=== PATIENT | female | born 1940 | race Caucasian/White ===

== ENCOUNTER 2017-02-21 14:39 | Inpatient (IN) | payer MEDICARE, OTHER ==
[2017-02-21] MEDS ORDERED: Pantoprazole 40 MG Vial IVPUSH ONE (16:58)
[2017-02-21] MEDS ORDERED: Albuterol 8 GM Inhaler INH PRN (18:28)
[2017-02-21] MEDS ORDERED: Pantoprazole 40 MG Vial IV SCH (20:00)
[2017-02-21] MEDS: LORazepam 2 MG/ML MDV IVPUSH PRN (20:03)
[2017-02-21] MEDS: Acetaminophen/HYDROcodone 325-5 MG Tab PO PRN (20:08)
--- NOTE | 2017-02-21 20:43 | PCM.HP ---
H&P History of Present Illness - General Date of Service: 02/21/17 Admit Problem/Dx: Admission Diagnosis/Problem Admission Diagnosis/Problem Hematochezia Source of Information: Patient, Other (Clinic records) History Limitations: Reports: No Limitations - History of Present Illness Initial Comments - Free Text/Narative: Patient was evaluated at [facility] for hematochezia today and was found to have heme+ stools upon rectal exam as well as drop in HGB to 9.8. Patient had been over 11 when checked within the last month. Patient says she has long history of intermittent GI bleeds and has been scoped multiple times. However she says that no focal source of blood loss has ever been identified. Usually the bleeds present as blackish in color. Today's episode was more reddish in nature. She denies any changes in medications. No other complaints except for feeling more fatigued. She was referred for inpatient care from [facility] with plan of placing her NPO and on Protonix/IV fluids. Arrangements made for her to have EGD/colonoscopy performed on . Vital signs stable. Chemistry showed Cr of 1.27 Amylase and Lipase normal. Patient has undergone more recent evaluation for what she describes as a "stitch "-like pain in her right side. It starts in the right CVA area and wraps around towards the mid right abdomen. It is triggered by activity such as washing floors. Improved by rest. No changes with eating/drinkin. Recent CT of abdomen an pelvis performed that was overall unremarkable. No recurrence of cancer noted. Patient did have diverticulosis. She says that her specialists think that it may be related to her arthritis. She also notes having a stroke approximately June of last year. She has recovered well from that except for issues with her right foot when she tries to walk. Generalized Pain Score (Numeric/FACES): 7 - Related Data Allergies/Adverse Reactions: Allergies Allergy/AdvReac Type Severity Reaction Status Date / Time atorvastatin [From Lipitor] Allergy Cannot Verified 02/21/17 16:06 Remember hydrochlorothiazide Allergy Hives Verified 10/07/16 13:27 hydromorphone Allergy Other Verified 10/07/16 13:27 meloxicam Allergy Other Verified 10/07/16 13:27 Penicillins Allergy Hives Verified 10/07/16 13:27 Sulfa (Sulfonamide Allergy Hives Verified 10/07/16 13:27 Antibiotics) trazodone Allergy Itching Verified 10/07/16 13:27 Home Medications: Home Meds Albuterol [Proventil HFA] 1 inh INH Q4HR PRN 04/18/14 [History] cycloSPORINE [Restasis] 1 drop EYEBOTH DAILY@1100,2100 04/18/14 [History] Latanoprost [Xalatan 0.005% Ophth Soln] 1 drop EYEBOTH DAILY@209907/01/14 [ History] Brinzolamide [Azopt] 1 drop EYEBOTH DAILY@1100,209904/17/15 [History] Cetirizine HCl [Zyrtec] 10 mg PO DAILY 04/17/15 [History] Cyanocobalamin (Vitamin B-12) [Vitamin B-12] 1,000 mcg SUBCUT Q30D 04/17/15 [ History] Non-Formulary Medication [NF Drug] 1 drop EYEBOTH BID@1100,209904/17/15 [ History] Pantoprazole Sodium [Protonix] 40 mg PO BID 09/23/15 [History] Calcitriol [Rocaltrol] 0.25 mcg PO DAILY 12/08/15 [History] Mirtazapine [Remeron] 15 mg PO BEDTIME 12/08/15 [History] Triamcinolone Acetonide [Nasacort] 2 sprays NASBOTH DAILY 12/08/15 [History] predniSONE [Prednisone] 2.5 mg PO DAILY 12/08/15 [History] Escitalopram [Lexapro] 10 mg PO DAILY 10/07/16 [History] Potassium Chloride [Klor-Con M20] 20 meq PO DAILY 10/07/16 [History] Rivaroxaban [Xarelto] 10 mg PO DAILY 10/07/16 [History] LORazepam [Ativan] 0.5 mg PO Q8H PRN 02/21/17 [History] Levothyroxine [Synthroid] 50 mcg PO DAILY 02/21/17 [History] Rosuvastatin [Crestor] 10 mg PO BEDTIME 02/21/17 [History] amLODIPine Besylate [Amlodipine Besylate] 10 mg PO DAILY 02/21/17 [History] Past Medical History HEENT History: Reports: Glaucoma, Hard of Hearing Other HEENT History: hyperparathyroidism Cardiovascular History: Reports: High Cholesterol, Hypertension Gastrointestinal History: Reports: GERD, GI Bleed Genitourinary History: Reports: Chronic Renal Insuffiency, UTI, Recurrent, Other (See Below) (Interstitial cystitis) Musculoskeletal History: Reports: Arthritis, Fibromyalgia, Osteoarthritis, Osteoporosis, RA Neurological History: Reports: CVA Other Neuro History: ADD and narcolepsy Psychiatric History: Reports: Anxiety, Depression Endocrine/Metabolic History: Reports: Hyperparathyroidism, Vitamin D Deficiency , Other (See Below) (Graves Disease. Tx with radioactive iodine. History of parathyroidectomy.) Hematologic History: Reports: Anemia, B12 Deficiency, Idiopathic Thrombocytopenia, Iron Deficiency Oncologic (Cancer) History: Reports: Other (See Below) (endometrial cancer) - Infectious Disease History Infectious Disease History: Reports: Chicken Pox, Measles, Mumps - Past Surgical History HEENT Surgical History: Reports: Eye Surgery Other HEENT Surgeries/Procedures: Parathyroid surgery x 2. GI Surgical History: Reports: Appendectomy, Cholecystectomy, Colonoscopy, EGD, Victor Manuel Fundoplication Female Surgical History: Reports: Hysterectomy, Salpingo-Oophorectomy Endocrine Surgical History: Reports: Parathyroidectomy - History Comment History Comment: Narcolepsy, ventral hernia Social & Family History - Tobacco Use Smoking Status *Q: Former Smoker Years of Tobacco use: 30 Used Tobacco, but Quit: Yes Month Tobacco Last Used: 0 Second Hand Smoke Exposure: No - Alcohol Use Days Per Week of Alcohol Use: 0 Number of Drinks Per Day: 0 Total Drinks Per Week: 0 - Recreational Drug Use Recreational Drug Use: No Drug Use in Last 12 Months: No - Living Situation & Occupation Living situation: Reports: , with Family Occupation: Retired H&P Review of Systems - Review of Systems: Review Of Systems: See Below (Patient has multiple chronic medical problems. Only acute change reported is with the bloody stools.) General: Reports: Fatigue (long standing). Denies: Fever, Chills, Night Sweats , Diaphoresis HEENT: Reports: No Symptoms Pulmonary: Reports: No Symptoms Cardiovascular: Reports: No Symptoms Gastrointestinal: Reports: Abdominal Pain (See HPI, has had months of intermittent right sided pain that has been activity related in severity), Hematochezia. Denies: Constipation, Diarrhea, Nausea, Vomiting Genitourinary: Reports: No Symptoms Musculoskeletal: Reports: No Symptoms (No acute changes from baseline) Skin: Reports: No Symptoms Psychiatric: Reports: No Symptoms Neurological: Reports: No Symptoms Exam - Exam Exam: See Below - Vital Signs Vital Signs: Last Vital Signs Temp 36.6 C 02/21/17 15:57 Pulse 75 02/21/17 15:57 Resp BP 129/55 L 02/21/17 15:57 Pulse Ox 100 02/21/17 17:00 Weight: 82.1 kg - Exam General: Alert, Oriented, Cooperative HEENT: Conjunctiva Clear, EACs Clear, EOMI, Hearing Intact (uses hearing aids), Mucosa Moist & [place], Nares Patent, Posterior Pharynx Clear, Pupils Equal, Pupils Reactive Neck: Supple, Trachea Midline Lungs: Clear to Auscultation, Normal Respiratory Effort Cardiovascular: Regular Rate, Regular Rhythm GI/Abdominal Exam: Normal Bowel Sounds, Soft, Non-Tender, No Distention, No Abnormal Bruit (Female) Exam: Deferred Rectal (Female) Exam: Deferred (previously examined/heme tested this afternoon at clinic) Back Exam: No: Paraspinal Tenderness, Vertebral Tenderness Extremities: Non-Tender, Normal Capillary Refill, Pedal Edema (mild edema bilaterally) Peripheral Pulses: 2+: Radial (L), Radial (R) Skin: Warm, Dry Neurological: Cranial Nerves Intact, Reflexes Equal Bilateral, Strength Equal Bilateral Neuro Extensive - Mental Status: Alert, Oriented x3, Normal Mood/Affect, Normal Cognition, Memory Intact Psychiatric: Alert, Normal Affect, Normal Mood *Q Meaningful Use (ADM) - VTE *Q VTE Criteria *Q: VTE Pharmacological Contraindications *Q: Risk of Bleeding - Stroke *Q Stroke Criteria *Q: - AMI *Q AMI Criteria *Q: - Problem List (1) Gastrointestinal bleeding SNOMED Code(s): 99675287 ICD Code: K92.2 - GASTROINTESTINAL HEMORRHAGE, UNSPECIFIED Status: Acute Priority: High Current Visit: Yes Qualifiers: GI bleed type/associated pathology: unspecified gastrointestinal hemorrhage type Qualified Code(s): K92.2 - Gastrointestinal hemorrhage, unspecified (2) GERD (gastroesophageal reflux disease) SNOMED Code(s): 181791411 ICD Code: K21.9 - GASTRO-ESOPHAGEAL REFLUX DISEASE WITHOUT ESOPHAGITIS Status: Chronic Priority: Medium Current Visit: Yes Qualifiers: Esophagitis presence: esophagitis presence not specified Qualified Code(s) : K21.9 - Gastro-esophageal reflux disease without esophagitis (3) B12 deficiency SNOMED Code(s): 420515609 ICD Code: E53.8 - DEFICIENCY OF OTHER SPECIFIED B GROUP VITAMINS Status: Chronic Priority: Low Current Visit: No (4) Rheumatoid arthritis SNOMED Code(s): 61676973 ICD Code: M06.9 - RHEUMATOID ARTHRITIS, UNSPECIFIED Status: Chronic Priority: Low Current Visit: No Qualifiers: Rheumatoid factor presence: without rheumatoid factor Laterality: unspecified laterality (5) CKD (chronic kidney disease) SNOMED Code(s): 810963970 ICD Code: N18.9 - CHRONIC KIDNEY DISEASE, UNSPECIFIED Status: Chronic Priority: Low Current Visit: No Qualifiers: Chronic kidney disease stage: unspecified stage Qualified Code(s): N18.9 - Chronic kidney disease, unspecified (6) Osteoporosis SNOMED Code(s): 91248717 ICD Code: M81.0 - AGE-RELATED OSTEOPOROSIS W/O CURRENT PATHOLOGICAL FRACTURE Status: Chronic Priority: Low Current Visit: No Qualifiers: Osteoporosis type: unspecified (7) Thrombocytopenia SNOMED Code(s): 012571208 ICD Code: D69.6 - THROMBOCYTOPENIA, UNSPECIFIED Status: Chronic Priority : Low Current Visit: No (8) Graves disease SNOMED Code(s): 499310006 ICD Code: E05.00 - THYROTOXICOSIS W DIFFUSE GOITER W/O THYROTOXIC CRISIS Status: Inactive Priority: Low Current Visit: No Problem Details: Hx Graves. Radioactive Iodine treatment. (9) Fibromyalgia SNOMED Code(s): 952769982 ICD Code: M79.7 - FIBROMYALGIA Status: Chronic Priority: Low Current Visit: No (10) Glaucoma SNOMED Code(s): 50372369 ICD Code: H40.9 - UNSPECIFIED GLAUCOMA Status: Chronic Priority: Low Current Visit: No Qualifiers: Glaucoma type: unspecified (11) Endometrial cancer SNOMED Code(s): 921521636 ICD Code: C54.1 - MALIGNANT NEOPLASM OF ENDOMETRIUM Status: Inactive Priority: Low Current Visit: No (12) CVA (cerebral vascular accident) SNOMED Code(s): 187460694 ICD Code: I63.9 - CEREBRAL INFARCTION, UNSPECIFIED Status: Chronic Priority: Low Current Visit: No Qualifiers: Laterality of affected vessel: unspecified (13) HTN, Benign hypertension SNOMED Code(s): 32481641 ICD Code: I10 - ESSENTIAL (PRIMARY) HYPERTENSION Status: Chronic Priority : Low Current Visit: No Problem List Initiated/Reviewed/Updated: Yes Orders Last 24hrs: Active Orders 24 hr Category Date Time Status Patient Status [ADT] Routine ADT 02/21/17 18:21 Active Antiembolic Devices [RC] 08,20 Care 02/21/17 18:26 Active Communication Order [RC] ROUTINE Care 02/21/17 20:23 Ordered Height and Weight [RC] UPON Care 02/21/17 18:21 Active Intake and Output [RC] QSHIFT Care 02/21/17 18:23 Active Oxygen Therapy [RC] PRN Care 02/21/17 18:21 Active Pulse Oximetry [RC] PRN Care 02/21/17 18:23 Active Up With Assistance [RC] ASDIRECTED Care 02/21/17 18:21 Active VTE/DVT Education [RC] PER UNIT ROUTINE Care 02/21/17 18:21 Active Vital Signs [RC] Q6HR Care 02/21/17 18:21 Active OT Evaluation and Treatment [CONS] Routine Cons 02/21/17 18:21 Active PT Evaluation and Treatment [CONS] Routine Cons 02/21/17 18:21 Active Nothing per Oral Now Diet [DIET] Diet 02/21/17 Dinner Active Abdomen 2V AP Flat Upright [CR] Routine Exams 02/21/17 14:35 Taken BASIC METABOLIC PANEL,BMP [CHEM] AM Lab 02/22/17 05:11 Ordered BASIC METABOLIC PANEL,BMP [CHEM] AM Lab 02/23/17 05:11 Ordered BASIC METABOLIC PANEL,BMP [CHEM] AM Lab 02/24/17 05:11 Ordered CBC WITH AUTO DIFF [HEME] AM Lab 02/22/17 05:11 Ordered CBC WITH AUTO DIFF [HEME] AM Lab 02/23/17 05:11 Ordered CBC WITH AUTO DIFF [HEME] AM Lab 02/24/17 05:11 Ordered Acetaminophen/HYDROcodone [[place] 325-5 MG] Med 02/21/17 19:50 Active 1 tab PO Q4H PRN Albuterol [Ventolin HFA] Med 02/21/17 18:28 Active 0 gm INH Q4HR PRN Bisacodyl [Dulcolax] Med 02/22/17 18:00 Once 10 mg PO ONETIME ONE Brinzolamide [Azopt] Med 02/21/17 21:00 Pending 1 drop EYEBOTH DAILY@1100,2100 Cyclosporine [Restasis] Med 02/21/17 21:00 Hold 1 drop EYEBOTH DAILY@1100,2100 Dextrose 5%-0.45% NaCl [Dextrose 5%-1/2 NS] 1,000 ml Med 02/21/17 18:30 Active IV ASDIRECTED LORazepam [Ativan] Med 02/21/17 18:30 Active 0.5 mg IVPUSH Q6H PRN Latanoprost [Xalatan 0.005% Ophth Soln] Med 02/21/17 21:00 Active 0 ml EYEBOTH DAILY@2100 Non-Formulary Medication [NF Drug] Med 02/21/17 21:00 Pending 1 drop EYEBOTH BID@1100,2100 Ondansetron [Zofran] Med 02/21/17 18:21 Active 4 mg IVPUSH Q6H PRN Pantoprazole [ProTONIX IV] Med 02/22/17 08:00 Ordered 40 mg IV Q12HR Polyethylene Glycol 3350 [MiraLAX] Med 02/23/17 12:00 Once 238 gm PO ONETIME ONE Triamcinolone Acetonide [Nasacort] Med 02/22/17 08:00 Pending 2 sprays NASBOTH DAILY Antiembolic Hose [OM.PC] Per Unit Routine Oth 02/21/17 18:24 Ordered Sequential Compression Device [OM.PC] Per Unit Routine Oth 02/21/17 18:24 Ordered VTE Pharmacological Contraindications [AST] Per Unit Oth 02/21/17 18:21 Ordered Routine Resuscitation Status Routine Resus Stat 02/21/17 18:21 Ordered Medication Orders Hydrocodone Bitart/Acetaminophen ([place] 325-5 Mg) 1 tab PO Q4H PRN PRN Reason: Pain Last Admin: 02/21/17 20:08 Dose: 1 tab Albuterol (Ventolin Hfa) 0 gm INH Q4HR PRN PRN Reason: Shortness of Breath Bisacodyl (Dulcolax) 10 mg PO ONETIME ONE Stop: 02/22/17 18:01 Dextrose/Sodium Chloride (Dextrose 5%-1/2 Ns) 1,000 mls @ 125 mls/hr IV ASDIRECTED KATLIN Latanoprost (Xalatan 0.005% Ophth Soln) 0 ml EYEBOTH DAILY@2100 KATLIN Lorazepam (Ativan) 0.5 mg IVPUSH Q6H PRN PRN Reason: Anxiety Last Admin: 02/21/17 20:03 Dose: 0.5 mg Non-FormAzopt] 1 (Drop)) 1 drop EYEBOTH DAILY@1100,2100 KATLIN Non-FormNon- Formulary Medication [Nf Drug] 1 Drop) 1 drop EYEBOTH BID@1100 ,2100 KATLIN Non-FormNasacort 2 sprays NASBOTH DAILY [facility] Non-FormRestasis (Opth Drops) 1 drop EYEBOTH DAILY@1100,2100 KATLIN Ondansetron HCl (Zofran) 4 mg IVPUSH Q6H PRN PRN Reason: Nausea/Vomiting Pantoprazole Sodium (Protonix Iv) 40 mg IV Q12HR KATLIN Polyethylene Glycol (Miralax) 238 gm PO ONETIME ONE Stop: 02/23/17 12:01 Assessment/Plan Comment:: GI bleed in patient with history of multiple prior GI bleeds. Plan at this time is to keep patient NPO. IV fluids ordered. Protonix given. Will continue to monitor Hgb/Hct. Current plan if for patient to undergo EGD and colonoscopy on .
[2017-02-21] MEDS ORDERED: AZOPT 1% EYEBOTH SCH (21:00)
[2017-02-21] MEDS ORDERED: [UNRECOGNIZED DRUG - REMARK] EYEBOTH SCH ×2 (21:00)
[2017-02-21] MEDS ORDERED: OPTH EYEBOTH SCH (21:00)
[2017-02-21] MEDS: Dextrose 5%-0.45% NaCl 1,000 ML IV SCH (22:00)
[2017-02-21] MEDS: Latanoprost 0.005% Ophth Soln 2.5 ML Bottle EYEBOTH SCH (22:03)
[2017-02-21] MEDS: AZOPT 1% EYEBOTH SCH (22:05)
[2017-02-22] MEDS: Acetaminophen/HYDROcodone 325-5 MG Tab PO PRN ×3 (03:15→19:34)
[2017-02-22] MEDS: Dextrose 5%-0.45% NaCl 1,000 ML IV SCH ×2 (03:48→12:08)
[2017-02-22] MEDS: Ondansetron 4 MG/2 ML SDV IVPUSH PRN (05:57)
[2017-02-22] MEDS: Pantoprazole 40 MG Vial IV SCH ×2 (07:30→19:35)
[2017-02-22] MEDS: AZOPT 1% EYEBOTH SCH ×4 (11:41→20:32)
[2017-02-22] MEDS: LORazepam 2 MG/ML MDV IVPUSH PRN (14:13)
--- NOTE | 2017-02-22 15:48 | PCM.PN ---
- General Info Date of Service: 02/22/17 Admission Dx/Problem (Free Text): GI bleed upper GI Functional Status: Reports: Pain Controlled - Review of Systems General: Reports: Weakness HEENT: Reports: No Symptoms Pulmonary: Reports: No Symptoms Cardiovascular: Reports: No Symptoms Gastrointestinal: Reports: No Symptoms Musculoskeletal: Reports: Other (Rise aches) Skin: Reports: No Symptoms Neurological: Reports: No Symptoms Psychiatric: Reports: No Symptoms - Patient Data Vitals - Most Recent: Last Vital Signs Temp 98.3 F 02/22/17 11:24 Pulse 86 02/22/17 11:24 Resp 15 02/22/17 11:24 BP 145/58 H 02/22/17 11:24 Pulse Ox 100 02/22/17 11:24 Weight - Most Recent: 180 lb 15.992 oz I&O - Last 24 Hours: Intake & Output 02/22/17 02/22/17 02/22/17 06:59 14:59 22:59 Intake Total 2382 720 Output Total 200 250 Balance 2182 470 Lab Results Last 24 Hours: Laboratory Results - last 24 hr 02/22/17 02/22/17 Range/Units 06:55 06:55 WBC 4.0 (4.0-10.2) K/uL RBC 3.52 L (3.77-5.09) M/uL Hgb 8.5 L D (11.7-15.5) g/dL Hct 28.2 L (34.0-46.0) % MCV 80.1 L (84.0-98.0) fL MCH 24.1 L (28.2-33.3) pg MCHC 30.1 L (31.7-36.0) g/dL RDW 18.7 H (11.2-14.1) % Plt Count 139 L (150-350) K/uL Neut % (Auto) 35.7 L (45.0-80.0) % Lymph % (Auto) 49.9 (10.0-50.0) % [place] % (Auto) 11.3 (2.0-14.0) % Eos % (Auto) 2.8 (0.0-5.0) % Baso % (Auto) 0.3 (0.0-2.0) % Neut # (Auto) 1.42 (1.40-7.00) K/uL Lymph # (Auto) 1.98 (0.50-3.50) K/uL [place] # (Auto) 0.45 (0.00-1.00) K/uL Eos # (Auto) 0.11 (0.00-0.50) K/uL Baso # (Auto) 0.01 (0.00-0.20) K/uL Sodium 143 (136-145) mmol/L Potassium 3.5 (3.5-5.1) mmol/L Chloride 107 (98-107) mmol/L Carbon Dioxide 24.8 (21.0-32.0) mmol/L BUN 14 (7-18) mg/dL Creatinine 1.18 H (0.51-1.17) mg/dL Est Cr Clr Drug Dosing 40.06 mL/min Estimated GFR (MDRD) 45 mL/min Glucose 111 H (74-106) mg/dL Calcium 8.3 L (8.5-10.1) mg/dL Med Orders - Current: Current Medications Hydrocodone Bitart/Acetaminophen ([place] 325-5 Mg) 1 tab PO Q4H PRN PRN Reason: Pain Last Admin: 02/22/17 14:11 Dose: 1 tab Albuterol (Ventolin Hfa) 0 gm INH Q4HR PRN PRN Reason: Shortness of Breath Bisacodyl (Dulcolax) 10 mg PO ONETIME ONE Stop: 02/22/17 18:01 Latanoprost (Xalatan 0.005% Ophth Soln) 0 ml EYEBOTH DAILY@2099 [facility] Last Admin: 02/21/17 22:03 Dose: 1 drop Lorazepam (Ativan) 0.5 mg IVPUSH Q6H PRN PRN Reason: Anxiety Last Admin: 02/22/17 14:13 Dose: 0.5 mg Azopt (Brinzolamide) (1% Ophth Susp) 1 drop EYEBOTH BID@1099,2099 [facility] Last Admin: 02/22/17 11:42 Dose: 1 drop Nasacort ( Triamcinolone) Nasal [place] 2 sprays NASBOTH DAILY [facility] Last Admin: 02/22/17 11:42 Dose: 2 sprays Non-FormRestasis (Opth Drops) 1 drop EYEBOTH DAILY@1100,2100 [facility] Ocupress (Carteolol) (1% Ophth Susp) 1 each EYEBOTH BID [facility] Ondansetron HCl (Zofran) 4 mg IVPUSH Q6H PRN PRN Reason: Nausea/Vomiting Last Admin: 02/22/17 05:57 Dose: 4 mg Pantoprazole Sodium (Protonix Iv) 40 mg IV Q12HR [facility] Last Admin: 02/22/17 07:30 Dose: 40 mg Polyethylene Glycol (Miralax) 238 gm PO ONETIME ONE Stop: 02/23/17 12:01 Discontinued Medications Dextrose/Sodium Chloride (Dextrose 5%-1/2 Ns) 1,000 mls @ 125 mls/hr IV ASDIRECTED [facility] Last Admin: 02/22/17 12:08 Dose: 125 mls/hr PtomAzopt 1% (Opth Drops) 0 drop EYEBOTH DAILY@1100,2100 [facility] Non-FormRestasis (Opth Drops) 1 drop EYEBOTH DAILY@1100,2100 [facility] Pantoprazole Sodium (Protonix Iv) 80 mg IVPUSH ONETIME ONE Stop: 02/21/17 16:59 Last Admin: 02/21/17 18:25 Dose: 80 mg Pantoprazole Sodium (Protonix Iv) 40 mg IV Q12HR [facility] Last Admin: 02/21/17 21:27 Dose: Not Given Patient's Own (Medication Azopt 1%) 0 each EYEBOTH DAILY@1100,2100 [facility] Last Admin: 02/21/17 22:05 Dose: 1 each - Exam General: Alert, Oriented HEENT: Pupils Equal, Pupils Reactive, EOMI, Mucous Membr. Moist/[place] Neck: Supple Lungs: Clear to Auscultation, Normal Respiratory Effort Cardiovascular: Regular Rate, Regular Rhythm GI/Abdominal Exam: Soft, No Distention, No Mass, Tender, Abnormal Bowel Sounds Back Exam: Normal Inspection, Full Range of Motion Extremities: Normal Inspection - Problem List & Annotations (1) Gastrointestinal bleeding SNOMED Code(s): 18155452 Code(s): K92.2 - GASTROINTESTINAL HEMORRHAGE, UNSPECIFIED Status: Acute Priority: High Current Visit: Yes Qualifiers: GI bleed type/associated pathology: unspecified gastrointestinal hemorrhage type Qualified Code(s): K92.2 - Gastrointestinal hemorrhage, unspecified - Problem List Review Problem List Initiated/Reviewed/Updated: Yes - My Orders Last 24 Hours: My Active Orders 02/22/17 15:36 CBC WITH AUTO DIFF [HEME] Stat 02/22/17 Dinner Clear Liquid Diet [DIET] - Plan Plan:: GI bleed in patient with history of multiple prior GI bleeds. Plan at this time is to keep patient NPO. IV fluids ordered. Protonix given. Will continue to monitor Hgb/Hct. Current plan if for patient to undergo EGD and colonoscopy on . At this time we will repeat her hemoglobin now and in the morning see if stable or if we'll need to transfuse patient appears stable at this time we'll start PT for strengthening and ambulation also will start clear liquid diet.
[2017-02-22] MEDS ORDERED: Bisacodyl 5 MG Tab PO ONE (18:00)
[2017-02-22] MEDS ORDERED: CARTEOLOL 1% EYEBOTH SCH (18:00)
[2017-02-22] MEDS: Latanoprost 0.005% Ophth Soln 2.5 ML Bottle EYEBOTH SCH (20:32)
[2017-02-23] MEDS: Pantoprazole 40 MG Vial IV SCH ×2 (07:20→20:06)
[2017-02-23] MEDS: LORazepam 2 MG/ML MDV IVPUSH PRN ×2 (08:52→22:25)
[2017-02-23] MEDS: Acetaminophen/HYDROcodone 325-5 MG Tab PO PRN ×4 (10:39→18:30)
[2017-02-23] MEDS ORDERED: Polyethylene Glycol 3350 Powder 238 GM Bot PO ONE (12:00)
[2017-02-23] MEDS: Ondansetron 4 MG/2 ML SDV IVPUSH PRN ×2 (12:34→18:30)
[2017-02-23] MEDS: AZOPT 1% EYEBOTH SCH ×2 (12:44→20:06)
[2017-02-23] MEDS ORDERED: Sodium Chloride 0.9% 1,000 ML IV ONE (15:30)
--- NOTE | 2017-02-23 15:36 | PCM.PN ---
- General Info Date of Service: 02/23/17 Admission Dx/Problem (Free Text): GI bleed upper GI Functional Status: Reports: Pain Controlled, Tolerating Diet, Ambulating, Urinating - Review of Systems General: Reports: No Symptoms HEENT: Reports: No Symptoms Pulmonary: Reports: No Symptoms Cardiovascular: Reports: No Symptoms Gastrointestinal: Reports: No Symptoms Genitourinary: Reports: Other (Patient described sensation of having "bladder spasms" last night that reminded her of UTIs in past. Gone this morning. ). Denies: Frequency, Burning, Urgency Musculoskeletal: Reports: No Symptoms Skin: Reports: No Symptoms Neurological: Reports: No Symptoms Psychiatric: Reports: No Symptoms - Patient Data Vitals - Most Recent: Last Vital Signs Temp 36.6 C 02/23/17 12:00 Pulse 84 02/23/17 12:00 Resp 17 02/23/17 12:00 BP 123/53 L 02/23/17 12:00 Pulse Ox 90 L 02/23/17 12:00 Weight - Most Recent: 82.1 kg I&O - Last 24 Hours: Intake & Output 02/23/17 02/23/17 02/23/17 06:59 14:59 22:59 Intake Total 250 720 Balance 250 720 Lab Results Last 24 Hours: Laboratory Results - last 24 hr 02/22/17 02/23/17 02/23/17 Range/Units 16:25 06:55 06:55 WBC 4.2 6.1 (4.0-10.2) K/uL RBC 3.72 L 3.72 L (3.77-5.09) M/uL Hgb 8.9 L 9.0 L (11.7-15.5) g/dL Hct 30.0 L 30.2 L (34.0-46.0) % MCV 80.6 L 81.2 L (84.0-98.0) fL MCH 23.9 L 24.2 L (28.2-33.3) pg MCHC 29.7 L 29.8 L (31.7-36.0) g/dL RDW 18.6 H 19.0 H (11.2-14.1) % Plt Count 154 140 L (150-350) K/uL Neut % (Auto) 45.4 58.1 (45.0-80.0) % Lymph % (Auto) 41.5 33.0 (10.0-50.0) % [place] % (Auto) 10.3 6.7 (2.0-14.0) % Eos % (Auto) 2.6 2.0 (0.0-5.0) % Baso % (Auto) 0.2 0.2 (0.0-2.0) % Neut # (Auto) 1.89 3.54 (1.40-7.00) K/uL Lymph # (Auto) 1.73 2.01 (0.50-3.50) K/uL [place] # (Auto) 0.43 0.41 (0.00-1.00) K/uL Eos # (Auto) 0.11 0.12 (0.00-0.50) K/uL Baso # (Auto) 0.01 0.01 (0.00-0.20) K/uL Sodium 140 (136-145) mmol/L Potassium 3.5 (3.5-5.1) mmol/L Chloride 106 (98-107) mmol/L Carbon Dioxide 24.2 (21.0-32.0) mmol/L BUN 11 (7-18) mg/dL Creatinine 1.31 H (0.51-1.17) mg/dL Est Cr Clr Drug Dosing 35.99 mL/min Estimated GFR (MDRD) 40 mL/min Glucose 95 (74-106) mg/dL Calcium 7.9 L (8.5-10.1) mg/dL Med Orders - Current: Current Medications Hydrocodone Bitart/Acetaminophen ([place] 325-5 Mg) 1 tab PO Q4H PRN PRN Reason: Pain Last Admin: 02/23/17 14:41 Dose: 1 tab Albuterol (Ventolin Hfa) 0 gm INH Q4HR PRN PRN Reason: Shortness of Breath Lactated Ringer's (Ringers, Lactated) 1,000 mls @ 125 mls/hr IV ASDIRECTED [facility] Sodium Chloride (Normal Saline) 1,000 mls @ 75 mls/hr IV ONETIME ONE Stop: 02/24/17 04:49 Latanoprost (Xalatan 0.005% Ophth Soln) 0 ml EYEBOTH DAILY@2100 [facility] Last Admin: 02/22/17 20:32 Dose: 1 drop Lorazepam (Ativan) 0.5 mg IVPUSH Q6H PRN PRN Reason: Anxiety Last Admin: 02/23/17 08:52 Dose: 0.5 mg Azopt (Brinzolamide) (1% Ophth Susp) 1 drop EYEBOTH BID@1100,2100 [facility] Last Admin: 02/23/17 12:44 Dose: 1 drop Nasacort ( Triamcinolone) Nasal [place] 2 sprays NASBOTH DAILY [facility] Last Admin: 02/23/17 07:20 Dose: 2 sprays Non-FormRestasis (Opth Drops) 1 drop EYEBOTH DAILY@1100,2100 [facility] Ocupress (Carteolol) (1% Ophth Susp) 1 each EYEBOTH BID [facility] Ondansetron HCl (Zofran) 4 mg IVPUSH Q6H PRN PRN Reason: Nausea/Vomiting Last Admin: 02/23/17 12:34 Dose: 4 mg Pantoprazole Sodium (Protonix Iv) 40 mg IV Q12HR [facility] Last Admin: 02/23/17 07:20 Dose: 40 mg Sodium Chloride (Saline Flush) 10 ml FLUSH ASDIRECTED PRN PRN Reason: Keep Vein Open Sodium Chloride (Saline Flush) 10 ml FLUSH BID@0800,1999 [facility] Discontinued Medications Bisacodyl (Dulcolax) 10 mg PO ONETIME ONE Stop: 02/22/17 18:01 Last Admin: 02/22/17 17:40 Dose: 10 mg Dextrose/Sodium Chloride (Dextrose 5%-1/2 Ns) 1,000 mls @ 125 mls/hr IV ASDIRECTED [facility] Last Admin: 02/22/17 12:08 Dose: 125 mls/hr PtomAzopt 1% (Opth Drops) 0 drop EYEBOTH DAILY@1100,2100 [facility] Non-FormRestasis (Opth Drops) 1 drop EYEBOTH DAILY@1100,2100 [facility] Pantoprazole Sodium (Protonix Iv) 80 mg IVPUSH ONETIME ONE Stop: 02/21/17 16:59 Last Admin: 02/21/17 18:25 Dose: 80 mg Pantoprazole Sodium (Protonix Iv) 40 mg IV Q12HR [facility] Last Admin: 02/21/17 21:27 Dose: Not Given Patient's Own (Medication Azopt 1%) 0 each EYEBOTH DAILY@1100,2100 [facility] Last Admin: 02/22/17 17:55 Dose: Not Given Polyethylene Glycol (Miralax) 238 gm PO ONETIME ONE Stop: 02/23/17 12:01 Last Admin: 02/23/17 12:43 Dose: 238 gm - Exam General: Alert, Oriented, Cooperative, No Acute Distress HEENT: Pupils Equal, Pupils Reactive, EOMI, Mucous Membr. Moist/[place] Neck: Supple Lungs: Clear to Auscultation, Normal Respiratory Effort Cardiovascular: Regular Rate, Regular Rhythm. No: No Murmurs GI/Abdominal Exam: Normal Bowel Sounds, Soft, Non-Tender, No Distention (Female) Exam: Deferred Back Exam: No: CVA Tenderness (L), CVA Tenderness (R), Muscle Spasm, Paraspinal Tenderness Extremities: Non-Tender, Normal Capillary Refill Peripheral Pulses: 2+: Radial (L), Radial (R) Skin: Warm, Dry Neurological: No New Focal Deficit Psy/Mental Status: Alert, Normal Affect, Normal Mood - Problem List & Annotations (1) Gastrointestinal bleeding SNOMED Code(s): 34115481 Code(s): K92.2 - GASTROINTESTINAL HEMORRHAGE, UNSPECIFIED Status: Acute Priority: High Current Visit: Yes Qualifiers: GI bleed type/associated pathology: unspecified gastrointestinal hemorrhage type Qualified Code(s): K92.2 - Gastrointestinal hemorrhage, unspecified Annotation/Comment:: Stabilized. Hemoglobin at 9 today. (2) GERD (gastroesophageal reflux disease) SNOMED Code(s): 711547603 Code(s): K21.9 - GASTRO-ESOPHAGEAL REFLUX DISEASE WITHOUT ESOPHAGITIS Status: Chronic Priority: Medium Current Visit: Yes Qualifiers: Esophagitis presence: esophagitis presence not specified Qualified Code(s) : K21.9 - Gastro-esophageal reflux disease without esophagitis Annotation/Comment:: stable (3) B12 deficiency SNOMED Code(s): 827186439 Code(s): E53.8 - DEFICIENCY OF OTHER SPECIFIED B GROUP VITAMINS Status: Chronic Priority: Low Current Visit: No (4) Rheumatoid arthritis SNOMED Code(s): 10482698 Code(s): M06.9 - RHEUMATOID ARTHRITIS, UNSPECIFIED Status: Chronic Priority: Low Current Visit: No Qualifiers: Rheumatoid factor presence: without rheumatoid factor Laterality: unspecified laterality Annotation/Comment:: stable (5) CKD (chronic kidney disease) SNOMED Code(s): 886633120 Code(s): N18.9 - CHRONIC KIDNEY DISEASE, UNSPECIFIED Status: Chronic Priority: Low Current Visit: No Qualifiers: Chronic kidney disease stage: unspecified stage Qualified Code(s): N18.9 - Chronic kidney disease, unspecified Annotation/Comment:: stable (6) Osteoporosis SNOMED Code(s): 84060412 Code(s): M81.0 - AGE-RELATED OSTEOPOROSIS W/O CURRENT PATHOLOGICAL FRACTURE Status: Chronic Priority: Low Current Visit: No Qualifiers: Osteoporosis type: unspecified Annotation/Comment:: stable (7) Thrombocytopenia SNOMED Code(s): 383154882 Code(s): D69.6 - THROMBOCYTOPENIA, UNSPECIFIED Status: Chronic Priority: Low Current Visit: No (8) Fibromyalgia SNOMED Code(s): 478875701 Code(s): M79.7 - FIBROMYALGIA Status: Chronic Priority: Low Current Visit: No Annotation/Comment:: stable (9) Glaucoma SNOMED Code(s): 77072979 Code(s): H40.9 - UNSPECIFIED GLAUCOMA Status: Chronic Priority: Low Current Visit: No Qualifiers: Glaucoma type: unspecified (10) CVA (cerebral vascular accident) SNOMED Code(s): 200192790 Code(s): I63.9 - CEREBRAL INFARCTION, UNSPECIFIED Status: Chronic Priority: Low Current Visit: No Qualifiers: Laterality of affected vessel: unspecified (11) HTN, Benign hypertension SNOMED Code(s): 71360190 Code(s): I10 - ESSENTIAL (PRIMARY) HYPERTENSION Status: Chronic Priority : Low Current Visit: No Annotation/Comment:: stable (12) Anemia SNOMED Code(s): 627760977 Code(s): D64.9 - ANEMIA, UNSPECIFIED Status: Acute Priority: Medium Current Visit: Yes Qualifiers: Anemia type: other cause Annotation/Comment:: Hemoglobin improved to 9 today. - Problem List Review Problem List Initiated/Reviewed/Updated: Yes - My Orders Last 24 Hours: My Active Orders 02/22/17 18:00 Non-Formulary Medication [NF Drug] 1 each EYEBOTH BID 02/23/17 12:34 Sodium Chloride 0.9% [Saline Flush] 10 ml FLUSH ASDIRECTED PRN 02/23/17 15:17 OCCULT BLOOD DIAGNOSTIC [OP] Routine 02/23/17 15:19 UA W/MICROSCOPIC [URIN] Routine 02/23/17 15:30 Sodium Chloride 0.9% [Normal Saline] 1,000 ml IV ONETIME 02/23/17 20:00 Sodium Chloride 0.9% [Saline Flush] 10 ml FLUSH BID@0800,2000 02/24/17 00:01 Verify Patient Consent Obtain [RC] ASDIRECTED 02/24/17 05:11 BASIC METABOLIC PANEL,BMP [CHEM] AM CBC WITH AUTO DIFF [HEME] AM 02/24/17 09:00 Lactated Ringers [Ringers, Lactated] 1,000 ml IV ASDIRECTED 02/24/17 Breakfast NPO After Midnight [Nothing per Oral After Midnight Diet] [DIET] - Assessment Assessment:: GI bleed. Patient has not noticed any blood in most recent stools. Hemoglobin stable at 9. Overall patient feels a bit improved compared to time of admission. - Plan Plan:: As above. Patient to undergo EGD and colonoscopy tomorrow. UA requested. Repeat CBC/BMP in morning. Screen for occult blood in stool.
[2017-02-23] MEDS: Latanoprost 0.005% Ophth Soln 2.5 ML Bottle EYEBOTH SCH (20:06)
[2017-02-23] MEDS: Sodium Chloride 0.9% 10 ML Syringe FLUSH SCH (20:06)
[2017-02-23] MEDS: Sodium Chloride 0.9% 10 ML Syringe FLUSH PRN (22:27)
[2017-02-24] MEDS: Pantoprazole 40 MG Vial IV SCH ×2 (08:44→19:52)
[2017-02-24] MEDS: Sodium Chloride 0.9% 10 ML Syringe FLUSH SCH ×2 (08:45→19:52)
[2017-02-24] MEDS ORDERED: Propofol 200 MG/20 ML SDV ONE ×3 (09:00→10:47)
[2017-02-24] MEDS ORDERED: Lactated Ringers 1,000 ML IV SCH (09:00)
[2017-02-24] MEDS: Sodium Chloride 0.9% 10 ML Syringe FLUSH PRN ×3 (09:15→19:54)
--- NOTE | 2017-02-24 09:46 | PCM.HPR ---
H & P Addendum review - H & P Addendum Review Date of Original H & P: 02/21/17 Date Reviewed: 02/24/17 Time Reviewed: 09:46 Patient was Examined: No Changes
--- NOTE | 2017-02-24 10:41 | PCM.OPNOTE ---
- General Post-Op/Procedure Note Date of Surgery/Procedure: 02/24/17 Operative Procedure(s): EGD and Colonoscopy Findings: Normal EGD Sig tics Pre Op Diagnosis: GI Bleed Post-Op Diagnosis: Same Anesthesia Technique: MAC Primary Surgeon: Martin Mcmahon EBL in mLs: 0 Complications: None Condition: Good Free Text/Narrative:: Intake & Output 02/23/17 02/24/17 02/24/17 22:59 06:59 14:59 Intake Total 137 1000 Output Total 250 Balance 137 1000 -250
[2017-02-24] MEDS: Acetaminophen/HYDROcodone 325-5 MG Tab PO PRN (12:02)
[2017-02-24] MEDS: AZOPT 1% EYEBOTH SCH ×2 (12:04→21:06)
[2017-02-24] MEDS ORDERED: Iopamidol 612 MG/ML 100 ML Bottle IVPUSH ONE (12:31)
--- NOTE | 2017-02-24 13:58 | OR ---
Date of Procedure: 02/24/2017 PREOPERATIVE DIAGNOSIS: Gastrointestinal bleed. POSTOPERATIVE DIAGNOSES: 1. Normal EGD. 2. Sigmoid diverticulosis. PROCEDURES: 1. EGD. 2. Colonoscopy to the ascending colon. ANESTHESIA: IV sedation. PROCEDURE IN DETAIL: Patient was brought to the procedure room, where she was placed on her left side and the oral bite block placed. The upper endoscope was advanced into the esophagus under direct vision without difficulty. Vocal cords were viewed and were normal. Scope was advanced to the 3rd portion of the duodenum. Duodenum and pylorus were normal. Antrum and body of the stomach were normal. Retroflexion reveals a normal-appearing fundus. Air was removed from the stomach and the scope withdrawn through the remaining esophagus which appears normal. The patient tolerated this portion of the procedure well. Next, colonoscopy was performed after digital rectal exam was done, which was normal. Colonoscope was inserted and advanced to the level of the ascending colon with significant difficulty getting through a tortuous colon. With pressure on the abdomen and changing to the supine position, I was able to get to what I believe was the ascending colon. Light transilluminating along the right side and I feel I possibly saw the ileocecal valve, but was unable to get into the cecum. Up to that point, prep was only fair with some thick stool remaining, but there was no sign of any blood. Upon withdrawing the scope, all segments of the colon appeared normal other than being very tortuous and the sigmoid colon had multiple diverticula present. Rectum was normal and retroflexion was normal. Air was removed and the scope withdrawn. Patient tolerated the procedure well and returned to her room in stable condition. No source of bleeding was identified. I would recommend she consider doing a CT scan of the abdomen and pelvis to evaluate the cecum and small bowel. EFRAÍN LEMONS MD /[id number]
[2017-02-24] MEDS: Sodium Chloride 0.9% 1,000 ML IV SCH (15:30)
[2017-02-24] MEDS: Potassium Chloride 20 MEQ Tab.ER PO SCH (16:25)
[2017-02-24] MEDS: Escitalopram 20 MG Tab PO SCH (16:26)
[2017-02-24] MEDS: predniSONE 5 MG Tab PO SCH (16:28)
[2017-02-24] MEDS: Levothyroxine 50 MCG Tab PO SCH (16:29)
--- NOTE | 2017-02-24 17:42 | PCM.PN ---
- General Info Date of Service: 02/24/17 Admission Dx/Problem (Free Text): GI bleed upper GI Functional Status: Reports: Pain Controlled, Tolerating Diet - Review of Systems General: Reports: No Symptoms HEENT: Reports: No Symptoms Pulmonary: Reports: No Symptoms Cardiovascular: Reports: No Symptoms Gastrointestinal: Reports: No Symptoms Genitourinary: Reports: No Symptoms Musculoskeletal: Reports: No Symptoms Skin: Reports: No Symptoms Neurological: Reports: No Symptoms Psychiatric: Reports: No Symptoms - Patient Data Vitals - Most Recent: Last Vital Signs Temp 96.1 F 02/24/17 12:00 Pulse 94 02/24/17 12:00 Resp 16 02/24/17 12:00 BP 169/51 H 02/24/17 12:00 Pulse Ox 94 L 02/24/17 12:00 Weight - Most Recent: 180 lb 15.992 oz I&O - Last 24 Hours: Intake & Output 02/24/17 02/24/17 02/24/17 06:59 14:59 22:59 Intake Total 1000 500 Output Total 810 Balance 1000 -310 Lab Results Last 24 Hours: Laboratory Results - last 24 hr 02/23/17 02/24/17 02/24/17 Range/Units 21:20 07:00 07:00 WBC 3.8 L (4.0-10.2) K/uL RBC 3.47 L (3.77-5.09) M/uL Hgb 8.5 L (11.7-15.5) g/dL Hct 28.2 L (34.0-46.0) % MCV 81.3 L (84.0-98.0) fL MCH 24.5 L (28.2-33.3) pg MCHC 30.1 L (31.7-36.0) g/dL RDW 18.7 H (11.2-14.1) % Plt Count 133 L (150-350) K/uL Neut % (Auto) 41.1 L (45.0-80.0) % Lymph % (Auto) 45.4 (10.0-50.0) % [place] % (Auto) 9.8 (2.0-14.0) % Eos % (Auto) 3.4 (0.0-5.0) % Baso % (Auto) 0.3 (0.0-2.0) % Neut # (Auto) 1.55 (1.40-7.00) K/uL Lymph # (Auto) 1.71 (0.50-3.50) K/uL [place] # (Auto) 0.37 (0.00-1.00) K/uL Eos # (Auto) 0.13 (0.00-0.50) K/uL Baso # (Auto) 0.01 (0.00-0.20) K/uL Sodium 142 (136-145) mmol/L Potassium 3.5 (3.5-5.1) mmol/L Chloride 108 H (98-107) mmol/L Carbon Dioxide 23.2 (21.0-32.0) mmol/L BUN 8 (7-18) mg/dL Creatinine 1.21 H (0.51-1.17) mg/dL Est Cr Clr Drug Dosing 38.96 mL/min Estimated GFR (MDRD) 43 mL/min Glucose 93 (74-106) mg/dL Calcium 7.6 L (8.5-10.1) mg/dL Specimen Type Urinblad Urine Color Yellow Urine Appearance Clear Urine pH 5.5 (5.0-9.0) Ur Specific [place] <= 1.005 (1.005-1.030) Urine Protein Negative (NEGATIVE) mg/dL Urine Glucose (UA) Negative (NEGATIVE) mg/dL Urine Ketones Negative (NEGATIVE) mg/dL Urine Occult Blood Negative (NEGATIVE) Urine Nitrite Negative (NEGATIVE) Urine Bilirubin Negative (NEGATIVE) Urine Urobilinogen 0.2 (0.2-1.0) E.U./dL Ur Leukocyte Esterase Negative (NEGATIVE) Urine RBC Not seen /HPF Urine WBC 5-10 H /HPF Ur Epithelial Cells Rare /LPF Urine Bacteria Few (NONE TO FEW) /HPF Urine Yeast Rare H (NEGATIVE) /HPF [place] Results Last 24 Hours: Microbiology 02/23/17 19:00 Stool Occult Blood ([place]) - Final Stool / Feces NEGATIVE OCCULT BLOOD Med Orders - Current: Current Medications Hydrocodone Bitart/Acetaminophen ([place] 325-5 Mg) 1 tab PO Q4H PRN PRN Reason: Pain Last Admin: 02/24/17 12:02 Dose: 1 tab Albuterol (Ventolin Hfa) 0 gm INH Q4HR PRN PRN Reason: Shortness of Breath Escitalopram Oxalate (Lexapro) 10 mg PO DAILY [facility] Last Admin: 02/24/17 16:26 Dose: 10 mg Lactated Ringer's (Ringers, Lactated) 1,000 mls @ 125 mls/hr IV ASDIRECTED [facility] Last Admin: 02/24/17 08:45 Dose: 125 mls/hr Sodium Chloride (Normal Saline) 1,000 mls @ 125 mls/hr IV ASDIRECTED [facility] Last Admin: 02/24/17 15:30 Dose: 125 mls/hr Latanoprost (Xalatan 0.005% Ophth Soln) 0 ml EYEBOTH DAILY@2100 [facility] Last Admin: 02/23/17 20:06 Dose: 1 drop Levothyroxine Sodium (Synthroid) 50 mcg PO DAILY [facility] Last Admin: 02/24/17 16:29 Dose: 50 mcg Lorazepam (Ativan) 0.5 mg IVPUSH Q6H PRN PRN Reason: Anxiety Last Admin: 02/23/17 22:25 Dose: 0.5 mg Mirtazapine (Remeron) 15 mg PO BEDTIME [facility] Azopt (Brinzolamide) (1% Ophth Susp) 1 drop EYEBOTH BID@1100,2100 [facility] Last Admin: 02/24/17 12:04 Dose: 1 drop Nasacort ( Triamcinolone) Nasal [place] 2 sprays NASBOTH DAILY [facility] Last Admin: 02/24/17 08:44 Dose: 2 sprays Non-FormRestasis (Opth Drops) 1 drop EYEBOTH DAILY@1100,2100 [facility] Ocupress (Carteolol) (1% Ophth Susp) 1 each EYEBOTH BID [facility] Ondansetron HCl (Zofran) 4 mg IVPUSH Q6H PRN PRN Reason: Nausea/Vomiting Last Admin: 02/23/17 18:30 Dose: 4 mg Pantoprazole Sodium (Protonix Iv) 40 mg IV Q12HR [facility] Last Admin: 02/24/17 08:44 Dose: 40 mg Potassium Chloride (Klor-Con M20) 20 meq PO DAILY [facility] Last Admin: 02/24/17 16:25 Dose: 20 meq Prednisone (Prednisone) 2.5 mg PO DAILY [facility] Last Admin: 02/24/17 16:28 Dose: 2.5 mg Sodium Chloride (Saline Flush) 10 ml FLUSH ASDIRECTED PRN PRN Reason: Keep Vein Open Last Admin: 02/24/17 09:15 Dose: 10 ml Sodium Chloride (Saline Flush) 10 ml FLUSH BID@0800,1999 [facility] Last Admin: 02/24/17 08:45 Dose: 10 ml Discontinued Medications Bisacodyl (Dulcolax) 10 mg PO ONETIME ONE Stop: 02/22/17 18:01 Last Admin: 02/22/17 17:40 Dose: 10 mg Dextrose/Sodium Chloride (Dextrose 5%-1/2 Ns) 1,000 mls @ 125 mls/hr IV ASDIRECTED [facility] Last Admin: 02/22/17 12:08 Dose: 125 mls/hr Sodium Chloride (Normal Saline) 1,000 mls @ 75 mls/hr IV ONETIME ONE Stop: 02/24/17 04:49 Last Admin: 02/23/17 16:05 Dose: 75 mls/hr Iopamidol (Isovue-300 (61%)) 100 ml IVPUSH ONETIME ONE Stop: 02/24/17 12:32 Last Admin: 02/24/17 14:03 Dose: 100 ml PtomAzopt 1% (Opth Drops) 0 drop EYEBOTH DAILY@1100,2100 [facility] Non-FormRestasis (Opth Drops) 1 drop EYEBOTH DAILY@1100,2100 [facility] Pantoprazole Sodium (Protonix Iv) 80 mg IVPUSH ONETIME ONE Stop: 02/21/17 16:59 Last Admin: 02/21/17 18:25 Dose: 80 mg Pantoprazole Sodium (Protonix Iv) 40 mg IV Q12HR [facility] Last Admin: 02/21/17 21:27 Dose: Not Given Patient's Own (Medication Azopt 1%) 0 each EYEBOTH DAILY@1100,2100 [facility] Last Admin: 02/22/17 17:55 Dose: Not Given Polyethylene Glycol (Miralax) 238 gm PO ONETIME ONE Stop: 02/23/17 12:01 Last Admin: 02/23/17 12:43 Dose: 238 gm Propofol (Diprivan 20 Ml) Confirm Administered Dose 400 mg .ROUTE .STK-MED ONE Stop: 02/24/17 09:44 Propofol (Diprivan 20 Ml) Confirm Administered Dose 200 mg .ROUTE .STK-MED ONE Stop: 02/24/17 10:48 - Exam General: Alert, Oriented HEENT: Pupils Equal, Pupils Reactive, EOMI, Mucous Membr. Moist/[place] Neck: Supple Lungs: Clear to Auscultation, Normal Respiratory Effort Cardiovascular: Regular Rate, Regular Rhythm GI/Abdominal Exam: Normal Bowel Sounds, Soft, Non-Tender, No Organomegaly, No Distention, No Abnormal Bruit, No Mass, Pelvis Stable Back Exam: Normal Inspection, Full Range of Motion Extremities: Normal Inspection, Normal Range of Motion, Non-Tender, No Pedal Edema, Normal Capillary Refill Skin: Warm, Dry, Intact Neurological: No New Focal Deficit Psy/Mental Status: Alert, Normal Affect, Normal Mood - Problem List & Annotations (1) Gastrointestinal bleeding SNOMED Code(s): 34713799 Code(s): K92.2 - GASTROINTESTINAL HEMORRHAGE, UNSPECIFIED Status: Acute Priority: High Current Visit: Yes Qualifiers: GI bleed type/associated pathology: unspecified gastrointestinal hemorrhage type Qualified Code(s): K92.2 - Gastrointestinal hemorrhage, unspecified Annotation/Comment:: Stabilized. Hemoglobin at 9 today. - Problem List Review Problem List Initiated/Reviewed/Updated: Yes - My Orders Last 24 Hours: My Active Orders 02/24/17 15:15 Sodium Chloride 0.9% [Normal Saline] 1,000 ml IV ASDIRECTED 02/24/17 16:15 Escitalopram [Lexapro] 10 mg PO DAILY Levothyroxine [Synthroid] 50 mcg PO DAILY Potassium Chloride [Klor-Con M20] 20 meq PO DAILY predniSONE 2.5 mg PO DAILY 02/24/17 20:00 Mirtazapine [Remeron] 15 mg PO BEDTIME 02/24/17 Dinner Soft Diet [DIET] - Assessment Assessment:: GI bleed. Patient has not noticed any blood in most recent stools. Hemoglobin stable at 9. Overall patient feels a bit improved compared to time of admission. - Plan Plan:: As above. Patient to undergo EGD and colonoscopy today. . Upper GI revealed no acute cause of bleeding lower GI revealed diverticulosis with no active bleeding plan is to discharge her home tomorrow
[2017-02-24] MEDS: Ondansetron 4 MG/2 ML SDV IVPUSH PRN (19:52)
[2017-02-24] MEDS: LORazepam 2 MG/ML MDV IVPUSH PRN (19:55)
[2017-02-24] MEDS ORDERED: Mirtazapine 15 MG Tab PO SCH (20:00)
[2017-02-24] MEDS: Latanoprost 0.005% Ophth Soln 2.5 ML Bottle EYEBOTH SCH (21:06)
[2017-02-25] MEDS: Acetaminophen/HYDROcodone 325-5 MG Tab PO PRN (01:17)
[2017-02-25] MEDS: Sodium Chloride 0.9% 1,000 ML IV SCH (01:17)
[2017-02-25] MEDS: Escitalopram 20 MG Tab PO SCH (07:29)
[2017-02-25] MEDS: Potassium Chloride 20 MEQ Tab.ER PO SCH (07:29)
[2017-02-25] MEDS: predniSONE 5 MG Tab PO SCH (07:30)
[2017-02-25] MEDS: Pantoprazole 40 MG Vial IV SCH (07:30)
[2017-02-25] MEDS: Levothyroxine 50 MCG Tab PO SCH (07:30)
[2017-02-25] MEDS: Sodium Chloride 0.9% 10 ML Syringe FLUSH SCH (07:31)
--- NOTE | 2017-02-25 08:57 | PCM.DCSUM1 ---
Discharge Summary - Hospital Course Free Text/Narrative:: Patient is a 76-year-old who was admitted with GI bleed her hemoglobin has dropped and patient was transfused she had been stable since transfusion and underwent colonoscopy and gastroscopy yesterday patient was doing fairly well all her medications were restarted and today she is ready for discharge hgb 8.3 - Discharge Data Discharge Date: 02/25/17 Discharge Disposition: Home, Self-Care 01 Condition: Good - Discharge Diagnosis/Problem(s) (1) Gastrointestinal bleeding SNOMED Code(s): 66128325 ICD Code: K92.2 - GASTROINTESTINAL HEMORRHAGE, UNSPECIFIED Status: Acute Priority: High Current Visit: Yes Problem Details: Stabilized. Hemoglobin at 9 today. Qualifiers: GI bleed type/associated pathology: unspecified gastrointestinal hemorrhage type Qualified Code(s): K92.2 - Gastrointestinal hemorrhage, unspecified - Patient Summary/Data Operative Procedure(s) Performed: EGD and Colonoscopy Consults: Consultations 02/21/17 18:21 OT Evaluation and Treatment [CONS] Routine PT Evaluation and Treatment [CONS] Routine - Patient Instructions Diet: Usual Diet as Tolerated Activity: As Tolerated Showering/Bathing: May Shower Notify Provider of: Fever, Increased Pain, Nausea and/or Vomiting - Discharge Plan Prescriptions/Med Rec: Famotidine [Pepcid] 40 mg PO DAILY #30 tablet Multivitamin W/Iron, Minerals [Complete Senior] 1 each PO DAILY #30 tablet Home Medications: Home Meds Albuterol [Proventil HFA] 1 inh INH Q4HR PRN 04/18/14 [History] cycloSPORINE [Restasis] 1 drop EYEBOTH DAILY@1099,209904/18/14 [History] Latanoprost [Xalatan 0.005% Ophth Soln] 1 drop EYEBOTH DAILY@209907/01/14 [ History] Brinzolamide [Azopt] 1 drop EYEBOTH DAILY@1100,209904/17/15 [History] Cetirizine HCl [Zyrtec] 10 mg PO DAILY 04/17/15 [History] Cyanocobalamin (Vitamin B-12) [Vitamin B-12] 1,000 mcg SUBCUT Q30D 04/17/15 [ History] Non-Formulary Medication [NF Drug] 1 drop EYEBOTH BID@1099,209904/17/15 [ History] Pantoprazole Sodium [Protonix] 40 mg PO BID 09/23/15 [History] Calcitriol [Rocaltrol] 0.25 mcg PO DAILY 12/08/15 [History] Mirtazapine [Remeron] 15 mg PO BEDTIME 12/08/15 [History] Triamcinolone Acetonide [Nasacort] 2 sprays NASBOTH DAILY 12/08/15 [History] predniSONE [Prednisone] 2.5 mg PO DAILY 12/08/15 [History] Escitalopram [Lexapro] 10 mg PO DAILY 10/07/16 [History] Potassium Chloride [Klor-Con M20] 20 meq PO DAILY 10/07/16 [History] Rivaroxaban [Xarelto] 10 mg PO DAILY 10/07/16 [History] LORazepam [Ativan] 0.5 mg PO Q8H PRN 02/21/17 [History] Levothyroxine [Synthroid] 50 mcg PO DAILY 02/21/17 [History] Rosuvastatin [Crestor] 10 mg PO BEDTIME 02/21/17 [History] amLODIPine Besylate [Amlodipine Besylate] 10 mg PO DAILY 02/21/17 [History] Famotidine [Pepcid] 40 mg PO DAILY #30 tablet 02/25/17 [Rx] Multivitamin W/Iron, Minerals [Complete Senior] 1 each PO DAILY #30 tablet 02/25 [Rx] Referrals: Eugenia Perez, [employer] [Primary Care Provider] - (Follow up in 1 week with PCP. HGB recommended at that time. ) - Discharge Summary/Plan Comment DC Time >30 min.: No - Patient Data Vitals - Most Recent: Last Vital Signs Temp 97.4 F 02/24/17 20:15 Pulse 90 02/24/17 20:15 Resp 20 02/24/17 20:15 BP 138/88 02/24/17 20:15 Pulse Ox 93 L 02/24/17 20:15 Weight - Most Recent: 180 lb 15.992 oz I&O - Last 24 hours: Intake & Output 02/24/17 02/25/17 02/25/17 22:59 06:59 14:59 Intake Total 240 Balance 240 Lab Results - Last 24 hrs: Laboratory Results - last 24 hr 02/25/17 Range/Units 06:55 WBC 4.4 (4.0-10.2) K/uL RBC 3.48 L (3.77-5.09) M/uL Hgb 8.3 L (11.7-15.5) g/dL Hct 28.3 L (34.0-46.0) % MCV 81.3 L (84.0-98.0) fL MCH 23.9 L (28.2-33.3) pg MCHC 29.3 L (31.7-36.0) g/dL RDW 18.5 H (11.2-14.1) % Plt Count 134 L (150-350) K/uL Neut % (Auto) 50.5 (45.0-80.0) % Lymph % (Auto) 38.7 (10.0-50.0) % [place] % (Auto) 8.8 (2.0-14.0) % Eos % (Auto) 1.8 (0.0-5.0) % Baso % (Auto) 0.2 (0.0-2.0) % Neut # (Auto) 2.23 (1.40-7.00) K/uL Lymph # (Auto) 1.71 (0.50-3.50) K/uL [place] # (Auto) 0.39 (0.00-1.00) K/uL Eos # (Auto) 0.08 (0.00-0.50) K/uL Baso # (Auto) 0.01 (0.00-0.20) K/uL [place] Results - Last 24 hrs: Microbiology 02/23/17 19:00 Stool Occult Blood ([place]) - Final Stool / Feces NEGATIVE OCCULT BLOOD Med Orders - Current: Current Medications Hydrocodone Bitart/Acetaminophen ([place] 325-5 Mg) 1 tab PO Q4H PRN PRN Reason: Pain Last Admin: 02/25/17 01:17 Dose: 1 tab Albuterol (Ventolin Hfa) 0 gm INH Q4HR PRN PRN Reason: Shortness of Breath Escitalopram Oxalate (Lexapro) 10 mg PO DAILY [facility] Last Admin: 02/25/17 07:29 Dose: 10 mg Lactated Ringer's (Ringers, Lactated) 1,000 mls @ 125 mls/hr IV ASDIRECTED [facility]ATLIN Last Admin: 02/24/17 08:45 Dose: 125 mls/hr Sodium Chloride (Normal Saline) 1,000 mls @ 125 mls/hr IV ASDIRECTED [facility] Last Admin: 02/25/17 01:17 Dose: 125 mls/hr Latanoprost (Xalatan 0.005% Ophth Soln) 0 ml EYEBOTH DAILY@2100 [facility] Last Admin: 02/24/17 21:06 Dose: 1 drop Levothyroxine Sodium (Synthroid) 50 mcg PO DAILY [facility] Last Admin: 02/25/17 07:30 Dose: 50 mcg Lorazepam (Ativan) 0.5 mg IVPUSH Q6H PRN PRN Reason: Anxiety Last Admin: 02/24/17 19:55 Dose: 0.5 mg Mirtazapine (Remeron) 15 mg PO BEDTIME [facility] Last Admin: 02/24/17 19:52 Dose: 15 mg Azopt (Brinzolamide) (1% Ophth Susp) 1 drop EYEBOTH BID@1100,2100 [facility] Last Admin: 02/24/17 21:06 Dose: 1 drop Nasacort ( Triamcinolone) Nasal [place] 2 sprays NASBOTH DAILY [facility] Last Admin: 02/25/17 07:31 Dose: 2 sprays Non-FormRestasis (Opth Drops) 1 drop EYEBOTH DAILY@1100,2100 [facility] Ocupress (Carteolol) (1% Ophth Susp) 1 each EYEBOTH BID [facility] Ondansetron HCl (Zofran) 4 mg IVPUSH Q6H PRN PRN Reason: Nausea/Vomiting Last Admin: 02/24/17 19:52 Dose: 4 mg Pantoprazole Sodium (Protonix Iv) 40 mg IV Q12HR [facility] Last Admin: 02/25/17 07:30 Dose: 40 mg Potassium Chloride (Klor-Con M20) 20 meq PO DAILY [facility] Last Admin: 02/25/17 07:29 Dose: 20 meq Prednisone (Prednisone) 2.5 mg PO DAILY [facility] Last Admin: 02/25/17 07:30 Dose: 2.5 mg Sodium Chloride (Saline Flush) 10 ml FLUSH ASDIRECTED PRN PRN Reason: Keep Vein Open Last Admin: 02/24/17 19:54 Dose: 10 ml Sodium Chloride (Saline Flush) 10 ml FLUSH BID@0800,2000 [facility] Last Admin: 02/25/17 07:31 Dose: 10 ml Discontinued Medications Bisacodyl (Dulcolax) 10 mg PO ONETIME ONE Stop: 02/22/17 18:01 Last Admin: 02/22/17 17:40 Dose: 10 mg Dextrose/Sodium Chloride (Dextrose 5%-1/2 Ns) 1,000 mls @ 125 mls/hr IV ASDIRECTED [facility] Last Admin: 02/22/17 12:08 Dose: 125 mls/hr Sodium Chloride (Normal Saline) 1,000 mls @ 75 mls/hr IV ONETIME ONE Stop: 02/24/17 04:49 Last Admin: 02/23/17 16:05 Dose: 75 mls/hr Iopamidol (Isovue-300 (61%)) 100 ml IVPUSH ONETIME ONE Stop: 02/24/17 12:32 Last Admin: 02/24/17 14:03 Dose: 100 ml PtomAzopt 1% (Opth Drops) 0 drop EYEBOTH DAILY@1100,2100 [facility] Non-FormRestasis (Opth Drops) 1 drop EYEBOTH DAILY@1100,2100 [facility] Pantoprazole Sodium (Protonix Iv) 80 mg IVPUSH ONETIME ONE Stop: 02/21/17 16:59 Last Admin: 02/21/17 18:25 Dose: 80 mg Pantoprazole Sodium (Protonix Iv) 40 mg IV Q12HR [facility] Last Admin: 02/21/17 21:27 Dose: Not Given Patient's Own (Medication Azopt 1%) 0 each EYEBOTH DAILY@1100,2100 [facility] Last Admin: 02/22/17 17:55 Dose: Not Given Polyethylene Glycol (Miralax) 238 gm PO ONETIME ONE Stop: 02/23/17 12:01 Last Admin: 02/23/17 12:43 Dose: 238 gm Propofol (Diprivan 20 Ml) Confirm Administered Dose 400 mg .ROUTE .STK-MED ONE Stop: 02/24/17 09:44 Last Admin: 02/24/17 19:53 Dose: Not Given Propofol (Diprivan 20 Ml) Confirm Administered Dose 200 mg .ROUTE .STK-MED ONE Stop: 02/24/17 10:48 Last Admin: 08/10/17 19:54 Dose: Not Given *Q Meaningful Use (DIS) - VTE *Q VTE Criteria *Q: VTE Pharmacological Contraindications *Q: Risk of Bleeding - Stroke *Q Stroke Criteria *Q: - AMI *Q AMI Criteria *Q:
[2017-02-25 09:24] VITALS: BP 137/48
== END 2017-02-25 10:00 | disposition home or self-care (01) | DRG 379 ==
LOC: LL.DI 14:39 → UNDOADMIN 15:30 → LL.MS 15:30 → UNDODISIN 02-25 10:00
PROVIDERS: ADMIT Nurse Practitioner Family; ATTEND Surgery
PROC: 0DJD8ZZ Inspection of Lower Intestinal Tract, Via Natural or Artificial Opening Endoscopic (ICD-10-PCS; principal; 2017-02-24)
PROC: 0DJ08ZZ Inspection of Upper Intestinal Tract, Via Natural or Artificial Opening Endoscopic (ICD-10-PCS; 2017-02-24)
DX: K92.1 Melena (principal); K92.2 Gastrointestinal hemorrhage, unspecified; D64.9 Anemia, unspecified; K57.30 Diverticulosis of large intestine without perforation or abscess without bleeding; K21.9 Gastro-esophageal reflux disease without esophagitis; E53.8 Deficiency of other specified B group vitamins; E55.9 Vitamin D deficiency, unspecified; M06.9 Rheumatoid arthritis, unspecified; I12.9 Hypertensive chronic kidney disease with stage 1 through stage 4 chronic kidney disease, or unspecified chronic kidney disease; N18.9 Chronic kidney disease, unspecified; Z87.891 Personal history of nicotine dependence; M81.0 Age-related osteoporosis without current pathological fracture; I10 Essential (primary) hypertension; D69.6 Thrombocytopenia, unspecified; M79.7 Fibromyalgia; Z86.73 Personal history of transient ischemic attack (TIA), and cerebral infarction without residual deficits; Z88.0 Allergy status to penicillin; Z88.2 Allergy status to sulfonamides; Z88.6 Allergy status to analgesic agent; Z88.8 Allergy status to other drugs, medicaments and biological substances; Z79.01 Long term (current) use of anticoagulants; Z79.899 Other long term (current) drug therapy; H40.9 Unspecified glaucoma; E78.00 Pure hypercholesterolemia, unspecified; F32.9 Major depressive disorder, single episode, unspecified; F41.9 Anxiety disorder, unspecified; E05.00 Thyrotoxicosis with diffuse goiter without thyrotoxic crisis or storm
CPT/HCPCS: 00740; 36415; 74020; 74177; 80048; 81001; 82272; 85025; 97110-GP; 97116-GP; 97140-GP; 97161-GP; A9270-GY; C9113; J2060; J2405; J2704; J7030; J7042; J7050; J7120; Q9967

== ENCOUNTER 2017-03-24 10:37 | Emergency (ER) | payer MEDICARE, OTHER ==
[2017-03-24] MEDS ORDERED: Ondansetron 4 MG/2 ML SDV IVPUSH ONE (10:40)
[2017-03-24] MEDS ORDERED: Lactated Ringers 1,000 ML IV ONE (10:40)
[2017-03-24] MEDS ORDERED: Pantoprazole 40 MG Vial IVPUSH ONE (10:40)
[2017-03-24] MEDS ORDERED: Sodium Chloride 0.9% 10 ML Syringe FLUSH PRN ×2 (10:40→10:45)
[2017-03-24] MEDS ORDERED: Famotidine 20 MG/2 ML SDV IVPUSH ONE (10:40)
--- NOTE | 2017-03-24 10:40 | EDM.PDOC ---
ED HPI GENERAL MEDICAL PROBLEM - General Chief Complaint: Gastrointestinal Problem Stated Complaint: rectal bleeding Time Seen by Provider: 03/24/17 10:37 Source of Information: Reports: Patient, Family (), Old Records ([facility] chart/EMR) History Limitations: Reports: No Limitations - History of Present Illness INITIAL COMMENTS - FREE TEXT/NARRATIVE: The patient was brought to the emergency room via private automobile by her for evaluation of probable acute GI bleed with moderate to large gross hematuria without melena with symptoms starting after she had a bowel movement at 07:30 a.m. She did have another episode of mild to moderate hematochezia about one hour thereafter. No recent history of abdominal pain, heartburn, diarrhea, melena, or any food intolerance, including fatty foods, etc., although she does have some mild nausea at this time. The patient denies any chest pain/pressure, heart flutter, dizziness, orthostasis, orthopnea, diaphoresis, paresthesias, or any other anginal-type symptoms, although her overall activity level and exercise tolerance has been extremely low over the last several months. The patient also denies any recent fever, cough, wheezing, dyspnea, etc... She is currently on Xarelto secondary to recent on 08/15/16, however note history of recurrent upper GI bleeds in the past as below. She is also on chronic prednisone use secondary to her rheumatoid arthritis with no recent NSAID use. The patient denies any pain or other discomfort, although she has been extremely weak since this morning. Onset: Today, Sudden Onset Date: 03/24/17 Duration: Intermittent Location: Reports: Other (No pain) Quality: Reports: Same as Previous Episode Improves with: Reports: None Worsens with: Reports: None Context: Reports: Other (As above) Associated Symptoms: Reports: Nausea/Vomiting (No emesis), Shortness of Breath ( Decreased exercise tolerance), Weakness (As above). Denies: Confusion, Chest Pain, Cough, Diaphoresis, Fever/Chills, Headaches, Loss of Appetite, Malaise, Seizure, Syncope Treatments PEARLER: Reports: Other (see below) (She did take her medications this morning) - Related Data Allergies Allergy/AdvReac Type Severity Reaction Status Date / Time atorvastatin [From Lipitor] Allergy Cannot Verified 03/24/17 11:34 Remember hydrochlorothiazide Allergy Hives Verified 03/24/17 11:34 hydromorphone Allergy Other Verified 03/24/17 11:34 meloxicam Allergy Other Verified 03/24/17 11:34 Penicillins Allergy Hives Verified 03/24/17 11:34 Sulfa (Sulfonamide Allergy Hives Verified 03/24/17 11:34 Antibiotics) tetanus and diphtheria Allergy Other Verified 03/24/17 11:34 toxoids trazodone Allergy Itching Verified 03/24/17 11:34 Home Meds: Home Meds Albuterol [Proventil HFA] 1 inh INH Q4HR PRN 04/18/14 [History] cycloSPORINE [Restasis] 1 drop EYEBOTH DAILY@1100,209904/18/14 [History] Latanoprost [Xalatan 0.005% Ophth Soln] 1 drop EYEBOTH DAILY@209907/01/14 [ History] Brinzolamide [Azopt] 1 drop EYEBOTH DAILY@1100,209904/17/15 [History] Cetirizine HCl [Zyrtec] 10 mg PO DAILY 04/17/15 [History] Cyanocobalamin (Vitamin B-12) [Vitamin B-12] 1,000 mcg SUBCUT Q30D 04/17/15 [ History] Non-Formulary Medication [NF Drug] 1 drop EYEBOTH BID@1100,209904/17/15 [ History] Pantoprazole Sodium [Protonix] 40 mg PO BID 09/23/15 [History] Calcitriol [Rocaltrol] 0.25 mcg PO DAILY 12/08/15 [History] Mirtazapine [Remeron] 15 mg PO BEDTIME 12/08/15 [History] Triamcinolone Acetonide [Nasacort] 2 sprays NASBOTH DAILY 12/08/15 [History] predniSONE [Prednisone] 2.5 mg PO DAILY 12/08/15 [History] Escitalopram [Lexapro] 10 mg PO DAILY 10/07/16 [History] Potassium Chloride [Klor-Con M20] 20 meq PO DAILY 10/07/16 [History] Rivaroxaban [Xarelto] 10 mg PO DAILY 10/07/16 [History] LORazepam [Ativan] 0.5 mg PO Q8H PRN 02/21/17 [History] Levothyroxine [Synthroid] 50 mcg PO DAILY 02/21/17 [History] Rosuvastatin [Crestor] 10 mg PO BEDTIME 02/21/17 [History] amLODIPine Besylate [Amlodipine Besylate] 10 mg PO DAILY 02/21/17 [History] Nitrofurantoin Monohyd/M-Cryst [Macrobid 100 mg Capsule] 100 mg PO BID 03/24/17 [History] Past Medical History HEENT History: Reports: Allergic Rhinitis, Cataract, Glaucoma, Hard of Hearing, Impaired Vision, Other (See Below). Denies: Macular Degeneration, Retinal Detachment Other HEENT History: Severe bilateral presbycusis with suboptimal hearing aid therapy, the patient wears glasses Cardiovascular History: Reports: Arrhythmia, Blood Clots/VTE/DVT, High Cholesterol, Hypertension, PVD, SOB on Exertion, Other (See Below). Denies: Afib, Aneurysm, CAD, Heart Failure, Heart Murmur, [place], Pacemaker, Syncope Other Cardiovascular History: PVCs, right leg DVT with secondary TIA in July 2016 as below, significant peripheral vascular disease by CT scan of the abdomen and pelvis on 02/24/17 as below including moderate bilateral renal artery stenosis, common femoral stenosis and SMA stenosis Respiratory History: Reports: Bronchitis, Recurrent, COPD, Intubation, Previous , Pneumonia, Recurrent. Denies: Intubation, Difficult, Pneumothorax, Sleep Apnea Gastrointestinal History: Reports: Cholelithiasis, Chronic Constipation, Colon Polyp, Diverticulosis, Gastritis, GERD, GI Bleed, Helicobacter Pylori, Hiatal Hernia, Pancreatitis, PUD, Other (See Below). Denies: Celiac Disease, Chronic Diarrhea, Fecal Incontinence, Inflammatory Bowel Disease, Irritable Bowel Syndrome Other Gastrointestinal History: History of duodenal ulcer and upper GI bleed on 03/31/14, tubular adenoma on 03/31/14, moderate sigmoid diverticulosis by CT scan with possibility of lower GI bleeds with long history of recurrent GI bleeds with both positive and negative workups as below, previously treated H. pylori infection with subsequent negative biopsies for H. pylori at time of follow-up EGD, cholelithiasis with secondary pancreatitis, duodenal diverticulum, gastric polyp, fatty liver by CT scan, esophageal stenosis by last EGD on 02/24/17 with previous Victor Manuel fundoplication, tubular adenoma of the ascending excised via colonoscopy on 03/31/14 Genitourinary History: Reports: Chronic Renal Insuffiency, Urinary Incontinence , UTI, Recurrent. Denies: Acute Renal Failure, Dialysis, Renal Calculus, STD DEDENTER History: Reports: : 4 Para: 4 (Full term without complications during pregnancies or deliveries) LMP (Approximate): Menopausal (Surgical) Musculoskeletal History: Reports: Arthritis, Back Pain, Chronic, Fibromyalgia, Neck Pain, Chronic, Osteoarthritis, Osteoporosis, RA, SLE, Other (See Below). Denies: Amputation, Fracture, Gout Other Musculoskeletal History: Right-sided Almaguer's cyst, scoliosis Neurological History: Reports: TIA, Other (See Below). Denies: Cerebral Aneurysms, Concussion, CVA, Headaches, Chronic, Head Trauma, Migraines, MS, Parkinson's, Seizure Other Neuro History: Narcolepsy, TIA on 08/15/16 Psychiatric History: Reports: ADD, Addiction, Anxiety, Depression, Other (See Below). Denies: Abuse, Victim of, Psych Hospitalization(s), PTSD, Suicide Attempt, Suicidal Ideation Other Psychiatric History: Chronic narcotic use secondary to rheumatoid arthritis Endocrine/Metabolic History: Reports: Hyperparathyroidism, Hyperthyroidism, Hypothyroidism, Osteoporosis, Vitamin D Deficiency, Other (See Below). Denies: Diabetes, Type I, Diabetes, Type II, IDDM Other Endocrine/Metabolic History: Hyperthyroidism/? Graves' disease with standard post-excision and radioactive iodide therapy with subsequent secondary hypothyroidism, status post excision of parathyroid gland as below Hematologic History: Reports: Anemia, B12 Deficiency, Blood Transfusion(s), Iron Deficiency, Other (See Below) Other Hematologic History: Multiple GI bleeds as above with secondary anemia, and iron deficiency with multiple blood transfusions in the past, thrombocytopenia Immunologic History: Reports: Immunosuppression, SLE, Other (See Below). Denies : AIDS, HIV Other Immunologic History: Chronic steroid use Oncologic (Cancer) History: Reports: Uterine. Denies: Basal Cell Carcinoma, Hodgkin's Lymphoma, Malignant Melanoma, Metastatic, Non-Hodgkin's Lymphoma, Ovarian, Squamous Cell Carcinoma Dermatologic History: Reports: None. Denies: Eczema, Psoriasis - Infectious Disease History Infectious Disease History: Reports: Chicken Pox, Helicobacter Pylori ( Previously treated as above), Measles, Mumps. Denies: C-Difficile, Meningitis, Mononucleosis, MRSA, Pertussis (Whooping Cough), Rheumatic Fever, Rubella, Scarlet Fever, Shingles, VRE - Past Surgical History Head Surgeries/Procedures: Reports: None HEENT Surgical History: Reports: Cataract Surgery, Eye Surgery, Laser Surgery, Oral Surgery, Other (See Below). Denies: Detached Retina, Naso-Sinus Surgery Other HEENT Surgeries/Procedures: Right upper lid blepharoplasty, bilateral laser treatments for her glaucoma, bilateral cataract surgery Cardiovascular Surgical History: Reports: None. Denies: Pacer, Varicose, Vascular Surgery Respiratory Surgical History: Reports: None. Denies: Lung Biopsies, Thoracentesis GI Surgical History: Reports: Appendectomy, Cholecystectomy, Colonoscopy, EGD, Hernia, Abdominal, Victor Manuel Fundoplication, Polypectomy, Other (See Below). Denies: Hernia, Inguinal, Hernia Repair/Other Other GI Surgeries/Procedures: Incomplete colonoscopy in 2003 with subsequent multiple colonoscopies including 03/31/14 with last colonoscopy on 02/24/17, last EGD on 01/11/16 did show some esophageal stenosis, gastric polyp, and a duodenal diverticulum with previous EGDs on 07/04/14, 03/21/2014 and 01/04/13, ventral abdominal hernia repair on the laparoscopic cholecystectomy, omentectomy secondary to uterine cancer as above Female Surgical History: Reports: Breast Biopsy, Cystoscopy, Hysterectomy, Salpingo-Oophorectomy, Tubal Ligation. Denies: Section, D&C Other Female Surgeries/Procedures: bilateral tubal ligation in the 1970s, complete hysterectomy and bilateral salpingo-oophorectomy secondary to uterine cancer with additional chemotherapy in 2001, cystoscopy on 02/24/09 Endocrine Surgical History: Reports: None, Parathyroidectomy, Thyroidectomy, Other (See Below). Denies: Thyroid Biopsy Other Endocrine Surgeries/Procedures: Partial Parathyroidectomy 2 with last surgery on 04/17/13 and only one gland remaining, thyroidectomy with subsequent radioactive iodide therapy Neurological Surgical History: Denies: C-Spine, Discectomy, Laminectomy, Lumbar Spine, Spinal Fusion, Vertebroplasty Musculoskeletal Surgical History: Reports: None. Denies: Arthroscopic Procedure , Carpal Tunnel, Ganglion Cyst, Joint Replacement, ORIF, Shoulder Surgery Oncologic Surgical History: Reports: Other (See Below). Denies: Biopsy of Breast Other Oncologic Surgeries/Procedures: SWIM COACH surgery secondary to uterine cancer as above Dermatological Surgical History: Reports: None - Past Imaging History Past Imaging History: Reports: Bone Scan (Whole body bone scan on 09/25/10), Carotid US (01/06/11), CAT Scan (CT of the head in July [address] [place] of the abdomen and pelvis with contrast on 02/24/17 with multiple findings as above. Previous similar evaluations on 12/08/15, 09/26/15 and 08/04/12; ), DEXA Scan (Last DEXA scan on 03/05/11), Mammogram (Last on 03/25/15), MRA (As below), MRI (MRI of the head in [place] in July 2016 with TIA diagnosed at that time, previous MRI/MRA of the brain on 01/06/11), Stress Testing ( Cardiolite stress test on 01/05/08 with ejection fraction of 68%), Venous Doppler (Venous Doppler studies of the lower extremities in July 2016 with positive DVT of the right leg with previous negative bilateral lower extremity venous Doppler studies on 09/25/10) - History Comment History Comment: Narcolepsy, ventral hernia Social & Family History - Family History Cardiac: Reports: CAD, Heart Failure, Other (See Below) Other Cardiac Family History: Mother and brother with history of coronary artery disease and CHF, brother and mother with hypertension, brother with hyperlipidemia : Reports: Renal Disease/Insufficiency, Other (See Below) Other Family History: Brother with renal insufficiency Endocrine/Metabolic: Reports: Hypothyroidism, Other (See Below) Other Endocrine/Metabolic Family History: Mother with hypothyroidism Oncologic: Reports: Breast, Metastatic, Other (See Below) Other Oncologic Family History: Paternal grandmother with metastatic breast disease to her liver - Tobacco Use Smoking Status *Q: Former Smoker Tobacco Use Within Last Twelve Months: No Years of Tobacco use: 48 Packs/Tins Daily: 0.5 (Stop smoking in 2005) Used Tobacco, but Quit: Yes Smoking Cessation Information Provided To Patient: No Second Hand Smoke Exposure: No Second Hand Smoke Education Provided: No - Caffeine Use Caffeine Use: Reports: Coffee - Alcohol Use Alcohol Use History: Yes Days Per Week of Alcohol Use: 1 (No previous DWIs, problems with alcohol abuse, etc.) Number of Drinks Per Day: 1 (Usually wine) Total Drinks Per Week: 1 Alcohol Use in Last Twelve Months: Yes Alcohol Use Frequency: Socially - Recreational Drug Use Recreational Drug Use: No Drug Use in Last 12 Months: No - Living Situation & Occupation Living situation: Reports: (1959), with Family () 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 ED EXAM, GI/ABD - Physical Exam Exam: See Below Exam Limited By: No Limitations General Appearance: Alert, WD/WN, No Apparent Distress, Anxious (Mild) Eyes: Bilateral: Normal Appearance (No nystagmus), EOMI (PERRLA) Ears: Normal External Exam, Normal Canal, Hearing Loss (Severe persistent bilateral presbycusis despite bilateral hearing a therapy) Nose: Normal Inspection, Normal Mucosa, No Blood Throat/Mouth: Normal Inspection, Normal Lips, Normal Gums, Normal Oropharynx, Normal Voice, No Airway Compromise. No: Normal Teeth (Complete dentures uppers and lowers), Dysphagia, Perioral Cyanosis Head: Atraumatic, Normocephalic. No: Facial Swelling, Facial Tenderness, Sinus Tenderness Neck: Supple, Non-Tender, Full Range of Motion, Carotid Bruit (Mild bilateral carotid bruits). No: Limited Range of Motion, Lymphadenopathy (L), Lymphadenopathy (R), Thyromegaly Respiratory/Chest: No Respiratory Distress, Lungs Clear, Normal Breath Sounds, No Accessory Muscle Use, Chest Non-Tender. No: Pleural Rub, Retractions Cardiovascular: Normal Peripheral Pulses, Regular Rate, Rhythm, No Edema, No Gallop, No JVD, No Murmur, No Rub. No: Gallop/S3, Gallop/S4, Friction Rub GI/Abdominal Exam: Normal Bowel Sounds, Soft, Non-Tender, No Organomegaly, No Distention, No Abnormal Bruit, No Mass, Pelvis Stable, Other (Obese, multiple abdominal incisions secondary to previous surgeries as above) (Female) Exam: Deferred Rectal (Female) Exam: Normal Rectal Tone, Bloody Stool, Heme + Stool, Hemorrhoids (Grade 4 internal/external hemorrhoids). No: Black Stool, Fecal Impaction, Mass, Rectal Fissure, Tenderness (No Stu space tenderness) Back Exam: Normal Inspection, Full Range of Motion, Other (Mild scoliosis). No : CVA Tenderness (L), CVA Tenderness (R), Muscle Spasm Extremities: Normal Inspection, Normal Range of Motion, Non-Tender, No Pedal Edema, Normal Capillary Refill. No: Pedal Edema, Maren's Sign Neurological: Alert, Oriented, CN II-XII Intact, Normal Cognition, Normal Gait, Normal Reflexes (Negative Babinski's), No Motor/Sensory Deficits Skin Exam: Warm, Dry, Intact, No Rash, Pallor (Mild). No: Diaphoretic, Ecchymosis, Petechiae, Wound/Incision Lymphatic: No Adenopathy Course - Vital Signs Last Recorded V/S: Last Vital Signs Temp 36.7 C 03/24/17 10:37 Pulse 77 03/24/17 14:21 Resp 13 03/24/17 14:21 BP 148/119 H 03/24/17 14:21 Pulse Ox 98 03/24/17 14:21 Vital Signs - 24 hr 03/24/17 03/24/17 03/24/17 10:37 10:50 11:15 Temperature [ 36.7 C Temporal] Pulse, 88 74 73 Peripheral [ Pulse Oximetry] Respiratory 16 14 12 Rate Blood Pressure 155/75 H 127/73 [Left Upper Arm ] O2 Sat by Pulse 99 97 95 Oximetry O2 Sat by Pulse Oximetry [ Nasal Cannula] 03/24/17 03/24/17 03/24/17 11:46 12:06 12:34 Temperature [ Temporal] Pulse, 78 75 80 Peripheral [ Pulse Oximetry] Respiratory 13 12 13 Rate Blood Pressure 127/68 132/47 L 143/55 H [Left Upper Arm ] O2 Sat by Pulse 95 95 92 L Oximetry O2 Sat by Pulse Oximetry [ Nasal Cannula] 03/24/17 03/24/17 03/24/17 12:42 12:49 13:05 Temperature [ Temporal] Pulse, 79 83 Peripheral [ Pulse Oximetry] Respiratory 11 L 13 Rate Blood Pressure 134/59 L 146/59 H [Left Upper Arm ] O2 Sat by Pulse 99 98 Oximetry O2 Sat by Pulse 98 Oximetry [ Nasal Cannula] 03/24/17 03/24/17 03/24/17 13:20 13:35 13:45 Temperature [ Temporal] Pulse, 79 81 74 Peripheral [ Pulse Oximetry] Respiratory 11 L 13 15 Rate Blood Pressure 137/55 L 147/68 H 169/74 H [Left Upper Arm ] O2 Sat by Pulse 98 99 99 Oximetry O2 Sat by Pulse Oximetry [ Nasal Cannula] 03/24/17 14:21 Temperature [ Temporal] Pulse, 77 Peripheral [ Pulse Oximetry] Respiratory 13 Rate Blood Pressure 137/87 [Left Upper Arm ] O2 Sat by Pulse 98 Oximetry O2 Sat by Pulse Oximetry [ Nasal Cannula] - Orders/Labs/Meds Orders: Active Orders 24 hr Category Date Time Status Cardiac Monitoring [RC] . DIRECTED Care 03/24/17 10:47 Active Oxygen Therapy, ED [RC] CONTINUOUS Care 03/24/17 12:42 Active Peripheral IV Care [RC] . DIRECTED Care 03/24/17 10:40 Active Peripheral IV Care [RC] . DIRECTED Care 03/24/17 10:45 Active Nothing Per Oral Diet [DIET] Diet 03/24/17 Breakfast Active Abdomen Series w Chest 1V [CR] Stat Exams 03/24/17 10:40 Taken H PYLORI STOOL ANTIGEN [MREF] Urgent Lab 03/24/17 10:40 Uncollected Lactated Ringers [Ringers, Lactated] 1,000 ml Med 03/24/17 13:00 Active IV ASDIRECTED Sodium Chloride 0.9% [Saline Flush] Med 03/24/17 10:40 Active 10 ml FLUSH ASDIRECTED PRN Sodium Chloride 0.9% [Saline Flush] Med 03/24/17 10:45 Active 10 ml FLUSH ASDIRECTED PRN cefTRIAXone [Rocephin] 1 gm Med 03/24/17 10:45 Active Sodium Chloride 0.9% [Normal Saline] 100 ml IV Q12H metroNIDAZOLE/Normal Saline [Flagyl 500 MG in NS 100 ML Med 03/24/17 10:45 Active ] 500 mg Premix Bag 1 bag IV Q8H Obtain Past Medical Record [OM.PC] Urgent Oth 03/24/17 10:40 Active Peripheral IV Insertion Adult [OM.PC] Stat Oth 03/24/17 10:40 Ordered Peripheral IV Insertion Adult [OM.PC] Stat Oth 03/24/17 10:45 Ordered Resuscitation Status Stat Resus Stat 03/24/17 10:40 Ordered Medication Orders Ceftriaxone Sodium 1 gm/ (Sodium Chloride) 100 mls @ 200 mls/hr IV Q12H [facility] Last Admin: 03/24/17 11:06 Dose: 200 mls/hr Metronidazole 500 mg/ Premix 100 mls @ 100 mls/hr IV Q8H KATLIN Last Admin: 03/24/17 11:54 Dose: 100 mls/hr Lactated Ringer's (Ringers, Lactated) 1,000 mls @ 75 mls/hr IV ASDIRECTED KATLIN Last Admin: 03/24/17 12:59 Dose: 75 mls/hr Sodium Chloride (Saline Flush) 10 ml FLUSH ASDIRECTED PRN PRN Reason: Keep Vein Open Sodium Chloride (Saline Flush) 10 ml FLUSH ASDIRECTED PRN PRN Reason: Keep Vein Open Labs: Laboratory Tests 03/24/17 03/24/17 03/24/17 Range/Units 10:50 10:50 10:50 WBC 6.9 (4.0-10.2) K/uL RBC 3.89 (3.77-5.09) M/uL Hgb 9.4 L (11.7-15.5) g/dL Hct 31.0 L (34.0-46.0) % MCV 79.7 L (84.0-98.0) fL MCH 24.2 L (28.2-33.3) pg MCHC 30.3 L (31.7-36.0) g/dL RDW 18.3 H (11.2-14.1) % Plt Count 157 (150-350) K/uL Neut % (Auto) 61.4 (45.0-80.0) % Lymph % (Auto) 27.8 (10.0-50.0) % [place]oshone % (Auto) 8.2 (2.0-14.0) % Eos % (Auto) 2.3 (0.0-5.0) % Baso % (Auto) 0.3 (0.0-2.0) % Neut # (Auto) 4.24 (1.40-7.00) K/uL Lymph # (Auto) 1.92 (0.50-3.50) K/uL [place]oshone # (Auto) 0.57 (0.00-1.00) K/uL Eos # (Auto) 0.16 (0.00-0.50) K/uL Baso # (Auto) 0.02 (0.00-0.20) K/uL PT 13.1 H (9.8-11.7) SEC INR 1.2 APTT 32.1 H (23.5-30.0) SEC Sodium (136-145) mmol/L Potassium (3.5-5.1) mmol/L Chloride (98-107) mmol/L Carbon Dioxide (21.0-32.0) mmol/L BUN (7-18) mg/dL Creatinine (0.51-1.17) mg/dL Est Cr Clr Drug Dosing Estimated GFR (MDRD) mL/min Glucose (74-106) mg/dL Lactic Acid (0.4-2.0) mmol/L Uric Acid (2.6-7.2) mg/dL Calcium (8.5-10.1) mg/dL Magnesium (1.8-2.4) mg/dL Total Bilirubin (0.2-1.0) mg/dL AST (15-37) U/L ALT (12-78) U/L Alkaline Phosphatase (46-116) IU/L Total Protein (6.4-8.2) g/dL Albumin (3.4-5.0) g/dL Amylase 83 (25-115) U/L Lipase (73-393) U/L 03/24/17 03/24/17 Range/Units 10:50 10:50 WBC (4.0-10.2) K/uL RBC (3.77-5.09) M/uL Hgb (11.7-15.5) g/dL Hct (34.0-46.0) % MCV (84.0-98.0) fL MCH (28.2-33.3) pg MCHC (31.7-36.0) g/dL RDW (11.2-14.1) % Plt Count (150-350) K/uL Neut % (Auto) (45.0-80.0) % Lymph % (Auto) (10.0-50.0) % [place]oshone % (Auto) (2.0-14.0) % Eos % (Auto) (0.0-5.0) % Baso % (Auto) (0.0-2.0) % Neut # (Auto) (1.40-7.00) K/uL Lymph # (Auto) (0.50-3.50) K/uL [place]oshone # (Auto) (0.00-1.00) K/uL Eos # (Auto) (0.00-0.50) K/uL Baso # (Auto) (0.00-0.20) K/uL PT (9.8-11.7) SEC INR APTT (23.5-30.0) SEC Sodium 138 (136-145) mmol/L Potassium 4.3 (3.5-5.1) mmol/L Chloride 104 (98-107) mmol/L Carbon Dioxide 25.0 (21.0-32.0) mmol/L BUN 19 H (7-18) mg/dL Creatinine 1.22 H (0.51-1.17) mg/dL Est Cr Clr Drug Dosing TNP Estimated GFR (MDRD) 43 mL/min Glucose 115 H (74-106) mg/dL Lactic Acid 1.5 (0.4-2.0) mmol/L Uric Acid 7.0 (2.6-7.2) mg/dL Calcium 8.8 (8.5-10.1) mg/dL Magnesium 1.7 L (1.8-2.4) mg/dL Total Bilirubin 0.4 (0.2-1.0) mg/dL AST 27 (15-37) U/L ALT 30 (12-78) U/L Alkaline Phosphatase 48 (46-116) IU/L Total Protein 7.1 (6.4-8.2) g/dL Albumin 4.0 (3.4-5.0) g/dL Amylase (25-115) U/L Lipase 222 (73-393) U/L Microbiology 03/24/17 11:50 Stool Occult Blood ([place]) - Final Stool / Feces Hemoccullt was positive with gross hematochezia Meds: Medications Generic Name Dose Route Start Last Admin Trade Name Stewart PRN Reason Stop Dose Admin Ceftriaxone Sodium 1 gm/ 100 mls @ 200 mls/hr 03/24/17 10:45 03/24/17 11:06 Sodium Chloride IV 200 mls/hr Q12H KATLIN Administration Metronidazole 500 mg/ Premix 100 mls @ 100 mls/hr 03/24/17 10:45 03/24/17 11: 54 IV 100 mls/hr Q8H KATLIN Administration Lactated Ringer's 1,000 mls @ 75 mls/hr 03/24/17 13:00 03/24/17 12:59 Ringers, Lactated IV 75 mls/hr ASDIRECTED KATLIN Administration Sodium Chloride 10 ml 03/24/17 10:40 Saline Flush FLUSH ASDIRECTED PRN Keep Vein Open Sodium Chloride 10 ml 03/24/17 10:45 Saline Flush FLUSH ASDIRECTED PRN Keep Vein Open Discontinued Medications Generic Name Dose Route Start Last Admin Trade Name Stewart PRN Reason Stop Dose Admin Famotidine 40 mg 03/24/17 10:40 03/24/17 10:57 Pepcid IVPUSH 03/24/17 10:41 40 mg ONETIME ONE Administration Lactated Ringer's 1,000 mls @ 999 mls/hr 03/24/17 10:40 03/24/17 12:10 Ringers, Lactated IV 03/24/17 11:40 Not Given .BOLUS ONE Ondansetron HCl 4 mg 03/24/17 10:40 03/24/17 10:57 Zofran IVPUSH 03/24/17 10:41 4 mg ONETIME ONE Administration Pantoprazole Sodium 40 mg 03/24/17 10:40 03/24/17 10:57 Protonix Iv IVPUSH 03/24/17 10:41 40 mg ONETIME ONE Administration - Radiology Interpretation Free Text/Narrative:: laboratory monitor shows normal sinus rhythm in the 70s 80s with no ectopy or arrhythmia Acute abdominal x-rays shows evidence of moderately elevated right hemidiaphragm with moderate diffuse COPD changes and mild to moderate aortic valve calcification, however no significant cardiomegaly, CHF, pulmonary infiltrates, pneumothorax, free air, fluid levels, ileus, obstruction, etc. Note multiple surgical clips in abdominal region secondary to multiple surgeries as above Departure - Departure Time of Disposition: 14:30 Disposition: DC/Tfer to Acute Hospital 02 Condition: Fair Clinical Impression: Hematochezia, Mixed anxiety depressive disorder, Renal insufficiency, Peptic reflux disease, Thrombocytopenia, TIA due to embolism COPD (chronic obstructive pulmonary disease) Qualifiers: COPD type: emphysema Emphysema type: panlobular Qualified Code(s): J43.1 - Panlobular emphysema Anemia Qualifiers: Anemia type: iron deficiency Iron deficiency anemia type: chronic blood loss Qualified Code(s): D50.0 - Iron deficiency anemia secondary to blood loss ( chronic) Fatigue Qualifiers: Fatigue type: chronic, unspecified Qualified Code(s): R53.82 - Chronic fatigue , unspecified Rheumatoid arthritis Qualifiers: Rheumatoid factor presence: without rheumatoid factor Laterality: unspecified laterality - Discharge Information Referrals: Eugenia Perez NP [Primary Care Provider] - Forms: ED Department Discharge, Interfacility Transfer EMTALA - Problem List & Annotations (1) Hematochezia SNOMED Code(s): 649590297 Code(s): K92.1 - MELENA Status: Acute Priority: High Current Visit: Yes Onset Date: 03/24/17 Annotation/Comment:: History of recurrent both upper and lower GI bleeds as above with last GI bleed on 02/21/17 in this facility with no blood transfusion required at that time. Last known hemoglobin of 10.7 on 03/09/17 through [facility] regular provider. She has had extensive GI workup as below, however no evaluation for possible AVM per our records with consideration of RBC scan. High-dose IV Pepcid and IV Protonix given in the emergency room as GI prophylaxis. Based on clinical history significant probable lower GI bleed since this morning with no melena present. CBC versus hemoglobin should likely be repeated in about 3 hours with consideration of blood transfusion, fresh frozen plasma, etc. depending on her clinical course. Initial telephone consultation with [facility] per the patient's request with no beds available in their facility. Subsequent telephone consultation at 11:55 a.m. and on hold until 12:[address] Ragland, hospitalist at [facility] in [place], who does accept the patient for further treatment, evaluation, and probable GI/surgical consultation. No further treatment recommendations given. 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 Note IV Rocephin and IV Flagyl were given in the emergency room prior to transfer with initiation of IV fluids prior to transfer. In addition some delay in final transfer to [place] secondary to bed availability without sequellae. (2) Fatigue SNOMED Code(s): 20351040 Code(s): R53.83 - OTHER FATIGUE Status: Chronic Priority: High Current Visit: Yes Annotation/Comment:: She has had significant decreased exercise tolerance during the last few months with no recent cardiac workup with negative distant Cardiolite stress test as above. Recent chest pain or anginal type symptoms. Note family history of heart disease as above. Patient does not wish to have any aggressive measures, including intubation, cardioversion, etc. , however she and her do agree to hospital transfer and further workup Qualifiers: Fatigue type: chronic, unspecified Qualified Code(s): R53.82 - Chronic fatigue, unspecified (3) Renal insufficiency SNOMED Code(s): 651116300 Code(s): N28.9 - DISORDER OF KIDNEY AND URETER, UNSPECIFIED Status: Chronic Priority: Medium Current Visit: Yes Annotation/Comment:: Stable mild renal insufficiency (4) Hypomagnesemia SNOMED Code(s): 914258322 Code(s): E83.42 - HYPOMAGNESEMIA Status: Chronic Priority: Medium Current Visit: Yes Annotation/Comment:: Observe for now. Consider magnesium oxide supplementation (5) COPD (chronic obstructive pulmonary disease) SNOMED Code(s): 72097352 Code(s): J44.9 - CHRONIC OBSTRUCTIVE PULMONARY DISEASE, UNSPECIFIED Status : Chronic Priority: Medium Current Visit: Yes Annotation/Comment:: No recent fever or bronchitic type symptoms. Consider PFTs depending on her clinical course and plans for surgery, etc. Qualifiers: COPD type: emphysema Emphysema type: panlobular Qualified Code(s): J43.1 - Panlobular emphysema (6) Mixed anxiety depressive disorder SNOMED Code(s): 443595075 Code(s): F41.8 - OTHER SPECIFIED ANXIETY DISORDERS Status: Chronic Priority: Medium Current Visit: Yes Annotation/Comment:: Stable by history although some mild anxiety today secondary to her current symptoms. Note chronic oxycodone therapy (7) HTN, Benign hypertension SNOMED Code(s): 71788731 Code(s): I10 - ESSENTIAL (PRIMARY) HYPERTENSION Status: Chronic Priority : Medium Current Visit: Yes Annotation/Comment:: Under good control in the emergency room despite evidence of probable lower GI bleed. Complete IV antibiotics as above with possibility of additional IV fluids in route, if hypotension occurs (8) Rheumatoid arthritis SNOMED Code(s): 52249295 Code(s): M06.9 - RHEUMATOID ARTHRITIS, UNSPECIFIED Status: Chronic Priority: Medium Current Visit: Yes Annotation/Comment:: Stable by history with chronic but his own and oxycodone therapy Qualifiers: Rheumatoid factor presence: without rheumatoid factor Laterality: unspecified laterality (9) Thrombocytopenia SNOMED Code(s): 129727488 Code(s): D69.6 - THROMBOCYTOPENIA, UNSPECIFIED Status: Chronic Priority: Medium Current Visit: Yes Annotation/Comment:: Previous history of mild thrombocytopenia however not today (10) Anemia SNOMED Code(s): 389282773 Code(s): D64.9 - ANEMIA, UNSPECIFIED Status: Chronic Priority: High Current Visit: Yes Annotation/Comment:: History of iron deficiency in vitamin B-12 deficiency and recurrent GI bleeds as above. Closely observe by accepting providers as above Qualifiers: Anemia type: iron deficiency Iron deficiency anemia type: chronic blood loss Qualified Code(s): D50.0 - Iron deficiency anemia secondary to blood loss (chronic) (11) TIA due to embolism SNOMED Code(s): 962245796 Code(s): G45.9 - TRANSIENT CEREBRAL ISCHEMIC ATTACK, UNSPECIFIED; I74.9 - EMBOLISM AND THROMBOSIS OF UNSPECIFIED ARTERY Status: Acute Current Visit: Yes Onset Date: 08/15/16 Annotation/Comment:: TIA secondary to DVT of the right leg with no current change in neurological status or persistent neurological deficits. Note current Xarelto therapy, which may need to be reconsidered secondary to patient's history of recurrent GI bleeds (12) Peptic reflux disease SNOMED Code(s): 49158525 Code(s): K21.9 - GASTRO-ESOPHAGEAL REFLUX DISEASE WITHOUT ESOPHAGITIS Status: Chronic Priority: High Current Visit: Yes Annotation/Comment:: IV Pepcid and IV Protonix given in the ER as above. No direct evidence of acute upper GI bleed with previous history of duodenal ulcer, etc. as above - Problem List Review Problem List Initiated/Reviewed/Updated: Yes - My Orders Last 24 Hours: My Active Orders 03/24/17 10:40 Peripheral IV Care [RC] . DIRECTED Abdomen Series w Chest 1V [CR] Stat H PYLORI STOOL ANTIGEN [MREF] Urgent Sodium Chloride 0.9% [Saline Flush] 10 ml FLUSH ASDIRECTED PRN Obtain Past Medical Record [OM.PC] Urgent Peripheral IV Insertion Adult [OM.PC] Stat Resuscitation Status Stat 03/24/17 10:45 Peripheral IV Care [RC] . DIRECTED Sodium Chloride 0.9% [Saline Flush] 10 ml FLUSH ASDIRECTED PRN cefTRIAXone [Rocephin] 1 gm Sodium Chloride 0.9% [Normal Saline] 100 ml IV Q12H metroNIDAZOLE/Normal Saline [Flagyl 500 MG in NS 100 ML] 500 mg Premix Bag 1 bag IV Q8H Peripheral IV Insertion Adult [OM.PC] Stat 03/24/17 10:47 Cardiac Monitoring [RC] . DIRECTED 03/24/17 12:42 Oxygen Therapy, ED [RC] CONTINUOUS 03/24/17 13:00 Lactated Ringers [Ringers, Lactated] 1,000 ml IV ASDIRECTED 03/24/17 Breakfast Nothing Per Oral Diet [DIET] - Assessment/Plan Last 24 Hours: My Active Orders 03/24/17 10:40 Peripheral IV Care [RC] . DIRECTED Abdomen Series w Chest 1V [CR] Stat H PYLORI STOOL ANTIGEN [MREF] Urgent Sodium Chloride 0.9% [Saline Flush] 10 ml FLUSH ASDIRECTED PRN Obtain Past Medical Record [OM.PC] Urgent Peripheral IV Insertion Adult [OM.PC] Stat Resuscitation Status Stat 03/24/17 10:45 Peripheral IV Care [RC] . DIRECTED Sodium Chloride 0.9% [Saline Flush] 10 ml FLUSH ASDIRECTED PRN cefTRIAXone [Rocephin] 1 gm Sodium Chloride 0.9% [Normal Saline] 100 ml IV Q12H metroNIDAZOLE/Normal Saline [Flagyl 500 MG in NS 100 ML] 500 mg Premix Bag 1 bag IV Q8H Peripheral IV Insertion Adult [OM.PC] Stat 03/24/17 10:47 Cardiac Monitoring [RC] . DIRECTED 03/24/17 12:42 Oxygen Therapy, ED [RC] CONTINUOUS 03/24/17 13:00 Lactated Ringers [Ringers, Lactated] 1,000 ml IV ASDIRECTED 03/24/17 Breakfast Nothing Per Oral Diet [DIET] Assessment:: As above Plan: As above. Extensive precautions were given to the patient and her , who are in agreement with the treatment plan. Ambulance transfer with crusher plant operator accompaniment
[2017-03-24] MEDS ORDERED: metroNIDAZOLE/Normal Saline 500 MG in Premix Bag 1 BAG IV SCH (10:45)
[2017-03-24] MEDS ORDERED: cefTRIAXone 1 GM in Sodium Chloride 0.9% 100 ML IV SCH (10:45)
[2017-03-24 11:13] LABS: CHLORIDE,CL 104 mmol/L (98-107); SODIUM,NA 138 mmol/L (136-145)
[2017-03-24] MEDS ORDERED: Lactated Ringers 1,000 ML IV SCH (13:00)
[2017-03-24 14:50] VITALS: BP 137/87
== END 2017-03-24 14:30 ==
LOC: LL.ED 10:37
DX: K92.1 Melena (principal); F41.8 Other specified anxiety disorders; N28.9 Disorder of kidney and ureter, unspecified; K21.9 Gastro-esophageal reflux disease without esophagitis; D69.6 Thrombocytopenia, unspecified; J43.1 Panlobular emphysema; D50.0 Iron deficiency anemia secondary to blood loss (chronic); R53.82 Chronic fatigue, unspecified; M06.9 Rheumatoid arthritis, unspecified; E78.00 Pure hypercholesterolemia, unspecified; I10 Essential (primary) hypertension; I73.9 Peripheral vascular disease, unspecified; M81.0 Age-related osteoporosis without current pathological fracture; E89.0 Postprocedural hypothyroidism; Z87.01 Personal history of pneumonia (recurrent); Z87.891 Personal history of nicotine dependence; Z86.73 Personal history of transient ischemic attack (TIA), and cerebral infarction without residual deficits; Z86.718 Personal history of other venous thrombosis and embolism; Z98.49 Cataract extraction status, unspecified eye; Z90.49 Acquired absence of other specified parts of digestive tract; Z90.710 Acquired absence of both cervix and uterus; Z90.721 Acquired absence of ovaries, unilateral; Z98.51 Tubal ligation status; Z98.890 Other specified postprocedural states; Z85.42 Personal history of malignant neoplasm of other parts of uterus; Z79.899 Other long term (current) drug therapy; Z88.0 Allergy status to penicillin; Z88.2 Allergy status to sulfonamides; Z88.5 Allergy status to narcotic agent; Z88.8 Allergy status to other drugs, medicaments and biological substances
CPT/HCPCS: 36415; 74022; 80053; 82150; 82272; 83605; 83690; 83735; 84550; 85025; 85610; 85730; 96361; 96365; 96367; 96375; 99285; C9113; J0696; J2405; J7050; J7120; S0028

== ENCOUNTER 2017-12-31 08:50 | Emergency (ER) | payer MEDICARE, OTHER ==
[2017-12-31 09:19] VITALS: BP 148/64
[2017-12-31] MEDS ORDERED: Sodium Chloride 0.9% 10 ML Syringe FLUSH PRN (09:24)
[2017-12-31] MEDS ORDERED: Ketorolac 30 MG/ML SDV IVPUSH ONE (10:01)
--- NOTE | 2017-12-31 10:06 | EDM.PDOC ---
ED HPI GENERAL MEDICAL PROBLEM - General Chief Complaint: Upper Extremity Injury/Pain Stated Complaint: fall, shoulder pain Time Seen by Provider: 12/31/17 09:10 Source of Information: Reports: Patient, Family History Limitations: Reports: No Limitations - History of Present Illness INITIAL COMMENTS - FREE TEXT/NARRATIVE: Patient is a 77-year-old who was was at a [employer] sale she missed a step and fell on her right shoulder she did hit her head but no loss of consciousness is alert and oriented at time of physical Onset: Today Duration: Minutes:, Constant (Pain) Location: Reports: Upper Extremity, Right (Clavicle area) Quality: Reports: Ache, Stabbing Severity: Moderate Improves with: Reports: Medication Worsens with: Reports: Breathing Context: Reports: Trauma Associated Symptoms: Reports: Other (Right shoulder pain) Right Shoulder Pain Score (Numeric/FACES): 10 - Related Data Allergies Allergy/AdvReac Type Severity Reaction Status Date / Time atorvastatin [From Lipitor] Allergy Cannot Verified 08/31/17 14:05 Remember hydrochlorothiazide Allergy Hives Verified 08/31/17 14:05 hydromorphone Allergy Other Verified 08/31/17 14:05 meloxicam Allergy Other Verified 08/31/17 14:05 Penicillins Allergy Hives Verified 08/31/17 14:05 Sulfa (Sulfonamide Allergy Hives Verified 08/31/17 14:05 Antibiotics) tetanus and diphtheria Allergy Other Verified 08/31/17 14:05 toxoids trazodone Allergy Itching Verified 08/31/17 14:05 Home Meds: Home Meds Albuterol [Proventil HFA] 1 inh INH Q4HR PRN 04/18/14 [History] cycloSPORINE [Restasis] 1 drop EYEBOTH DAILY@1100,209904/18/14 [History] Latanoprost [Xalatan 0.005% Ophth Soln] 1 drop EYEBOTH DAILY@209907/01/14 [ History] Brinzolamide [Azopt] 1 drop EYEBOTH DAILY@1100,2100 04/17/15 [History] Cetirizine HCl [Zyrtec] 10 mg PO DAILY 04/17/15 [History] Cyanocobalamin (Vitamin B-12) [Vitamin B-12] 1,000 mcg SUBCUT Q30D 04/17/15 [ History] Non-Formulary Medication [NF Drug] 1 drop EYEBOTH BID@1100,2100 04/17/15 [ History] Pantoprazole Sodium [Protonix] 40 mg PO BID 09/23/15 [History] Calcitriol [Rocaltrol] 0.25 mcg PO DAILY 12/08/15 [History] Mirtazapine [Remeron] 15 mg PO BEDTIME 12/08/15 [History] Triamcinolone Acetonide [Nasacort] 2 sprays NASBOTH DAILY 12/08/15 [History] Escitalopram [Lexapro] 10 mg PO DAILY 10/07/16 [History] Potassium Chloride [Klor-Con M20] 20 meq PO DAILY 10/07/16 [History] LORazepam [Ativan] 0.5 mg PO Q8H PRN 02/21/17 [History] Levothyroxine [Synthroid] 50 mcg PO DAILY 02/21/17 [History] Rosuvastatin [Crestor] 10 mg PO BEDTIME 02/21/17 [History] amLODIPine Besylate [Amlodipine Besylate] 10 mg PO DAILY 02/21/17 [History] Past Medical History HEENT History: Reports: Allergic Rhinitis, Cataract, Glaucoma, Hard of Hearing, Impaired Vision, Other (See Below) Other HEENT History: Severe bilateral presbycusis with suboptimal hearing aid therapy, the patient wears glasses Cardiovascular History: Reports: Arrhythmia, Blood Clots/VTE/DVT, High Cholesterol, Hypertension, PVD, SOB on Exertion, Other (See Below) Other Cardiovascular History: PVCs, right leg DVT with secondary TIA in July 2016 as below, significant peripheral vascular disease by CT scan of the abdomen and pelvis on 02/24/17 as below including moderate bilateral renal artery stenosis, common femoral stenosis and SMA stenosis Respiratory History: Reports: Bronchitis, Recurrent, COPD, Intubation, Previous , Pneumonia, Recurrent Gastrointestinal History: Reports: Cholelithiasis, Chronic Constipation, Colon Polyp, Diverticulosis, Gastritis, GERD, GI Bleed, Helicobacter Pylori, Hiatal Hernia, Pancreatitis, PUD, Other (See Below) Other Gastrointestinal History: History of duodenal ulcer and upper GI bleed on 03/31/14, tubular adenoma on 03/31/14, moderate sigmoid diverticulosis by CT scan with possibility of lower GI bleeds with long history of recurrent GI bleeds with both positive and negative workups as below, previously treated H. pylori infection with subsequent negative biopsies for H. pylori at time of follow-up EGD, cholelithiasis with secondary pancreatitis, duodenal diverticulum, gastric polyp, fatty liver by CT scan, esophageal stenosis by last EGD on 02/24/17 with previous Victor Manuel fundoplication, tubular adenoma of the ascending excised via colonoscopy on 03/31/14 Genitourinary History: Reports: Chronic Renal Insuffiency, Urinary Incontinence , UTI, Recurrent BELT BACK OPERATOR History: Reports: Musculoskeletal History: Reports: Arthritis, Back Pain, Chronic, Fibromyalgia, Neck Pain, Chronic, Osteoarthritis, Osteoporosis, RA, SLE, Other (See Below) Other Musculoskeletal History: Right-sided Almaguer's cyst, scoliosis Neurological History: Reports: TIA, Other (See Below) Other Neuro History: Narcolepsy, TIA on 08/15/16 Psychiatric History: Reports: ADD, Addiction, Anxiety, Depression, Other (See Below) Other Psychiatric History: 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 Graves' disease with standard post-excision and radioactive iodide therapy with subsequent secondary hypothyroidism, status post excision of parathyroid gland as below Hematologic History: Reports: Anemia, B12 Deficiency, Blood Transfusion(s), Iron Deficiency, Other (See Below) Other Hematologic History: Multiple GI bleeds as above with secondary anemia, and iron deficiency with multiple blood transfusions in the past, thrombocytopenia Immunologic History: Reports: Immunosuppression, SLE, Other (See Below) Other Immunologic History: Chronic steroid use Oncologic (Cancer) History: Reports: Uterine Dermatologic History: Reports: None - Infectious Disease History Infectious Disease History: Reports: Chicken Pox, Helicobacter Pylori ( Previously treated as above), Measles, Mumps. Denies: C-Difficile, Meningitis, Mononucleosis, MRSA, Pertussis (Whooping Cough), Rheumatic Fever, Rubella, Scarlet Fever, Shingles, VRE - Past Surgical History Head Surgeries/Procedures: Reports: None HEENT Surgical History: Reports: Cataract Surgery, Eye Surgery, Laser Surgery, Oral Surgery, Other (See Below) Other HEENT Surgeries/Procedures: Right upper lid blepharoplasty, bilateral laser treatments for her glaucoma, bilateral cataract surgery Cardiovascular Surgical History: Reports: None Respiratory Surgical History: Reports: None GI Surgical History: Reports: Appendectomy, Cholecystectomy, Colonoscopy, EGD, Hernia, Abdominal, Victor Manuel Fundoplication, Polypectomy, Other (See Below) Other GI Surgeries/Procedures: Incomplete colonoscopy in 2003 with subsequent multiple colonoscopies including 03/31/14 with last colonoscopy on 02/24/17, last EGD on 01/11/16 did show some esophageal stenosis, gastric polyp, and a duodenal diverticulum with previous EGDs on 07/04/14, 03/21/2014 and 01/04/13, ventral abdominal hernia repair on the laparoscopic cholecystectomy, omentectomy secondary to uterine cancer as above Female Surgical History: Reports: Breast Biopsy, Cystoscopy, Hysterectomy, Salpingo-Oophorectomy, Tubal Ligation Other Female Surgeries/Procedures: bilateral tubal ligation in the 1970s, complete hysterectomy and bilateral salpingo-oophorectomy secondary to uterine cancer with additional chemotherapy in 2001, cystoscopy on 02/24/09 Endocrine Surgical History: Reports: None, Parathyroidectomy, Thyroidectomy, Other (See Below) Other Endocrine Surgeries/Procedures: Partial Parathyroidectomy 2 with last surgery on 04/17/13 and only one gland remaining, thyroidectomy with subsequent radioactive iodide therapy Musculoskeletal Surgical History: Reports: None Oncologic Surgical History: Reports: Other (See Below) Other Oncologic Surgeries/Procedures: HEALTHCARE ECONOMICS MANAGER surgery secondary to uterine cancer as above Dermatological Surgical History: Reports: None - Past Imaging History Past Imaging History: Reports: Bone Scan (Whole body bone scan on 09/25/10), Carotid US (01/06/11), CAT Scan (CT of the head in July [address] in [place] Last CT of the abdomen and pelvis with contrast on 02/24/17 with multiple findings as above. Previous similar evaluations on 12/08/15, 09/26/15 and 08/04/12; ), DEXA Scan (Last DEXA scan on 03/05/11), Mammogram (Last on 03/25/15), MRA (As below), MRI (MRI of the head in [place] in July 2016 with TIA diagnosed at that time, previous MRI/MRA of the brain on 01/06/11), Stress Testing ( Cardiolite stress test on 01/05/08 with ejection fraction of 68%), Venous Doppler (Venous Doppler studies of the lower extremities in July 2016 with positive DVT of the right leg with previous negative bilateral lower extremity venous Doppler studies on 09/25/10) - History Comment History Comment: Narcolepsy, ventral hernia Social & Family History - Family History Cardiac: Reports: CAD, Heart Failure, Other (See Below) Other Cardiac Family History: Mother and brother with history of coronary artery disease and CHF, brother and mother with hypertension, brother with hyperlipidemia : Reports: Renal Disease/Insufficiency, Other (See Below) Other Family History: Brother with renal insufficiency Endocrine/Metabolic: Reports: Hypothyroidism, Other (See Below) Other Endocrine/Metabolic Family History: Mother with hypothyroidism Oncologic: Reports: Breast, Metastatic, Other (See Below) Other Oncologic Family History: Paternal grandmother with metastatic breast disease to her liver - Caffeine Use Caffeine Use: Reports: Coffee - Living Situation & Occupation Living situation: Reports: (1959), with Family () 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, 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) Review of Systems - Review of Systems Review Of Systems: See Below Constitutional: Reports: No Symptoms Eyes: Reports: Other Ears: Reports: Other (HARD of hearing) Nose: Reports: No Symptoms Mouth/Throat: Reports: No Symptoms Respiratory: Reports: No Symptoms Cardiovascular: Reports: No Symptoms GI/Abdominal: Reports: No Symptoms Genitourinary: Reports: Incontinence Musculoskeletal: Reports: Shoulder Pain, Joint Pain (Right knee pain) Skin: Reports: No Symptoms Neurological: Reports: No Symptoms Psychiatric: Reports: Depression ED EXAM, GENERAL - Physical Exam Exam: See Below Exam Limited By: No Limitations General Appearance: Alert, WD/WN, Mild Distress Ears: Normal External Exam, Normal Canal, Hearing Grossly Normal, Normal TMs Nose: Normal Inspection, Normal Mucosa, No Blood Throat/Mouth: Normal Inspection, Normal Lips, Normal Teeth, Normal Gums, Normal Oropharynx, Normal Voice, No Airway Compromise Head: Atraumatic, Normocephalic Respiratory/Chest: No Respiratory Distress, Lungs Clear, Normal Breath Sounds, No Accessory Muscle Use, Chest Non-Tender Cardiovascular: Normal Peripheral Pulses, Regular Rate, Rhythm, No Edema, No Gallop, No JVD, No Murmur, No Rub GI/Abdominal: Normal Bowel Sounds, Soft, Non-Tender, No Organomegaly, No Distention, No Abnormal Bruit, No Mass (Female) Exam: Deferred Rectal (Female) Exam: Deferred Back Exam: Normal Inspection, Full Range of Motion, Decreased Range of Motion Neurological: Alert, Oriented, CN II-XII Intact, Normal Cognition, Normal Gait, Normal Reflexes, No Motor/Sensory Deficits Psychiatric: Flat Affect, Tearful (Secondary to pain) Skin Exam: Warm, Dry, Intact, Normal Color, No Rash Lymphatic: No Adenopathy Course - Vital Signs Last Recorded V/S: Last Vital Signs Temp 98 F 12/31/17 09:00 Pulse 76 12/31/17 09:00 Resp 20 12/31/17 09:00 BP 148/64 H 12/31/17 09:00 Pulse Ox 94 L 12/31/17 09:00 - Orders/Labs/Meds Orders: Active Orders 24 hr Category Date Time Status Peripheral IV Care [RC] . DIRECTED Care 12/31/17 09:24 Active Shoulder Comp Rt [CR] Stat Exams 12/31/17 09:20 Ordered Sodium Chloride 0.9% [Saline Flush] Med 12/31/17 09:24 Active 10 ml FLUSH ASDIRECTED PRN Peripheral IV Insertion Adult [OM.PC] Routine Oth 12/31/17 09:24 Ordered Medication Orders Sodium Chloride (Saline Flush) 10 ml FLUSH ASDIRECTED PRN PRN Reason: Keep Vein Open Labs: Laboratory Tests 12/31/17 12/31/17 Range/Units 09:30 09:30 WBC 6.3 (4.0-10.2) K/uL RBC 3.99 (3.77-5.09) M/uL Hgb 13.1 D (11.7-15.5) g/dL Hct 39.1 (34.0-46.0) % MCV 98.0 D (84.0-98.0) fL MCH 32.8 (28.2-33.3) pg MCHC 33.5 (31.7-36.0) g/dL RDW 12.9 (11.2-14.1) % Plt Count 113 L (150-350) K/uL Neut % (Auto) 52.2 (45.0-80.0) % Lymph % (Auto) 37.4 (10.0-50.0) % Mariposa % (Auto) 7.8 (2.0-14.0) % Eos % (Auto) 2.4 (0.0-5.0) % Baso % (Auto) 0.2 (0.0-2.0) % Neut # (Auto) 3.30 (1.40-7.00) K/uL Lymph # (Auto) 2.36 (0.50-3.50) K/uL Mariposa # (Auto) 0.49 (0.00-1.00) K/uL Eos # (Auto) 0.15 (0.00-0.50) K/uL Baso # (Auto) 0.01 (0.00-0.20) K/uL Sodium 140 (136-145) mmol/L Potassium 3.9 (3.5-5.1) mmol/L Chloride 107 (98-107) mmol/L Carbon Dioxide 23.1 (21.0-32.0) mmol/L BUN 18 (7-18) mg/dL Creatinine 1.03 (0.51-1.17) mg/dL Est Cr Clr Drug Dosing 45.19 mL/min Estimated GFR (MDRD) 52 mL/min Glucose 105 (74-106) mg/dL Calcium 8.3 L (8.5-10.1) mg/dL Meds: Medications Generic Name Dose Route Start Last Admin Trade Name Freq PRN Reason Stop Dose Admin Sodium Chloride 10 ml 12/31/17 09:24 Saline Flush FLUSH ASDIRECTED PRN Keep Vein Open Discontinued Medications Generic Name Dose Route Start Last Admin Trade Name Freq PRN Reason Stop Dose Admin Ketorolac Tromethamine 30 mg 12/31/17 10:01 12/31/17 10:04 Toradol IVPUSH 12/31/17 10:02 30 mg ONETIME ONE Administration Departure - Departure Time of Disposition: 10:44 Disposition: Home, Self-Care 01 Condition: Fair Clinical Impression: Closed fracture of clavicle Qualifiers: Encounter type: initial encounter Clavicle location: lateral end Fracture alignment: nondisplaced Laterality: right Qualified Code(s): S42.034A - Nondisplaced fracture of lateral end of right clavicle, initial encounter for closed fracture - Discharge Information Instructions: Clavicle Fracture, [id number] Referrals: PCP,Unknown [Primary Care Provider] - Forms: ED Department Discharge Care Plan Goals: At this time patient will be sent home on a [id number] she is to take her pain medications as instructed will follow-up with primary in 2 weeks - My Orders Last 24 Hours: My Active Orders 12/31/17 09:20 Shoulder Comp Rt [CR] Stat 12/31/17 09:24 Peripheral IV Care [RC] . DIRECTED Sodium Chloride 0.9% [Saline Flush] 10 ml FLUSH ASDIRECTED PRN Peripheral IV Insertion Adult [OM.PC] Routine - Assessment/Plan Last 24 Hours: My Active Orders 12/31/17 09:20 Shoulder Comp Rt [CR] Stat 12/31/17 09:24 Peripheral IV Care [RC] . DIRECTED Sodium Chloride 0.9% [Saline Flush] 10 ml FLUSH ASDIRECTED PRN Peripheral IV Insertion Adult [OM.PC] Routine
== END 2017-12-31 11:05 | disposition home or self-care (01) ==
LOC: LL.ED 08:50
DX: S42.034A Nondisplaced fracture of lateral end of right clavicle, initial encounter for closed fracture (principal); J44.9 Chronic obstructive pulmonary disease, unspecified; E78.00 Pure hypercholesterolemia, unspecified; I12.9 Hypertensive chronic kidney disease with stage 1 through stage 4 chronic kidney disease, or unspecified chronic kidney disease; N18.9 Chronic kidney disease, unspecified; D63.1 Anemia in chronic kidney disease; E03.9 Hypothyroidism, unspecified; Z88.8 Allergy status to other drugs, medicaments and biological substances; Z88.5 Allergy status to narcotic agent; Z88.0 Allergy status to penicillin; Z88.2 Allergy status to sulfonamides; Z88.7 Allergy status to serum and vaccine; Z79.899 Other long term (current) drug therapy; W10.9XXA Fall (on) (from) unspecified stairs and steps, initial encounter
CPT/HCPCS: 36415; 73030; 80048; 85025; 96374; 99284; J1885

== ENCOUNTER 2018-10-23 22:29 | Inpatient (IN) | payer MEDICARE, OTHER ==
[2018-10-23] MEDS: Sodium Chloride 0.9% 10 ML Syringe FLUSH PRN ×2 (22:59→23:17)
[2018-10-23] MEDS ORDERED: fentaNYL 100 MCG/2 ML SDV IVPUSH ONE (23:10)
--- NOTE | 2018-10-23 23:10 | EDM.PDOC ---
ED HPI GENERAL MEDICAL PROBLEM - General Chief Complaint: General Stated Complaint: abdominal pain Time Seen by Provider: 10/23/18 22:30 Source of Information: Reports: Patient History Limitations: Reports: No Limitations - History of Present Illness INITIAL COMMENTS - FREE TEXT/NARRATIVE: Patient comes to ER complaining of abdominal pain that started this morning. Describes it as sharp intermittent pain that shoots across her abdomen. History of multiple abdominal surgeries. Has had appendix and gallbladder removed. Hx of UTIs. Denies UTI complaints. No fevers or chills. Denies HEENT changes. No cough/wheezing/SOB/pleuritic pain. Sitting up/laying down don't affect pain. She felt that the sandwhich she ate tonight when she took her pills may have caused the pain to worsen. Denies bowel changes. History of chronic constipation. Denies neuro changes/ acute weakness. Patient has long list of chronic medical problems, chronic pain complaints, and is on a large number of medications. Chronic complaints of weakness and lightheadedness. Usually visits [facility] once a week per staff member familiar with her. Upon arrival patient intermittently noted to cry in a very high pitch/ complaining of pain, then immediately appears relaxed and smiling, joking with staff. Abdomen Pain Score (Numeric/FACES): 8 - Related Data Allergies Allergy/AdvReac Type Severity Reaction Status Date / Time atorvastatin [From Lipitor] Allergy Cannot Verified 06/18/18 09:08 Remember hydrochlorothiazide Allergy Hives Verified 06/18/18 09:08 hydromorphone Allergy Other Verified 06/18/18 09:08 meloxicam Allergy Other Verified 06/18/18 09:08 Penicillins Allergy Hives Verified 06/18/18 09:08 Sulfa (Sulfonamide Allergy Hives Verified 06/18/18 09:08 Antibiotics) tetanus and diphtheria Allergy Other Verified 06/18/18 09:08 toxoids trazodone Allergy Itching Verified 06/18/18 09:08 Home Meds: Home Meds Albuterol [Proventil HFA] 1 inh INH Q4HR PRN 04/18/14 [History] Cetirizine HCl [Zyrtec] 10 mg PO DAILY 04/17/15 [History] Cyanocobalamin (Vitamin B-12) [Vitamin B-12] 1,000 mcg SUBCUT Q30D 04/17/15 [ History] Non-Formulary Medication [NF Drug] 1 drop EYEBOTH BID@1100,2100 04/17/15 [ History] Pantoprazole Sodium [Protonix] 40 mg PO BID 09/23/15 [History] Levothyroxine [Synthroid] 75 mcg PO DAILY 02/21/17 [History] Acetaminophen/HYDROcodone [Victor 325-5 MG] 1 tab PO QID PRN 06/18/18 [History] Brinzolamide [Azopt 1% Ophth Susp] 1 drop OP BID@,20 06/18/18 [History] Docusate Sodium [Colace] 100 mg PO DAILY PRN 06/18/18 [History] Multivitamins [Tab-A-Barbie] 1 tab PO DAILY 06/18/18 [History] cycloSPORINE [Restasis] 1 each EYEBOTH BID 06/18/18 [History] LORazepam [Ativan] 0.5 mg PO Q8H PRN 06/19/18 [History] Latanoprost [Xalatan 0.005% Ophth Soln] 1 drop EYEBOTH BEDTIME 06/19/18 [History ] Non-Formulary Medication [NF Drug] 1 drop EYEBOTH 06/19/18 [History] Bisacodyl [Dulcolax] 5 mg PO DAILY PRN tablet 06/22/18 [Rx] Calcitriol 2 tab PO DAILY #180 capsule 06/22/18 [Rx] Calcium Carbonate/Vitamin D3 [Calcium 500 + Vit D 400] 2 each PO TID #100 tablet 06/22/18 [Rx] Carvedilol [Coreg] 3.125 mg PO Q12HR #180 tablet 06/22/18 [Rx] Dorzolamide [Trusopt 2% Ophth Soln] 0 ml EYEBOTH TID bottle 06/22/18 [Rx] Escitalopram [Lexapro] 20 mg PO DAILY #90 tablet 06/22/18 [Rx] Furosemide [Lasix] 20 mg PO DAILY #90 tablet 06/22/18 [Rx] Latanoprost [Xalatan 0.005% Ophth Soln] 0 ml EYEBOTH BEDTIME bottle 06/22/18 [ Rx] Losartan [Cozaar] 100 mg PO BEDTIME #90 tab 06/22/18 [Rx] Magnesium Hydroxide [Milk of Magnesia] 30 ml PO DAILY PRN cup 06/22/18 [Rx] Magnesium Oxide 400 mg PO DAILY@1200 tablet 06/22/18 [Rx] Mirtazapine 30 mg PO BEDTIME #90 tablet 06/22/18 [Rx] Sennosides/Docusate Sodium [Senna Plus Tablet] 2 tab PO TID #100 tab 06/22/18 [ Rx] Ubidecarenone [Coenzyme Q10] 100 mg PO DAILY cap 06/22/18 [Rx] Past Medical History HEENT History: Reports: Allergic Rhinitis, Cataract, Glaucoma, Hard of Hearing, Impaired Vision, Other (See Below) Other HEENT History: Severe bilateral presbycusis with suboptimal hearing aid therapy, the patient wears glasses Cardiovascular History: Reports: Arrhythmia, Blood Clots/VTE/DVT, High Cholesterol, Hypertension, PVD, SOB on Exertion, Other (See Below) Other Cardiovascular History: PVCs, right leg DVT with secondary TIA in July 2016 as below, significant peripheral vascular disease by CT scan of the abdomen and pelvis on 02/24/17 as below including moderate bilateral renal artery stenosis, common femoral stenosis and SMA stenosis Respiratory History: Reports: Bronchitis, Recurrent, COPD, Intubation, Previous , Pneumonia, Recurrent Gastrointestinal History: Reports: Cholelithiasis, Chronic Constipation, Colon Polyp, Diverticulosis, Gastritis, GERD, GI Bleed, Helicobacter Pylori, Hiatal Hernia, Pancreatitis, PUD, Other (See Below) Other Gastrointestinal History: History of duodenal ulcer and upper GI bleed on 03/31/14, tubular adenoma on 03/31/14, moderate sigmoid diverticulosis by CT scan with possibility of lower GI bleeds with long history of recurrent GI bleeds with both positive and negative workups as below, previously treated H. pylori infection with subsequent negative biopsies for H. pylori at time of follow-up EGD, cholelithiasis with secondary pancreatitis, duodenal diverticulum, gastric polyp, fatty liver by CT scan, esophageal stenosis by last EGD on 02/24/17 with previous Victor Manuel fundoplication, tubular adenoma of the ascending excised via colonoscopy on 03/31/14 Genitourinary History: Reports: Chronic Renal Insuffiency, Urinary Incontinence , UTI, Recurrent VP INFORMATICS History: Reports: Musculoskeletal History: Reports: Arthritis, Back Pain, Chronic, Fibromyalgia, Neck Pain, Chronic, Osteoarthritis, Osteoporosis, RA, SLE, Other (See Below) Other Musculoskeletal History: Right-sided Almaguer's cyst, scoliosis Neurological History: Reports: TIA, Other (See Below) Other Neuro History: Narcolepsy, TIA on 08/15/16 Psychiatric History: Reports: ADD, Addiction, Anxiety, Depression, Other (See Below) Other Psychiatric History: 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 Graves' disease with standard post-excision and radioactive iodide therapy with subsequent secondary hypothyroidism, status post excision of parathyroid gland as below Hematologic History: Reports: Anemia, B12 Deficiency, Blood Transfusion(s), Iron Deficiency, Other (See Below) Other Hematologic History: Multiple GI bleeds as above with secondary anemia, and iron deficiency with multiple blood transfusions in the past, thrombocytopenia Immunologic History: Reports: Immunosuppression, SLE, Other (See Below) Other Immunologic History: Chronic steroid use Oncologic (Cancer) History: Reports: Uterine Dermatologic History: Reports: None - Infectious Disease History Infectious Disease History: Reports: Chicken Pox, Helicobacter Pylori, Measles, Mumps - Past Surgical History Head Surgeries/Procedures: Reports: None HEENT Surgical History: Reports: Cataract Surgery, Eye Surgery, Laser Surgery, Oral Surgery, Other (See Below) Other HEENT Surgeries/Procedures: Right upper lid blepharoplasty, bilateral laser treatments for her glaucoma, bilateral cataract surgery Cardiovascular Surgical History: Reports: None Respiratory Surgical History: Reports: None GI Surgical History: Reports: Appendectomy, Cholecystectomy, Colonoscopy, EGD, Hernia, Abdominal, Victor Manuel Fundoplication, Polypectomy, Other (See Below) Other GI Surgeries/Procedures: Incomplete colonoscopy in 2003 with subsequent multiple colonoscopies including 03/31/14 with last colonoscopy on 02/24/17, last EGD on 01/11/16 did show some esophageal stenosis, gastric polyp, and a duodenal diverticulum with previous EGDs on 07/04/14, 03/21/2014 and 01/04/13, ventral abdominal hernia repair on the laparoscopic cholecystectomy, omentectomy secondary to uterine cancer as above Female Surgical History: Reports: Breast Biopsy, Cystoscopy, Hysterectomy, Salpingo-Oophorectomy, Tubal Ligation Other Female Surgeries/Procedures: bilateral tubal ligation in the 1970s, complete hysterectomy and bilateral salpingo-oophorectomy secondary to uterine cancer with additional chemotherapy in 2001, cystoscopy on 02/24/09 Endocrine Surgical History: Reports: None, Parathyroidectomy, Thyroidectomy, Other (See Below) Other Endocrine Surgeries/Procedures: Partial Parathyroidectomy 2 with last surgery on 04/17/13 and only one gland remaining, thyroidectomy with subsequent radioactive iodide therapy Musculoskeletal Surgical History: Reports: None Oncologic Surgical History: Reports: Other (See Below) Other Oncologic Surgeries/Procedures: 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 of the abdomen and pelvis with contrast on 02/24/17 with multiple findings as above. Previous similar evaluations on 12/08/15, 09/26/15 and 08/04/12; ), DEXA Scan (Last DEXA scan on 03/05/11), Mammogram (Last on 03/25/15), MRA (As below), MRI (MRI of the head in [place] in July 2016 with TIA diagnosed at that time, previous MRI/MRA of the brain on 01/06/11), Stress Testing ( Cardiolite stress test on 01/05/08 with ejection fraction of 68%), Venous Doppler (Venous Doppler studies of the lower extremities in July 2016 with positive DVT of the right leg with previous negative bilateral lower extremity venous Doppler studies on 09/25/10) - History Comment History Comment: Narcolepsy, ventral hernia Social & Family History - Family History Cardiac: Reports: CAD, Heart Failure, Other (See Below) Other Cardiac Family History: Mother and brother with history of coronary artery disease and CHF, brother and mother with hypertension, brother with hyperlipidemia : Reports: Renal Disease/Insufficiency, Other (See Below) Other Family History: Brother with renal insufficiency Endocrine/Metabolic: Reports: Hypothyroidism, Other (See Below) Other Endocrine/Metabolic Family History: Mother with hypothyroidism Oncologic: Reports: Breast, Metastatic, Other (See Below) Other Oncologic Family History: Paternal grandmother with metastatic breast disease to her liver - Tobacco Use Smoking Status *Q: Former Smoker Used Tobacco, but Quit: Yes Month/Year Tobacco Last Used: 07/1997 - Caffeine Use Caffeine Use: Reports: None - Recreational Drug Use Recreational Drug Use: No - Living Situation & Occupation Living situation: Reports: (1959), with Family () 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 ED EXAM, GENERAL - Physical Exam Exam: See Below Exam Limited By: No Limitations General Appearance: Alert, Anxious Eye Exam: Bilateral Eye: EOMI, PERRL Ears: Normal External Exam Nose: No: Nasal Deformity, Nasal Swelling, Nasal Drainage Throat/Mouth: Normal Voice, No Airway Compromise Head: Atraumatic, Normocephalic Neck: Supple, Non-Tender Respiratory/Chest: No Respiratory Distress, Lungs Clear, Normal Breath Sounds, No Accessory Muscle Use, Chest Non-Tender Cardiovascular: Regular Rate, Rhythm, No Murmur Peripheral Pulses: 2+: Radial (L), Radial (R) GI/Abdominal: Normal Bowel Sounds, Soft, Tender (tender mid abdomen with palpation). No: Guarding, Rigid, Rebound, Hernia (Female) Exam: Deferred Rectal (Female) Exam: Deferred Back Exam: No: CVA Tenderness (L), CVA Tenderness (R), Muscle Spasm Extremities: Normal Capillary Refill, Pedal Edema. No: Maren's Sign, Leg Pain, Increased Warmth, Mottled Neurological: Alert, Normal Cognition, Other (equal tone/strength bilaterally) Psychiatric: Anxious Course - Vital Signs Last Recorded V/S: Last Vital Signs Temp 36.4 C 10/23/18 22:32 Pulse 84 10/23/18 22:32 Resp 20 10/23/18 22:32 BP 192/85 H 10/23/18 22:32 Pulse Ox 96 10/23/18 22:32 - Orders/Labs/Meds Orders: Active Orders 24 hr Category Date Time Status Abdomen 2V AP Flat Upright [CR] Stat Exams 10/23/18 22:52 Ordered UA W/MICROSCOPIC [URIN] Stat Lab 10/23/18 22:53 Ordered Sodium Chloride 0.9% [Saline Flush] Med 10/23/18 22:53 Ordered 10 ml FLUSH ASDIRECTED PRN Saline Lock Insert [OM.PC] Stat Oth 10/23/18 22:53 Ordered Medication Orders Sodium Chloride (Saline Flush) 10 ml FLUSH ASDIRECTED PRN PRN Reason: Keep Vein Open Last Admin: 10/23/18 23:17 Dose: 10 ml Admin: 10/23/18 22:59 Dose: 10 ml Labs: Laboratory Tests 10/23/18 10/23/18 Range/Units 23:00 23:00 WBC 6.4 (4.0-10.2) K/uL RBC 4.55 (3.77-5.09) M/uL Hgb 14.8 D (11.7-15.5) g/dL Hct 43.6 (34.0-46.0) % MCV 95.8 (84.0-98.0) fL MCH 32.5 (28.2-33.3) pg MCHC 33.9 (31.7-36.0) g/dL RDW 13.4 (11.2-14.1) % Plt Count 124 L (150-350) K/uL Neut % (Auto) 66.5 (45.0-80.0) % Lymph % (Auto) 24.1 (10.0-50.0) % Independence % (Auto) 7.5 (2.0-14.0) % Eos % (Auto) 1.7 (0.0-5.0) % Baso % (Auto) 0.2 (0.0-2.0) % Neut # (Auto) 4.29 (1.40-7.00) K/uL Lymph # (Auto) 1.55 (0.50-3.50) K/uL Independence # (Auto) 0.48 (0.00-1.00) K/uL Eos # (Auto) 0.11 (0.00-0.50) K/uL Baso # (Auto) 0.01 (0.00-0.20) K/uL Sodium 140 (136-145) mmol/L Potassium 4.1 (3.5-5.1) mmol/L Chloride 103 (98-107) mmol/L Carbon Dioxide 25.0 (21.0-32.0) mmol/L BUN 13 (7-18) mg/dL Creatinine 1.24 H (0.51-1.17) mg/dL Est Cr Clr Drug Dosing 37.53 mL/min Estimated GFR (MDRD) 42 mL/min Glucose 135 H (74-106) mg/dL Calcium 10.1 D (8.5-10.1) mg/dL Magnesium 2.0 (1.8-2.4) mg/dL Total Bilirubin 0.5 (0.2-1.0) mg/dL AST 28 (15-37) U/L ALT 23 (12-78) U/L Alkaline Phosphatase 70 (46-116) IU/L Total Protein 7.1 (6.4-8.2) g/dL Albumin 3.9 (3.4-5.0) g/dL Amylase 64 (25-115) U/L Lipase 155 (73-393) U/L Meds: Medications Generic Name Dose Route Start Last Admin Trade Name Freq PRN Reason Stop Dose Admin Sodium Chloride 10 ml 10/23/18 22:53 10/23/18 23:17 Saline Flush FLUSH 10 ml ASDIRECTED PRN Administration Keep Vein Open Discontinued Medications Generic Name Dose Route Start Last Admin Trade Name Freq PRN Reason Stop Dose Admin Diphenhydramine HCl 25 mg 10/23/18 23:11 10/23/18 23:15 Benadryl IVPUSH 10/23/18 23:12 25 mg ONETIME ONE Administration Fentanyl 50 mcg 10/23/18 23:10 10/23/18 23:16 Sublimaze IVPUSH 10/23/18 23:11 50 mcg ONETIME ONE Administration - Radiology Interpretation Free Text/Narrative:: Several air/fluid levels noted on xray - Re-Assessments/Exams Free Text/Narrative Re-Assessment/Exam: 10/23/18 23:16 Labs and xray requested. IV access obtained. Patient requested something for pain. Has had hives in past with hydromorphone. Does not want to take PO medications due to the abdominal pain. Lower dose of Fentanyl given along with Benadryl. 10/24/18 00:47 Patient rested while labs processed. It was observed that she rested quietly unless she noticed any staff enter the ER. She would then begin to moan loudly and repetitively. This would completely cease if staff appeared to be absent from the room. CBC/Chem/Amylase/Lipase overall unremarkable. Patient has been unable to give UA specimen. Plan at this time is to admit her to observation overnight. UA pending. Appears to have behavioral component to presentation/attention seeking behavior. Abdominal pain complaint does need to be explored more thoroughly given patient's history. CT of abdomen and pelvis planned. Patient's care to be taken over by [facility] in the morning. Departure - Departure Time of Disposition: 00:52 Disposition: Refer to Observation Condition: Good Clinical Impression: Abdominal pain - Discharge Information *PRESCRIPTION DRUG MONITORING PROGRAM REVIEWED*: Not Applicable *COPY OF PRESCRIPTION DRUG MONITORING REPORT IN PATIENT JULIANNA: Not Applicable Referrals: Eugenia Perez NP [Primary Care Provider] - Forms: ED Department Discharge - Problem List & Annotations (1) Abdominal pain SNOMED Code(s): 75215261 Code(s): R10.9 - UNSPECIFIED ABDOMINAL PAIN Status: Acute Priority: High Current Visit: Yes Onset Date: 10/23/18 Annotation/Comment:: Abdominal pain of uncertain etiology. CT of abdomen and pelvis planned. UA requested. - My Orders Last 24 Hours: My Active Orders 10/23/18 22:52 Abdomen 2V AP Flat Upright [CR] Stat 10/23/18 22:53 UA W/MICROSCOPIC [URIN] Stat Sodium Chloride 0.9% [Saline Flush] 10 ml FLUSH ASDIRECTED PRN Saline Lock Insert [OM.PC] Stat - Assessment/Plan Admission H&P: Please use this note as an admission H&P Last 24 Hours: My Active Orders 10/23/18 22:52 Abdomen 2V AP Flat Upright [CR] Stat 10/23/18 22:53 UA W/MICROSCOPIC [URIN] Stat Sodium Chloride 0.9% [Saline Flush] 10 ml FLUSH ASDIRECTED PRN Saline Lock Insert [OM.PC] Stat Assessment:: abdominal pain Plan: Observe for changes. CT of abdomen and pelvis. UA pending.
[2018-10-23] MEDS ORDERED: diphenhydrAMINE 50 MG/ML SDV IVPUSH ONE (23:11)
[2018-10-24] MEDS ORDERED: fentaNYL 100 MCG/2 ML SDV IVPUSH ONE ×2 (01:00→07:31)
[2018-10-24] MEDS ORDERED: LORazepam 2 MG/ML SDV IVPUSH ONE ×2 (01:01→02:00)
[2018-10-24] MEDS ORDERED: Sodium Chloride 0.9% 1,000 ML IV ONE (01:02)
[2018-10-24] MEDS ORDERED: Ondansetron 4 MG/2 ML SDV IVPUSH PRN (01:04)
[2018-10-24] MEDS ORDERED: Docusate Sodium 100 MG Cap PO PRN (01:12)
[2018-10-24] MEDS ORDERED: LORazepam 0.5 MG Tab PO PRN (01:12)
[2018-10-24] MEDS ORDERED: Bisacodyl 5 MG Tab PO PRN (01:12)
[2018-10-24] MEDS ORDERED: Magnesium Hydroxide 400 MG/5 ML Susp 30 ML Cup PO PRN (01:12)
[2018-10-24] MEDS ORDERED: Albuterol 8 GM Inhaler INH PRN (02:30)
[2018-10-24] MEDS ORDERED: Morphine 2 MG/ML Syringe IVPUSH ONE (02:40)
[2018-10-24] MEDS: Sodium Chloride 0.9% 10 ML Syringe FLUSH PRN ×5 (02:59→23:18)
[2018-10-24] MEDS: fentaNYL 100 MCG/2 ML SDV IVPUSH PRN ×3 (05:45→21:29)
[2018-10-24] MEDS ORDERED: Pantoprazole 40 MG Tab.CR PO SCH (07:30)
[2018-10-24] MEDS ORDERED: Levothyroxine 75 MCG Tab PO SCH (07:30)
[2018-10-24] MEDS ORDERED: Carvedilol 3.125 MG Tab PO SCH (08:00)
[2018-10-24] MEDS ORDERED: Dorzolamide 2% Ophth Soln 10 ML Bottle EYEBOTH SCH (08:00)
[2018-10-24] MEDS ORDERED: Escitalopram 20 MG Tab PO SCH (08:00)
[2018-10-24] MEDS ORDERED: Furosemide 20 MG Tab PO SCH (08:00)
--- NOTE | 2018-10-24 08:22 | PCM.DCSUM1 ---
Discharge Summary - Hospital Course Brief History: Admitted for abdominal pain for observation, pain management, and planned CT of abdomen and pelvis. Diagnosis: Stroke: No - Discharge Data Discharge Date: 10/24/18 Discharge Disposition: DC/Tfer to Acute Hospital 02 Condition: Good - Discharge Diagnosis/Problem(s) (1) Abdominal pain SNOMED Code(s): 60753189 ICD Code: R10.9 - UNSPECIFIED ABDOMINAL PAIN Status: Acute Priority: High Current Visit: Yes Onset Date: 10/23/18 Problem Details: Abdominal pain of uncertain etiology. CT of abdomen and pelvis planned. UA requested. (2) Small bowel obstruction SNOMED Code(s): 357391178 ICD Code: K56.609 - UNSP INTESTNL OBST, UNSP TO PARTIAL VERSUS COMPLETE OBST Status: Acute Current Visit: Yes - Patient Summary/Data Hospital Course: Patient admitted observation. Fentanyl improved pain, but unable to get patient completely pain-free. Patient reported allergy to hydromorphone. CT performed and showed per Radiology small bowel obstruction. Radiology recommended obtaining a plain radiograph of abdomen in 4 hours to see if contrast makes it to colon, and consultation with surgery. - Discharge Plan *PRESCRIPTION DRUG MONITORING PROGRAM REVIEWED*: Not Applicable *COPY OF PRESCRIPTION DRUG MONITORING REPORT IN PATIENT JULIANNA: Not Applicable Home Medications: Home Meds Albuterol [Proventil HFA] 1 inh INH Q4HR PRN 04/18/14 [History] Cetirizine HCl [Zyrtec] 10 mg PO DAILY 04/17/15 [History] Cyanocobalamin (Vitamin B-12) [Vitamin B-12] 1,000 mcg SUBCUT Q30D 04/17/15 [ History] Pantoprazole Sodium [Protonix] 40 mg PO BID 09/23/15 [History] Levothyroxine [Synthroid] 75 mcg PO DAILY 02/21/17 [History] Brinzolamide [Azopt 1% Ophth Susp] 1 drop OP BID@08,20 06/18/18 [History] Docusate Sodium [Colace] 100 mg PO DAILY PRN 06/18/18 [History] cycloSPORINE [Restasis] 1 each EYEBOTH BID 06/18/18 [History] LORazepam [Ativan] 0.5 mg PO Q8H PRN 06/19/18 [History] Calcitriol 2 tab PO DAILY #180 capsule 06/22/18 [Rx] Calcium Carbonate/Vitamin D3 [Calcium 500 + Vit D 400] 2 each PO TID #100 tablet 06/22/18 [Rx] Carvedilol [Coreg] 3.125 mg PO Q12HR #180 tablet 06/22/18 [Rx] Furosemide [Lasix] 20 mg PO DAILY #90 tablet 06/22/18 [Rx] Losartan [Cozaar] 100 mg PO BEDTIME #90 tab 06/22/18 [Rx] Magnesium Oxide 400 mg PO DAILY@1200 tablet 06/22/18 [Rx] Escitalopram [Lexapro] 10 mg PO DAILY 10/24/18 [History] Hydrocodone/Acetaminophen [Hydrocodon-Acetaminophen 5-325] 1 tab PO QID PRN 04/05 [History] Latanoprost/Pf [Latanoprost 0.005% Eye Drop] 1 drop EYEBOTH BID 10/24/18 [ History] Multivits-Min/Iron/FA/Lutein [Centrum Silver Women Tablet] 1 each PO DAILY 10/24 [History] Non-Formulary Medication [NF Drug] 1 drop EYEBOTH BID 10/24/18 [History] Pravastatin [Pravachol] 40 mg PO BEDTIME 10/24/18 [History] cloNIDine [Catapres] 0.1 mg PO Q12HR 10/24/18 [History] Forms: ED Department Discharge Referrals: Eugenia Perez, MANAGER PHOTOGRAPHY [Primary Care Provider] - - Discharge Summary/Plan Comment DC Time >30 min.: No Discharge Summary/Plan Comment: Transfer to [facility] - General Info Date of Service: 10/24/18 Admission Dx/Problem (Free Text: Abdominal pain with one episode of emesis. Functional Status: Reports: Other (Pain improves with Fent) - Patient Data Vitals - Most Recent: Last Vital Signs Temp 36.9 C 10/24/18 01:04 Pulse 77 10/24/18 01:04 Resp 15 10/24/18 01:04 BP 178/76 H 10/24/18 01:04 Pulse Ox 95 10/24/18 01:04 Weight - Most Recent: 78.471 kg Lab Results - Last 24 hrs: Laboratory Results - last 24 hr 10/23/18 10/23/18 Range/Units 23:00 23:00 WBC 6.4 (4.0-10.2) K/uL RBC 4.55 (3.77-5.09) M/uL Hgb 14.8 D (11.7-15.5) g/dL Hct 43.6 (34.0-46.0) % MCV 95.8 (84.0-98.0) fL MCH 32.5 (28.2-33.3) pg MCHC 33.9 (31.7-36.0) g/dL RDW 13.4 (11.2-14.1) % Plt Count 124 L (150-350) K/uL Neut % (Auto) 66.5 (45.0-80.0) % Lymph % (Auto) 24.1 (10.0-50.0) % [place] % (Auto) 7.5 (2.0-14.0) % Eos % (Auto) 1.7 (0.0-5.0) % Baso % (Auto) 0.2 (0.0-2.0) % Neut # (Auto) 4.29 (1.40-7.00) K/uL Lymph # (Auto) 1.55 (0.50-3.50) K/uL [place] # (Auto) 0.48 (0.00-1.00) K/uL Eos # (Auto) 0.11 (0.00-0.50) K/uL Baso # (Auto) 0.01 (0.00-0.20) K/uL Sodium 140 (136-145) mmol/L Potassium 4.1 (3.5-5.1) mmol/L Chloride 103 (98-107) mmol/L Carbon Dioxide 25.0 (21.0-32.0) mmol/L BUN 13 (7-18) mg/dL Creatinine 1.24 H (0.51-1.17) mg/dL Est Cr Clr Drug Dosing 37.53 mL/min Estimated GFR (MDRD) 42 mL/min Glucose 135 H (74-106) mg/dL Calcium 10.1 D (8.5-10.1) mg/dL Magnesium 2.0 (1.8-2.4) mg/dL Total Bilirubin 0.5 (0.2-1.0) mg/dL AST 28 (15-37) U/L ALT 23 (12-78) U/L Alkaline Phosphatase 70 (46-116) IU/L Total Protein 7.1 (6.4-8.2) g/dL Albumin 3.9 (3.4-5.0) g/dL Amylase 64 (25-115) U/L Lipase 155 (73-393) U/L Med Orders - Current: Current Medications Albuterol (Ventolin Hfa) 0 gm INH Q4H PRN PRN Reason: SHORTNESS OF BREATH Bisacodyl (Dulcolax) 5 mg PO DAILY PRN PRN Reason: Constipation Carvedilol (Coreg) 3.125 mg PO Q12HR [facility] Coenzyme Q10 (Coenzyme Q10) 100 mg PO DAILY [facility] Docusate Sodium (Colace) 100 mg PO DAILY PRN PRN Reason: Constipation Dorzolamide HCl (Trusopt 2% Ophth Soln) 1 ml EYEBOTH TID [facility] Escitalopram Oxalate (Lexapro) 20 mg PO DAILY [facility] Fentanyl (Sublimaze) 50 mcg IVPUSH Q4H PRN PRN Reason: Pain (severe 7-10) Last Admin: 10/24/18 05:45 Dose: 50 mcg Furosemide (Lasix) 20 mg PO DAILY [facility] Sodium Chloride (Normal Saline) 1,000 mls @ 75 mls/hr IV ONETIME ONE Stop: 10/24/18 14:21 Last Admin: 10/24/18 01:21 Dose: 75 mls/hr Latanoprost (Xalatan 0.005% Ophth Soln) 1 ml EYEBOTH BEDTIME [facility] Levothyroxine Sodium (Levothyroxine) 75 mcg PO ACBREAKFAST [facility] Lorazepam (Ativan) 0.5 mg PO Q8H PRN PRN Reason: Anxiety Losartan Potassium (Cozaar) 100 mg PO BEDTIME [facility] Magnesium Hydroxide (Milk Of Magnesia) 30 ml PO DAILY PRN PRN Reason: Constipation Magnesium Oxide (Magnesium Oxide) 400 mg PO DAILY@1200 [facility] Mirtazapine (Remeron) 30 mg PO BEDTIME [facility] Non-Formulary Medication (Brinzolamide [Azopt 1% Ophth Susp]) 1 drop OP BID@08, 20 [facility] Non-Formulary Medication (Cyclosporine [Restasis]) 1 each EYEBOTH BID [facility] Ondansetron HCl (Zofran) 4 mg IVPUSH Q6H PRN PRN Reason: Nausea/Vomiting Last Admin: 10/24/18 02:59 Dose: 4 mg Pantoprazole Sodium (Protonix) 40 mg PO BIDAC [facility] Senna/Docusate Sodium (Senna Plus) 2 tab PO TID [facility] Sodium Chloride (Saline Flush) 10 ml FLUSH ASDIRECTED PRN PRN Reason: Keep Vein Open Last Admin: 10/24/18 02:59 Dose: 10 ml Discontinued Medications Diphenhydramine HCl (Benadryl) 25 mg IVPUSH ONETIME ONE Stop: 10/23/18 23:12 Last Admin: 10/23/18 23:15 Dose: 25 mg Fentanyl (Sublimaze) 50 mcg IVPUSH ONETIME ONE Stop: 10/23/18 23:11 Last Admin: 10/23/18 23:16 Dose: 50 mcg Fentanyl (Sublimaze) 50 mcg IVPUSH ONETIME ONE Stop: 10/24/18 01:01 Last Admin: 10/24/18 01:20 Dose: 50 mcg Fentanyl (Sublimaze) 100 mcg IVPUSH ONETIME ONE Stop: 10/24/18 07:32 Last Admin: 10/24/18 07:48 Dose: 100 mcg Latanoprost (Xalatan 0.005% Ophth Soln) ml EYEBOTH BEDTIME [facility] Lorazepam (Ativan) 0.5 mg IVPUSH ONETIME ONE Stop: 10/24/18 01:02 Last Admin: 10/24/18 06:58 Dose: Not Given Lorazepam (Ativan) 0.5 mg IVPUSH ONETIME ONE Stop: 10/24/18 02:01 Last Admin: 10/24/18 02:08 Dose: 0.5 mg Morphine Sulfate (Morphine) 2 mg IVPUSH ONETIME ONE Stop: 10/24/18 02:41 Last Admin: 10/24/18 02:45 Dose: 2 mg
[2018-10-24] MEDS ORDERED: Ketorolac 30 MG/ML SDV IVPUSH ONE (08:44)
--- NOTE | 2018-10-24 08:44 | PCM.SN ---
- Free Text/Narrative Note: CT of abdomen showed small bowel obstruction. Intermediate grade or more. Radiology recommended follow up plain film in 4 hours to see if contrast makes it into colon. Lactic acid ordered. Call placed to [facility]. Discussed patient with from surgery. He recommended trial NG tube, ambulation, and giving some additional time to see if obstruction improves. If no improvement, we are to contact [facility] for transfer. He also recommended using Tylenol PO for pain, however that would mean that we would not be able to place an NG tube for another hour. For now tube placement will be a priority, and PO Tylenol with clamping of NG tube can be an option later. He also recommended trying Toradol. Patient's BUN/Cr and currently within good limits and single dose will be ordered at this time. Morning meds have been held due to tube placement.
[2018-10-24] MEDS ORDERED: Lidocaine 2% Viscous Solution 15 ML Cup ONE ×2 (09:17→10:09)
[2018-10-24] MEDS: LORazepam 2 MG/ML SDV IVPUSH PRN ×2 (09:20→21:31)
[2018-10-24] MEDS ORDERED: Magnesium Oxide 400 MG Tab PO SCH (12:00)
[2018-10-24] MEDS: Metoprolol Tartrate 5 MG/5 ML SDV IVPUSH SCH ×2 (12:18→17:51)
[2018-10-24] MEDS: Pantoprazole 40 MG Vial IVPUSH SCH ×2 (12:18→23:17)
--- NOTE | 2018-10-24 12:25 | PCM.PN ---
- General Info Date of Service: 10/24/18 Admission Dx/Problem (Free Text): Abdominal pain with one episode of emesis. Functional Status: Reports: Other (pain controlled for a few hours with IV fentanyl) - Review of Systems General: Reports: Weakness HEENT: Reports: No Symptoms Pulmonary: Reports: No Symptoms Cardiovascular: Reports: No Symptoms Gastrointestinal: Reports: Abdominal Pain, Decreased Appetite, Nausea Genitourinary: Reports: No Symptoms Musculoskeletal: Reports: No Symptoms Skin: Reports: No Symptoms Neurological: Reports: No Symptoms Psychiatric: Reports: No Symptoms - Patient Data Vitals - Most Recent: Last Vital Signs Temp 98.2 F 10/24/18 12:12 Pulse 82 10/24/18 12:12 Resp 16 10/24/18 12:12 BP 154/73 H 10/24/18 12:12 Pulse Ox 97 10/24/18 12:12 Weight - Most Recent: 173 lb Lab Results Last 24 Hours: Laboratory Results - last 24 hr 10/23/18 10/23/18 10/23/18 Range/Units 22:53 23:00 23:00 WBC 6.4 (4.0-10.2) K/uL RBC 4.55 (3.77-5.09) M/uL Hgb 14.8 D (11.7-15.5) g/dL Hct 43.6 (34.0-46.0) % MCV 95.8 (84.0-98.0) fL MCH 32.5 (28.2-33.3) pg MCHC 33.9 (31.7-36.0) g/dL RDW 13.4 (11.2-14.1) % Plt Count 124 L (150-350) K/uL Neut % (Auto) 66.5 (45.0-80.0) % Lymph % (Auto) 24.1 (10.0-50.0) % [place] % (Auto) 7.5 (2.0-14.0) % Eos % (Auto) 1.7 (0.0-5.0) % Baso % (Auto) 0.2 (0.0-2.0) % Neut # (Auto) 4.29 (1.40-7.00) K/uL Lymph # (Auto) 1.55 (0.50-3.50) K/uL [place] # (Auto) 0.48 (0.00-1.00) K/uL Eos # (Auto) 0.11 (0.00-0.50) K/uL Baso # (Auto) 0.01 (0.00-0.20) K/uL Sodium 140 (136-145) mmol/L Potassium 4.1 (3.5-5.1) mmol/L Chloride 103 (98-107) mmol/L Carbon Dioxide 25.0 (21.0-32.0) mmol/L BUN 13 (7-18) mg/dL Creatinine 1.24 H (0.51-1.17) mg/dL Est Cr Clr Drug Dosing 37.53 mL/min Estimated GFR (MDRD) 42 mL/min Glucose 135 H (74-106) mg/dL Lactic Acid (0.4-2.0) mmol/L Calcium 10.1 D (8.5-10.1) mg/dL Magnesium 2.0 (1.8-2.4) mg/dL Total Bilirubin 0.5 (0.2-1.0) mg/dL AST 28 (15-37) U/L ALT 23 (12-78) U/L Alkaline Phosphatase 70 (46-116) IU/L C-Reactive Protein (<=0.9) mg/dL Total Protein 7.1 (6.4-8.2) g/dL Albumin 3.9 (3.4-5.0) g/dL Amylase 64 (25-115) U/L Lipase 155 (73-393) U/L Specimen Type Urinblad Urine Color Yellow Urine Appearance Cloudy Urine pH 8.5 (5.0-9.0) Ur Specific [place] 1.015 (1.005-1.030) Urine Protein Negative (NEGATIVE) mg/dL Urine Glucose (UA) Negative (NEGATIVE) mg/dL Urine Ketones Negative (NEGATIVE) mg/dL Urine Occult Blood Negative (NEGATIVE) Urine Nitrite Negative (NEGATIVE) Urine Bilirubin Negative (NEGATIVE) Urine Urobilinogen 0.2 (0.2-1.0) E.U./dL Ur Leukocyte Esterase Negative (NEGATIVE) Urine RBC Not seen /HPF Urine WBC 0-5 /HPF Ur Epithelial Cells Rare /LPF Other Crystals Few /HPF Amorphous Sediment Many H (0/HPF) /HPF Urine Bacteria Not seen (NONE TO FEW) /HPF 10/24/18 10/24/18 Range/Units 08:25 08:25 WBC (4.0-10.2) K/uL RBC (3.77-5.09) M/uL Hgb (11.7-15.5) g/dL Hct (34.0-46.0) % MCV (84.0-98.0) fL MCH (28.2-33.3) pg MCHC (31.7-36.0) g/dL RDW (11.2-14.1) % Plt Count (150-350) K/uL Neut % (Auto) (45.0-80.0) % Lymph % (Auto) (10.0-50.0) % [place] % (Auto) (2.0-14.0) % Eos % (Auto) (0.0-5.0) % Baso % (Auto) (0.0-2.0) % Neut # (Auto) (1.40-7.00) K/uL Lymph # (Auto) (0.50-3.50) K/uL [place] # (Auto) (0.00-1.00) K/uL Eos # (Auto) (0.00-0.50) K/uL Baso # (Auto) (0.00-0.20) K/uL Sodium (136-145) mmol/L Potassium (3.5-5.1) mmol/L Chloride (98-107) mmol/L Carbon Dioxide (21.0-32.0) mmol/L BUN (7-18) mg/dL Creatinine (0.51-1.17) mg/dL Est Cr Clr Drug Dosing mL/min Estimated GFR (MDRD) mL/min Glucose (74-106) mg/dL Lactic Acid 0.6 (0.4-2.0) mmol/L Calcium (8.5-10.1) mg/dL Magnesium (1.8-2.4) mg/dL Total Bilirubin (0.2-1.0) mg/dL AST (15-37) U/L ALT (12-78) U/L Alkaline Phosphatase (46-116) IU/L C-Reactive Protein 0.3 (<=0.9) mg/dL Total Protein (6.4-8.2) g/dL Albumin (3.4-5.0) g/dL Amylase (25-115) U/L Lipase (73-393) U/L Specimen Type Urine Color Urine Appearance Urine pH (5.0-9.0) Ur Specific [place] (1.005-1.030) Urine Protein (NEGATIVE) mg/dL Urine Glucose (UA) (NEGATIVE) mg/dL Urine Ketones (NEGATIVE) mg/dL Urine Occult Blood (NEGATIVE) Urine Nitrite (NEGATIVE) Urine Bilirubin (NEGATIVE) Urine Urobilinogen (0.2-1.0) E.U./dL Ur Leukocyte Esterase (NEGATIVE) Urine RBC /HPF Urine WBC /HPF Ur Epithelial Cells /LPF Other Crystals /HPF Amorphous Sediment (0/HPF) /HPF Urine Bacteria (NONE TO FEW) /HPF Med Orders - Current: Current Medications Albuterol (Ventolin Hfa) 0 gm INH Q4H PRN PRN Reason: SHORTNESS OF BREATH Dorzolamide HCl (Trusopt 2% Ophth Soln) 1 ml EYEBOTH TID [facility] Fentanyl (Sublimaze) 50 mcg IVPUSH Q4H PRN PRN Reason: Pain (severe 7-10) Last Admin: 10/24/18 10:40 Dose: 50 mcg Sodium Chloride (Normal Saline) 1,000 mls @ 75 mls/hr IV ONETIME ONE Stop: 10/24/18 14:21 Last Admin: 10/24/18 01:21 Dose: 75 mls/hr Latanoprost (Xalatan 0.005% Ophth Soln) 1 ml EYEBOTH BEDTIME [facility] Lorazepam (Ativan) 1 mg IVPUSH Q6H PRN PRN Reason: Agitation Last Admin: 10/24/18 09:20 Dose: 1 mg Metoprolol Tartrate (Lopressor) 2.5 mg IVPUSH Q6H [facility] Non-Formulary Medication (Brinzolamide [Azopt 1% Ophth Susp]) 1 drop OP BID@ [facility] Non-Formulary Medication (Cyclosporine [Restasis]) 1 each EYEBOTH BID [facility] Ondansetron HCl (Zofran) 4 mg IVPUSH Q6H PRN PRN Reason: Nausea/Vomiting Last Admin: 10/24/18 02:59 Dose: 4 mg Pantoprazole Sodium (Protonix Iv) 40 mg IVPUSH Q12H [facility] Sodium Chloride (Saline Flush) 10 ml FLUSH ASDIRECTED PRN PRN Reason: Keep Vein Open Last Admin: 10/24/18 02:59 Dose: 10 ml Discontinued Medications Bisacodyl (Dulcolax) 5 mg PO DAILY PRN PRN Reason: Constipation Carvedilol (Coreg) 3.125 mg PO Q12HR [facility] Last Admin: 10/24/18 09:53 Dose: Not Given Coenzyme Q10 (Coenzyme Q10) 100 mg PO DAILY [facility] Last Admin: 10/24/18 11:47 Dose: Not Given Diphenhydramine HCl (Benadryl) 25 mg IVPUSH ONETIME ONE Stop: 10/23/18 23:12 Last Admin: 10/23/18 23:15 Dose: 25 mg Docusate Sodium (Colace) 100 mg PO DAILY PRN PRN Reason: Constipation Escitalopram Oxalate (Lexapro) 20 mg PO DAILY [facility] Last Admin: 10/24/18 09:54 Dose: Not Given Fentanyl (Sublimaze) 50 mcg IVPUSH ONETIME ONE Stop: 10/23/18 23:11 Last Admin: 10/23/18 23:16 Dose: 50 mcg Fentanyl (Sublimaze) 50 mcg IVPUSH ONETIME ONE Stop: 10/24/18 01:01 Last Admin: 10/24/18 01:20 Dose: 50 mcg Fentanyl (Sublimaze) 100 mcg IVPUSH ONETIME ONE Stop: 10/24/18 07:32 Last Admin: 10/24/18 07:48 Dose: 100 mcg Furosemide (Lasix) 20 mg PO DAILY [facility] Last Admin: 10/24/18 09:54 Dose: Not Given Ketorolac Tromethamine (Toradol) 30 mg IVPUSH ONETIME ONE Stop: 10/24/18 08:45 Last Admin: 10/24/18 10:27 Dose: 30 mg Latanoprost (Xalatan 0.005% Ophth Soln) ml EYEBOTH BEDTIME [facility] Levothyroxine Sodium (Levothyroxine) 75 mcg PO ACBREAKFAST [facility] Last Admin: 10/24/18 09:53 Dose: Not Given Lidocaine HCl (Xylocaine 2% Viscous) Confirm Administered Dose 15 ml .ROUTE .STK -MED ONE Stop: 10/24/18 09:18 Last Admin: 10/24/18 09:21 Dose: 15 ml Lidocaine HCl (Xylocaine 2% Viscous) Confirm Administered Dose 15 ml .ROUTE .STK -MED ONE Stop: 10/24/18 10:10 Last Admin: 10/24/18 10:30 Dose: 15 ml Lorazepam (Ativan) 0.5 mg IVPUSH ONETIME ONE Stop: 10/24/18 01:02 Last Admin: 10/24/18 06:58 Dose: Not Given Lorazepam (Ativan) 0.5 mg IVPUSH ONETIME ONE Stop: 10/24/18 02:01 Last Admin: 10/24/18 02:08 Dose: 0.5 mg Lorazepam (Ativan) 0.5 mg PO Q8H PRN PRN Reason: Anxiety Losartan Potassium (Cozaar) 100 mg PO BEDTIME [facility] Magnesium Hydroxide (Milk Of Magnesia) 30 ml PO DAILY PRN PRN Reason: Constipation Magnesium Oxide (Magnesium Oxide) 400 mg PO DAILY@1200 [facility] Last Admin: 10/24/18 11:30 Dose: Not Given Mirtazapine (Remeron) 30 mg PO BEDTIME [facility] Morphine Sulfate (Morphine) 2 mg IVPUSH ONETIME ONE Stop: 10/24/18 02:41 Last Admin: 10/24/18 02:45 Dose: 2 mg Pantoprazole Sodium (Protonix) 40 mg PO BIDAC [facility] Last Admin: 10/24/18 09:53 Dose: Not Given Senna/Docusate Sodium (Senna Plus) 2 tab PO TID [facility] Last Admin: 10/24/18 11:47 Dose: Not Given - Exam Quality Assessment: Supplemental Oxygen General: Alert, Oriented, Cooperative HEENT: Pupils Equal Neck: Supple Lungs: Clear to Auscultation, Normal Respiratory Effort Cardiovascular: Regular Rate, Regular Rhythm GI/Abdominal Exam: Soft, No Mass, Other (tender to mid abdominal area, no rebound tenderness) Back Exam: Normal Inspection, Full Range of Motion Extremities: Normal Inspection, Normal Range of Motion, Non-Tender, No Pedal Edema Peripheral Pulses: 1+: Dorsalis Pedis (L), Dorsalis Pedis (R) Skin: Warm, Dry, Intact Neurological: No New Focal Deficit Psy/Mental Status: Alert, Normal Affect, Normal Mood - Problem List & Annotations (1) Small bowel obstruction SNOMED Code(s): 918692191 Code(s): K56.609 - UNSP INTESTNL OBST, UNSP TO PARTIAL VERSUS COMPLETE OBST Status: Acute Current Visit: Yes Annotation/Comment:: NG tube placed 14French with green bile noted. Xray of abdomen done for placement - Problem List Review Problem List Initiated/Reviewed/Updated: Yes - My Orders Last 24 Hours: My Active Orders 10/24/18 10:24 Abdomen 1V Upright [CR] Routine 10/24/18 12:00 Abdomen 1V Upright [CR] Routine - Plan Plan:: 10/24/2018 Patient was admitted through the ER for small bowel obstruction. 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 NG placed for green bile return, will monitor and ordered Xray of abdomen in 1 1/2hours. patient may need transfer to [place] for surgical evaluation and consultation. Dr Matthews consulted. Eugenia Perez,EVALUATOR
[2018-10-24] MEDS ORDERED: D5 1/2 NS w/ 20 mEq/L KCl 1,000 ML IV SCH (17:15)
[2018-10-24] MEDS ORDERED: Enalaprilat 1.25 MG/ML SDV IVPUSH ONE (17:15)
--- NOTE | 2018-10-24 17:23 | PCM.PN ---
- General Info Date of Service: 10/24/18 Functional Status: Reports: Pain Controlled - Review of Systems General: Reports: Fatigue HEENT: Reports: No Symptoms Pulmonary: Reports: No Symptoms Cardiovascular: Reports: No Symptoms Gastrointestinal: Reports: Abdominal Pain, Other (NGT) Genitourinary: Reports: No Symptoms Musculoskeletal: Reports: Other (chronic aches all over) Skin: Reports: No Symptoms Neurological: Reports: Weakness Psychiatric: Reports: Anxiety - Patient Data Vitals - Most Recent: Last Vital Signs Temp 98.2 F 10/24/18 12:12 Pulse 82 10/24/18 12:18 Resp 16 10/24/18 12:12 BP 154/73 H 10/24/18 12:18 Pulse Ox 97 10/24/18 12:12 Weight - Most Recent: 173 lb I&O - Last 24 Hours: Intake & Output 10/24/18 10/24/18 10/24/18 06:59 14:59 22:59 Output Total 450 Balance -450 Lab Results Last 24 Hours: Laboratory Results - last 24 hr 10/23/18 10/23/18 10/23/18 Range/Units 22:53 23:00 23:00 WBC 6.4 (4.0-10.2) K/uL RBC 4.55 (3.77-5.09) M/uL Hgb 14.8 D (11.7-15.5) g/dL Hct 43.6 (34.0-46.0) % MCV 95.8 (84.0-98.0) fL MCH 32.5 (28.2-33.3) pg MCHC 33.9 (31.7-36.0) g/dL RDW 13.4 (11.2-14.1) % Plt Count 124 L (150-350) K/uL Neut % (Auto) 66.5 (45.0-80.0) % Lymph % (Auto) 24.1 (10.0-50.0) % Mccone % (Auto) 7.5 (2.0-14.0) % Eos % (Auto) 1.7 (0.0-5.0) % Baso % (Auto) 0.2 (0.0-2.0) % Neut # (Auto) 4.29 (1.40-7.00) K/uL Lymph # (Auto) 1.55 (0.50-3.50) K/uL Mccone # (Auto) 0.48 (0.00-1.00) K/uL Eos # (Auto) 0.11 (0.00-0.50) K/uL Baso # (Auto) 0.01 (0.00-0.20) K/uL Sodium 140 (136-145) mmol/L Potassium 4.1 (3.5-5.1) mmol/L Chloride 103 (98-107) mmol/L Carbon Dioxide 25.0 (21.0-32.0) mmol/L BUN 13 (7-18) mg/dL Creatinine 1.24 H (0.51-1.17) mg/dL Est Cr Clr Drug Dosing 37.53 mL/min Estimated GFR (MDRD) 42 mL/min Glucose 135 H (74-106) mg/dL Lactic Acid (0.4-2.0) mmol/L Calcium 10.1 D (8.5-10.1) mg/dL Magnesium 2.0 (1.8-2.4) mg/dL Total Bilirubin 0.5 (0.2-1.0) mg/dL AST 28 (15-37) U/L ALT 23 (12-78) U/L Alkaline Phosphatase 70 (46-116) IU/L C-Reactive Protein (<=0.9) mg/dL Total Protein 7.1 (6.4-8.2) g/dL Albumin 3.9 (3.4-5.0) g/dL Amylase 64 (25-115) U/L Lipase 155 (73-393) U/L Specimen Type Urinblad Urine Color Yellow Urine Appearance Cloudy Urine pH 8.5 (5.0-9.0) Ur Specific Marion 1.015 (1.005-1.030) Urine Protein Negative (NEGATIVE) mg/dL Urine Glucose (UA) Negative (NEGATIVE) mg/dL Urine Ketones Negative (NEGATIVE) mg/dL Urine Occult Blood Negative (NEGATIVE) Urine Nitrite Negative (NEGATIVE) Urine Bilirubin Negative (NEGATIVE) Urine Urobilinogen 0.2 (0.2-1.0) E.U./dL Ur Leukocyte Esterase Negative (NEGATIVE) Urine RBC Not seen /HPF Urine WBC 0-5 /HPF Ur Epithelial Cells Rare /LPF Other Crystals Few /HPF Amorphous Sediment Many H (0/HPF) /HPF Urine Bacteria Not seen (NONE TO FEW) /HPF 10/24/18 10/24/18 10/24/18 Range/Units 08:25 08:25 08:25 WBC 7.4 (4.0-10.2) K/uL RBC 4.36 (3.77-5.09) M/uL Hgb 14.2 (11.7-15.5) g/dL Hct 41.9 (34.0-46.0) % MCV 96.1 (84.0-98.0) fL MCH 32.6 (28.2-33.3) pg MCHC 33.9 (31.7-36.0) g/dL RDW 13.4 (11.2-14.1) % Plt Count 112 L (150-350) K/uL Neut % (Auto) 67.5 (45.0-80.0) % Lymph % (Auto) 24.1 (10.0-50.0) % Mccone % (Auto) 7.6 (2.0-14.0) % Eos % (Auto) 0.7 (0.0-5.0) % Baso % (Auto) 0.1 (0.0-2.0) % Neut # (Auto) 4.99 (1.40-7.00) K/uL Lymph # (Auto) 1.78 (0.50-3.50) K/uL Mccone # (Auto) 0.56 (0.00-1.00) K/uL Eos # (Auto) 0.05 (0.00-0.50) K/uL Baso # (Auto) 0.01 (0.00-0.20) K/uL Sodium (136-145) mmol/L Potassium (3.5-5.1) mmol/L Chloride (98-107) mmol/L Carbon Dioxide (21.0-32.0) mmol/L BUN (7-18) mg/dL Creatinine (0.51-1.17) mg/dL Est Cr Clr Drug Dosing mL/min Estimated GFR (MDRD) mL/min Glucose (74-106) mg/dL Lactic Acid 0.6 (0.4-2.0) mmol/L Calcium (8.5-10.1) mg/dL Magnesium (1.8-2.4) mg/dL Total Bilirubin (0.2-1.0) mg/dL AST (15-37) U/L ALT (12-78) U/L Alkaline Phosphatase (46-116) IU/L C-Reactive Protein 0.3 (<=0.9) mg/dL Total Protein (6.4-8.2) g/dL Albumin (3.4-5.0) g/dL Amylase (25-115) U/L Lipase (73-393) U/L Specimen Type Urine Color Urine Appearance Urine pH (5.0-9.0) Ur Specific Marion (1.005-1.030) Urine Protein (NEGATIVE) mg/dL Urine Glucose (UA) (NEGATIVE) mg/dL Urine Ketones (NEGATIVE) mg/dL Urine Occult Blood (NEGATIVE) Urine Nitrite (NEGATIVE) Urine Bilirubin (NEGATIVE) Urine Urobilinogen (0.2-1.0) E.U./dL Ur Leukocyte Esterase (NEGATIVE) Urine RBC /HPF Urine WBC /HPF Ur Epithelial Cells /LPF Other Crystals /HPF Amorphous Sediment (0/HPF) /HPF Urine Bacteria (NONE TO FEW) /HPF 10/24/18 Range/Units 08:25 WBC (4.0-10.2) K/uL RBC (3.77-5.09) M/uL Hgb (11.7-15.5) g/dL Hct (34.0-46.0) % MCV (84.0-98.0) fL MCH (28.2-33.3) pg MCHC (31.7-36.0) g/dL RDW (11.2-14.1) % Plt Count (150-350) K/uL Neut % (Auto) (45.0-80.0) % Lymph % (Auto) (10.0-50.0) % Mccone % (Auto) (2.0-14.0) % Eos % (Auto) (0.0-5.0) % Baso % (Auto) (0.0-2.0) % Neut # (Auto) (1.40-7.00) K/uL Lymph # (Auto) (0.50-3.50) K/uL Mccone # (Auto) (0.00-1.00) K/uL Eos # (Auto) (0.00-0.50) K/uL Baso # (Auto) (0.00-0.20) K/uL Sodium 139 (136-145) mmol/L Potassium 4.1 (3.5-5.1) mmol/L Chloride 102 (98-107) mmol/L Carbon Dioxide 27.0 (21.0-32.0) mmol/L BUN 12 (7-18) mg/dL Creatinine 1.16 (0.51-1.17) mg/dL Est Cr Clr Drug Dosing 40.12 mL/min Estimated GFR (MDRD) 45 mL/min Glucose 120 H (74-106) mg/dL Lactic Acid (0.4-2.0) mmol/L Calcium 9.6 (8.5-10.1) mg/dL Magnesium (1.8-2.4) mg/dL Total Bilirubin 0.5 (0.2-1.0) mg/dL AST 26 (15-37) U/L ALT 25 (12-78) U/L Alkaline Phosphatase 65 (46-116) IU/L C-Reactive Protein (<=0.9) mg/dL Total Protein 6.6 (6.4-8.2) g/dL Albumin 3.6 (3.4-5.0) g/dL Amylase (25-115) U/L Lipase (73-393) U/L Specimen Type Urine Color Urine Appearance Urine pH (5.0-9.0) Ur Specific Marion (1.005-1.030) Urine Protein (NEGATIVE) mg/dL Urine Glucose (UA) (NEGATIVE) mg/dL Urine Ketones (NEGATIVE) mg/dL Urine Occult Blood (NEGATIVE) Urine Nitrite (NEGATIVE) Urine Bilirubin (NEGATIVE) Urine Urobilinogen (0.2-1.0) E.U./dL Ur Leukocyte Esterase (NEGATIVE) Urine RBC /HPF Urine WBC /HPF Ur Epithelial Cells /LPF Other Crystals /HPF Amorphous Sediment (0/HPF) /HPF Urine Bacteria (NONE TO FEW) /HPF Med Orders - Current: Current Medications Albuterol (Ventolin Hfa) 0 gm INH Q4H PRN PRN Reason: SHORTNESS OF BREATH Dorzolamide HCl (Trusopt 2% Ophth Soln) 1 ml EYEBOTH TID KATLIN Enalaprilat (Vasotec Iv) 0.625 mg IVPUSH ONETIME ONE Stop: 10/24/18 17:16 Fentanyl (Sublimaze) 50 mcg IVPUSH Q4H PRN PRN Reason: Pain (severe 7-10) Last Admin: 10/24/18 10:40 Dose: 50 mcg Potassium Chloride/Dextrose/Sod Cl (D5 1/2 Ns W/ 20 Meq/L Kcl) 1,000 mls @ 100 mls/hr IV ASDIRECTED KATLIN Stop: 10/25/18 03:14 Sodium Chloride (Normal Saline) 1,000 mls @ 100 mls/hr IV ASDIRECTED KATLIN Latanoprost (Xalatan 0.005% Ophth Soln) 1 ml EYEBOTH BEDTIME KATLIN Lorazepam (Ativan) 1 mg IVPUSH Q6H PRN PRN Reason: Agitation Last Admin: 10/24/18 09:20 Dose: 1 mg Metoprolol Tartrate (Lopressor) 2.5 mg IVPUSH Q6H [facility] Last Admin: 10/24/18 12:18 Dose: 2.5 mg Non-Formulary Medication (Brinzolamide [Azopt 1% Ophth Susp]) 1 drop OP BID@, 20 [facility] Non-Formulary Medication (Cyclosporine [Restasis]) 1 each EYEBOTH BID [facility] Ondansetron HCl (Zofran) 4 mg IVPUSH Q6H PRN PRN Reason: Nausea/Vomiting Last Admin: 10/24/18 02:59 Dose: 4 mg Pantoprazole Sodium (Protonix Iv) 40 mg IVPUSH Q12H [facility] Last Admin: 10/24/18 12:18 Dose: 40 mg Sodium Chloride (Saline Flush) 10 ml FLUSH ASDIRECTED PRN PRN Reason: Keep Vein Open Last Admin: 10/24/18 02:59 Dose: 10 ml Discontinued Medications Bisacodyl (Dulcolax) 5 mg PO DAILY PRN PRN Reason: Constipation Carvedilol (Coreg) 3.125 mg PO Q12HR [facility] Last Admin: 10/24/18 09:53 Dose: Not Given Coenzyme Q10 (Coenzyme Q10) 100 mg PO DAILY [facility] Last Admin: 10/24/18 11:47 Dose: Not Given Diphenhydramine HCl (Benadryl) 25 mg IVPUSH ONETIME ONE Stop: 10/23/18 23:12 Last Admin: 10/23/18 23:15 Dose: 25 mg Docusate Sodium (Colace) 100 mg PO DAILY PRN PRN Reason: Constipation Escitalopram Oxalate (Lexapro) 20 mg PO DAILY [facility] Last Admin: 10/24/18 09:54 Dose: Not Given Fentanyl (Sublimaze) 50 mcg IVPUSH ONETIME ONE Stop: 10/23/18 23:11 Last Admin: 10/23/18 23:16 Dose: 50 mcg Fentanyl (Sublimaze) 50 mcg IVPUSH ONETIME ONE Stop: 10/24/18 01:01 Last Admin: 10/24/18 01:20 Dose: 50 mcg Fentanyl (Sublimaze) 100 mcg IVPUSH ONETIME ONE Stop: 10/24/18 07:32 Last Admin: 10/24/18 07:48 Dose: 100 mcg Furosemide (Lasix) 20 mg PO DAILY [facility] Last Admin: 10/24/18 09:54 Dose: Not Given Sodium Chloride (Normal Saline) 1,000 mls @ 75 mls/hr IV ONETIME ONE Stop: 10/24/18 14:21 Last Admin: 10/24/18 01:21 Dose: 75 mls/hr Ketorolac Tromethamine (Toradol) 30 mg IVPUSH ONETIME ONE Stop: 10/24/18 08:45 Last Admin: 10/24/18 10:27 Dose: 30 mg Latanoprost (Xalatan 0.005% Ophth Soln) ml EYEBOTH BEDTIME [facility] Levothyroxine Sodium (Levothyroxine) 75 mcg PO ACBREAKFAST [facility] Last Admin: 10/24/18 09:53 Dose: Not Given Lidocaine HCl (Xylocaine 2% Viscous) Confirm Administered Dose 15 ml .ROUTE .STK -MED ONE Stop: 10/24/18 09:18 Last Admin: 10/24/18 09:21 Dose: 15 ml Lidocaine HCl (Xylocaine 2% Viscous) Confirm Administered Dose 15 ml .ROUTE .STK -MED ONE Stop: 10/24/18 10:10 Last Admin: 10/24/18 10:30 Dose: 15 ml Lorazepam (Ativan) 0.5 mg IVPUSH ONETIME ONE Stop: 10/24/18 01:02 Last Admin: 10/24/18 06:58 Dose: Not Given Lorazepam (Ativan) 0.5 mg IVPUSH ONETIME ONE Stop: 10/24/18 02:01 Last Admin: 10/24/18 02:08 Dose: 0.5 mg Lorazepam (Ativan) 0.5 mg PO Q8H PRN PRN Reason: Anxiety Losartan Potassium (Cozaar) 100 mg PO BEDTIME [facility] Magnesium Hydroxide (Milk Of Magnesia) 30 ml PO DAILY PRN PRN Reason: Constipation Magnesium Oxide (Magnesium Oxide) 400 mg PO DAILY@1200 [facility] Last Admin: 10/24/18 11:30 Dose: Not Given Mirtazapine (Remeron) 30 mg PO BEDTIME KATLIN Morphine Sulfate (Morphine) 2 mg IVPUSH ONETIME ONE Stop: 10/24/18 02:41 Last Admin: 10/24/18 02:45 Dose: 2 mg Pantoprazole Sodium (Protonix) 40 mg PO BIDAC [facility] Last Admin: 10/24/18 09:53 Dose: Not Given Senna/Docusate Sodium (Senna Plus) 2 tab PO TID [facility] Last Admin: 10/24/18 11:47 Dose: Not Given - Exam General: Mild Distress HEENT: Mucous Membr. Moist/[place], Other ([place]) Neck: Trachea Midline, No JVD Lungs: Normal Respiratory Effort, Decreased Breath Sounds Cardiovascular: Regular Rate, Regular Rhythm GI/Abdominal Exam: Soft, No Distention, Tender (mild), Abnormal Bowel Sounds ( hypoactive) (Female) Exam: Deferred Back Exam: Normal Inspection Extremities: Normal Inspection, Non-Tender Skin: Warm, Dry, Intact Neurological: No New Focal Deficit Psy/Mental Status: Anxious - Problem List & Annotations (1) Small bowel obstruction SNOMED Code(s): 604676330 Code(s): K56.609 - UNSP INTESTNL OBST, UNSP TO PARTIAL VERSUS COMPLETE OBST Status: Acute Current Visit: Yes Annotation/Comment:: NG tube placed 14French with green bile noted. Xray of abdomen done for placement (2) Hypokalemia SNOMED Code(s): 62546751 Code(s): E87.6 - HYPOKALEMIA Status: Acute Priority: High Current Visit : No Annotation/Comment:: Oral and IV supplementation initiated. (3) Scoliosis SNOMED Code(s): 656664209 Code(s): M41.9 - SCOLIOSIS, UNSPECIFIED Status: Acute Priority: Medium Current Visit: No Qualifiers: Scoliosis type: idiopathic Spinal region: thoracolumbar (4) TIA due to embolism SNOMED Code(s): 160971136 Code(s): G45.9 - TRANSIENT CEREBRAL ISCHEMIC ATTACK, UNSPECIFIED; I74.9 - EMBOLISM AND THROMBOSIS OF UNSPECIFIED ARTERY Status: Acute Current Visit: No Onset Date: 08/15/16 Annotation/Comment:: TIA secondary to DVT of the right leg with no current change in neurological status or persistent neurological deficits. Note current Xarelto therapy, which may need to be reconsidered secondary to patient's history of recurrent GI bleeds (5) Anemia SNOMED Code(s): 862295826 Code(s): D64.9 - ANEMIA, UNSPECIFIED Status: Chronic Priority: High Current Visit: No Qualifiers: Anemia type: iron deficiency Iron deficiency anemia type: chronic blood loss Qualified Code(s): D50.0 - Iron deficiency anemia secondary to blood loss (chronic) Annotation/Comment:: History of iron deficiency in vitamin B-12 deficiency and recurrent GI bleeds as above. Closely observe by accepting providers as above (6) B12 deficiency SNOMED Code(s): 112036808 Code(s): E53.8 - DEFICIENCY OF OTHER SPECIFIED B GROUP VITAMINS Status: Chronic Priority: Low Current Visit: No (7) CKD (chronic kidney disease) SNOMED Code(s): 326957309 Code(s): N18.9 - CHRONIC KIDNEY DISEASE, UNSPECIFIED Status: Chronic Priority: Low Current Visit: No Qualifiers: Chronic kidney disease stage: unspecified stage Qualified Code(s): N18.9 - Chronic kidney disease, unspecified Annotation/Comment:: stable (8) COPD (chronic obstructive pulmonary disease) SNOMED Code(s): 08821799 Code(s): J44.9 - CHRONIC OBSTRUCTIVE PULMONARY DISEASE, UNSPECIFIED Status : Chronic Priority: Medium Current Visit: No Qualifiers: COPD type: emphysema Emphysema type: panlobular Qualified Code(s): J43.1 - Panlobular emphysema Annotation/Comment:: No recent fever or bronchitic type symptoms. Consider PFTs depending on her clinical course and plans for surgery, etc. (9) CVA (cerebral vascular accident) SNOMED Code(s): 919083906 Code(s): I63.9 - CEREBRAL INFARCTION, UNSPECIFIED Status: Chronic Priority: Low Current Visit: No Qualifiers: Laterality of affected vessel: unspecified (10) Chronic fatigue SNOMED Code(s): 35521603 Code(s): R53.82 - CHRONIC FATIGUE, UNSPECIFIED Status: Chronic Priority: Low Current Visit: No Annotation/Comment:: Chronic, present for years. Unchanged in severity (11) Fibromyalgia SNOMED Code(s): 014458812 Code(s): M79.7 - FIBROMYALGIA Status: Chronic Priority: Low Current Visit: No Annotation/Comment:: stable (12) GERD (gastroesophageal reflux disease) SNOMED Code(s): 687467146 Code(s): K21.9 - GASTRO-ESOPHAGEAL REFLUX DISEASE WITHOUT ESOPHAGITIS Status: Chronic Priority: Low Current Visit: No Qualifiers: Esophagitis presence: esophagitis presence not specified Qualified Code(s) : K21.9 - Gastro-esophageal reflux disease without esophagitis Annotation/Comment:: stable (13) Glaucoma SNOMED Code(s): 33872326 Code(s): H40.9 - UNSPECIFIED GLAUCOMA Status: Chronic Priority: Low Current Visit: No Qualifiers: Glaucoma type: unspecified Annotation/Comment:: stable per patient (14) HTN, Benign hypertension SNOMED Code(s): 01935530 Code(s): I10 - ESSENTIAL (PRIMARY) HYPERTENSION Status: Chronic Priority : Medium Current Visit: No Annotation/Comment:: Observe for changes/trends given recent elevation. 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 Qualified Code(s): E03.8 - Other specified hypothyroidism; E06.3 - Autoimmune thyroiditis Annotation/Comment:: TSH pending (17) Mixed anxiety depressive disorder SNOMED Code(s): 007027737 Code(s): F41.8 - OTHER SPECIFIED ANXIETY DISORDERS Status: Chronic Priority: Low Current Visit: No Annotation/Comment:: Stable by history (18) Osteoporosis SNOMED Code(s): 29076664 Code(s): M81.0 - AGE-RELATED OSTEOPOROSIS W/O CURRENT PATHOLOGICAL FRACTURE Status: Chronic Priority: Low Current Visit: No Qualifiers: Osteoporosis type: unspecified Annotation/Comment:: stable (19) Peptic reflux disease SNOMED Code(s): 442147546 Code(s): K21.9 - GASTRO-ESOPHAGEAL REFLUX DISEASE WITHOUT ESOPHAGITIS Status: Chronic Priority: High Current Visit: No Annotation/Comment:: IV Pepcid and IV Protonix given in the ER as above. No direct evidence of acute upper GI bleed with previous history of duodenal ulcer, etc. as above (20) Rheumatoid arthritis SNOMED Code(s): 95181776 Code(s): M06.9 - RHEUMATOID ARTHRITIS, UNSPECIFIED Status: Chronic Priority: Low Current Visit: No Qualifiers: Rheumatoid factor presence: without rheumatoid factor Laterality: unspecified laterality Annotation/Comment:: Stable by history with chronic oxycodone therapy (21) Thrombocytopenia SNOMED Code(s): 778845661 Code(s): D69.6 - THROMBOCYTOPENIA, UNSPECIFIED Status: Chronic Priority: Medium Current Visit: No Annotation/Comment:: stable by history (22) Endometrial cancer SNOMED Code(s): 890481742 Code(s): C54.1 - MALIGNANT NEOPLASM OF ENDOMETRIUM Status: Inactive Priority: Low Current Visit: No (23) Graves disease SNOMED Code(s): 249329091 Code(s): E05.00 - THYROTOXICOSIS W DIFFUSE GOITER W/O THYROTOXIC CRISIS Status: Inactive Priority: Low Current Visit: No Annotation/Comment:: Hx Graves. Radioactive Iodine treatment. - Problem List Review Problem List Initiated/Reviewed/Updated: Yes - My Orders Last 24 Hours: My Active Orders 10/24/18 12:00 Metoprolol Tartrate [Lopressor] 2.5 mg IVPUSH Q6H Pantoprazole [ProTONIX IV] 40 mg IVPUSH Q12H 10/24/18 17:15 D5 1/2 NS w/ 20 mEq/L KCl 1,000 ml IV ASDIRECTED Enalaprilat [Vasotec IV] 0.625 mg IVPUSH ONETIME ONE 10/24/18 Dinner Nothing Per Oral Diet [DIET] 10/25/18 03:30 Sodium Chloride 0.9% @ 100 MLS/HR(1,000ml) Sodium Chloride 0.9% [Normal Saline] 1,000 ml IV ASDIRECTED 10/25/18 05:11 CBC WITH AUTO DIFF [HEME] DAILY CMP [COMPREHENSIVE METABOLIC PN,CMP] [CHEM] DAILY 10/26/18 05:11 CBC WITH AUTO DIFF [HEME] DAILY CMP [COMPREHENSIVE METABOLIC PN,CMP] [CHEM] DAILY 10/27/18 05:11 CBC WITH AUTO DIFF [HEME] DAILY CMP [COMPREHENSIVE METABOLIC PN,CMP] [CHEM] DAILY - Plan Plan:: 10/24/2018 Patient was admitted through the ER for small bowel obstruction. Community [facility] Director ER Dr Ventura consulted with Dr Edmonds from [facility] surgery, advised to place NG tube, ambulate and then reXray. NG placed for green bile return, will monitor and ordered Xray of abdomen in 1 1/2hours. patient may need transfer to [place] for surgical evaluation and consultation. Dr Matthews consulted. Eugenia Perez,INTERNAL SALESPERSON 10/24/18 ~6725 Cassie Cameron MD She has had a small loose bowel movement. X-rays improvement in air/fluid levels and some contrast in the colon. Continue medical therapy for small bowel obstruction with IV fluids and NG tube. ~500 ml of green bilious fluid out with NG tube. Will replace with IV fluids and potassium. Blood pressure elevated so will treat with IV blood pressure medications. Medically requiring inpatient status.
[2018-10-24] MEDS ORDERED: Mirtazapine 30 MG Tab PO SCH (20:00)
[2018-10-24] MEDS ORDERED: Latanoprost 0.005% Ophth Soln 2.5 ML Bottle EYEBOTH SCH (20:00)
[2018-10-24] MEDS ORDERED: Losartan 50 MG Tab PO SCH (20:00)
[2018-10-25] MEDS ORDERED: LORazepam 2 MG/ML SDV IVPUSH PRN (00:06)
[2018-10-25] MEDS: Metoprolol Tartrate 5 MG/5 ML SDV IVPUSH SCH ×4 (00:32→20:10)
[2018-10-25] MEDS: Sodium Chloride 0.9% 10 ML Syringe FLUSH PRN ×7 (00:33→20:11)
[2018-10-25] MEDS: Latanoprost 0.005% Ophth Soln 2.5 ML Bottle EYEBOTH SCH ×2 (01:39→19:15)
[2018-10-25] MEDS: fentaNYL 100 MCG/2 ML SDV IVPUSH PRN ×3 (01:39→22:01)
[2018-10-25] MEDS: Sodium Chloride 0.9% 1,000 ML IV SCH ×2 (06:07→16:31)
[2018-10-25] MEDS: LORazepam 2 MG/ML SDV IVPUSH PRN ×4 (07:34→23:05)
[2018-10-25] MEDS: Pantoprazole 40 MG Vial IVPUSH SCH ×2 (12:22→23:04)
[2018-10-25] MEDS: Enalaprilat 1.25 MG/ML SDV IVPUSH SCH ×3 (12:23→23:05)
[2018-10-25] MEDS: Dorzolamide 2% Ophth Soln 10 ML Bottle EYEBOTH SCH ×2 (14:43→19:15)
[2018-10-25] MEDS: CYCLOSPORINE EYEBOTH SCH ×4 (17:45→17:48)
[2018-10-25] MEDS: CARTEOLOL 1% EYEBOTH SCH (19:15)
--- NOTE | 2018-10-25 22:13 | PCM.PN ---
- General Info Date of Service: 10/25/18 Admission Dx/Problem (Free Text): Abdominal pain with one episode of emesis. Functional Status: Reports: Pain Controlled, Urinating - Review of Systems General: Reports: Weakness HEENT: Reports: No Symptoms Pulmonary: Reports: No Symptoms Cardiovascular: Reports: No Symptoms Gastrointestinal: Reports: Other (loose stools x2) Genitourinary: Reports: No Symptoms Musculoskeletal: Reports: Other (pain all over) Skin: Reports: No Symptoms Neurological: Reports: Weakness Psychiatric: Reports: Anxiety - Patient Data Vitals - Most Recent: Last Vital Signs Temp 99.2 F 10/25/18 19:55 Pulse 81 10/25/18 20:10 Resp 17 10/25/18 19:55 BP 197/72 H 10/25/18 20:10 Pulse Ox 93 L 10/25/18 19:55 Weight - Most Recent: 172 lb 15.983 oz I&O - Last 24 Hours: Intake & Output 10/25/18 10/25/18 10/25/18 06:59 14:59 22:59 Intake Total 935 Output Total 25 Balance -25 935 Lab Results Last 24 Hours: Laboratory Results - last 24 hr 10/25/18 10/25/18 Range/Units 07:30 07:30 WBC 10.7 H (4.0-10.2) K/uL RBC 4.04 (3.77-5.09) M/uL Hgb 13.3 (11.7-15.5) g/dL Hct 38.9 (34.0-46.0) % MCV 96.3 (84.0-98.0) fL MCH 32.9 (28.2-33.3) pg MCHC 34.2 (31.7-36.0) g/dL RDW 13.3 (11.2-14.1) % Plt Count 101 L (150-350) K/uL Neut % (Auto) 73.5 (45.0-80.0) % Lymph % (Auto) 17.2 (10.0-50.0) % Mckean % (Auto) 7.1 (2.0-14.0) % Eos % (Auto) 2.0 (0.0-5.0) % Baso % (Auto) 0.2 (0.0-2.0) % Neut # (Auto) 7.88 H (1.40-7.00) K/uL Lymph # (Auto) 1.84 (0.50-3.50) K/uL Mckean # (Auto) 0.76 (0.00-1.00) K/uL Eos # (Auto) 0.21 (0.00-0.50) K/uL Baso # (Auto) 0.02 (0.00-0.20) K/uL Sodium 140 (136-145) mmol/L Potassium 4.0 (3.5-5.1) mmol/L Chloride 105 (98-107) mmol/L Carbon Dioxide 23.0 (21.0-32.0) mmol/L BUN 12 (7-18) mg/dL Creatinine 1.28 H (0.51-1.17) mg/dL Est Cr Clr Drug Dosing 36.26 mL/min Estimated GFR (MDRD) 41 mL/min Glucose 100 (74-106) mg/dL Calcium 8.5 (8.5-10.1) mg/dL Total Bilirubin 0.6 (0.2-1.0) mg/dL AST 25 (15-37) U/L ALT 20 (12-78) U/L Alkaline Phosphatase 59 (46-116) IU/L Total Protein 6.1 L (6.4-8.2) g/dL Albumin 3.2 L (3.4-5.0) g/dL Med Orders - Current: Current Medications Albuterol (Ventolin Hfa) 0 gm INH Q4H PRN PRN Reason: SHORTNESS OF BREATH Dorzolamide HCl (Trusopt 2% Ophth Soln) 0 ml EYEBOTH BID@08,20 [facility] Last Admin: 10/25/18 19:15 Dose: 1 drop Enalaprilat (Vasotec Iv) 0.625 mg IVPUSH Q6H [facility] Last Admin: 10/25/18 17:48 Dose: 0.625 mg Fentanyl (Sublimaze) 50 mcg IVPUSH Q4H PRN PRN Reason: Pain (severe 7-10) Last Admin: 10/25/18 22:01 Dose: 50 mcg Sodium Chloride (Normal Saline) 1,000 mls @ 50 mls/hr IV ASDIRECTED [facility] Latanoprost (Xalatan 0.005% Ophth Soln) 0 ml EYEBOTH BEDTIME [facility] Last Admin: 10/25/18 19:15 Dose: 1 drop Lorazepam (Ativan) 2 mg IVPUSH Q4H PRN PRN Reason: Agitation Last Admin: 10/25/18 19:15 Dose: 2 mg Metoprolol Tartrate (Lopressor) 2.5 mg IVPUSH Q6H [facility] Last Admin: 10/25/18 20:10 Dose: 2.5 mg Cyclosporine [ (Restasis] Ophth Soln) 1 each EYEBOTH BID [facility] Last Admin: 10/25/18 17:48 Dose: 1 each Carteolol 1% Ophth (Solution) 0 each EYEBOTH Q12HR [facility] Last Admin: 10/25/18 19:15 Dose: 1 each Ondansetron HCl (Zofran) 4 mg IVPUSH Q6H PRN PRN Reason: Nausea/Vomiting Last Admin: 10/24/18 02:59 Dose: 4 mg Pantoprazole Sodium (Protonix Iv) 40 mg IVPUSH Q12H [facility] Last Admin: 10/25/18 12:22 Dose: 40 mg Sodium Chloride (Saline Flush) 10 ml FLUSH ASDIRECTED PRN PRN Reason: Keep Vein Open Last Admin: 10/25/18 20:11 Dose: 10 ml Discontinued Medications Bisacodyl (Dulcolax) 5 mg PO DAILY PRN PRN Reason: Constipation Carvedilol (Coreg) 3.125 mg PO Q12HR [facility] Last Admin: 10/24/18 09:53 Dose: Not Given Coenzyme Q10 (Coenzyme Q10) 100 mg PO DAILY [facility] Last Admin: 10/24/18 11:47 Dose: Not Given Diphenhydramine HCl (Benadryl) 25 mg IVPUSH ONETIME ONE Stop: 10/23/18 23:12 Last Admin: 10/23/18 23:15 Dose: 25 mg Docusate Sodium (Colace) 100 mg PO DAILY PRN PRN Reason: Constipation Enalaprilat (Vasotec Iv) 0.625 mg IVPUSH ONETIME ONE Stop: 10/24/18 17:16 Last Admin: 10/24/18 17:49 Dose: 0.625 mg Escitalopram Oxalate (Lexapro) 20 mg PO DAILY [facility] Last Admin: 10/24/18 09:54 Dose: Not Given Fentanyl (Sublimaze) 50 mcg IVPUSH ONETIME ONE Stop: 10/23/18 23:11 Last Admin: 10/23/18 23:16 Dose: 50 mcg Fentanyl (Sublimaze) 50 mcg IVPUSH ONETIME ONE Stop: 10/24/18 01:01 Last Admin: 10/24/18 01:20 Dose: 50 mcg Fentanyl (Sublimaze) 100 mcg IVPUSH ONETIME ONE Stop: 10/24/18 07:32 Last Admin: 10/24/18 07:48 Dose: 100 mcg Furosemide (Lasix) 20 mg PO DAILY [facility] Last Admin: 10/24/18 09:54 Dose: Not Given Sodium Chloride (Normal Saline) 1,000 mls @ 75 mls/hr IV ONETIME ONE Stop: 10/24/18 14:21 Last Admin: 10/24/18 01:21 Dose: 75 mls/hr Potassium Chloride/Dextrose/Sod Cl (D5 1/2 Ns W/ 20 Meq/L Kcl) 1,000 mls @ 100 mls/hr IV ASDIRECTED [facility] Stop: 10/25/18 03:14 Last Admin: 10/24/18 17:49 Dose: 100 mls/hr Sodium Chloride (Normal Saline) 1,000 mls @ 100 mls/hr IV ASDIRECTED [facility] Last Admin: 10/25/18 16:31 Dose: 100 mls/hr Ketorolac Tromethamine (Toradol) 30 mg IVPUSH ONETIME ONE Stop: 10/24/18 08:45 Last Admin: 10/24/18 10:27 Dose: 30 mg Latanoprost (Xalatan 0.005% [facility]) ml EYEBOTH BEDTIME [facility] Levothyroxine Sodium (Levothyroxine) 75 mcg PO ACBREAKFAST [facility] Last Admin: 10/24/18 09:53 Dose: Not Given Lidocaine HCl (Xylocaine 2% Viscous) Confirm Administered Dose 15 ml .ROUTE .STK -MED ONE Stop: 10/24/18 09:18 Last Admin: 10/24/18 09:21 Dose: 15 ml Lidocaine HCl (Xylocaine 2% Viscous) Confirm Administered Dose 15 ml .ROUTE .STK -MED ONE Stop: 10/24/18 10:10 Last Admin: 10/24/18 10:30 Dose: 15 ml Lorazepam (Ativan) 0.5 mg IVPUSH ONETIME ONE Stop: 10/24/18 01:02 Last Admin: 10/24/18 06:58 Dose: Not Given Lorazepam (Ativan) 0.5 mg IVPUSH ONETIME ONE Stop: 10/24/18 02:01 Last Admin: 10/24/18 02:08 Dose: 0.5 mg Lorazepam (Ativan) 0.5 mg PO Q8H PRN PRN Reason: Anxiety Lorazepam (Ativan) 1 mg IVPUSH Q6H PRN PRN Reason: Agitation Last Admin: 10/24/18 21:31 Dose: 1 mg Lorazepam (Ativan) 1 mg IVPUSH Q4H PRN PRN Reason: Agitation Last Admin: 10/25/18 01:39 Dose: 1 mg Losartan Potassium (Cozaar) 100 mg PO BEDTIME [facility] Magnesium Hydroxide (Milk Of Magnesia) 30 ml PO DAILY PRN PRN Reason: Constipation Magnesium Oxide (Magnesium Oxide) 400 mg PO DAILY@1200 [facility] Last Admin: 10/24/18 11:30 Dose: Not Given Metoprolol Tartrate (Lopressor) 2.5 mg IVPUSH Q6H [facility] Last Admin: 10/25/18 05:18 Dose: 2.5 mg Mirtazapine (Remeron) 30 mg PO BEDTIME [facility] Morphine Sulfate (Morphine) 2 mg IVPUSH ONETIME ONE Stop: 10/24/18 02:41 Last Admin: 10/24/18 02:45 Dose: 2 mg Pantoprazole Sodium (Protonix) 40 mg PO BIDAC [facility] Last Admin: 10/24/18 09:53 Dose: Not Given Senna/Docusate Sodium (Senna Plus) 2 tab PO TID [facility] Last Admin: 10/24/18 11:47 Dose: Not Given - Exam General: No Acute Distress HEENT: Mucous Membr. Moist/[place] Neck: Trachea Midline, No JVD Lungs: Clear to Auscultation, Normal Respiratory Effort Cardiovascular: Regular Rate, Regular Rhythm GI/Abdominal Exam: Normal Bowel Sounds, Soft, Non-Tender, No Distention (Female) Exam: Deferred Back Exam: Normal Inspection Extremities: Normal Inspection, Non-Tender Skin: Warm, Dry, Intact Neurological: No New Focal Deficit Psy/Mental Status: Anxious - Problem List & Annotations (1) Small bowel obstruction SNOMED Code(s): 276482229 Code(s): K56.609 - UNSP INTESTNL OBST, UNSP TO PARTIAL VERSUS COMPLETE OBST Status: Acute Current Visit: Yes (2) Hypokalemia SNOMED Code(s): 45347121 Code(s): E87.6 - HYPOKALEMIA Status: Acute Priority: High Current Visit : No Annotation/Comment:: (3) Scoliosis SNOMED Code(s): 819690799 Code(s): M41.9 - SCOLIOSIS, UNSPECIFIED Status: Acute Priority: Medium Current Visit: No Qualifiers: Scoliosis type: idiopathic Spinal region: thoracolumbar (4) TIA due to embolism SNOMED Code(s): 032923954 Code(s): G45.9 - TRANSIENT CEREBRAL ISCHEMIC ATTACK, UNSPECIFIED; I74.9 - EMBOLISM AND THROMBOSIS OF UNSPECIFIED ARTERY Status: Acute Current Visit: No Onset Date: 08/15/16 (5) Anemia SNOMED Code(s): 410285476 Code(s): D64.9 - ANEMIA, UNSPECIFIED Status: Chronic Priority: High Current Visit: No Qualifiers: Anemia type: iron deficiency Iron deficiency anemia type: chronic blood loss Qualified Code(s): D50.0 - Iron deficiency anemia secondary to blood loss (chronic) (6) B12 deficiency SNOMED Code(s): 076439785 Code(s): E53.8 - DEFICIENCY OF OTHER SPECIFIED B GROUP VITAMINS Status: Chronic Priority: Low Current Visit: No (7) CKD (chronic kidney disease) SNOMED Code(s): 837009369 Code(s): N18.9 - CHRONIC KIDNEY DISEASE, UNSPECIFIED Status: Chronic Priority: Low Current Visit: No Qualifiers: Chronic kidney disease stage: unspecified stage Qualified Code(s): N18.9 - Chronic kidney disease, unspecified (8) COPD (chronic obstructive pulmonary disease) SNOMED Code(s): 18601476 Code(s): J44.9 - CHRONIC OBSTRUCTIVE PULMONARY DISEASE, UNSPECIFIED Status : Chronic Priority: Medium Current Visit: No Qualifiers: COPD type: emphysema Emphysema type: panlobular Qualified Code(s): J43.1 - Panlobular emphysema (9) CVA (cerebral vascular accident) SNOMED Code(s): 455376016 Code(s): I63.9 - CEREBRAL INFARCTION, UNSPECIFIED Status: Chronic Priority: Low Current Visit: No Qualifiers: Laterality of affected vessel: unspecified (10) Chronic fatigue SNOMED Code(s): 64617766 Code(s): R53.82 - CHRONIC FATIGUE, UNSPECIFIED Status: Chronic Priority: Low Current Visit: No (11) Fibromyalgia SNOMED Code(s): 137816127 Code(s): M79.7 - FIBROMYALGIA Status: Chronic Priority: Low Current Visit: No (12) GERD (gastroesophageal reflux disease) SNOMED Code(s): 957817978 Code(s): K21.9 - GASTRO-ESOPHAGEAL REFLUX DISEASE WITHOUT ESOPHAGITIS Status: Chronic Priority: Low Current Visit: No Qualifiers: Esophagitis presence: esophagitis presence not specified Qualified Code(s) : K21.9 - Gastro-esophageal reflux disease without esophagitis (13) Glaucoma SNOMED Code(s): 98468339 Code(s): H40.9 - UNSPECIFIED GLAUCOMA Status: Chronic Priority: Low Current Visit: No Qualifiers: Glaucoma type: unspecified (14) HTN, Benign hypertension SNOMED Code(s): 75237180 Code(s): I10 - ESSENTIAL (PRIMARY) HYPERTENSION Status: Chronic Priority : Medium Current Visit: No (15) Hyperparathyroidism SNOMED Code(s): 39688951 Code(s): E21.3 - HYPERPARATHYROIDISM, UNSPECIFIED Status: Chronic Priority: Low Current Visit: No (16) Hypothyroid SNOMED Code(s): 08594739 Code(s): E03.9 - HYPOTHYROIDISM, UNSPECIFIED Status: Chronic Priority: Low Current Visit: No Qualifiers: 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 Qualified Code(s): E03.8 - Other specified hypothyroidism; E06.3 - Autoimmune thyroiditis (17) Mixed anxiety depressive disorder SNOMED Code(s): 699563828 Code(s): F41.8 - OTHER SPECIFIED ANXIETY DISORDERS Status: Chronic Priority: Low Current Visit: No (18) Osteoporosis SNOMED Code(s): 92943199 Code(s): M81.0 - AGE-RELATED OSTEOPOROSIS W/O CURRENT PATHOLOGICAL FRACTURE Status: Chronic Priority: Low Current Visit: No Qualifiers: Osteoporosis type: unspecified Annotation/Comment:: (19) Peptic reflux disease SNOMED Code(s): 581161168 Code(s): K21.9 - GASTRO-ESOPHAGEAL REFLUX DISEASE WITHOUT ESOPHAGITIS Status: Chronic Priority: High Current Visit: No (20) Rheumatoid arthritis SNOMED Code(s): 60500293 Code(s): M06.9 - RHEUMATOID ARTHRITIS, UNSPECIFIED Status: Chronic Priority: Low Current Visit: No Qualifiers: Rheumatoid factor presence: without rheumatoid factor Laterality: unspecified laterality (21) Thrombocytopenia SNOMED Code(s): 129694413 Code(s): D69.6 - THROMBOCYTOPENIA, UNSPECIFIED Status: Chronic Priority: Medium Current Visit: No (22) Endometrial cancer SNOMED Code(s): 117863458 Code(s): C54.1 - MALIGNANT NEOPLASM OF ENDOMETRIUM Status: Inactive Priority: Low Current Visit: No (23) Graves disease SNOMED Code(s): 147743109 Code(s): E05.00 - THYROTOXICOSIS W DIFFUSE GOITER W/O THYROTOXIC CRISIS Status: Inactive Priority: Low Current Visit: No Annotation/Comment:: - Problem List Review Problem List Initiated/Reviewed/Updated: Yes - My Orders Last 24 Hours: My Active Orders 10/25/18 05:11 Abdomen 2V AP Flat Upright [CR] Routine Chest 2V [CR] Routine 10/25/18 10:40 Patient Status [ADT] Routine 10/25/18 10:58 Consult to Case Management/Application Trainer [CONS] Routine 10/25/18 11:00 Consult to Occupational Therapy [OT Evaluation and Treatment] [CONS] Routine Consult to Physical Therapy [PT Evaluation and Treatment] [CONS] Routine 10/25/18 12:00 Enalaprilat [Vasotec IV] 0.625 mg IVPUSH Q6H 10/25/18 15:00 Metoprolol Tartrate [Lopressor] 2.5 mg IVPUSH Q6H 10/25/18 20:00 Non-Formulary Medication [NF Drug] 0 each EYEBOTH Q12HR 10/25/18 21:33 Sodium Chloride 0.9% [Normal Saline] 1,000 ml IV ASDIRECTED 10/26/18 05:11 CBC WITH AUTO DIFF [HEME] DAILY CMP [COMPREHENSIVE METABOLIC PN,CMP] [CHEM] DAILY CRP [C-REACTIVE PROTEIN] [CHEM] Routine 10/26/18 Breakfast Clear Liquid Diet [DIET] 10/27/18 05:11 CBC WITH AUTO DIFF [HEME] DAILY CMP [COMPREHENSIVE METABOLIC PN,CMP] [CHEM] DAILY - Plan Plan:: 10/24/2018 Patient was admitted through the ER for small bowel obstruction. [facility] Dr Ventura consulted with Dr Edmonds from [facility] surgery, advised to place NG tube, ambulate and then reXray. NG placed for green bile return, will monitor and ordered Xray of abdomen in 1 1/2hours. patient may need transfer to [place] for surgical evaluation and consultation. Dr Matthews consulted. Eugenia Perez,[employer] OPERATOR 10/24/18 ~9632 Cassie Cameron MD She has had a small loose bowel movement. X-rays improvement in air/fluid levels and some contrast in the colon. Continue medical therapy for small bowel obstruction with IV fluids and NG tube. ~500 ml of green bilious fluid out with NG tube. Will replace with IV fluids and potassium. Blood pressure elevated so will treat with IV blood pressure medications. Medically requiring inpatient status. 10/25/18 Cassie Cameron MD Medical therapy and monitoring is at inpatient status. Order placed. The mechanical small bowel obstruction is improving. Blood pressure still elevated so medications adjusted. Continue IV fluids and bowel rest. She did pull her NGT and IV out earlier today. Since she is improving NGT was not reinserted. Continue to monitor blood pressure, kidney status, electrolytes, platelets. Start oral intake in AM.
[2018-10-25] MEDS ORDERED: Haloperidol Lactate 5 MG/ML SDV IVPUSH ONE (23:44)
[2018-10-26] MEDS: fentaNYL 100 MCG/2 ML SDV IVPUSH PRN ×3 (02:35→21:44)
[2018-10-26] MEDS: Sodium Chloride 0.9% 10 ML Syringe FLUSH PRN ×9 (02:36→18:07)
[2018-10-26] MEDS: Metoprolol Tartrate 5 MG/5 ML SDV IVPUSH SCH ×4 (02:36→20:09)
[2018-10-26] MEDS: LORazepam 2 MG/ML SDV IVPUSH PRN ×3 (04:28→18:06)
[2018-10-26] MEDS: Enalaprilat 1.25 MG/ML SDV IVPUSH SCH ×3 (05:20→17:07)
[2018-10-26] MEDS ORDERED: diphenhydrAMINE 50 MG/ML SDV IVPUSH ONE (05:32)
[2018-10-26] MEDS ORDERED: Haloperidol Lactate 5 MG/ML SDV IVPUSH ONE ×2 (05:34→22:25)
[2018-10-26] MEDS: Sodium Chloride 0.9% 1,000 ML IV SCH (08:48)
[2018-10-26] MEDS: Dorzolamide 2% Ophth Soln 10 ML Bottle EYEBOTH SCH ×2 (09:40→20:10)
[2018-10-26] MEDS: CYCLOSPORINE EYEBOTH SCH ×2 (09:49→17:05)
[2018-10-26] MEDS: CARTEOLOL 1% EYEBOTH SCH ×2 (10:26→20:09)
[2018-10-26] MEDS ORDERED: Ketorolac 30 MG/ML SDV IVPUSH ONE (11:59)
[2018-10-26] MEDS: Pantoprazole 40 MG Vial IVPUSH SCH (12:25)
--- NOTE | 2018-10-26 12:59 | PCM.PN ---
- General Info Date of Service: 10/26/18 Admission Dx/Problem (Free Text): Abdominal pain with one episode of emesis. Functional Status: Reports: Urinating, Other (complaining of severe back pain which is chronic for her) - Review of Systems General: Reports: Weakness HEENT: Reports: No Symptoms Pulmonary: Reports: No Symptoms Cardiovascular: Reports: No Symptoms Gastrointestinal: Reports: No Symptoms Genitourinary: Reports: No Symptoms Musculoskeletal: Reports: Back Pain (severe, not new), Other (pain all over) Skin: Reports: No Symptoms Neurological: Reports: Confusion, Difficulty Walking, Weakness Psychiatric: Reports: Confusion, Anxiety, Agitation - Patient Data Vitals - Most Recent: Last Vital Signs Temp 97.1 F 10/26/18 12:00 Pulse 84 10/26/18 12:00 Resp 16 10/26/18 12:00 BP 185/73 H 10/26/18 12:28 Pulse Ox 97 10/26/18 12:00 Weight - Most Recent: 172 lb 15.983 oz I&O - Last 24 Hours: Intake & Output 10/25/18 10/26/18 10/26/18 22:59 06:59 14:59 Intake Total 935 872 25 Balance 935 872 25 Lab Results Last 24 Hours: Laboratory Results - last 24 hr 10/26/18 10/26/18 Range/Units 07:40 07:40 WBC 6.0 (4.0-10.2) K/uL RBC 3.66 L (3.77-5.09) M/uL Hgb 12.0 (11.7-15.5) g/dL Hct 35.8 (34.0-46.0) % MCV 97.8 (84.0-98.0) fL MCH 32.8 (28.2-33.3) pg MCHC 33.5 (31.7-36.0) g/dL RDW 13.2 (11.2-14.1) % Plt Count 86 L (150-350) K/uL Neut % (Auto) 62.9 (45.0-80.0) % Lymph % (Auto) 25.6 (10.0-50.0) % [place] % (Auto) 7.5 (2.0-14.0) % Eos % (Auto) 3.8 (0.0-5.0) % Baso % (Auto) 0.2 (0.0-2.0) % Neut # (Auto) 3.76 (1.40-7.00) K/uL Lymph # (Auto) 1.53 (0.50-3.50) K/uL [place] # (Auto) 0.45 (0.00-1.00) K/uL Eos # (Auto) 0.23 (0.00-0.50) K/uL Baso # (Auto) 0.01 (0.00-0.20) K/uL Sodium 142 (136-145) mmol/L Potassium 3.6 (3.5-5.1) mmol/L Chloride 107 (98-107) mmol/L Carbon Dioxide 24.1 (21.0-32.0) mmol/L BUN 10 (7-18) mg/dL Creatinine 0.97 (0.51-1.17) mg/dL Est Cr Clr Drug Dosing 47.85 mL/min Estimated GFR (MDRD) 56 mL/min Glucose 80 (74-106) mg/dL Calcium 7.7 L (8.5-10.1) mg/dL Total Bilirubin 0.6 (0.2-1.0) mg/dL AST 25 (15-37) U/L ALT 20 (12-78) U/L Alkaline Phosphatase 56 (46-116) IU/L C-Reactive Protein 3.9 H (<=0.9) mg/dL Total Protein 5.8 L (6.4-8.2) g/dL Albumin 3.0 L (3.4-5.0) g/dL Med Orders - Current: Current Medications Albuterol (Ventolin Hfa) 0 gm INH Q4H PRN PRN Reason: SHORTNESS OF BREATH Dorzolamide HCl (Trusopt 2% Ophth Soln) 0 ml EYEBOTH BID@08,20 [facility]ATLIN Last Admin: 10/26/18 09:40 Dose: 1 drop Enalaprilat (Vasotec Iv) 0.625 mg IVPUSH Q6H [facility] Last Admin: 10/26/18 12:28 Dose: 0.625 mg Fentanyl (Sublimaze) 50 mcg IVPUSH Q4H PRN PRN Reason: Pain (severe 7-10) Last Admin: 10/26/18 10:27 Dose: 50 mcg Sodium Chloride (Normal Saline) 1,000 mls @ 50 mls/hr IV ASDIRECTED [facility]ATLIN Last Admin: 10/26/18 08:48 Dose: 50 mls/hr Ketorolac Tromethamine (Toradol) 15 mg IVPUSH Q6H [facility] Stop: 10/31/18 12:01 Latanoprost (Xalatan 0.005% Ophth Soln) 0 ml EYEBOTH BEDTIME [facility] Last Admin: 10/25/18 19:15 Dose: 1 drop Lorazepam (Ativan) 2 mg IVPUSH Q4H PRN PRN Reason: Agitation Last Admin: 10/26/18 12:30 Dose: 2 mg Metoprolol Tartrate (Lopressor) 2.5 mg IVPUSH Q6H [facility] Last Admin: 10/26/18 09:50 Dose: 2.5 mg Cyclosporine [ (Restasis] Ophth Soln) 1 each EYEBOTH BID [facility] Last Admin: 10/26/18 09:49 Dose: 1 each Carteolol 1% Ophth (Solution) 0 each EYEBOTH Q12HR [facility] Last Admin: 10/26/18 10:26 Dose: 1 each Ondansetron HCl (Zofran) 4 mg IVPUSH Q6H PRN PRN Reason: Nausea/Vomiting Last Admin: 10/24/18 02:59 Dose: 4 mg Pantoprazole Sodium (Protonix Iv) 40 mg IVPUSH Q12H [facility] Last Admin: 10/26/18 12:25 Dose: 40 mg Sodium Chloride (Saline Flush) 10 ml FLUSH ASDIRECTED PRN PRN Reason: Keep Vein Open Last Admin: 10/26/18 12:33 Dose: 10 ml Discontinued Medications Bisacodyl (Dulcolax) 5 mg PO DAILY PRN PRN Reason: Constipation Carvedilol (Coreg) 3.125 mg PO Q12HR [facility] Last Admin: 10/24/18 09:53 Dose: Not Given Coenzyme Q10 (Coenzyme Q10) 100 mg PO DAILY [facility] Last Admin: 10/24/18 11:47 Dose: Not Given Diphenhydramine HCl (Benadryl) 25 mg IVPUSH ONETIME ONE Stop: 10/23/18 23:12 Last Admin: 10/23/18 23:15 Dose: 25 mg Diphenhydramine HCl (Benadryl) 25 mg IVPUSH ONETIME ONE Stop: 10/26/18 05:33 Last Admin: 10/26/18 05:42 Dose: 25 mg Docusate Sodium (Colace) 100 mg PO DAILY PRN PRN Reason: Constipation Enalaprilat (Vasotec Iv) 0.625 mg IVPUSH ONETIME ONE Stop: 10/24/18 17:16 Last Admin: 10/24/18 17:49 Dose: 0.625 mg Escitalopram Oxalate (Lexapro) 20 mg PO DAILY [facility] Last Admin: 10/24/18 09:54 Dose: Not Given Fentanyl (Sublimaze) 50 mcg IVPUSH ONETIME ONE Stop: 10/23/18 23:11 Last Admin: 10/23/18 23:16 Dose: 50 mcg Fentanyl (Sublimaze) 50 mcg IVPUSH ONETIME ONE Stop: 10/24/18 01:01 Last Admin: 10/24/18 01:20 Dose: 50 mcg Fentanyl (Sublimaze) 100 mcg IVPUSH ONETIME ONE Stop: 10/24/18 07:32 Last Admin: 10/24/18 07:48 Dose: 100 mcg Furosemide (Lasix) 20 mg PO DAILY [facility] Last Admin: 10/24/18 09:54 Dose: Not Given Haloperidol Lactate (Haldol) 5 mg IVPUSH ONETIME ONE Stop: 10/25/18 23:45 Last Admin: 10/26/18 00:09 Dose: 5 mg Haloperidol Lactate (Haldol) 5 mg IVPUSH ONETIME ONE Stop: 10/26/18 05:35 Last Admin: 10/26/18 05:41 Dose: 5 mg Sodium Chloride (Normal Saline) 1,000 mls @ 75 mls/hr IV ONETIME ONE Stop: 10/24/18 14:21 Last Admin: 10/24/18 01:21 Dose: 75 mls/hr Potassium Chloride/Dextrose/Sod Cl (D5 1/2 Ns W/ 20 Meq/L Kcl) 1,000 mls @ 100 mls/hr IV ASDIRECTED [facility] Stop: 10/25/18 03:14 Last Admin: 10/24/18 17:49 Dose: 100 mls/hr Sodium Chloride (Normal Saline) 1,000 mls @ 100 mls/hr IV ASDIRECTED [facility] Last Admin: 10/25/18 16:31 Dose: 100 mls/hr Ketorolac Tromethamine (Toradol) 30 mg IVPUSH ONETIME ONE Stop: 10/24/18 08:45 Last Admin: 10/24/18 10:27 Dose: 30 mg Ketorolac Tromethamine (Toradol) 30 mg IVPUSH ONETIME ONE Stop: 10/26/18 12:00 Last Admin: 10/26/18 12:23 Dose: 30 mg Latanoprost (Xalatan 0.005% Ophth Soln) ml EYEBOTH BEDTIME [facility] Levothyroxine Sodium (Levothyroxine) 75 mcg PO ACBREAKFAST [facility] Last Admin: 10/24/18 09:53 Dose: Not Given Lidocaine HCl (Xylocaine 2% Viscous) Confirm Administered Dose 15 ml .ROUTE .STK -MED ONE Stop: 10/24/18 09:18 Last Admin: 10/24/18 09:21 Dose: 15 ml Lidocaine HCl (Xylocaine 2% Viscous) Confirm Administered Dose 15 ml .ROUTE .STK -MED ONE Stop: 10/24/18 10:10 Last Admin: 10/24/18 10:30 Dose: 15 ml Lorazepam (Ativan) 0.5 mg IVPUSH ONETIME ONE Stop: 10/24/18 01:02 Last Admin: 10/24/18 06:58 Dose: Not Given Lorazepam (Ativan) 0.5 mg IVPUSH ONETIME ONE Stop: 10/24/18 02:01 Last Admin: 10/24/18 02:08 Dose: 0.5 mg Lorazepam (Ativan) 0.5 mg PO Q8H PRN PRN Reason: Anxiety Lorazepam (Ativan) 1 mg IVPUSH Q6H PRN PRN Reason: Agitation Last Admin: 10/24/18 21:31 Dose: 1 mg Lorazepam (Ativan) 1 mg IVPUSH Q4H PRN PRN Reason: Agitation Last Admin: 10/25/18 01:39 Dose: 1 mg Losartan Potassium (Cozaar) 100 mg PO BEDTIME [facility] Magnesium Hydroxide (Milk Of Magnesia) 30 ml PO DAILY PRN PRN Reason: Constipation Magnesium Oxide (Magnesium Oxide) 400 mg PO DAILY@1200 [facility] Last Admin: 10/24/18 11:30 Dose: Not Given Metoprolol Tartrate (Lopressor) 2.5 mg IVPUSH Q6H [facility] Last Admin: 10/25/18 05:18 Dose: 2.5 mg Mirtazapine (Remeron) 30 mg PO BEDTIME [facility] Morphine Sulfate (Morphine) 2 mg IVPUSH ONETIME ONE Stop: 10/24/18 02:41 Last Admin: 10/24/18 02:45 Dose: 2 mg Pantoprazole Sodium (Protonix) 40 mg PO BIDAC [facility] Last Admin: 10/24/18 09:53 Dose: Not Given Senna/Docusate Sodium (Senna Plus) 2 tab PO TID [facility] Last Admin: 10/24/18 11:47 Dose: Not Given - Exam General: Moderate Distress HEENT: Mucous Membr. Moist/[place] Neck: Trachea Midline, No JVD Lungs: Clear to Auscultation, Normal Respiratory Effort Cardiovascular: Regular Rate, Regular Rhythm GI/Abdominal Exam: Soft, Non-Tender, No Distention (Female) Exam: Deferred Back Exam: Normal Inspection, Decreased Range of Motion Extremities: Normal Inspection, Non-Tender Skin: Warm, Dry, Intact Neurological: No New Focal Deficit Psy/Mental Status: Alert, Labile Mood, Anxious, Agitated - Problem List & Annotations (1) Small bowel obstruction SNOMED Code(s): 875639490 Code(s): K56.609 - UNSP INTESTNL OBST, UNSP TO PARTIAL VERSUS COMPLETE OBST Status: Acute Current Visit: Yes (2) Hypokalemia SNOMED Code(s): 63167929 Code(s): E87.6 - HYPOKALEMIA Status: Acute Priority: High Current Visit : No Annotation/Comment:: (3) Scoliosis SNOMED Code(s): 357008146 Code(s): M41.9 - SCOLIOSIS, UNSPECIFIED Status: Acute Priority: Medium Current Visit: No Qualifiers: Scoliosis type: idiopathic Spinal region: thoracolumbar (4) TIA due to embolism SNOMED Code(s): 926434830 Code(s): G45.9 - TRANSIENT CEREBRAL ISCHEMIC ATTACK, UNSPECIFIED; I74.9 - EMBOLISM AND THROMBOSIS OF UNSPECIFIED ARTERY Status: Acute Current Visit: No Onset Date: 08/15/16 (5) Anemia SNOMED Code(s): 425566042 Code(s): D64.9 - ANEMIA, UNSPECIFIED Status: Chronic Priority: High Current Visit: No Qualifiers: Anemia type: iron deficiency Iron deficiency anemia type: chronic blood loss Qualified Code(s): D50.0 - Iron deficiency anemia secondary to blood loss (chronic) (6) B12 deficiency SNOMED Code(s): 858188507 Code(s): E53.8 - DEFICIENCY OF OTHER SPECIFIED B GROUP VITAMINS Status: Chronic Priority: Low Current Visit: No (7) CKD (chronic kidney disease) SNOMED Code(s): 058664288 Code(s): N18.9 - CHRONIC KIDNEY DISEASE, UNSPECIFIED Status: Chronic Priority: Low Current Visit: No Qualifiers: Chronic kidney disease stage: unspecified stage Qualified Code(s): N18.9 - Chronic kidney disease, unspecified (8) COPD (chronic obstructive pulmonary disease) SNOMED Code(s): 62516328 Code(s): J44.9 - CHRONIC OBSTRUCTIVE PULMONARY DISEASE, UNSPECIFIED Status : Chronic Priority: Medium Current Visit: No Qualifiers: COPD type: emphysema Emphysema type: panlobular Qualified Code(s): J43.1 - Panlobular emphysema (9) CVA (cerebral vascular accident) SNOMED Code(s): 834684285 Code(s): I63.9 - CEREBRAL INFARCTION, UNSPECIFIED Status: Chronic Priority: Low Current Visit: No Qualifiers: Laterality of affected vessel: unspecified (10) Chronic fatigue SNOMED Code(s): 97672950 Code(s): R53.82 - CHRONIC FATIGUE, UNSPECIFIED Status: Chronic Priority: Low Current Visit: No (11) Fibromyalgia SNOMED Code(s): 144572899 Code(s): M79.7 - FIBROMYALGIA Status: Chronic Priority: Low Current Visit: No (12) GERD (gastroesophageal reflux disease) SNOMED Code(s): 313169004 Code(s): K21.9 - GASTRO-ESOPHAGEAL REFLUX DISEASE WITHOUT ESOPHAGITIS Status: Chronic Priority: Low Current Visit: No Qualifiers: Esophagitis presence: esophagitis presence not specified Qualified Code(s) : K21.9 - Gastro-esophageal reflux disease without esophagitis (13) Glaucoma SNOMED Code(s): 79811282 Code(s): H40.9 - UNSPECIFIED GLAUCOMA Status: Chronic Priority: Low Current Visit: No Qualifiers: Glaucoma type: unspecified (14) HTN, Benign hypertension SNOMED Code(s): 74498978 Code(s): I10 - ESSENTIAL (PRIMARY) HYPERTENSION Status: Chronic Priority : Medium Current Visit: No (15) Hyperparathyroidism SNOMED Code(s): 44834206 Code(s): E21.3 - HYPERPARATHYROIDISM, UNSPECIFIED Status: Chronic Priority: Low Current Visit: No (16) Hypothyroid SNOMED Code(s): 48840441 Code(s): E03.9 - HYPOTHYROIDISM, UNSPECIFIED Status: Chronic Priority: Low Current Visit: No Qualifiers: 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 Qualified Code(s): E03.8 - Other specified hypothyroidism; E06.3 - Autoimmune thyroiditis (17) Mixed anxiety depressive disorder SNOMED Code(s): 343514146 Code(s): F41.8 - OTHER SPECIFIED ANXIETY DISORDERS Status: Chronic Priority: Low Current Visit: No (18) Osteoporosis SNOMED Code(s): 92339270 Code(s): M81.0 - AGE-RELATED OSTEOPOROSIS W/O CURRENT PATHOLOGICAL FRACTURE Status: Chronic Priority: Low Current Visit: No Qualifiers: Osteoporosis type: unspecified Annotation/Comment:: (19) Peptic reflux disease SNOMED Code(s): 614750869 Code(s): K21.9 - GASTRO-ESOPHAGEAL REFLUX DISEASE WITHOUT ESOPHAGITIS Status: Chronic Priority: High Current Visit: No (20) Rheumatoid arthritis SNOMED Code(s): 48525920 Code(s): M06.9 - RHEUMATOID ARTHRITIS, UNSPECIFIED Status: Chronic Priority: Low Current Visit: No Qualifiers: Rheumatoid factor presence: without rheumatoid factor Laterality: unspecified laterality (21) Thrombocytopenia SNOMED Code(s): 219690135 Code(s): D69.6 - THROMBOCYTOPENIA, UNSPECIFIED Status: Chronic Priority: Medium Current Visit: No (22) Endometrial cancer SNOMED Code(s): 222329567 Code(s): C54.1 - MALIGNANT NEOPLASM OF ENDOMETRIUM Status: Inactive Priority: Low Current Visit: No (23) Graves disease SNOMED Code(s): 478465271 Code(s): E05.00 - THYROTOXICOSIS W DIFFUSE GOITER W/O THYROTOXIC CRISIS Status: Inactive Priority: Low Current Visit: No Annotation/Comment:: (24) Acute delirium SNOMED Code(s): 1523026, 2838516 Code(s): R41.0 - DISORIENTATION, UNSPECIFIED Status: Acute Priority: High Current Visit: Yes - Problem List Review Problem List Initiated/Reviewed/Updated: Yes - My Orders Last 24 Hours: My Active Orders 10/25/18 12:00 Enalaprilat [Vasotec IV] 0.625 mg IVPUSH Q6H 10/25/18 15:00 Metoprolol Tartrate [Lopressor] 2.5 mg IVPUSH Q6H 10/25/18 20:00 Non-Formulary Medication [NF Drug] 0 each EYEBOTH Q12HR 10/25/18 21:33 Sodium Chloride 0.9% [Normal Saline] 1,000 ml IV ASDIRECTED 10/26/18 12:00 Head wo Cont [CT] Routine 10/26/18 18:00 Ketorolac [Toradol] 15 mg IVPUSH Q6H 10/26/18 Breakfast Clear Liquid Diet [DIET] 10/27/18 05:11 CBC WITH AUTO DIFF [HEME] DAILY CMP [COMPREHENSIVE METABOLIC PN,CMP] [CHEM] DAILY - Plan Plan:: 10/24/2018 Patient was admitted through the ER for small bowel obstruction. [facility] Dr Ventura consulted with Dr Edmonds from [facility] surgery, advised to place NG tube, ambulate and then reXray. NG placed for green bile return, will monitor and ordered Xray of abdomen in 1 1/2hours. patient may need transfer to [facility] for surgical evaluation and consultation. Dr Matthews consulted. Eugenia Chris,GREENHOUSE TECHNICIAN 10/24/18 ~1645 Cassie Cameron MD She has had a small loose bowel movement. X-rays improvement in air/fluid levels and some contrast in the colon. Continue medical therapy for small bowel obstruction with IV fluids and NG tube. ~500 ml of green bilious fluid out with NG tube. Will replace with IV fluids and potassium. Blood pressure elevated so will treat with IV blood pressure medications. Medically requiring inpatient status. 10/25/18 Cassie Cameron MD Medical therapy and monitoring is at inpatient status. Order placed. The mechanical small bowel obstruction is improving. Blood pressure still elevated so medications adjusted. Continue IV fluids and bowel rest. She did pull her NGT and IV out earlier today. Since she is improving NGT was not reinserted. Continue to monitor blood pressure, kidney status, electrolytes, platelets. Start oral intake in AM. 10/26/18 Cassie Cameron MD She had a rough night last night. Very agitated and not able to be redirected. Will head CT due to acute delirium. Try toradol cautiously for her pain. Complaining of severe back pain but she states this is her usual pain she has had x many years. Some simptoms consitent with narcotic withdrawal. She takes chronic narcotics for her chronic pain.
[2018-10-26] MEDS: Ketorolac 15 MG/ML SDV IVPUSH SCH (17:05)
[2018-10-26] MEDS: cloNIDine 0.1 MG Tab PO SCH (20:09)
[2018-10-26] MEDS: Latanoprost 0.005% Ophth Soln 2.5 ML Bottle EYEBOTH SCH (20:10)
[2018-10-27] MEDS: LORazepam 2 MG/ML SDV IVPUSH PRN ×4 (00:48→22:50)
[2018-10-27] MEDS: Enalaprilat 1.25 MG/ML SDV IVPUSH SCH ×2 (00:48→05:10)
[2018-10-27] MEDS: Ketorolac 15 MG/ML SDV IVPUSH SCH ×5 (00:48→22:59)
[2018-10-27] MEDS: Pantoprazole 40 MG Vial IVPUSH SCH ×3 (00:48→22:59)
[2018-10-27] MEDS: Sodium Chloride 0.9% 10 ML Syringe FLUSH PRN ×3 (00:49→22:59)
[2018-10-27] MEDS: Metoprolol Tartrate 5 MG/5 ML SDV IVPUSH SCH ×2 (02:59→08:34)
[2018-10-27] MEDS ORDERED: Haloperidol Lactate 5 MG/ML SDV IVPUSH ONE (04:27)
[2018-10-27] MEDS: Sodium Chloride 0.9% 1,000 ML IV SCH (05:52)
[2018-10-27 07:05] LABS: CHLORIDE,CL 108 mmol/L (98-107); SODIUM,NA 143 mmol/L (136-145)
[2018-10-27] MEDS: CYCLOSPORINE EYEBOTH SCH ×2 (07:59→17:10)
[2018-10-27] MEDS: CARTEOLOL 1% EYEBOTH SCH ×2 (07:59→19:06)
[2018-10-27] MEDS: Dorzolamide 2% Ophth Soln 10 ML Bottle EYEBOTH SCH ×2 (08:00→19:07)
[2018-10-27] MEDS: cloNIDine 0.1 MG Tab PO SCH ×2 (08:00→19:05)
[2018-10-27] MEDS: fentaNYL 100 MCG/2 ML SDV IVPUSH PRN ×3 (10:50→19:31)
[2018-10-27] MEDS: LORazepam 1 MG Tab PO SCH ×2 (11:58→17:07)
[2018-10-27] MEDS: Escitalopram 20 MG Tab PO SCH (11:59)
[2018-10-27] MEDS ORDERED: Enalaprilat 1.25 MG/ML SDV IVPUSH SCH (12:00)
[2018-10-27] MEDS ORDERED: Labetalol 100 MG/20 ML MDV IVPUSH SCH (15:00)
--- NOTE | 2018-10-27 15:57 | PCM.PN ---
- General Info Date of Service: 10/27/18 Admission Dx/Problem (Free Text): Abdominal pain with one episode of emesis. Functional Status: Reports: Tolerating Diet, Urinating - Review of Systems General: Reports: Weakness, Appetite (decreased) HEENT: Reports: Other (SUN'AQ) Pulmonary: Reports: No Symptoms Cardiovascular: Reports: No Symptoms Gastrointestinal: Reports: Decreased Appetite Genitourinary: Reports: No Symptoms Musculoskeletal: Reports: Back Pain (chronic) Skin: Reports: No Symptoms Neurological: Reports: Confusion, Difficulty Walking, Weakness Psychiatric: Reports: Confusion, Anxiety, Agitation - Patient Data Vitals - Most Recent: Last Vital Signs Temp 98.3 F 10/27/18 14:47 Pulse 86 10/27/18 14:47 Resp 20 10/27/18 14:47 BP 192/87 H 10/27/18 14:47 Pulse Ox 93 L 10/27/18 14:47 Weight - Most Recent: 172 lb 15.983 oz I&O - Last 24 Hours: Intake & Output 10/27/18 10/27/18 10/27/18 06:59 14:59 22:59 Intake Total 580 400 Balance 580 400 Lab Results Last 24 Hours: Laboratory Results - last 24 hr 10/27/18 10/27/18 Range/Units 06:40 06:40 WBC 4.6 (4.0-10.2) K/uL RBC 3.83 (3.77-5.09) M/uL Hgb 12.5 (11.7-15.5) g/dL Hct 36.2 (34.0-46.0) % MCV 94.5 D (84.0-98.0) fL MCH 32.6 (28.2-33.3) pg MCHC 34.5 (31.7-36.0) g/dL RDW 12.7 (11.2-14.1) % Plt Count 75 L (150-350) K/uL Neut % (Auto) 56.6 (45.0-80.0) % Lymph % (Auto) 29.0 (10.0-50.0) % [place] % (Auto) 8.5 (2.0-14.0) % Eos % (Auto) 5.7 H (0.0-5.0) % Baso % (Auto) 0.2 (0.0-2.0) % Neut # (Auto) 2.60 (1.40-7.00) K/uL Lymph # (Auto) 1.33 (0.50-3.50) K/uL [place] # (Auto) 0.39 (0.00-1.00) K/uL Eos # (Auto) 0.26 (0.00-0.50) K/uL Baso # (Auto) 0.01 (0.00-0.20) K/uL Sodium 143 (136-145) mmol/L Potassium 3.5 (3.5-5.1) mmol/L Chloride 108 H (98-107) mmol/L Carbon Dioxide 21.7 (21.0-32.0) mmol/L BUN 10 (7-18) mg/dL Creatinine 0.87 (0.51-1.17) mg/dL Est Cr Clr Drug Dosing 52.52 mL/min Estimated GFR (MDRD) > 60 mL/min Glucose 75 (74-106) mg/dL Calcium 8.1 L (8.5-10.1) mg/dL Total Bilirubin 0.7 (0.2-1.0) mg/dL AST 30 (15-37) U/L ALT 22 (12-78) U/L Alkaline Phosphatase 56 (46-116) IU/L C-Reactive Protein 2.3 H (<=0.9) mg/dL Total Protein 6.0 L (6.4-8.2) g/dL Albumin 3.1 L (3.4-5.0) g/dL Med Orders - Current: Current Medications Hydrocodone Bitart/Acetaminophen ([place] 325-5 Mg) 1 tab PO TID [facility] Albuterol (Ventolin Hfa) 0 gm INH Q4H PRN PRN Reason: SHORTNESS OF BREATH Calcitriol (Rocaltrol) 0.25 mcg PO DAILY [facility] Calcium Carbonate (Oystcal-D 625 Mg-125 Units) 1 tab PO TIDMEALS [facility] Carvedilol (Coreg) 3.125 mg PO BID [facility] Clonidine HCl (Catapres) 0.1 mg PO Q12HR [facility] Last Admin: 10/27/18 08:00 Dose: 0.1 mg Dorzolamide HCl (Trusopt 2% Ophth Soln) 0 ml EYEBOTH BID@08,20 KATLIN Last Admin: 10/27/18 08:00 Dose: 1 drop Escitalopram Oxalate (Lexapro) 10 mg PO DAILY [facility] Last Admin: 10/27/18 11:59 Dose: 10 mg Fentanyl (Sublimaze) 50 mcg IVPUSH Q4H PRN PRN Reason: Pain (severe 7-10) Last Admin: 10/27/18 14:51 Dose: 50 mcg Sodium Chloride (Normal Saline) 1,000 mls @ 50 mls/hr IV ASDIRECTED [facility] Last Admin: 10/27/18 05:52 Dose: 50 mls/hr Ketorolac Tromethamine (Toradol) 15 mg IVPUSH Q6H [facility] Stop: 10/28/18 12:01 Last Admin: 10/27/18 12:03 Dose: 15 mg Latanoprost (Xalatan 0.005% Ophth Soln) 0 ml EYEBOTH BEDTIME [facility] Last Admin: 10/26/18 20:10 Dose: 1 drop Levothyroxine Sodium (Levothyroxine) 75 mcg PO ACBREAKFAST [facility] Lorazepam (Ativan) 2 mg IVPUSH Q4H PRN PRN Reason: Agitation Last Admin: 10/27/18 12:44 Dose: 2 mg Lorazepam (Ativan) 1 mg PO TID [facility] Last Admin: 10/27/18 11:58 Dose: 1 mg Losartan Potassium (Cozaar) 100 mg PO BEDTIME [facility] Magnesium Oxide (Magnesium Oxide) 400 mg PO DAILY@1200 [facility] Cyclosporine [ (Restasis] Ophth Soln) 1 each EYEBOTH BID [facility] Last Admin: 10/27/18 07:59 Dose: Not Given Carteolol 1% Ophth (Solution) 0 each EYEBOTH Q12HR [facility] Last Admin: 10/27/18 07:59 Dose: 1 each Ondansetron HCl (Zofran) 4 mg IVPUSH Q6H PRN PRN Reason: Nausea/Vomiting Last Admin: 10/24/18 02:59 Dose: 4 mg Pantoprazole Sodium (Protonix Iv) 40 mg IVPUSH Q12H [facility] Last Admin: 10/27/18 12:03 Dose: 40 mg Quetiapine Fumarate (Seroquel) 50 mg PO BEDTIME [facility] Senna/Docusate Sodium (Senna Plus) 1 tab PO TID [facility] Sodium Chloride (Saline Flush) 10 ml FLUSH ASDIRECTED PRN PRN Reason: Keep Vein Open Last Admin: 10/27/18 12:45 Dose: 10 ml Discontinued Medications Bisacodyl (Dulcolax) 5 mg PO DAILY PRN PRN Reason: Constipation Carvedilol (Coreg) 3.125 mg PO Q12HR [facility] Last Admin: 10/24/18 09:53 Dose: Not Given Coenzyme Q10 (Coenzyme Q10) 100 mg PO DAILY [facility] Last Admin: 10/24/18 11:47 Dose: Not Given Diphenhydramine HCl (Benadryl) 25 mg IVPUSH ONETIME ONE Stop: 10/23/18 23:12 Last Admin: 10/23/18 23:15 Dose: 25 mg Diphenhydramine HCl (Benadryl) 25 mg IVPUSH ONETIME ONE Stop: 10/26/18 05:33 Last Admin: 10/26/18 05:42 Dose: 25 mg Docusate Sodium (Colace) 100 mg PO DAILY PRN PRN Reason: Constipation Enalaprilat (Vasotec Iv) 0.625 mg IVPUSH ONETIME ONE Stop: 10/24/18 17:16 Last Admin: 10/24/18 17:49 Dose: 0.625 mg Enalaprilat (Vasotec Iv) 0.625 mg IVPUSH Q6H [facility] Last Admin: 10/27/18 05:10 Dose: 0.625 mg Enalaprilat (Vasotec Iv) 1.25 mg IVPUSH Q6H [facility] Last Admin: 10/27/18 12:04 Dose: 1.25 mg Escitalopram Oxalate (Lexapro) 20 mg PO DAILY [facility] Last Admin: 10/24/18 09:54 Dose: Not Given Fentanyl (Sublimaze) 50 mcg IVPUSH ONETIME ONE Stop: 10/23/18 23:11 Last Admin: 10/23/18 23:16 Dose: 50 mcg Fentanyl (Sublimaze) 50 mcg IVPUSH ONETIME ONE Stop: 10/24/18 01:01 Last Admin: 10/24/18 01:20 Dose: 50 mcg Fentanyl (Sublimaze) 100 mcg IVPUSH ONETIME ONE Stop: 10/24/18 07:32 Last Admin: 10/24/18 07:48 Dose: 100 mcg Furosemide (Lasix) 20 mg PO DAILY [facility] Last Admin: 10/24/18 09:54 Dose: Not Given Haloperidol Lactate (Haldol) 5 mg IVPUSH ONETIME ONE Stop: 10/25/18 23:45 Last Admin: 10/26/18 00:09 Dose: 5 mg Haloperidol Lactate (Haldol) 5 mg IVPUSH ONETIME ONE Stop: 10/26/18 05:35 Last Admin: 10/26/18 05:41 Dose: 5 mg Haloperidol Lactate (Haldol) 5 mg IVPUSH ONETIME ONE Stop: 10/26/18 22:26 Last Admin: 10/26/18 22:46 Dose: 5 mg Haloperidol Lactate (Haldol) 5 mg IVPUSH ONETIME ONE Stop: 10/27/18 04:28 Last Admin: 10/27/18 04:43 Dose: 5 mg Sodium Chloride (Normal Saline) 1,000 mls @ 75 mls/hr IV ONETIME ONE Stop: 10/24/18 14:21 Last Admin: 10/24/18 01:21 Dose: 75 mls/hr Potassium Chloride/Dextrose/Sod Cl (D5 1/2 Ns W/ 20 Meq/L Kcl) 1,000 mls @ 100 mls/hr IV ASDIRECTED [facility] Stop: 10/25/18 03:14 Last Admin: 10/24/18 17:49 Dose: 100 mls/hr Sodium Chloride (Normal Saline) 1,000 mls @ 100 mls/hr IV ASDIRECTED [facility] Last Admin: 10/25/18 16:31 Dose: 100 mls/hr Ketorolac Tromethamine (Toradol) 30 mg IVPUSH ONETIME ONE Stop: 10/24/18 08:45 Last Admin: 10/24/18 10:27 Dose: 30 mg Ketorolac Tromethamine (Toradol) 30 mg IVPUSH ONETIME ONE Stop: 10/26/18 12:00 Last Admin: 10/26/18 12:23 Dose: 30 mg Labetalol HCl (Normodyne) 10 mg IVPUSH Q12H [facility]; Protocol Last Admin: 10/27/18 14:46 Dose: 10 mg Latanoprost (Xalatan 0.005% Ophth Soln) ml EYEBOTH BEDTIME [facility] Levothyroxine Sodium (Levothyroxine) 75 mcg PO ACBREAKFAST [facility] Last Admin: 10/24/18 09:53 Dose: Not Given Lidocaine HCl (Xylocaine 2% Viscous) Confirm Administered Dose 15 ml .ROUTE .STK -MED ONE Stop: 10/24/18 09:18 Last Admin: 10/24/18 09:21 Dose: 15 ml Lidocaine HCl (Xylocaine 2% Viscous) Confirm Administered Dose 15 ml .ROUTE .STK -MED ONE Stop: 10/24/18 10:10 Last Admin: 10/24/18 10:30 Dose: 15 ml Lorazepam (Ativan) 0.5 mg IVPUSH ONETIME ONE Stop: 10/24/18 01:02 Last Admin: 10/24/18 06:58 Dose: Not Given Lorazepam (Ativan) 0.5 mg IVPUSH ONETIME ONE Stop: 10/24/18 02:01 Last Admin: 10/24/18 02:08 Dose: 0.5 mg Lorazepam (Ativan) 0.5 mg PO Q8H PRN PRN Reason: Anxiety Lorazepam (Ativan) 1 mg IVPUSH Q6H PRN PRN Reason: Agitation Last Admin: 10/24/18 21:31 Dose: 1 mg Lorazepam (Ativan) 1 mg IVPUSH Q4H PRN PRN Reason: Agitation Last Admin: 10/25/18 01:39 Dose: 1 mg Losartan Potassium (Cozaar) 100 mg PO BEDTIME [facility] Magnesium Hydroxide (Milk Of Magnesia) 30 ml PO DAILY PRN PRN Reason: Constipation Magnesium Oxide (Magnesium Oxide) 400 mg PO DAILY@1200 [facility] Last Admin: 10/24/18 11:30 Dose: Not Given Metoprolol Tartrate (Lopressor) 2.5 mg IVPUSH Q6H [facility] Last Admin: 10/25/18 05:18 Dose: 2.5 mg Metoprolol Tartrate (Lopressor) 2.5 mg IVPUSH Q6H [facility] Last Admin: 10/27/18 08:34 Dose: 2.5 mg Mirtazapine (Remeron) 30 mg PO BEDTIME [facility] Morphine Sulfate (Morphine) 2 mg IVPUSH ONETIME ONE Stop: 10/24/18 02:41 Last Admin: 10/24/18 02:45 Dose: 2 mg Pantoprazole Sodium (Protonix) 40 mg PO BIDAC [facility] Last Admin: 10/24/18 09:53 Dose: Not Given Senna/Docusate Sodium (Senna Plus) 2 tab PO TID [facility] Last Admin: 10/24/18 11:47 Dose: Not Given Senna/Docusate Sodium (Senna Plus) 1 tab PO BID [facility] - Exam General: Cooperative (at times and at other times not), Mild Distress HEENT: Mucous Membr. Moist/[place]ck: Trachea Midline, No JVD Lungs: Normal Respiratory Effort, Decreased Breath Sounds Cardiovascular: Regular Rate, Regular Rhythm GI/Abdominal Exam: Normal Bowel Sounds, Soft, Non-Tender, No Distention (Female) Exam: Deferred Back Exam: Other (kyphosis, scoliosis) Extremities: Normal Inspection, Non-Tender, No Pedal Edema Skin: Warm, Dry, Intact Wound/Incisions: Healing Well (skin tear) Neurological: No New Focal Deficit Psy/Mental Status: Anxious, Depressed, Agitated - Problem List & Annotations (1) Small bowel obstruction SNOMED Code(s): 689716136 Code(s): K56.609 - UNSP INTESTNL OBST, UNSP TO PARTIAL VERSUS COMPLETE OBST Status: Acute Current Visit: Yes (2) Hypokalemia SNOMED Code(s): 87642162 Code(s): E87.6 - HYPOKALEMIA Status: Acute Priority: High Current Visit : No Annotation/Comment:: (3) Scoliosis SNOMED Code(s): 564413998 Code(s): M41.9 - SCOLIOSIS, UNSPECIFIED Status: Acute Priority: Medium Current Visit: No Qualifiers: Scoliosis type: idiopathic Spinal region: thoracolumbar (4) TIA due to embolism SNOMED Code(s): 646721620 Code(s): G45.9 - TRANSIENT CEREBRAL ISCHEMIC ATTACK, UNSPECIFIED; I74.9 - EMBOLISM AND THROMBOSIS OF UNSPECIFIED ARTERY Status: Acute Current Visit: No Onset Date: 08/15/16 (5) Anemia SNOMED Code(s): 946730531 Code(s): D64.9 - ANEMIA, UNSPECIFIED Status: Chronic Priority: High Current Visit: No Qualifiers: Anemia type: iron deficiency Iron deficiency anemia type: chronic blood loss Qualified Code(s): D50.0 - Iron deficiency anemia secondary to blood loss (chronic) (6) B12 deficiency SNOMED Code(s): 694507731 Code(s): E53.8 - DEFICIENCY OF OTHER SPECIFIED B GROUP VITAMINS Status: Chronic Priority: Low Current Visit: No (7) CKD (chronic kidney disease) SNOMED Code(s): 230818241 Code(s): N18.9 - CHRONIC KIDNEY DISEASE, UNSPECIFIED Status: Chronic Priority: Low Current Visit: No Qualifiers: Chronic kidney disease stage: unspecified stage Qualified Code(s): N18.9 - Chronic kidney disease, unspecified (8) COPD (chronic obstructive pulmonary disease) SNOMED Code(s): 76998530 Code(s): J44.9 - CHRONIC OBSTRUCTIVE PULMONARY DISEASE, UNSPECIFIED Status : Chronic Priority: Medium Current Visit: No Qualifiers: COPD type: emphysema Emphysema type: panlobular Qualified Code(s): J43.1 - Panlobular emphysema (9) CVA (cerebral vascular accident) SNOMED Code(s): 042175737 Code(s): I63.9 - CEREBRAL INFARCTION, UNSPECIFIED Status: Chronic Priority: Low Current Visit: No Qualifiers: Laterality of affected vessel: unspecified (10) Chronic fatigue SNOMED Code(s): 54057852 Code(s): R53.82 - CHRONIC FATIGUE, UNSPECIFIED Status: Chronic Priority: Low Current Visit: No (11) Fibromyalgia SNOMED Code(s): 338564909 Code(s): M79.7 - FIBROMYALGIA Status: Chronic Priority: Low Current Visit: No (12) GERD (gastroesophageal reflux disease) SNOMED Code(s): 492421100 Code(s): K21.9 - GASTRO-ESOPHAGEAL REFLUX DISEASE WITHOUT ESOPHAGITIS Status: Chronic Priority: Low Current Visit: No Qualifiers: Esophagitis presence: esophagitis presence not specified Qualified Code(s) : K21.9 - Gastro-esophageal reflux disease without esophagitis (13) Glaucoma SNOMED Code(s): 84659245 Code(s): H40.9 - UNSPECIFIED GLAUCOMA Status: Chronic Priority: Low Current Visit: No Qualifiers: Glaucoma type: unspecified (14) HTN, Benign hypertension SNOMED Code(s): 49725288 Code(s): I10 - ESSENTIAL (PRIMARY) HYPERTENSION Status: Chronic Priority : Medium Current Visit: No (15) Hyperparathyroidism SNOMED Code(s): 50085098 Code(s): E21.3 - HYPERPARATHYROIDISM, UNSPECIFIED Status: Chronic Priority: Low Current Visit: No (16) Hypothyroid SNOMED Code(s): 88082911 Code(s): E03.9 - HYPOTHYROIDISM, UNSPECIFIED Status: Chronic Priority: Low Current Visit: No Qualifiers: 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 Qualified Code(s): E03.8 - Other specified hypothyroidism; E06.3 - Autoimmune thyroiditis (17) Mixed anxiety depressive disorder SNOMED Code(s): 542464197 Code(s): F41.8 - OTHER SPECIFIED ANXIETY DISORDERS Status: Chronic Priority: Low Current Visit: No (18) Osteoporosis SNOMED Code(s): 00253895 Code(s): M81.0 - AGE-RELATED OSTEOPOROSIS W/O CURRENT PATHOLOGICAL FRACTURE Status: Chronic Priority: Low Current Visit: No Qualifiers: Osteoporosis type: unspecified Annotation/Comment:: (19) Peptic reflux disease SNOMED Code(s): 320153979 Code(s): K21.9 - GASTRO-ESOPHAGEAL REFLUX DISEASE WITHOUT ESOPHAGITIS Status: Chronic Priority: High Current Visit: No (20) Rheumatoid arthritis SNOMED Code(s): 32461939 Code(s): M06.9 - RHEUMATOID ARTHRITIS, UNSPECIFIED Status: Chronic Priority: Low Current Visit: No Qualifiers: Rheumatoid factor presence: without rheumatoid factor Laterality: unspecified laterality (21) Thrombocytopenia SNOMED Code(s): 844247248 Code(s): D69.6 - THROMBOCYTOPENIA, UNSPECIFIED Status: Chronic Priority: Medium Current Visit: No (22) Endometrial cancer SNOMED Code(s): 535139430 Code(s): C54.1 - MALIGNANT NEOPLASM OF ENDOMETRIUM Status: Inactive Priority: Low Current Visit: No (23) Graves disease SNOMED Code(s): 166624720 Code(s): E05.00 - THYROTOXICOSIS W DIFFUSE GOITER W/O THYROTOXIC CRISIS Status: Inactive Priority: Low Current Visit: No Annotation/Comment:: (24) Acute delirium SNOMED Code(s): 3149885, 9251575 Code(s): R41.0 - DISORIENTATION, UNSPECIFIED Status: Acute Priority: High Current Visit: Yes - Problem List Review Problem List Initiated/Reviewed/Updated: Yes - My Orders Last 24 Hours: My Active Orders 10/26/18 18:00 Ketorolac [Toradol] 15 mg IVPUSH Q6H 10/26/18 20:00 cloNIDine [Catapres] 0.1 mg PO Q12HR 10/27/18 11:00 Escitalopram [Lexapro] 10 mg PO DAILY 10/27/18 12:00 LORazepam [Ativan] 1 mg PO TID 10/27/18 18:00 Acetaminophen/HYDROcodone [[place] 325-5 MG] 1 tab PO TID Calcium Carbonate/Vitamin D3 [OystCal-D 625 MG-125 Units] 1 tab PO TIDMEALS Carvedilol [Coreg] 3.125 mg PO BID Docusate Sodium/Sennosides [Senna Plus] 1 tab PO TID 10/27/18 20:00 Losartan [Cozaar] 100 mg PO BEDTIME [facility]apine [SEROquel] 50 mg PO BEDTIME 10/27/18 Dinner Regular Diet [DIET] 10/28/18 07:30 Levothyroxine 75 mcg PO ACBREAKFAST 10/28/18 08:00 Calcitriol [Rocaltrol] 0.25 mcg PO DAILY 10/28/18 12:00 Magnesium Oxide 400 mg PO DAILY@1200 - Plan Plan:: 10/24/2018 Patient was admitted through the ER for small bowel obstruction. [facility] Dr Ventura consulted with Dr Edmonds from [facility] surgery, advised to place NG tube, ambulate and then reXray. NG placed for green bile return, will monitor and ordered Xray of abdomen in 1 1/2hours. patient may need transfer to [place] for surgical evaluation and consultation. Dr Matthews consulted. Eugenia Perez,NUTRITION CONSULTANT 10/24/18 ~1669 Cassie Cameron MD She has had a small loose bowel movement. X-rays improvement in air/fluid levels and some contrast in the colon. Continue medical therapy for small bowel obstruction with IV fluids and NG tube. ~500 ml of green bilious fluid out with NG tube. Will replace with IV fluids and potassium. Blood pressure elevated so will treat with IV blood pressure medications. Medically requiring inpatient status. 10/25/18 Cassie Cameron MD Medical therapy and monitoring is at inpatient status. Order placed. The mechanical small bowel obstruction is improving. Blood pressure still elevated so medications adjusted. Continue IV fluids and bowel rest. She did pull her NGT and IV out earlier today. Since she is improving NGT was not reinserted. Continue to monitor blood pressure, kidney status, electrolytes, platelets. Start oral intake in AM. 10/26/18 Cassie Cameron MD She had a rough night last night. Very agitated and not able to be redirected. Will obtain head CT due to acute delirium. Try toradol cautiously for her pain. She does have history of GI bleed and low platelets. Complaining of severe back pain but she states this is her usual pain she has had x many years. Some symptoms consistent with narcotic withdrawal and her hyperparathyroidism, hypercalcium and hypocalcium (calcium fluctuation). She takes chronic narcotics for her chronic pain. 10/27/18 Cassie Cameron MD Slight improvement. Tolerating clear liquids but still episodes of extreme weakness and aggitation and negativism. Head CT negative. Pain some better. One small bowel movement so small bowel obstruction has resolved. Will advance diet and restart home medications. Still requiring IV fluid supplementation and may need IV pain medications and IV lorazepam. PT-OT had session with her today. See their notes.
[2018-10-27] MEDS: Acetaminophen/HYDROcodone 325-5 MG Tab PO SCH (17:08)
[2018-10-27] MEDS: Carvedilol 3.125 MG Tab PO SCH (17:08)
[2018-10-27] MEDS: Calcium Carbonate/Vitamin D3 625 MG-125 Unit Tab PO SCH (17:08)
[2018-10-27] MEDS: QUEtiapine 25 MG Tab PO SCH (19:05)
[2018-10-27] MEDS: Losartan 50 MG Tab PO SCH (19:06)
[2018-10-27] MEDS: Latanoprost 0.005% Ophth Soln 2.5 ML Bottle EYEBOTH SCH (19:07)
[2018-10-27] MEDS: Sodium Chloride 0.9% 10 ML Syringe FLUSH SCH (19:17)
[2018-10-28] MEDS: Sodium Chloride 0.9% 1,000 ML IV SCH ×2 (02:31→22:52)
[2018-10-28] MEDS: fentaNYL 100 MCG/2 ML SDV IVPUSH PRN ×2 (04:41→16:27)
[2018-10-28] MEDS: Sodium Chloride 0.9% 10 ML Syringe FLUSH PRN ×4 (04:42→22:59)
[2018-10-28] MEDS: Ketorolac 15 MG/ML SDV IVPUSH SCH ×2 (05:46→12:01)
[2018-10-28] MEDS: Dorzolamide 2% Ophth Soln 10 ML Bottle EYEBOTH SCH ×2 (07:04→19:08)
[2018-10-28] MEDS: Escitalopram 20 MG Tab PO SCH (07:05)
[2018-10-28] MEDS: Calcitriol 0.25 MCG Cap PO SCH (07:18)
[2018-10-28] MEDS: Acetaminophen/HYDROcodone 325-5 MG Tab PO SCH ×3 (07:18→17:22)
[2018-10-28] MEDS: Levothyroxine 75 MCG Tab PO SCH (07:18)
[2018-10-28] MEDS: Calcium Carbonate/Vitamin D3 625 MG-125 Unit Tab PO SCH ×3 (07:18→17:12)
[2018-10-28] MEDS: LORazepam 1 MG Tab PO SCH ×3 (07:19→17:12)
[2018-10-28] MEDS: Carvedilol 3.125 MG Tab PO SCH ×2 (07:19→17:13)
[2018-10-28] MEDS: cloNIDine 0.1 MG Tab PO SCH ×2 (07:20→19:08)
[2018-10-28] MEDS: CARTEOLOL 1% EYEBOTH SCH ×2 (07:21→19:09)
[2018-10-28] MEDS: CYCLOSPORINE EYEBOTH SCH ×2 (07:22→17:18)
[2018-10-28] MEDS: Sodium Chloride 0.9% 10 ML Syringe FLUSH SCH ×2 (07:22→19:09)
--- NOTE | 2018-10-28 11:16 | PCM.PN ---
- General Info Date of Service: 10/28/18 Admission Dx/Problem (Free Text): Small Bowel Obstruction Functional Status: Reports: Pain Controlled (says "not much" when I ask if she' s having pain anywhere, denies specific pain site), Urinating - Review of Systems General: Reports: Weakness HEENT: Reports: No Symptoms Pulmonary: Reports: No Symptoms Cardiovascular: Reports: No Symptoms Gastrointestinal: Reports: Decreased Appetite Genitourinary: Reports: Frequency Musculoskeletal: Reports: No Symptoms Skin: Reports: No Symptoms Neurological: Reports: Weakness Psychiatric: Reports: No Symptoms - Patient Data Vitals - Most Recent: Last Vital Signs Temp 97.9 F 10/28/18 10:54 Pulse 82 10/28/18 10:54 Resp 18 10/28/18 10:54 BP 170/70 H 10/28/18 10:54 Pulse Ox 97 10/28/18 10:54 Weight - Most Recent: 172 lb 15.983 oz I&O - Last 24 Hours: Intake & Output 10/27/18 10/28/18 10/28/18 22:59 06:59 14:59 Intake Total 576 603 Balance 576 603 Lab Results Last 24 Hours: Laboratory Results - last 24 hr 10/28/18 10/28/18 Range/Units 07:15 07:15 WBC 4.5 (4.0-10.2) K/uL RBC 4.03 (3.77-5.09) M/uL Hgb 13.3 (11.7-15.5) g/dL Hct 38.0 (34.0-46.0) % MCV 94.3 (84.0-98.0) fL MCH 33.0 (28.2-33.3) pg MCHC 35.0 (31.7-36.0) g/dL RDW 13.0 (11.2-14.1) % Plt Count 100 L (150-350) K/uL Neut % (Auto) 54.5 (45.0-80.0) % Lymph % (Auto) 30.8 (10.0-50.0) % [place] % (Auto) 9.6 (2.0-14.0) % Eos % (Auto) 4.9 (0.0-5.0) % Baso % (Auto) 0.2 (0.0-2.0) % Neut # (Auto) 2.44 (1.40-7.00) K/uL Lymph # (Auto) 1.38 (0.50-3.50) K/uL [place] # (Auto) 0.43 (0.00-1.00) K/uL Eos # (Auto) 0.22 (0.00-0.50) K/uL Baso # (Auto) 0.01 (0.00-0.20) K/uL Sodium 144 (136-145) mmol/L Potassium 3.1 L (3.5-5.1) mmol/L Chloride 108 H (98-107) mmol/L Carbon Dioxide 21.6 (21.0-32.0) mmol/L BUN 10 (7-18) mg/dL Creatinine 0.94 (0.51-1.17) mg/dL Est Cr Clr Drug Dosing 48.61 mL/min Estimated GFR (MDRD) 58 mL/min Glucose 99 (74-106) mg/dL Calcium 8.4 L (8.5-10.1) mg/dL Total Bilirubin 0.6 (0.2-1.0) mg/dL AST 28 (15-37) U/L ALT 28 (12-78) U/L Alkaline Phosphatase 56 (46-116) IU/L C-Reactive Protein 0.8 (<=0.9) mg/dL Total Protein 6.3 L (6.4-8.2) g/dL Albumin 3.3 L (3.4-5.0) g/dL Med Orders - Current: Current Medications Hydrocodone Bitart/Acetaminophen (Lulu 325-5 Mg) 1 tab PO TID [facility] Last Admin: 10/28/18 07:18 Dose: 1 tab Albuterol (Ventolin Hfa) 0 gm INH Q4H PRN PRN Reason: SHORTNESS OF BREATH Calcitriol (Rocaltrol) 0.25 mcg PO DAILY [facility] Last Admin: 10/28/18 07:18 Dose: 0.25 mcg Calcium Carbonate (Oystcal-D 625 Mg-125 Units) 1 tab PO TIDMEALS [facility] Last Admin: 10/28/18 07:18 Dose: 1 tab Carvedilol (Coreg) 3.125 mg PO BID [facility] Last Admin: 10/28/18 07:19 Dose: 3.125 mg Clonidine HCl (Catapres) 0.1 mg PO Q12HR [facility] Last Admin: 10/28/18 07:20 Dose: 0.1 mg Dorzolamide HCl (Trusopt 2% Ophth Soln) 0 ml EYEBOTH BID@08,20 [facility] Last Admin: 10/28/18 07:04 Dose: 1 drop Escitalopram Oxalate (Lexapro) 10 mg PO DAILY [facility] Last Admin: 10/28/18 07:05 Dose: 10 mg Fentanyl (Sublimaze) 50 mcg IVPUSH Q4H PRN PRN Reason: Pain (severe 7-10) Last Admin: 10/28/18 04:41 Dose: 50 mcg Sodium Chloride (Normal Saline) 1,000 mls @ 50 mls/hr IV ASDIRECTED [facility] Last Admin: 10/28/18 02:31 Dose: 50 mls/hr Ketorolac Tromethamine (Toradol) 15 mg IVPUSH Q6H [facility] Stop: 10/28/18 12:01 Last Admin: 10/28/18 05:46 Dose: 15 mg Latanoprost (Xalatan 0.005% Ophth Soln) 0 ml EYEBOTH BEDTIME [facility] Last Admin: 10/27/18 19:07 Dose: 1 drop Levothyroxine Sodium (Levothyroxine) 75 mcg PO ACBREAKFAST [facility] Last Admin: 10/28/18 07:18 Dose: 75 mcg Lorazepam (Ativan) 2 mg IVPUSH Q4H PRN PRN Reason: Agitation Last Admin: 10/27/18 22:50 Dose: 2 mg Lorazepam (Ativan) 1 mg PO TID [facility] Last Admin: 10/28/18 07:19 Dose: 1 mg Losartan Potassium (Cozaar) 100 mg PO BEDTIME [facility] Last Admin: 10/27/18 19:06 Dose: 100 mg Magnesium Oxide (Magnesium Oxide) 400 mg PO DAILY@1200 [facility] Cyclosporine [ (Restasis] Ophth Soln) 1 each EYEBOTH BID [facility] Last Admin: 10/28/18 07:22 Dose: Not Given Carteolol 1% Ophth (Solution) 0 each EYEBOTH Q12HR [facility] Last Admin: 10/28/18 07:21 Dose: 1 each Ondansetron HCl (Zofran) 4 mg IVPUSH Q6H PRN PRN Reason: Nausea/Vomiting Last Admin: 10/24/18 02:59 Dose: 4 mg Pantoprazole Sodium (Protonix Iv) 40 mg IVPUSH Q12H [facility] Last Admin: 10/27/18 22:59 Dose: 40 mg Potassium Chloride (Klor-Con 10) 10 meq PO TIDMEALS [facility] Quetiapine Fumarate (Seroquel) 50 mg PO BEDTIME [facility] Last Admin: 10/27/18 19:05 Dose: 50 mg Senna/Docusate Sodium (Senna Plus) 1 tab PO TID [facility] Last Admin: 10/28/18 07:05 Dose: 1 tab Sodium Chloride (Saline Flush) 10 ml FLUSH ASDIRECTED PRN PRN Reason: Keep Vein Open Last Admin: 10/28/18 05:47 Dose: 10 ml Sodium Chloride (Saline Flush) 10 ml FLUSH Q12HR [facility] Last Admin: 10/28/18 07:22 Dose: Not Given Discontinued Medications Bisacodyl (Dulcolax) 5 mg PO DAILY PRN PRN Reason: Constipation Carvedilol (Coreg) 3.125 mg PO Q12HR [facility] Last Admin: 10/24/18 09:53 Dose: Not Given Coenzyme Q10 (Coenzyme Q10) 100 mg PO DAILY [facility] Last Admin: 10/24/18 11:47 Dose: Not Given Diphenhydramine HCl (Benadryl) 25 mg IVPUSH ONETIME ONE Stop: 10/23/18 23:12 Last Admin: 10/23/18 23:15 Dose: 25 mg Diphenhydramine HCl (Benadryl) 25 mg IVPUSH ONETIME ONE Stop: 10/26/18 05:33 Last Admin: 10/26/18 05:42 Dose: 25 mg Docusate Sodium (Colace) 100 mg PO DAILY PRN PRN Reason: Constipation Enalaprilat (Vasotec Iv) 0.625 mg IVPUSH ONETIME ONE Stop: 10/24/18 17:16 Last Admin: 10/24/18 17:49 Dose: 0.625 mg Enalaprilat (Vasotec Iv) 0.625 mg IVPUSH Q6H [facility] Last Admin: 10/27/18 05:10 Dose: 0.625 mg Enalaprilat (Vasotec Iv) 1.25 mg IVPUSH Q6H [facility] Last Admin: 10/27/18 12:04 Dose: 1.25 mg Escitalopram Oxalate (Lexapro) 20 mg PO DAILY [facility] Last Admin: 10/24/18 09:54 Dose: Not Given Fentanyl (Sublimaze) 50 mcg IVPUSH ONETIME ONE Stop: 10/23/18 23:11 Last Admin: 10/23/18 23:16 Dose: 50 mcg Fentanyl (Sublimaze) 50 mcg IVPUSH ONETIME ONE Stop: 10/24/18 01:01 Last Admin: 10/24/18 01:20 Dose: 50 mcg Fentanyl (Sublimaze) 100 mcg IVPUSH ONETIME ONE Stop: 10/24/18 07:32 Last Admin: 10/24/18 07:48 Dose: 100 mcg Furosemide (Lasix) 20 mg PO DAILY [facility] Last Admin: 10/24/18 09:54 Dose: Not Given Haloperidol Lactate (Haldol) 5 mg IVPUSH ONETIME ONE Stop: 10/25/18 23:45 Last Admin: 10/26/18 00:09 Dose: 5 mg Haloperidol Lactate (Haldol) 5 mg IVPUSH ONETIME ONE Stop: 10/26/18 05:35 Last Admin: 10/26/18 05:41 Dose: 5 mg Haloperidol Lactate (Haldol) 5 mg IVPUSH ONETIME ONE Stop: 10/26/18 22:26 Last Admin: 10/26/18 22:46 Dose: 5 mg Haloperidol Lactate (Haldol) 5 mg IVPUSH ONETIME ONE Stop: 10/27/18 04:28 Last Admin: 10/27/18 04:43 Dose: 5 mg Sodium Chloride (Normal Saline) 1,000 mls @ 75 mls/hr IV ONETIME ONE Stop: 10/24/18 14:21 Last Admin: 10/24/18 01:21 Dose: 75 mls/hr Potassium Chloride/Dextrose/Sod Cl (D5 1/2 Ns W/ 20 Meq/L Kcl) 1,000 mls @ 100 mls/hr IV ASDIRECTED [facility] Stop: 10/25/18 03:14 Last Admin: 10/24/18 17:49 Dose: 100 mls/hr Sodium Chloride (Normal Saline) 1,000 mls @ 100 mls/hr IV ASDIRECTED [facility] Last Admin: 10/25/18 16:31 Dose: 100 mls/hr Ketorolac Tromethamine (Toradol) 30 mg IVPUSH ONETIME ONE Stop: 10/24/18 08:45 Last Admin: 10/24/18 10:27 Dose: 30 mg Ketorolac Tromethamine (Toradol) 30 mg IVPUSH ONETIME ONE Stop: 10/26/18 12:00 Last Admin: 10/26/18 12:23 Dose: 30 mg Labetalol HCl (Normodyne) 10 mg IVPUSH Q12H [facility]; Protocol Last Admin: 10/27/18 14:46 Dose: 10 mg Latanoprost (Xalatan 0.005% Ophth Soln) ml EYEBOTH BEDTIME [facility] Levothyroxine Sodium (Levothyroxine) 75 mcg PO ACBREAKFAST [facility] Last Admin: 10/24/18 09:53 Dose: Not Given Lidocaine HCl (Xylocaine 2% Viscous) Confirm Administered Dose 15 ml .ROUTE .STK -MED ONE Stop: 10/24/18 09:18 Last Admin: 10/24/18 09:21 Dose: 15 ml Lidocaine HCl (Xylocaine 2% Viscous) Confirm Administered Dose 15 ml .ROUTE .STK -MED ONE Stop: 10/24/18 10:10 Last Admin: 10/24/18 10:30 Dose: 15 ml Lorazepam (Ativan) 0.5 mg IVPUSH ONETIME ONE Stop: 10/24/18 01:02 Last Admin: 10/24/18 06:58 Dose: Not Given Lorazepam (Ativan) 0.5 mg IVPUSH ONETIME ONE Stop: 10/24/18 02:01 Last Admin: 10/24/18 02:08 Dose: 0.5 mg Lorazepam (Ativan) 0.5 mg PO Q8H PRN PRN Reason: Anxiety Lorazepam (Ativan) 1 mg IVPUSH Q6H PRN PRN Reason: Agitation Last Admin: 10/24/18 21:31 Dose: 1 mg Lorazepam (Ativan) 1 mg IVPUSH Q4H PRN PRN Reason: Agitation Last Admin: 10/25/18 01:39 Dose: 1 mg Losartan Potassium (Cozaar) 100 mg PO BEDTIME [facility] Magnesium Hydroxide (Milk Of Magnesia) 30 ml PO DAILY PRN PRN Reason: Constipation Magnesium Oxide (Magnesium Oxide) 400 mg PO DAILY@1200 [facility] Last Admin: 10/24/18 11:30 Dose: Not Given Metoprolol Tartrate (Lopressor) 2.5 mg IVPUSH Q6H [facility] Last Admin: 10/25/18 05:18 Dose: 2.5 mg Metoprolol Tartrate (Lopressor) 2.5 mg IVPUSH Q6H [facility] Last Admin: 10/27/18 08:34 Dose: 2.5 mg Mirtazapine (Remeron) 30 mg PO BEDTIME [facility] Morphine Sulfate (Morphine) 2 mg IVPUSH ONETIME ONE Stop: 10/24/18 02:41 Last Admin: 10/24/18 02:45 Dose: 2 mg Pantoprazole Sodium (Protonix) 40 mg PO BIDAC [facility] Last Admin: 10/24/18 09:53 Dose: Not Given Senna/Docusate Sodium (Senna Plus) 2 tab PO TID [facility] Last Admin: 10/24/18 11:47 Dose: Not Given Senna/Docusate Sodium (Senna Plus) 1 tab PO BID [facility] - Exam General: Alert, Oriented (to person, place and time today), Cooperative HEENT: EOMI Neck: Supple, Trachea Midline Lungs: Clear to Auscultation, Decreased Breath Sounds Cardiovascular: Regular Rate, Regular Rhythm GI/Abdominal Exam: Normal Bowel Sounds, Soft, Non-Tender, No Organomegaly, No Distention, No Mass (Female) Exam: Deferred Back Exam: Normal Inspection Extremities: No Pedal Edema Skin: Warm, Dry, Intact Neurological: No New Focal Deficit Psy/Mental Status: Alert (flat affect but does joke just a little with me, mood has been very labile) - Problem List Review Problem List Initiated/Reviewed/Updated: Yes - My Orders Last 24 Hours: My Active Orders 10/28/18 12:00 Potassium Chloride [Klor-Con 10] 10 meq PO TIDMEALS 10/29/18 05:11 CBC WITH AUTO DIFF [HEME] AM COMPREHENSIVE METABOLIC PN,CMP [CHEM] AM - Plan Plan:: 10/24/2018 Patient was admitted through the ER for small bowel obstruction. Biomedical Technician ER Dr Ventura consulted with Dr Edmonds from [facility] surgery, advised to place NG tube, ambulate and then reXray. NG placed for green bile return, will monitor and ordered Xray of abdomen in 1 1/2hours. patient may need transfer to [place] for surgical evaluation and consultation. Dr Matthews consulted. Eugenia Perez,PROGRAM CONTROL ANALYST 10/24/18 ~1645 Cassie Cameron MD She has had a small loose bowel movement. X-rays improvement in air/fluid levels and some contrast in the colon. Continue medical therapy for small bowel obstruction with IV fluids and NG tube. ~500 ml of green bilious fluid out with NG tube. Will replace with IV fluids and potassium. Blood pressure elevated so will treat with IV blood pressure medications. Medically requiring inpatient status. 10/25/18 Cassie Cameron MD Medical therapy and monitoring is at inpatient status. Order placed. The mechanical small bowel obstruction is improving. Blood pressure still elevated so medications adjusted. Continue IV fluids and bowel rest. She did pull her NGT and IV out earlier today. Since she is improving NGT was not reinserted. Continue to monitor blood pressure, kidney status, electrolytes, platelets. Start oral intake in AM. 10/26/18 Cassie Cameron MD She had a rough night last night. Very agitated and not able to be redirected. Will obtain head CT due to acute delirium. Try toradol cautiously for her pain. She does have history of GI bleed and low platelets. Complaining of severe back pain but she states this is her usual pain she has had x many years. Some symptoms consistent with narcotic withdrawal and her hyperparathyroidism, hypercalcium and hypocalcium (calcium fluctuation). She takes chronic narcotics for her chronic pain. 10/27/18 Cassie Cameron MD Slight improvement. Tolerating clear liquids but still episodes of extreme weakness and aggitation and negativism. Head CT negative. Pain some better. One small bowel movement so small bowel obstruction has resolved. Will advance diet and restart home medications. Still requiring IV fluid supplementation and may need IV pain medications and IV lorazepam. PT-OT had session with her today. See their notes. 10-28-18 Gregorio Groves PA-C Was still hollering out intermittently through the night, but mental status more clear this morning. She knows me and can tell me the date and where she is. She says she wants to go home, but does not disagree when I tell her she needs to be stronger before going home. Dr. Matthews did advance her diet and adjust her routine meds. K+ mildly low at 3.1 today so KCl 10 mEq started TID with meals. Labs will be repeated in the am. Checked over at [facility] and last TSH was 1.04 on 10-20-18. Noon dose of Toradol is the last scheduled dose. Urinalysis is ordered for urinary frequence. Will consider transfer to [facility] status tomorrow if improvement continues, to work with PT-OT.
[2018-10-28] MEDS: Pantoprazole 40 MG Vial IVPUSH SCH ×2 (12:00→22:59)
[2018-10-28] MEDS: Magnesium Oxide 400 MG Tab PO SCH (12:02)
[2018-10-28] MEDS: Potassium Chloride 10 MEQ Tab.ER PO SCH ×2 (12:02→17:11)
[2018-10-28] MEDS ORDERED: cloNIDine 0.1 MG Tab PO ONE (16:11)
[2018-10-28] MEDS ORDERED: Albuterol/Ipratropium 3.0-0.5 MG/3 ML Neb Soln NEB ONE (16:12)
[2018-10-28] MEDS ORDERED: Albuterol/Ipratropium 3.0-0.5 MG/3 ML Neb Soln NEB PRN (16:14)
[2018-10-28] MEDS: Losartan 50 MG Tab PO SCH (19:06)
[2018-10-28] MEDS: Latanoprost 0.005% Ophth Soln 2.5 ML Bottle EYEBOTH SCH (19:07)
[2018-10-28] MEDS: QUEtiapine 25 MG Tab PO SCH (19:08)
[2018-10-29] MEDS: fentaNYL 100 MCG/2 ML SDV IVPUSH PRN ×2 (00:03→05:36)
[2018-10-29] MEDS: Sodium Chloride 0.9% 10 ML Syringe FLUSH PRN ×5 (00:03→17:22)
[2018-10-29] MEDS: LORazepam 2 MG/ML SDV IVPUSH PRN ×3 (01:51→20:20)
[2018-10-29] MEDS: Potassium Chloride 10 MEQ Tab.ER PO SCH (08:27)
[2018-10-29] MEDS: Levothyroxine 75 MCG Tab PO SCH (08:28)
[2018-10-29] MEDS: Acetaminophen/HYDROcodone 325-5 MG Tab PO SCH ×3 (08:28→17:20)
[2018-10-29] MEDS: cloNIDine 0.1 MG Tab PO SCH ×2 (08:30→19:55)
[2018-10-29] MEDS: Escitalopram 20 MG Tab PO SCH (08:31)
[2018-10-29] MEDS: LORazepam 1 MG Tab PO SCH ×3 (08:31→17:19)
[2018-10-29] MEDS: Carvedilol 3.125 MG Tab PO SCH ×2 (08:32→17:19)
[2018-10-29] MEDS: Calcitriol 0.25 MCG Cap PO SCH (08:37)
[2018-10-29] MEDS: Calcium Carbonate/Vitamin D3 625 MG-125 Unit Tab PO SCH ×3 (08:37→17:19)
[2018-10-29] MEDS: CYCLOSPORINE EYEBOTH SCH ×2 (08:38→17:17)
[2018-10-29] MEDS: CARTEOLOL 1% EYEBOTH SCH ×2 (08:39→20:17)
[2018-10-29] MEDS: Dorzolamide 2% Ophth Soln 10 ML Bottle EYEBOTH SCH ×2 (08:39→20:18)
[2018-10-29] MEDS: Sodium Chloride 0.9% 10 ML Syringe FLUSH SCH ×3 (08:47→20:20)
--- NOTE | 2018-10-29 11:52 | PCM.PN ---
- General Info Date of Service: 10/29/18 Admission Dx/Problem (Free Text): Small Bowel Obstruction Functional Status: Reports: Urinating (frequently), New Symptoms (c/o SOB, severe R knee and upper lower leg pain) - Review of Systems General: Reports: Weakness, Fatigue, Appetite (no appetite) HEENT: Reports: No Symptoms Pulmonary: Reports: Shortness of Breath Cardiovascular: Reports: No Symptoms Gastrointestinal: Reports: Decreased Appetite Genitourinary: Reports: Frequency Musculoskeletal: Reports: Leg Pain (right leg, specifically at knee and lateral upper aspect of the lower leg) Skin: Reports: No Symptoms Neurological: Reports: Difficulty Walking ("why don't my legs work?") Psychiatric: Reports: No Symptoms (per patient, nursing staff has seen continued yelling out intermittently in the night, then falling right back to sleep at times) - Patient Data Vitals - Most Recent: Last Vital Signs Temp 97.2 F 10/29/18 06:55 Pulse 71 10/29/18 08:32 Resp 20 10/29/18 06:55 BP 165/64 H 10/29/18 08:32 Pulse Ox 97 10/29/18 06:55 Weight - Most Recent: 172 lb 15.983 oz I&O - Last 24 Hours: Intake & Output 10/28/18 10/29/18 10/29/18 22:59 06:59 14:59 Intake Total 569 598 150 Output Total 300 650 400 Balance 269 -52 -250 Lab Results Last 24 Hours: Laboratory Results - last 24 hr 10/28/18 10/29/18 10/29/18 Range/Units 16:25 06:53 07:30 WBC 3.8 L (4.0-10.2) K/uL RBC 3.99 (3.77-5.09) M/uL Hgb 13.2 (11.7-15.5) g/dL Hct 37.9 (34.0-46.0) % MCV 95.0 (84.0-98.0) fL MCH 33.1 (28.2-33.3) pg MCHC 34.8 (31.7-36.0) g/dL RDW 13.1 (11.2-14.1) % Plt Count 98 L (150-350) K/uL Neut % (Auto) 37.3 L (45.0-80.0) % Lymph % (Auto) 45.7 (10.0-50.0) % [place] % (Auto) 10.1 (2.0-14.0) % Eos % (Auto) 6.6 H (0.0-5.0) % Baso % (Auto) 0.3 (0.0-2.0) % Neut # (Auto) 1.40 (1.40-7.00) K/uL Lymph # (Auto) 1.72 (0.50-3.50) K/uL [place] # (Auto) 0.38 (0.00-1.00) K/uL Eos # (Auto) 0.25 (0.00-0.50) K/uL Baso # (Auto) 0.01 (0.00-0.20) K/uL D-Dimer, Quantitative (0-400) ng/mL Sodium (136-145) mmol/L Potassium (3.5-5.1) mmol/L Chloride (98-107) mmol/L Carbon Dioxide (21.0-32.0) mmol/L BUN (7-18) mg/dL Creatinine (0.51-1.17) mg/dL Est Cr Clr Drug Dosing mL/min Estimated GFR (MDRD) mL/min Glucose (74-106) mg/dL POC Glucose 107 (65-110) mg/dl Lactic Acid (0.4-2.0) mmol/L Calcium (8.5-10.1) mg/dL Total Bilirubin (0.2-1.0) mg/dL AST (15-37) U/L ALT (12-78) U/L Alkaline Phosphatase (46-116) IU/L Troponin I (0.000-0.056) ng/mL C-Reactive Protein (<=0.9) mg/dL NT-Pro-B Natriuret Pep (0-125) pg/mL Total Protein (6.4-8.2) g/dL Albumin (3.4-5.0) g/dL Specimen Type Urinblad Urine Color Yellow Urine Appearance Clear Urine pH 6.5 (5.0-9.0) Ur Specific [place] 1.010 (1.005-1.030) Urine Protein Negative (NEGATIVE) mg/dL Urine Glucose (UA) Negative (NEGATIVE) mg/dL Urine Ketones Negative (NEGATIVE) mg/dL Urine Occult Blood Negative (NEGATIVE) Urine Nitrite Negative (NEGATIVE) Urine Bilirubin Negative (NEGATIVE) Urine Urobilinogen 0.2 (0.2-1.0) E.U./dL Ur Leukocyte Esterase Small H (NEGATIVE) Urine RBC 0-5 /HPF Urine WBC 20-30 H /HPF Ur Epithelial Cells Few /LPF Urine Bacteria Few (NONE TO FEW) /HPF 10/29/18 10/29/18 10/29/18 Range/Units 07:30 07:30 07:30 WBC (4.0-10.2) K/uL RBC (3.77-5.09) M/uL Hgb (11.7-15.5) g/dL Hct (34.0-46.0) % MCV (84.0-98.0) fL MCH (28.2-33.3) pg MCHC (31.7-36.0) g/dL RDW (11.2-14.1) % Plt Count (150-350) K/uL Neut % (Auto) (45.0-80.0) % Lymph % (Auto) (10.0-50.0) % [place] % (Auto) (2.0-14.0) % Eos % (Auto) (0.0-5.0) % Baso % (Auto) (0.0-2.0) % Neut # (Auto) (1.40-7.00) K/uL Lymph # (Auto) (0.50-3.50) K/uL [place] # (Auto) (0.00-1.00) K/uL Eos # (Auto) (0.00-0.50) K/uL Baso # (Auto) (0.00-0.20) K/uL D-Dimer, Quantitative 686 H (0-400) ng/mL Sodium 144 (136-145) mmol/L Potassium 3.1 L (3.5-5.1) mmol/L Chloride 109 H (98-107) mmol/L Carbon Dioxide 21.8 (21.0-32.0) mmol/L BUN 11 (7-18) mg/dL Creatinine 1.01 (0.51-1.17) mg/dL Est Cr Clr Drug Dosing 45.24 mL/min Estimated GFR (MDRD) 53 mL/min Glucose 99 (74-106) mg/dL POC Glucose (65-110) mg/dl Lactic Acid 0.8 (0.4-2.0) mmol/L Calcium 8.4 L (8.5-10.1) mg/dL Total Bilirubin 0.5 (0.2-1.0) mg/dL AST 26 (15-37) U/L ALT 24 (12-78) U/L Alkaline Phosphatase 58 (46-116) IU/L Troponin I (0.000-0.056) ng/mL C-Reactive Protein 0.4 (<=0.9) mg/dL NT-Pro-B Natriuret Pep (0-125) pg/mL Total Protein 6.1 L (6.4-8.2) g/dL Albumin 3.3 L (3.4-5.0) g/dL Specimen Type Urine Color Urine Appearance Urine pH (5.0-9.0) Ur Specific [place] (1.005-1.030) Urine Protein (NEGATIVE) mg/dL Urine Glucose (UA) (NEGATIVE) mg/dL Urine Ketones (NEGATIVE) mg/dL Urine Occult Blood (NEGATIVE) Urine Nitrite (NEGATIVE) Urine Bilirubin (NEGATIVE) Urine Urobilinogen (0.2-1.0) E.U./dL Ur Leukocyte Esterase (NEGATIVE) Urine RBC /HPF Urine WBC /HPF Ur Epithelial Cells /LPF Urine Bacteria (NONE TO FEW) /HPF 10/29/18 10/29/18 Range/Units 07:30 07:30 WBC (4.0-10.2) K/uL RBC (3.77-5.09) M/uL Hgb (11.7-15.5) g/dL Hct (34.0-46.0) % MCV (84.0-98.0) fL MCH (28.2-33.3) pg MCHC (31.7-36.0) g/dL RDW (11.2-14.1) % Plt Count (150-350) K/uL Neut % (Auto) (45.0-80.0) % Lymph % (Auto) (10.0-50.0) % [place] % (Auto) (2.0-14.0) % Eos % (Auto) (0.0-5.0) % Baso % (Auto) (0.0-2.0) % Neut # (Auto) (1.40-7.00) K/uL Lymph # (Auto) (0.50-3.50) K/uL [place] # (Auto) (0.00-1.00) K/uL Eos # (Auto) (0.00-0.50) K/uL Baso # (Auto) (0.00-0.20) K/uL D-Dimer, Quantitative (0-400) ng/mL Sodium (136-145) mmol/L Potassium (3.5-5.1) mmol/L Chloride (98-107) mmol/L Carbon Dioxide (21.0-32.0) mmol/L BUN (7-18) mg/dL Creatinine (0.51-1.17) mg/dL Est Cr Clr Drug Dosing mL/min Estimated GFR (MDRD) mL/min Glucose (74-106) mg/dL POC Glucose (65-110) mg/dl Lactic Acid (0.4-2.0) mmol/L Calcium (8.5-10.1) mg/dL Total Bilirubin (0.2-1.0) mg/dL AST (15-37) U/L ALT (12-78) U/L Alkaline Phosphatase (46-116) IU/L Troponin I 0.000 (0.000-0.056) ng/mL C-Reactive Protein (<=0.9) mg/dL NT-Pro-B Natriuret Pep 250 H (0-125) pg/mL Total Protein (6.4-8.2) g/dL Albumin (3.4-5.0) g/dL Specimen Type Urine Color Urine Appearance Urine pH (5.0-9.0) Ur Specific [place] (1.005-1.030) Urine Protein (NEGATIVE) mg/dL Urine Glucose (UA) (NEGATIVE) mg/dL Urine Ketones (NEGATIVE) mg/dL Urine Occult Blood (NEGATIVE) Urine Nitrite (NEGATIVE) Urine Bilirubin (NEGATIVE) Urine Urobilinogen (0.2-1.0) E.U./dL Ur Leukocyte Esterase (NEGATIVE) Urine RBC /HPF Urine WBC /HPF Ur Epithelial Cells /LPF Urine Bacteria (NONE TO FEW) /HPF Med Orders - Current: Current Medications Hydrocodone Bitart/Acetaminophen ([place] 325-5 Mg) 1 tab PO TID [facility] Last Admin: 10/29/18 08:28 Dose: 1 tab Albuterol (Ventolin Hfa) 0 gm INH Q4H PRN PRN Reason: SHORTNESS OF BREATH Last Admin: 10/28/18 15:46 Dose: 1 puff Albuterol/Ipratropium (Duoneb 3.0-0.5 Mg/3 Ml) 3 ml NEB Q4H PRN PRN Reason: Shortness of Breath Calcitriol (Rocaltrol) 0.25 mcg PO DAILY [facility] Last Admin: 10/29/18 08:37 Dose: 0.25 mcg Calcium Carbonate (Oystcal-D 625 Mg-125 Units) 1 tab PO TIDMEALS [facility] Last Admin: 10/29/18 08:37 Dose: 1 tab Carvedilol (Coreg) 3.125 mg PO BID [facility] Last Admin: 10/29/18 08:32 Dose: 3.125 mg Clonidine HCl (Catapres) 0.2 mg PO Q12HR [facility] Last Admin: 10/29/18 08:30 Dose: 0.2 mg Dorzolamide HCl (Trusopt 2% Ophth Soln) 0 ml EYEBOTH BID@08,20 [facility] Last Admin: 10/29/18 08:39 Dose: 1 drop Escitalopram Oxalate (Lexapro) 10 mg PO DAILY [facility] Last Admin: 10/29/18 08:31 Dose: 10 mg Fentanyl (Sublimaze) 50 mcg IVPUSH Q4H PRN PRN Reason: Pain (severe 7-10) Last Admin: 10/29/18 05:36 Dose: 50 mcg Latanoprost (Xalatan 0.005% Ophth Soln) 0 ml EYEBOTH BEDTIME [facility] Last Admin: 10/28/18 19:07 Dose: 1 drop Levothyroxine Sodium (Levothyroxine) 75 mcg PO ACBREAKFAST [facility] Last Admin: 10/29/18 08:28 Dose: 75 mcg Lorazepam (Ativan) 2 mg IVPUSH Q4H PRN PRN Reason: Agitation Last Admin: 10/29/18 02:39 Dose: 2 mg Lorazepam (Ativan) 1 mg PO TID [facility] Last Admin: 10/29/18 08:31 Dose: 1 mg Losartan Potassium (Cozaar) 100 mg PO BEDTIME [facility] Last Admin: 10/28/18 19:06 Dose: 100 mg Magnesium Oxide (Magnesium Oxide) 400 mg PO DAILY@1200 [facility] Last Admin: 10/28/18 12:02 Dose: 400 mg Cyclosporine [ (Restasis] Ophth Soln) 1 each EYEBOTH BID [facility] Last Admin: 10/29/18 08:38 Dose: 1 each Carteolol 1% Ophth (Solution) 0 each EYEBOTH Q12HR [facility] Last Admin: 10/29/18 08:39 Dose: 1 each Ondansetron HCl (Zofran) 4 mg IVPUSH Q6H PRN PRN Reason: Nausea/Vomiting Last Admin: 10/24/18 02:59 Dose: 4 mg Pantoprazole Sodium (Protonix Iv) 40 mg IVPUSH Q12H [facility] Last Admin: 10/28/18 22:59 Dose: 40 mg Potassium Chloride (Klor-Con M20) 20 meq PO TIDMEALS [facility] Quetiapine Fumarate (Seroquel) 50 mg PO BEDTIME [facility] Last Admin: 10/28/18 19:08 Dose: 50 mg Senna/Docusate Sodium (Senna Plus) 1 tab PO TID [facility] Last Admin: 10/29/18 08:27 Dose: 1 tab Sodium Chloride (Saline Flush) 10 ml FLUSH ASDIRECTED PRN PRN Reason: Keep Vein Open Last Admin: 10/29/18 05:37 Dose: 10 ml Sodium Chloride (Saline Flush) 10 ml FLUSH Q12HR [facility] Last Admin: 10/29/18 08:51 Dose: Not Given Discontinued Medications Albuterol/Ipratropium (Duoneb 3.0-0.5 Mg/3 Ml) 3 ml NEB ONETIME ONE Stop: 10/28/18 16:13 Last Admin: 10/28/18 16:23 Dose: 3 ml Bisacodyl (Dulcolax) 5 mg PO DAILY PRN PRN Reason: Constipation Carvedilol (Coreg) 3.125 mg PO Q12HR [facility] Last Admin: 10/24/18 09:53 Dose: Not Given Clonidine HCl (Catapres) 0.1 mg PO Q12HR [facility] Last Admin: 10/28/18 19:08 Dose: 0.1 mg Clonidine HCl (Catapres) 0.1 mg PO ONETIME ONE Stop: 10/28/18 16:12 Last Admin: 10/28/18 16:22 Dose: 0.1 mg Coenzyme Q10 (Coenzyme Q10) 100 mg PO DAILY [facility] Last Admin: 10/24/18 11:47 Dose: Not Given Diphenhydramine HCl (Benadryl) 25 mg IVPUSH ONETIME ONE Stop: 10/23/18 23:12 Last Admin: 10/23/18 23:15 Dose: 25 mg Diphenhydramine HCl (Benadryl) 25 mg IVPUSH ONETIME ONE Stop: 10/26/18 05:33 Last Admin: 10/26/18 05:42 Dose: 25 mg Docusate Sodium (Colace) 100 mg PO DAILY PRN PRN Reason: Constipation Enalaprilat (Vasotec Iv) 0.625 mg IVPUSH ONETIME ONE Stop: 10/24/18 17:16 Last Admin: 10/24/18 17:49 Dose: 0.625 mg Enalaprilat (Vasotec Iv) 0.625 mg IVPUSH Q6H [facility] Last Admin: 10/27/18 05:10 Dose: 0.625 mg Enalaprilat (Vasotec Iv) 1.25 mg IVPUSH Q6H [facility] Last Admin: 10/27/18 12:04 Dose: 1.25 mg Escitalopram Oxalate (Lexapro) 20 mg PO DAILY [facility] Last Admin: 10/24/18 09:54 Dose: Not Given Fentanyl (Sublimaze) 50 mcg IVPUSH ONETIME ONE Stop: 10/23/18 23:11 Last Admin: 10/23/18 23:16 Dose: 50 mcg Fentanyl (Sublimaze) 50 mcg IVPUSH ONETIME ONE Stop: 10/24/18 01:01 Last Admin: 10/24/18 01:20 Dose: 50 mcg Fentanyl (Sublimaze) 100 mcg IVPUSH ONETIME ONE Stop: 10/24/18 07:32 Last Admin: 10/24/18 07:48 Dose: 100 mcg Furosemide (Lasix) 20 mg PO DAILY [facility] Last Admin: 10/24/18 09:54 Dose: Not Given Haloperidol Lactate (Haldol) 5 mg IVPUSH ONETIME ONE Stop: 10/25/18 23:45 Last Admin: 10/26/18 00:09 Dose: 5 mg Haloperidol Lactate (Haldol) 5 mg IVPUSH ONETIME ONE Stop: 10/26/18 05:35 Last Admin: 10/26/18 05:41 Dose: 5 mg Haloperidol Lactate (Haldol) 5 mg IVPUSH ONETIME ONE Stop: 10/26/18 22:26 Last Admin: 10/26/18 22:46 Dose: 5 mg Haloperidol Lactate (Haldol) 5 mg IVPUSH ONETIME ONE Stop: 10/27/18 04:28 Last Admin: 10/27/18 04:43 Dose: 5 mg Sodium Chloride (Normal Saline) 1,000 mls @ 75 mls/hr IV ONETIME ONE Stop: 10/24/18 14:21 Last Admin: 10/24/18 01:21 Dose: 75 mls/hr Potassium Chloride/Dextrose/Sod Cl (D5 1/2 Ns W/ 20 Meq/L Kcl) 1,000 mls @ 100 mls/hr IV ASDIRECTED [facility] Stop: 10/25/18 03:14 Last Admin: 10/24/18 17:49 Dose: 100 mls/hr Sodium Chloride (Normal Saline) 1,000 mls @ 100 mls/hr IV ASDIRECTED [facility] Last Admin: 10/25/18 16:31 Dose: 100 mls/hr Sodium Chloride (Normal Saline) 1,000 mls @ 50 mls/hr IV ASDIRECTED [facility] Last Admin: 10/28/18 22:52 Dose: 50 mls/hr Ketorolac Tromethamine (Toradol) 30 mg IVPUSH ONETIME ONE Stop: 10/24/18 08:45 Last Admin: 10/24/18 10:27 Dose: 30 mg Ketorolac Tromethamine (Toradol) 30 mg IVPUSH ONETIME ONE Stop: 10/26/18 12:00 Last Admin: 10/26/18 12:23 Dose: 30 mg Ketorolac Tromethamine (Toradol) 15 mg IVPUSH Q6H [facility] Stop: 10/28/18 12:01 Last Admin: 10/28/18 12:01 Dose: 15 mg Labetalol HCl (Normodyne) 10 mg IVPUSH Q12H [facility]; Protocol Last Admin: 10/27/18 14:46 Dose: 10 mg Latanoprost (Xalatan 0.005% Ophth Soln) ml EYEBOTH BEDTIME [facility] Levothyroxine Sodium (Levothyroxine) 75 mcg PO ACBREAKFAST [facility] Last Admin: 10/24/18 09:53 Dose: Not Given Lidocaine HCl (Xylocaine 2% Viscous) Confirm Administered Dose 15 ml .ROUTE .STK -MED ONE Stop: 10/24/18 09:18 Last Admin: 10/24/18 09:21 Dose: 15 ml Lidocaine HCl (Xylocaine 2% Viscous) Confirm Administered Dose 15 ml .ROUTE .STK -MED ONE Stop: 10/24/18 10:10 Last Admin: 10/24/18 10:30 Dose: 15 ml Lorazepam (Ativan) 0.5 mg IVPUSH ONETIME ONE Stop: 10/24/18 01:02 Last Admin: 10/24/18 06:58 Dose: Not Given Lorazepam (Ativan) 0.5 mg IVPUSH ONETIME ONE Stop: 10/24/18 02:01 Last Admin: 10/24/18 02:08 Dose: 0.5 mg Lorazepam (Ativan) 0.5 mg PO Q8H PRN PRN Reason: Anxiety Lorazepam (Ativan) 1 mg IVPUSH Q6H PRN PRN Reason: Agitation Last Admin: 10/24/18 21:31 Dose: 1 mg Lorazepam (Ativan) 1 mg IVPUSH Q4H PRN PRN Reason: Agitation Last Admin: 10/25/18 01:39 Dose: 1 mg Losartan Potassium (Cozaar) 100 mg PO BEDTIME [facility] Magnesium Hydroxide (Milk Of Magnesia) 30 ml PO DAILY PRN PRN Reason: Constipation Magnesium Oxide (Magnesium Oxide) 400 mg PO DAILY@1200 [facility] Last Admin: 10/24/18 11:30 Dose: Not Given Metoprolol Tartrate (Lopressor) 2.5 mg IVPUSH Q6H [facility] Last Admin: 10/25/18 05:18 Dose: 2.5 mg Metoprolol Tartrate (Lopressor) 2.5 mg IVPUSH Q6H [facility] Last Admin: 10/27/18 08:34 Dose: 2.5 mg Mirtazapine (Remeron) 30 mg PO BEDTIME [facility] Morphine Sulfate (Morphine) 2 mg IVPUSH ONETIME ONE Stop: 10/24/18 02:41 Last Admin: 10/24/18 02:45 Dose: 2 mg Pantoprazole Sodium (Protonix) 40 mg PO BIDAC [facility] Last Admin: 10/24/18 09:53 Dose: Not Given Potassium Chloride (Klor-Con 10) 10 meq PO TIDMEALS [facility] Last Admin: 10/29/18 08:27 Dose: 10 meq Senna/Docusate Sodium (Senna Plus) 2 tab PO TID [facility] Last Admin: 10/24/18 11:47 Dose: Not Given Senna/Docusate Sodium (Senna Plus) 1 tab PO BID [facility] - Exam Quality Assessment: Supplemental Oxygen (placed for c/o SOB) General: Lethargic (but does arouse after verbal and tactile stimulation from the RN and I) HEENT: EOMI Neck: Trachea Midline, No JVD Lungs: Clear to Auscultation, Decreased Breath Sounds Cardiovascular: Regular Rate, Regular Rhythm GI/Abdominal Exam: Soft, Non-Tender, No Organomegaly, No Distention, Abnormal Bowel Sounds (slightly hyperactive) (Female) Exam: Deferred Back Exam: Normal Inspection Extremities: No Pedal Edema, Leg Pain (pain localized to area generally surrounding the knee joint and upper fibula, not always consistent) Skin: Ecchymosis (bilat hips and forearms secondary to fall last Tuesday) Neurological: No New Focal Deficit Psy/Mental Status: Labile Mood, Anxious, Depressed, Hallucinations (did tell the RN someone was in her room early this morning when no one was there) EKG INTERPRETATION EKG Date: 10/29/18 Rhythm: NSR Rate (Beats/Min): 67 Mackey: Normal P-Wave: Present QRS: Normal ST-T: Normal QT: Normal Comparison: NA - No Prior EKG - Problem List & Annotations (1) Hypokalemia SNOMED Code(s): 47962851 Code(s): E87.6 - HYPOKALEMIA Status: Acute Current Visit: Yes - Problem List Review Problem List Initiated/Reviewed/Updated: Yes - My Orders Last 24 Hours: My Active Orders 10/28/18 16:10 Urinary Catheter Assessment [RC] ASDIRECTED Urinary Catheter Insertion [Insert Urinary Catheter] [OM.PC] ONETIME 10/28/18 16:13 RT Aerosol Therapy [RC] .PRN 10/28/18 16:14 Albuterol/Ipratropium [DuoNeb 3.0-0.5 MG/3 ML] 3 ml NEB Q4H PRN 10/28/18 16:15 RT Aerosol Therapy [RC] .PRN 10/28/18 16:25 CULTURE URINE [RM] Routine 10/29/18 07:16 EKG Documentation Completion [RC] ASDIRECTED 10/29/18 07:20 Abdomen 2V AP Flat Upright [CR] Stat 10/29/18 07:23 Chest 2V [CR] Routine 10/29/18 08:00 cloNIDine [Catapres] 0.2 mg PO Q12HR 10/29/18 10:55 Knee 3V Rt [CR] Routine 10/29/18 10:56 Tibia Fibula Rt [CR] Routine 10/29/18 12:00 Potassium Chloride [Klor-Con M20] 20 meq PO TIDMEALS - Plan Plan:: 10/24/2018 Patient was admitted through the ER for small bowel obstruction. Area Manager ER Dr Ventura consulted with Dr Edmonds from [facility] surgery, advised to place NG tube, ambulate and then reXray. NG placed for green bile return, will monitor and ordered Xray of abdomen in 1 1/2hours. patient may need transfer to [place] for surgical evaluation and consultation. Dr Matthews consulted. Eugenia Chris,TECHNICAL EXPERT 10/24/18 ~1645 Cassie Cameron MD She has had a small loose bowel movement. X-rays improvement in air/fluid levels and some contrast in the colon. Continue medical therapy for small bowel obstruction with IV fluids and NG tube. ~500 ml of green bilious fluid out with NG tube. Will replace with IV fluids and potassium. Blood pressure elevated so will treat with IV blood pressure medications. Medically requiring inpatient status. 10/25/18 Csasie Cameron MD Medical therapy and monitoring is at inpatient status. Order placed. The mechanical small bowel obstruction is improving. Blood pressure still elevated so medications adjusted. Continue IV fluids and bowel rest. She did pull her NGT and IV out earlier today. Since she is improving NGT was not reinserted. Continue to monitor blood pressure, kidney status, electrolytes, platelets. Start oral intake in AM. 10/26/18 Cassie Cameron MD She had a rough night last night. Very agitated and not able to be redirected. Will obtain head CT due to acute delirium. Try toradol cautiously for her pain. She does have history of GI bleed and low platelets. Complaining of severe back pain but she states this is her usual pain she has had x many years. Some symptoms consistent with narcotic withdrawal and her hyperparathyroidism, hypercalcium and hypocalcium (calcium fluctuation). She takes chronic narcotics for her chronic pain. 10/27/18 Cassie Cameron MD Slight improvement. Tolerating clear liquids but still episodes of extreme weakness and aggitation and negativism. Head CT negative. Pain some better. One small bowel movement so small bowel obstruction has resolved. Will advance diet and restart home medications. Still requiring IV fluid supplementation and may need IV pain medications and IV lorazepam. PT-OT had session with her today. See their notes. 10-28-18 Gregorio Groves PA-C Was still hollering out intermittently through the night, but mental status more clear this morning. She knows me and can tell me the date and where she is. She says she wants to go home, but does not disagree when I tell her she needs to be stronger before going home. Dr. Matthews did advance her diet and adjust her routine meds. K+ mildly low at 3.1 today so KCl 10 mEq started TID with meals. Labs will be repeated in the am. [place] [facility] [place] 1.04 on 10-20-18. Noon dose of Toradol is the last scheduled dose. Urinalysis is ordered for urinary frequency. Will consider transfer to [facility] status tomorrow if improvement continues, to work with PT-OT. 10-29-18 Gregorio Groves PA-C RN had called early this morning with patient's c/o SOB and nursing concern for ashen color and general weakness and difficulty to arouse, appeared to be acute decline in condition. EKG, x-rays and additional labs ordered. Oxygen had been applied. Patient was difficult to arouse on my exam and had a very vague expression on her face, mental status did improve with stimulation from the RN and myself. She was able to assist somewhat with transfer in the x-ray department per RN history, and here in the room transfer to the chair and then to the commode was effected with two and minimal assist from patient. X-rays also obtained of the R knee and tib-fib d/t c/o pain and h/o fall here in the hospital four days ago, unwitnessed fall. No fracture seen on these x-rays. K+ still low at 3.1 and KCl dose adjusted. Clonidine dose increased to 0.2mg BID d/ t persisting elevated BP readings. This complex elderly lady with multiple co- morbidities does require continued IP evaluation and management.
[2018-10-29] MEDS: Potassium Chloride 20 MEQ Tab.ER PO SCH ×2 (11:58→17:19)
[2018-10-29] MEDS: Magnesium Oxide 400 MG Tab PO SCH (11:59)
[2018-10-29] MEDS: Pantoprazole 40 MG Vial IVPUSH SCH (12:00)
[2018-10-29] MEDS ORDERED: cloNIDine 0.1 MG Tab PO ONE ×2 (17:05→19:59)
[2018-10-29] MEDS ORDERED: Losartan 50 MG Tab PO ONE (17:07)
[2018-10-29] MEDS: Ketorolac 15 MG/ML SDV IVPUSH SCH (17:21)
[2018-10-29] MEDS: Losartan 50 MG Tab PO SCH (19:56)
[2018-10-29] MEDS: QUEtiapine 25 MG Tab PO SCH (20:16)
[2018-10-29] MEDS: Latanoprost 0.005% Ophth Soln 2.5 ML Bottle EYEBOTH SCH (20:18)
[2018-10-30] MEDS: Ketorolac 15 MG/ML SDV IVPUSH SCH ×5 (00:11→23:38)
[2018-10-30] MEDS: LORazepam 2 MG/ML SDV IVPUSH PRN ×2 (00:11→19:02)
[2018-10-30] MEDS: Pantoprazole 40 MG Vial IVPUSH SCH ×3 (00:11→23:38)
[2018-10-30] MEDS: Sodium Chloride 0.9% 10 ML Syringe FLUSH PRN ×6 (00:11→23:38)
[2018-10-30] MEDS: fentaNYL 100 MCG/2 ML SDV IVPUSH PRN ×2 (01:17→19:55)
[2018-10-30] MEDS: LORazepam 1 MG Tab PO SCH (07:22)
[2018-10-30] MEDS: Calcitriol 0.25 MCG Cap PO SCH (07:23)
[2018-10-30] MEDS: Acetaminophen/HYDROcodone 325-5 MG Tab PO SCH ×3 (07:23→17:45)
[2018-10-30] MEDS: cloNIDine 0.1 MG Tab PO SCH ×2 (07:24→19:22)
[2018-10-30 07:25] LABS: O2 DELIVERY DEVICE NASAL CANNULA
[2018-10-30] MEDS: Carvedilol 3.125 MG Tab PO SCH ×2 (07:25→17:45)
[2018-10-30] MEDS: Calcium Carbonate/Vitamin D3 625 MG-125 Unit Tab PO SCH ×3 (07:25→17:44)
[2018-10-30] MEDS: Escitalopram 20 MG Tab PO SCH (07:26)
[2018-10-30] MEDS: Potassium Chloride 20 MEQ Tab.ER PO SCH ×3 (07:26→17:44)
[2018-10-30] MEDS: Levothyroxine 75 MCG Tab PO SCH (07:26)
[2018-10-30 07:35] LABS: BASE EXCESS VENOUS -6 mmol/L ((-2)-3); BICARBONATE,VENOUS 20 mmol/L (23-28); O2 SATURATION VENOUS 92 %; PCO2 VENOUS 37 mmHG (41-51); PH,VENOUS 7.34 (7.31-7.41); PO2 VENOUS 66 mmHG
[2018-10-30] MEDS: CARTEOLOL 1% EYEBOTH SCH ×2 (07:35→19:21)
[2018-10-30] MEDS: Dorzolamide 2% Ophth Soln 10 ML Bottle EYEBOTH SCH ×2 (07:35→19:21)
[2018-10-30] MEDS: Sodium Chloride 0.9% 10 ML Syringe FLUSH SCH ×2 (07:45→19:03)
[2018-10-30] MEDS: CYCLOSPORINE EYEBOTH SCH ×2 (07:46→17:47)
[2018-10-30] MEDS ORDERED: cloNIDine 0.1 MG Tab PO ONE (08:08)
[2018-10-30] MEDS ORDERED: Carvedilol 3.125 MG Tab PO ONE (11:14)
[2018-10-30] MEDS ORDERED: NIFEdipine 10 MG Cap PO ONE (11:20)
[2018-10-30] MEDS ORDERED: hydrALAZINE 10 MG Tab PO SCH (12:00)
[2018-10-30] MEDS: Magnesium Oxide 400 MG Tab PO SCH (12:32)
[2018-10-30] MEDS: LORazepam 0.5 MG Tab PO SCH ×2 (12:33→17:44)
[2018-10-30] MEDS: hydrALAZINE 50 MG Tab PO SCH ×2 (12:36→17:44)
[2018-10-30] MEDS: D5 1/2 NS w/ 20 mEq/L KCl 1,000 ML IV SCH (15:23)
[2018-10-30] MEDS ORDERED: Losartan 50 MG Tab PO ONE (17:07)
--- NOTE | 2018-10-30 19:05 | PCM.PN ---
- General Info Date of Service: 10/30/18 Admission Dx/Problem (Free Text): Small Bowel Obstruction Functional Status: Reports: Other (continues with pain all over) - Review of Systems General: Reports: Weakness, Appetite (decreased) HEENT: Reports: Other (GAMBELL) Pulmonary: Reports: No Symptoms Cardiovascular: Reports: No Symptoms Gastrointestinal: Reports: Decreased Appetite Genitourinary: Reports: No Symptoms Musculoskeletal: Reports: Back Pain, Leg Pain, Joint Pain (knee) Skin: Reports: No Symptoms Neurological: Reports: Confusion, Difficulty Walking, Weakness Psychiatric: Reports: Confusion, Depression, Anxiety, Agitation - Patient Data Vitals - Most Recent: Last Vital Signs Temp 97.3 F 10/30/18 15:45 Pulse 81 10/30/18 17:45 Resp 18 10/30/18 15:45 BP 158/73 H 10/30/18 17:45 Pulse Ox 96 10/30/18 15:45 Weight - Most Recent: 172 lb 15.983 oz I&O - Last 24 Hours: Intake & Output 10/30/18 10/30/18 10/30/18 06:59 14:59 22:59 Intake Total 80 441 Output Total 400 Balance -400 80 441 Lab Results Last 24 Hours: Laboratory Results - last 24 hr 10/30/18 10/30/18 10/30/18 Range/Units 07:15 07:15 07:15 WBC 4.1 (4.0-10.2) K/uL RBC 4.14 (3.77-5.09) M/uL Hgb 13.5 (11.7-15.5) g/dL Hct 39.0 (34.0-46.0) % MCV 94.2 (84.0-98.0) fL MCH 32.6 (28.2-33.3) pg MCHC 34.6 (31.7-36.0) g/dL RDW 13.1 (11.2-14.1) % Plt Count 93 L (150-350) K/uL Neut % (Auto) 45.2 (45.0-80.0) % Lymph % (Auto) 39.3 (10.0-50.0) % [place] % (Auto) 9.6 (2.0-14.0) % Eos % (Auto) 5.7 H (0.0-5.0) % Baso % (Auto) 0.2 (0.0-2.0) % Neut # (Auto) 1.84 (1.40-7.00) K/uL Lymph # (Auto) 1.60 (0.50-3.50) K/uL [place] # (Auto) 0.39 (0.00-1.00) K/uL Eos # (Auto) 0.23 (0.00-0.50) K/uL Baso # (Auto) 0.01 (0.00-0.20) K/uL ESR 28 (0-30) mm/hr D-Dimer, Quantitative 703 H (0-400) ng/mL VBG pH 7.34 (7.31-7.41) VBG pCO2 37 L (41-51) mmHG VBG pO2 66 mmHG VBG HCO3 20 L (23-28) mmol/L VBG Total CO2 21 mmol/L VBG O2 Saturation 92 % VBG Base Excess -6 L ((-2)-3) mmol/L O2 Delivery Device Nasal cannula Sodium (136-145) mmol/L Potassium (3.5-5.1) mmol/L Chloride (98-107) mmol/L Carbon Dioxide (21.0-32.0) mmol/L BUN (7-18) mg/dL Creatinine (0.51-1.17) mg/dL Est Cr Clr Drug Dosing mL/min Estimated GFR (MDRD) mL/min Glucose (74-106) mg/dL Calcium (8.5-10.1) mg/dL Magnesium (1.8-2.4) mg/dL Total Bilirubin (0.2-1.0) mg/dL AST (15-37) U/L ALT (12-78) U/L Alkaline Phosphatase (46-116) IU/L Ammonia (11-32) umol/L Total Protein (6.4-8.2) g/dL Albumin (3.4-5.0) g/dL 10/30/18 10/30/18 Range/Units 07:15 07:15 WBC (4.0-10.2) K/uL RBC (3.77-5.09) M/uL Hgb (11.7-15.5) g/dL Hct (34.0-46.0) % MCV (84.0-98.0) fL MCH (28.2-33.3) pg MCHC (31.7-36.0) g/dL RDW (11.2-14.1) % Plt Count (150-350) K/uL Neut % (Auto) (45.0-80.0) % Lymph % (Auto) (10.0-50.0) % [place] % (Auto) (2.0-14.0) % Eos % (Auto) (0.0-5.0) % Baso % (Auto) (0.0-2.0) % Neut # (Auto) (1.40-7.00) K/uL Lymph # (Auto) (0.50-3.50) K/uL [place] # (Auto) (0.00-1.00) K/uL Eos # (Auto) (0.00-0.50) K/uL Baso # (Auto) (0.00-0.20) K/uL ESR (0-30) mm/hr D-Dimer, Quantitative (0-400) ng/mL VBG pH (7.31-7.41) VBG pCO2 (41-51) mmHG VBG pO2 mmHG VBG HCO3 (23-28) mmol/L VBG Total CO2 mmol/L VBG O2 Saturation % VBG Base Excess ((-2)-3) mmol/L O2 Delivery Device Sodium 142 (136-145) mmol/L Potassium 3.5 (3.5-5.1) mmol/L Chloride 107 (98-107) mmol/L Carbon Dioxide 22.9 (21.0-32.0) mmol/L BUN 13 (7-18) mg/dL Creatinine 1.11 (0.51-1.17) mg/dL Est Cr Clr Drug Dosing 41.16 mL/min Estimated GFR (MDRD) 48 mL/min Glucose 95 (74-106) mg/dL Calcium 8.8 (8.5-10.1) mg/dL Magnesium 1.6 L (1.8-2.4) mg/dL Total Bilirubin 0.5 (0.2-1.0) mg/dL AST 27 (15-37) U/L ALT 29 (12-78) U/L Alkaline Phosphatase 60 (46-116) IU/L Ammonia < 11 L (11-32) umol/L Total Protein 6.4 (6.4-8.2) g/dL Albumin 3.4 (3.4-5.0) g/dL [place] Results Last 24 Hours: Microbiology 10/28/18 16:25 Urine Culture - Final Urine, Catheterized Staphylococcus Epidermidis Med Orders - Current: Current Medications Hydrocodone Bitart/Acetaminophen ([place] 325-5 Mg) 1 tab PO TID [facility] Last Admin: 10/30/18 17:45 Dose: 1 tab Albuterol (Ventolin Hfa) 0 gm INH Q4H PRN PRN Reason: SHORTNESS OF BREATH Last Admin: 10/28/18 15:46 Dose: 1 puff Albuterol/Ipratropium (Duoneb 3.0-0.5 Mg/3 Ml) 3 ml NEB Q4H PRN PRN Reason: Shortness of Breath Last Admin: 10/29/18 16:47 Dose: 3 ml Amlodipine Besylate (Norvasc) 2.5 mg PO Q12HR [facility] Calcitriol (Rocaltrol) 0.25 mcg PO DAILY [facility] Last Admin: 10/30/18 07:23 Dose: 0.25 mcg Calcium Carbonate (Oystcal-D 625 Mg-125 Units) 1 tab PO TIDMEALS [facility] Last Admin: 10/30/18 17:44 Dose: 1 tab Carvedilol (Coreg) 6.25 mg PO BID [facility] Last Admin: 10/30/18 17:45 Dose: 6.25 mg Clonidine HCl (Catapres) 0.1 mg PO Q12HR [facility] Dorzolamide HCl (Trusopt 2% Ophth Soln) 0 ml EYEBOTH BID@08,20 [facility] Last Admin: 10/30/18 07:35 Dose: 1 drop Escitalopram Oxalate (Lexapro) 20 mg PO DAILY [facility] Last Admin: 10/30/18 07:26 Dose: 20 mg Fentanyl (Sublimaze) 50 mcg IVPUSH Q4H PRN PRN Reason: Pain (severe 7-10) Last Admin: 10/30/18 01:17 Dose: 50 mcg Hydralazine HCl (Apresoline) 25 mg PO TID [facility] Last Admin: 10/30/18 17:44 Dose: 25 mg Potassium Chloride/Dextrose/Sod Cl (D5 1/2 Ns W/ 20 Meq/L Kcl) 1,000 mls @ 75 mls/hr IV ASDIRECTED [facility] Last Admin: 10/30/18 15:23 Dose: 75 mls/hr Ketorolac Tromethamine (Toradol) 15 mg IVPUSH Q6H [facility] Stop: 10/31/18 12:01 Last Admin: 10/30/18 17:45 Dose: 15 mg Latanoprost (Xalatan 0.005% Ophth Soln) 0 ml EYEBOTH BEDTIME [facility] Last Admin: 10/29/18 20:18 Dose: 1 drop Levothyroxine Sodium (Levothyroxine) 75 mcg PO ACBREAKFAST [facility] Last Admin: 10/30/18 07:26 Dose: 75 mcg Lorazepam (Ativan) 2 mg IVPUSH Q4H PRN PRN Reason: Agitation Last Admin: 10/30/18 00:11 Dose: 2 mg Lorazepam (Ativan) 0.5 mg PO TID [facility] Last Admin: 10/30/18 17:44 Dose: 0.5 mg Losartan Potassium (Cozaar) 100 mg PO BEDTIME [facility] Last Admin: 10/29/18 19:56 Dose: Not Given Magnesium Oxide (Magnesium Oxide) 400 mg PO DAILY@1200 [facility] Last Admin: 10/30/18 12:32 Dose: 400 mg Cyclosporine [ (Restasis] Ophth Soln) 1 each EYEBOTH BID [facility] Last Admin: 10/30/18 17:47 Dose: 1 each Carteolol 1% Ophth (Solution) 0 each EYEBOTH Q12HR [facility] Last Admin: 10/30/18 07:35 Dose: 1 each Ondansetron HCl (Zofran) 4 mg IVPUSH Q6H PRN PRN Reason: Nausea/Vomiting Last Admin: 10/24/18 02:59 Dose: 4 mg Pantoprazole Sodium (Protonix Iv) 40 mg IVPUSH Q12H [facility] Last Admin: 10/30/18 12:34 Dose: 40 mg Potassium Chloride (Klor-Con M20) 20 meq PO TIDMEALS [facility] Last Admin: 10/30/18 17:44 Dose: 20 meq Quetiapine Fumarate (Seroquel) 25 mg PO BEDTIME [facility] Last Admin: 10/29/18 20:16 Dose: 25 mg Senna/Docusate Sodium (Senna Plus) 1 tab PO TID [facility] Last Admin: 10/30/18 17:45 Dose: 1 tab Sodium Chloride (Saline Flush) 10 ml FLUSH ASDIRECTED PRN PRN Reason: Keep Vein Open Last Admin: 10/30/18 17:46 Dose: 10 ml Sodium Chloride (Saline Flush) 10 ml FLUSH Q12HR [facility] Last Admin: 10/30/18 07:45 Dose: 10 ml Discontinued Medications Albuterol/Ipratropium (Duoneb 3.0-0.5 Mg/3 Ml) 3 ml NEB ONETIME ONE Stop: 10/28/18 16:13 Last Admin: 10/28/18 16:23 Dose: 3 ml Bisacodyl (Dulcolax) 5 mg PO DAILY PRN PRN Reason: Constipation Carvedilol (Coreg) 3.125 mg PO Q12HR [facility] Last Admin: 10/24/18 09:53 Dose: Not Given Carvedilol (Coreg) 3.125 mg PO BID [facility] Last Admin: 10/30/18 07:25 Dose: 3.125 mg Carvedilol (Coreg) 3.125 mg PO ONETIME ONE Stop: 10/30/18 11:15 Last Admin: 10/30/18 12:54 Dose: Not Given Clonidine HCl (Catapres) 0.1 mg PO Q12HR [facility] Last Admin: 10/28/18 19:08 Dose: 0.1 mg Clonidine HCl (Catapres) 0.1 mg PO ONETIME ONE Stop: 10/28/18 16:12 Last Admin: 10/28/18 16:22 Dose: 0.1 mg Clonidine HCl (Catapres) 0.2 mg PO Q12HR [facility] Last Admin: 10/30/18 07:24 Dose: 0.2 mg Clonidine HCl (Catapres) 0.2 mg PO ONETIME ONE Stop: 10/29/18 17:06 Last Admin: 10/29/18 17:21 Dose: 0.2 mg Clonidine HCl (Catapres) 0.1 mg PO ONETIME ONE Stop: 10/29/18 20:00 Last Admin: 10/29/18 20:17 Dose: 0.1 mg Clonidine HCl (Catapres) 0.1 mg PO ONETIME ONE Stop: 10/30/18 08:09 Last Admin: 10/30/18 08:26 Dose: 0.1 mg Coenzyme Q10 (Coenzyme Q10) 100 mg PO DAILY [facility] Last Admin: 10/24/18 11:47 Dose: Not Given Diphenhydramine HCl (Benadryl) 25 mg IVPUSH ONETIME ONE Stop: 10/23/18 23:12 Last Admin: 10/23/18 23:15 Dose: 25 mg Diphenhydramine HCl (Benadryl) 25 mg IVPUSH ONETIME ONE Stop: 10/26/18 05:33 Last Admin: 10/26/18 05:42 Dose: 25 mg Docusate Sodium (Colace) 100 mg PO DAILY PRN PRN Reason: Constipation Enalaprilat (Vasotec Iv) 0.625 mg IVPUSH ONETIME ONE Stop: 10/24/18 17:16 Last Admin: 10/24/18 17:49 Dose: 0.625 mg Enalaprilat (Vasotec Iv) 0.625 mg IVPUSH Q6H [facility] Last Admin: 10/27/18 05:10 Dose: 0.625 mg Enalaprilat (Vasotec Iv) 1.25 mg IVPUSH Q6H [facility] Last Admin: 10/27/18 12:04 Dose: 1.25 mg Escitalopram Oxalate (Lexapro) 20 mg PO DAILY [facility] Last Admin: 10/24/18 09:54 Dose: Not Given Escitalopram Oxalate (Lexapro) 10 mg PO DAILY [facility] Last Admin: 10/29/18 08:31 Dose: 10 mg Fentanyl (Sublimaze) 50 mcg IVPUSH ONETIME ONE Stop: 10/23/18 23:11 Last Admin: 10/23/18 23:16 Dose: 50 mcg Fentanyl (Sublimaze) 50 mcg IVPUSH ONETIME ONE Stop: 10/24/18 01:01 Last Admin: 10/24/18 01:20 Dose: 50 mcg Fentanyl (Sublimaze) 100 mcg IVPUSH ONETIME ONE Stop: 10/24/18 07:32 Last Admin: 10/24/18 07:48 Dose: 100 mcg Furosemide (Lasix) 20 mg PO DAILY [facility] Last Admin: 10/24/18 09:54 Dose: Not Given Haloperidol Lactate (Haldol) 5 mg IVPUSH ONETIME ONE Stop: 10/25/18 23:45 Last Admin: 10/26/18 00:09 Dose: 5 mg Haloperidol Lactate (Haldol) 5 mg IVPUSH ONETIME ONE Stop: 10/26/18 05:35 Last Admin: 10/26/18 05:41 Dose: 5 mg Haloperidol Lactate (Haldol) 5 mg IVPUSH ONETIME ONE Stop: 10/26/18 22:26 Last Admin: 10/26/18 22:46 Dose: 5 mg Haloperidol Lactate (Haldol) 5 mg IVPUSH ONETIME ONE Stop: 10/27/18 04:28 Last Admin: 10/27/18 04:43 Dose: 5 mg Hydralazine HCl (Apresoline) 25 mg PO TID [facility] Last Admin: 10/30/18 12:53 Dose: Not Given Sodium Chloride (Normal Saline) 1,000 mls @ 75 mls/hr IV ONETIME ONE Stop: 10/24/18 14:21 Last Admin: 10/24/18 01:21 Dose: 75 mls/hr Potassium Chloride/Dextrose/Sod Cl (D5 1/2 Ns W/ 20 Meq/L Kcl) 1,000 mls @ 100 mls/hr IV ASDIRECTED [facility] Stop: 10/25/18 03:14 Last Admin: 10/24/18 17:49 Dose: 100 mls/hr Sodium Chloride (Normal Saline) 1,000 mls @ 100 mls/hr IV ASDIRECTED [facility] Last Admin: 10/25/18 16:31 Dose: 100 mls/hr Sodium Chloride (Normal Saline) 1,000 mls @ 50 mls/hr IV ASDIRECTED [facility] Last Admin: 10/28/18 22:52 Dose: 50 mls/hr Ketorolac Tromethamine (Toradol) 30 mg IVPUSH ONETIME ONE Stop: 10/24/18 08:45 Last Admin: 10/24/18 10:27 Dose: 30 mg Ketorolac Tromethamine (Toradol) 30 mg IVPUSH ONETIME ONE Stop: 10/26/18 12:00 Last Admin: 10/26/18 12:23 Dose: 30 mg Ketorolac Tromethamine (Toradol) 15 mg IVPUSH Q6H [facility] Stop: 10/28/18 12:01 Last Admin: 10/28/18 12:01 Dose: 15 mg Labetalol HCl (Normodyne) 10 mg IVPUSH Q12H [facility]; Protocol Last Admin: 10/27/18 14:46 Dose: 10 mg Latanoprost (Xalatan 0.005% Ophth Soln) ml EYEBOTH BEDTIME [facility] Levothyroxine Sodium (Levothyroxine) 75 mcg PO ACBREAKFAST [facility] Last Admin: 10/24/18 09:53 Dose: Not Given Lidocaine HCl (Xylocaine 2% Viscous) Confirm Administered Dose 15 ml .ROUTE .STK -MED ONE Stop: 10/24/18 09:18 Last Admin: 10/24/18 09:21 Dose: 15 ml Lidocaine HCl (Xylocaine 2% Viscous) Confirm Administered Dose 15 ml .ROUTE .STK -MED ONE Stop: 10/24/18 10:10 Last Admin: 10/24/18 10:30 Dose: 15 ml Lorazepam (Ativan) 0.5 mg IVPUSH ONETIME ONE Stop: 10/24/18 01:02 Last Admin: 10/24/18 06:58 Dose: Not Given Lorazepam (Ativan) 0.5 mg IVPUSH ONETIME ONE Stop: 10/24/18 02:01 Last Admin: 10/24/18 02:08 Dose: 0.5 mg Lorazepam (Ativan) 0.5 mg PO Q8H PRN PRN Reason: Anxiety Lorazepam (Ativan) 1 mg IVPUSH Q6H PRN PRN Reason: Agitation Last Admin: 10/24/18 21:31 Dose: 1 mg Lorazepam (Ativan) 1 mg IVPUSH Q4H PRN PRN Reason: Agitation Last Admin: 10/25/18 01:39 Dose: 1 mg Lorazepam (Ativan) 1 mg PO TID [facility] Last Admin: 10/30/18 07:22 Dose: 1 mg Losartan Potassium (Cozaar) 100 mg PO BEDTIME [facility] Losartan Potassium (Cozaar) 100 mg PO ONETIME ONE Stop: 10/30/18 17:08 Losartan Potassium (Cozaar) 100 mg PO ONETIME ONE Stop: 10/29/18 17:08 Last Admin: 10/29/18 17:18 Dose: 100 mg Magnesium Hydroxide (Milk Of Magnesia) 30 ml PO DAILY PRN PRN Reason: Constipation Magnesium Oxide (Magnesium Oxide) 400 mg PO DAILY@1200 [facility] Last Admin: 10/24/18 11:30 Dose: Not Given Metoprolol Tartrate (Lopressor) 2.5 mg IVPUSH Q6H [facility] Last Admin: 10/25/18 05:18 Dose: 2.5 mg Metoprolol Tartrate (Lopressor) 2.5 mg IVPUSH Q6H [facility] Last Admin: 10/27/18 08:34 Dose: 2.5 mg Mirtazapine (Remeron) 30 mg PO BEDTIME [facility] Morphine Sulfate (Morphine) 2 mg IVPUSH ONETIME ONE Stop: 10/24/18 02:41 Last Admin: 10/24/18 02:45 Dose: 2 mg Nifedipine (Procardia) 10 mg PO ONETIME ONE Stop: 10/30/18 11:21 Last Admin: 10/30/18 12:34 Dose: 10 mg Pantoprazole Sodium (Protonix) 40 mg PO BIDAC [facility] Last Admin: 10/24/18 09:53 Dose: Not Given Potassium Chloride (Klor-Con 10) 10 meq PO TIDMEALS [facility] Last Admin: 10/29/18 08:27 Dose: 10 meq Quetiapine Fumarate (Seroquel) 50 mg PO BEDTIME [facility] Last Admin: 10/28/18 19:08 Dose: 50 mg Senna/Docusate Sodium (Senna Plus) 2 tab PO TID [facility] Last Admin: 10/24/18 11:47 Dose: Not Given Senna/Docusate Sodium (Senna Plus) 1 tab PO BID [facility] - Exam Quality Assessment: DVT Prophylaxis (contraindicated due to thrombocytopenia and risk of bleeding, Hx of multiple GI bleeds) General: Alert, No Acute Distress HEENT: Pupils Equal, Pupils Reactive, Other (GAMBELL) Neck: Trachea Midline, No JVD Lungs: Normal Respiratory Effort, Decreased Breath Sounds Cardiovascular: Regular Rate, Regular Rhythm GI/Abdominal Exam: Soft, Non-Tender, No Distention (Female) Exam: Deferred Back Exam: Other (kyphosis) Extremities: Non-Tender, No Pedal Edema Skin: Warm, Dry, Intact, Ecchymosis Neurological: Other (generalized weakness) Psy/Mental Status: Alert, Labile Mood, Anxious, Depressed, Agitated - Problem List & Annotations (1) Small bowel obstruction SNOMED Code(s): 541741776 Code(s): K56.609 - UNSP INTESTNL OBST, UNSP TO PARTIAL VERSUS COMPLETE OBST Status: Acute Current Visit: Yes (2) Hypokalemia SNOMED Code(s): 83661413 Code(s): E87.6 - HYPOKALEMIA Status: Acute Priority: High Current Visit : No Annotation/Comment:: (3) Scoliosis SNOMED Code(s): 357788374 Code(s): M41.9 - SCOLIOSIS, UNSPECIFIED Status: Acute Priority: Medium Current Visit: No Qualifiers: Scoliosis type: idiopathic Spinal region: thoracolumbar (4) Anemia SNOMED Code(s): 935670069 Code(s): D64.9 - ANEMIA, UNSPECIFIED Status: Chronic Priority: High Current Visit: No Qualifiers: Anemia type: iron deficiency Iron deficiency anemia type: chronic blood loss Qualified Code(s): D50.0 - Iron deficiency anemia secondary to blood loss (chronic) (5) B12 deficiency SNOMED Code(s): 797935615 Code(s): E53.8 - DEFICIENCY OF OTHER SPECIFIED B GROUP VITAMINS Status: Chronic Priority: Low Current Visit: No (6) CKD (chronic kidney disease) SNOMED Code(s): 797623568 Code(s): N18.9 - CHRONIC KIDNEY DISEASE, UNSPECIFIED Status: Chronic Priority: Low Current Visit: No Qualifiers: Chronic kidney disease stage: unspecified stage Qualified Code(s): N18.9 - Chronic kidney disease, unspecified (7) TIA due to embolism SNOMED Code(s): 779563966 Code(s): G45.9 - TRANSIENT CEREBRAL ISCHEMIC ATTACK, UNSPECIFIED; I74.9 - EMBOLISM AND THROMBOSIS OF UNSPECIFIED ARTERY Status: Acute Current Visit: No Onset Date: 08/15/16 (8) COPD (chronic obstructive pulmonary disease) SNOMED Code(s): 42078256 Code(s): J44.9 - CHRONIC OBSTRUCTIVE PULMONARY DISEASE, UNSPECIFIED Status : Chronic Priority: Medium Current Visit: No Qualifiers: COPD type: emphysema Emphysema type: panlobular Qualified Code(s): J43.1 - Panlobular emphysema (9) CVA (cerebral vascular accident) SNOMED Code(s): 780059887 Code(s): I63.9 - CEREBRAL INFARCTION, UNSPECIFIED Status: Chronic Priority: Low Current Visit: No Qualifiers: Laterality of affected vessel: unspecified (10) Chronic fatigue SNOMED Code(s): 15151116 Code(s): R53.82 - CHRONIC FATIGUE, UNSPECIFIED Status: Chronic Priority: Low Current Visit: No (11) Fibromyalgia SNOMED Code(s): 824142713 Code(s): M79.7 - FIBROMYALGIA Status: Chronic Priority: Low Current Visit: No (12) GERD (gastroesophageal reflux disease) SNOMED Code(s): 428311242 Code(s): K21.9 - GASTRO-ESOPHAGEAL REFLUX DISEASE WITHOUT ESOPHAGITIS Status: Chronic Priority: Low Current Visit: No Qualifiers: Esophagitis presence: esophagitis presence not specified Qualified Code(s) : K21.9 - Gastro-esophageal reflux disease without esophagitis (13) Glaucoma SNOMED Code(s): 84837061 Code(s): H40.9 - UNSPECIFIED GLAUCOMA Status: Chronic Priority: Low Current Visit: No Qualifiers: Glaucoma type: unspecified (14) HTN, Benign hypertension SNOMED Code(s): 39189680 Code(s): I10 - ESSENTIAL (PRIMARY) HYPERTENSION Status: Chronic Priority : Medium Current Visit: No (15) Hyperparathyroidism SNOMED Code(s): 40229111 Code(s): E21.3 - HYPERPARATHYROIDISM, UNSPECIFIED Status: Chronic Priority: Low Current Visit: No (16) Hypothyroid SNOMED Code(s): 34440240 Code(s): E03.9 - HYPOTHYROIDISM, UNSPECIFIED Status: Chronic Priority: Low Current Visit: No Qualifiers: 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 Qualified Code(s): E03.8 - Other specified hypothyroidism; E06.3 - Autoimmune thyroiditis (17) Mixed anxiety depressive disorder SNOMED Code(s): 977047652 Code(s): F41.8 - OTHER SPECIFIED ANXIETY DISORDERS Status: Chronic Priority: Low Current Visit: No (18) Osteoporosis SNOMED Code(s): 46490252 Code(s): M81.0 - AGE-RELATED OSTEOPOROSIS W/O CURRENT PATHOLOGICAL FRACTURE Status: Chronic Priority: Low Current Visit: No Qualifiers: Osteoporosis type: unspecified Annotation/Comment:: (19) Peptic reflux disease SNOMED Code(s): 127854241 Code(s): K21.9 - GASTRO-ESOPHAGEAL REFLUX DISEASE WITHOUT ESOPHAGITIS Status: Chronic Priority: High Current Visit: No (20) Rheumatoid arthritis SNOMED Code(s): 81580070 Code(s): M06.9 - RHEUMATOID ARTHRITIS, UNSPECIFIED Status: Chronic Priority: Low Current Visit: No Qualifiers: Rheumatoid factor presence: without rheumatoid factor Laterality: unspecified laterality (21) Thrombocytopenia SNOMED Code(s): 786644915 Code(s): D69.6 - THROMBOCYTOPENIA, UNSPECIFIED Status: Chronic Priority: Medium Current Visit: No (22) Endometrial cancer SNOMED Code(s): 799759222 Code(s): C54.1 - MALIGNANT NEOPLASM OF ENDOMETRIUM Status: Inactive Priority: Low Current Visit: No (23) Graves disease SNOMED Code(s): 602710176 Code(s): E05.00 - THYROTOXICOSIS W DIFFUSE GOITER W/O THYROTOXIC CRISIS Status: Inactive Priority: Low Current Visit: No Annotation/Comment:: (24) Acute delirium SNOMED Code(s): 9827718, 1294267 Code(s): R41.0 - DISORIENTATION, UNSPECIFIED Status: Acute Priority: High Current Visit: Yes - Problem List Review Problem List Initiated/Reviewed/Updated: Yes - My Orders Last 24 Hours: My Active Orders 10/29/18 20:00 QUEtiapine [SEROquel] 25 mg PO BEDTIME 10/30/18 07:15 CANCER ANTIGEN (CA) 125 [REF] Routine 10/30/18 08:00 Renal Comp [US] Routine Venous Doppler Lwr Ext Bi [US] Routine Escitalopram [Lexapro] 20 mg PO DAILY 10/30/18 11:09 Knee wo Cont Rt [CT] Routine 10/30/18 11:30 D5 1/2 NS w/ 20 mEq/L KCl 1,000 ml IV ASDIRECTED 10/30/18 12:00 LORazepam [Ativan] 0.5 mg PO TID hydrALAZINE [Apresoline] 25 mg PO TID 10/30/18 18:00 Carvedilol [Coreg] 6.25 mg PO BID 10/30/18 20:00 amLODIPine [Norvasc] 2.5 mg PO Q12HR cloNIDine [Catapres] 0.1 mg PO Q12HR 10/31/18 08:00 Echo Comp wo Cont [US] Routine - Plan Plan:: 10/24/2018 Patient was admitted through the ER for small bowel obstruction. [facility] T[facility] ER Dr Ventura consulted with Dr Edmonds from [facility] surgery, advised to place NG tube, ambulate and then reXray. NG placed for green bile return, will monitor and ordered Xray of abdomen in 1 1/2hours. patient may need transfer to [facility] for surgical evaluation and consultation. Dr Matthews consulted. Eugenia Chris,PRICING CONSULTANT 10/24/18 ~1645 Cassie Cameron MD She has had a small loose bowel movement. X-rays improvement in air/fluid levels and some contrast in the colon. Continue medical therapy for small bowel obstruction with IV fluids and NG tube. ~500 ml of green bilious fluid out with NG tube. Will replace with IV fluids and potassium. Blood pressure elevated so will treat with IV blood pressure medications. Medically requiring inpatient status. 10/25/18 Cassie Cameron MD Medical therapy and monitoring is at inpatient status. Order placed. The mechanical small bowel obstruction is improving. Blood pressure still elevated so medications adjusted. Continue IV fluids and bowel rest. She did pull her NGT and IV out earlier today. Since she is improving NGT was not reinserted. Continue to monitor blood pressure, kidney status, electrolytes, platelets. Start oral intake in AM. 10/26/18 Cassie Cameron MD She had a rough night last night. Very agitated and not able to be redirected. Will obtain head CT due to acute delirium. Try toradol cautiously for her pain. She does have history of GI bleed and low platelets. Complaining of severe back pain but she states this is her usual pain she has had x many years. Some symptoms consistent with narcotic withdrawal and her hyperparathyroidism, hypercalcium and hypocalcium (calcium fluctuation). She takes chronic narcotics for her chronic pain. 10/27/18 Cassie Cameron MD Slight improvement. Tolerating clear liquids but still episodes of extreme weakness and aggitation and negativism. Head CT negative. Pain some better. One small bowel movement so small bowel obstruction has resolved. Will advance diet and restart home medications. Still requiring IV fluid supplementation and may need IV pain medications and IV lorazepam. PT-OT had session with her today. See their notes. 10-28-18 Gregorio Groves PA-C Was still hollering out intermittently through the night, but mental status more clear this morning. She knows me and can tell me the date and where she is. She says she wants to go home, but does not disagree when I tell her she needs to be stronger before going home. Dr. Matthews did advance her diet and adjust her routine meds. K+ mildly low at 3.1 today so KCl 10 mEq started TID with meals. Labs will be repeated in the am. Checked over at [facility] and last TSH was 1.04 on 10-20-18. Noon dose of Toradol is the last scheduled dose. Urinalysis is ordered for urinary frequency. Will consider transfer to [facility] status tomorrow if improvement continues, to work with PT-OT. 10-29-18 Gregorio Groves PA-C RN had called early this morning with patient's c/o SOB and nursing concern for ashen color and general weakness and difficulty to arouse, appeared to be acute decline in condition. EKG, x-rays and additional labs ordered. Oxygen had been applied. Patient was difficult to arouse on my exam and had a very vague expression on her face, mental status did improve with stimulation from the RN and myself. She was able to assist somewhat with transfer in the x-ray department per RN history, and here in the room transfer to the chair and then to the commode was effected with two and minimal assist from patient. X-rays also obtained of the R knee and tib-fib d/t c/o pain and h/o fall here in the hospital four days ago, unwitnessed fall. No fracture seen on these x-rays. K+ still low at 3.1 and KCl dose adjusted. Clonidine dose increased to 0.2mg BID d/ t persisting elevated BP readings. This complex elderly lady with multiple co- morbidities does require continued IP evaluation and management. 10/30/17 Cassie Cameron MD Slept most of the morning but now is awake sitting up in bed. Therapist working with arm weights and stretch band. Her voice is weak but she does talk to me. Potassium is improving but still needing replacement. Oral intake borderline so will restart IV fluids. Blood pressure still quite elevated so adjusting medications. Also on scheduled IV toradal for pain so medically justified for inpatient status. Making slow clinical improvement.
[2018-10-30] MEDS: Latanoprost 0.005% Ophth Soln 2.5 ML Bottle EYEBOTH SCH (19:20)
[2018-10-30] MEDS: Losartan 50 MG Tab PO SCH (19:21)
[2018-10-30] MEDS: QUEtiapine 25 MG Tab PO SCH (19:22)
[2018-10-30] MEDS: amLODIPine 5 MG Tab PO SCH (19:22)
[2018-10-31] MEDS: fentaNYL 100 MCG/2 ML SDV IVPUSH PRN (02:42)
[2018-10-31] MEDS: Sodium Chloride 0.9% 10 ML Syringe FLUSH PRN ×5 (02:43→18:09)
[2018-10-31] MEDS: LORazepam 2 MG/ML SDV IVPUSH PRN ×3 (03:16→18:08)
[2018-10-31] MEDS: Ketorolac 15 MG/ML SDV IVPUSH SCH ×2 (05:39→11:25)
[2018-10-31] MEDS: D5 1/2 NS w/ 20 mEq/L KCl 1,000 ML IV SCH (05:40)
[2018-10-31] MEDS: Levothyroxine 75 MCG Tab PO SCH (06:32)
[2018-10-31] MEDS: Acetaminophen/HYDROcodone 325-5 MG Tab PO SCH ×3 (07:12→18:04)
[2018-10-31] MEDS: LORazepam 0.5 MG Tab PO SCH ×3 (07:13→18:08)
[2018-10-31] MEDS: Calcitriol 0.25 MCG Cap PO SCH (07:16)
[2018-10-31] MEDS: Calcium Carbonate/Vitamin D3 625 MG-125 Unit Tab PO SCH ×3 (07:16→18:05)
[2018-10-31] MEDS: Escitalopram 20 MG Tab PO SCH (07:16)
[2018-10-31] MEDS: cloNIDine 0.1 MG Tab PO SCH ×2 (07:19→20:09)
[2018-10-31] MEDS: Carvedilol 3.125 MG Tab PO SCH ×2 (07:19→18:07)
[2018-10-31] MEDS: hydrALAZINE 50 MG Tab PO SCH ×3 (07:20→18:07)
[2018-10-31] MEDS: amLODIPine 5 MG Tab PO SCH ×2 (07:21→20:10)
[2018-10-31] MEDS: Sodium Chloride 0.9% 10 ML Syringe FLUSH SCH ×3 (07:24→20:14)
[2018-10-31] MEDS: CYCLOSPORINE EYEBOTH SCH ×2 (07:24→18:03)
[2018-10-31] MEDS: CARTEOLOL 1% EYEBOTH SCH ×2 (07:24→20:20)
[2018-10-31] MEDS: Dorzolamide 2% Ophth Soln 10 ML Bottle EYEBOTH SCH ×2 (07:24→20:19)
[2018-10-31] MEDS: Magnesium Oxide 400 MG Tab PO SCH (11:24)
[2018-10-31] MEDS: Pantoprazole 40 MG Vial IVPUSH SCH (11:25)
[2018-10-31] MEDS ORDERED: Potassium Chloride 10 MEQ Tab.ER PO SCH (18:00)
[2018-10-31] MEDS: Losartan 50 MG Tab PO SCH (20:10)
[2018-10-31] MEDS: QUEtiapine 25 MG Tab PO SCH (20:14)
[2018-10-31] MEDS: Latanoprost 0.005% Ophth Soln 2.5 ML Bottle EYEBOTH SCH (20:21)
[2018-10-31] MEDS ORDERED: LORazepam 1 MG Tab PO PRN (22:35)
--- NOTE | 2018-10-31 22:53 | PCM.PN ---
- General Info Date of Service: 10/31/18 Admission Dx/Problem (Free Text): Small Bowel Obstruction Functional Status: Reports: Pain Controlled (still requiring prn IV fentanyl) - Review of Systems General: Reports: Weakness HEENT: Reports: Other (RINCON) Pulmonary: Reports: No Symptoms Cardiovascular: Reports: No Symptoms Gastrointestinal: Reports: Decreased Appetite Genitourinary: Reports: No Symptoms Musculoskeletal: Reports: Back Pain, Leg Pain, Other (pain all over) Skin: Reports: No Symptoms, Bruising Neurological: Reports: Confusion, Difficulty Walking, Weakness Psychiatric: Reports: Confusion, Mood Lability, Anxiety, Agitation - Patient Data Vitals - Most Recent: Last Vital Signs Temp 97.8 F 10/31/18 20:00 Pulse 68 10/31/18 20:00 Resp 16 10/31/18 20:00 BP 158/65 H 10/31/18 20:10 Pulse Ox 98 10/31/18 20:00 Weight - Most Recent: 172 lb 15.983 oz I&O - Last 24 Hours: Intake & Output 10/31/18 10/31/18 10/31/18 06:59 14:59 22:59 Intake Total 936 60 Balance 936 60 Lab Results Last 24 Hours: Laboratory Results - last 24 hr 10/31/18 10/31/18 Range/Units 07:05 07:05 D-Dimer, Quantitative 676 H (0-400) ng/mL Sodium 140 (136-145) mmol/L Potassium 3.9 (3.5-5.1) mmol/L Chloride 107 (98-107) mmol/L Carbon Dioxide 23.6 (21.0-32.0) mmol/L BUN 15 (7-18) mg/dL Creatinine 1.10 (0.51-1.17) mg/dL Est Cr Clr Drug Dosing 41.54 mL/min Estimated GFR (MDRD) 48 mL/min Glucose 110 H (74-106) mg/dL Calcium 8.6 (8.5-10.1) mg/dL Med Orders - Current: Current Medications Hydrocodone Bitart/Acetaminophen (Vallejo 325-5 Mg) 1 tab PO TID [facility] Last Admin: 10/31/18 18:04 Dose: 1 tab Hydrocodone Bitart/Acetaminophen (Vallejo 325-5 Mg) 1 tab PO Q4H PRN PRN Reason: Pain (severe 7-10) Albuterol (Ventolin Hfa) 0 gm INH Q4H PRN PRN Reason: SHORTNESS OF BREATH Last Admin: 10/28/18 15:46 Dose: 1 puff Albuterol/Ipratropium (Duoneb 3.0-0.5 Mg/3 Ml) 3 ml NEB Q4H PRN PRN Reason: Shortness of Breath Last Admin: 10/29/18 16:47 Dose: 3 ml Amlodipine Besylate (Norvasc) 2.5 mg PO Q12HR [facility] Last Admin: 10/31/18 20:10 Dose: 2.5 mg Calcitriol (Rocaltrol) 0.25 mcg PO DAILY [facility] Last Admin: 10/31/18 07:16 Dose: 0.25 mcg Calcium Carbonate (Oystcal-D 625 Mg-125 Units) 1 tab PO TIDMEALS [facility] Last Admin: 10/31/18 18:05 Dose: 1 tab Carvedilol (Coreg) 6.25 mg PO BID [facility] Last Admin: 10/31/18 18:07 Dose: 6.25 mg Clonidine HCl (Catapres) 0.1 mg PO Q12HR [facility] Last Admin: 10/31/18 20:09 Dose: 0.1 mg Dorzolamide HCl (Trusopt 2% Ophth Soln) 0 ml EYEBOTH BID@08,20 [facility] Last Admin: 10/31/18 20:19 Dose: 1 drop Escitalopram Oxalate (Lexapro) 20 mg PO DAILY [facility] Last Admin: 10/31/18 07:16 Dose: 20 mg Hydralazine HCl (Apresoline) 25 mg PO TID [facility] Last Admin: 10/31/18 18:07 Dose: 25 mg Potassium Chloride/Dextrose/Sod Cl (D5 1/2 Ns W/ 20 Meq/L Kcl) 1,000 mls @ 75 mls/hr IV ASDIRECTED [facility] Stop: 11/01/18 00:49 Last Admin: 10/31/18 05:40 Dose: 75 mls/hr Latanoprost (Xalatan 0.005% Ophth Soln) 0 ml EYEBOTH BEDTIME [facility] Last Admin: 10/31/18 20:21 Dose: 1 drop Levothyroxine Sodium (Levothyroxine) 75 mcg PO ACBREAKFAST [facility] Last Admin: 10/31/18 06:32 Dose: 75 mcg Lorazepam (Ativan) 1 mg PO Q3H PRN PRN Reason: Anxiety Lorazepam (Ativan) 1 mg PO TID [facility] Losartan Potassium (Cozaar) 100 mg PO BEDTIME [facility] Last Admin: 10/31/18 20:10 Dose: 100 mg Magnesium Oxide (Magnesium Oxide) 400 mg PO DAILY@1200 [facility] Last Admin: 10/31/18 11:24 Dose: 400 mg Cyclosporine [ (Restasis] Ophth Soln) 1 each EYEBOTH BID [facility] Last Admin: 10/31/18 18:03 Dose: 1 each Carteolol 1% Ophth (Solution) 0 each EYEBOTH Q12HR [facility] Last Admin: 10/31/18 20:20 Dose: 1 each Omeprazole (Omeprazole) 20 mg PO BEDTIME [facility] Quetiapine Fumarate (Seroquel) 25 mg PO BEDTIME [facility] Last Admin: 10/31/18 20:14 Dose: 25 mg Senna/Docusate Sodium (Senna Plus) 1 tab PO TID [facility] Last Admin: 10/31/18 18:05 Dose: 1 tab Discontinued Medications Albuterol/Ipratropium (Duoneb 3.0-0.5 Mg/3 Ml) 3 ml NEB ONETIME ONE Stop: 10/28/18 16:13 Last Admin: 10/28/18 16:23 Dose: 3 ml Bisacodyl (Dulcolax) 5 mg PO DAILY PRN PRN Reason: Constipation Carvedilol (Coreg) 3.125 mg PO Q12HR [facility] Last Admin: 10/24/18 09:53 Dose: Not Given Carvedilol (Coreg) 3.125 mg PO BID [facility] Last Admin: 10/30/18 07:25 Dose: 3.125 mg Carvedilol (Coreg) 3.125 mg PO ONETIME ONE Stop: 10/30/18 11:15 Last Admin: 10/30/18 12:54 Dose: Not Given Clonidine HCl (Catapres) 0.1 mg PO Q12HR [facility] Last Admin: 10/28/18 19:08 Dose: 0.1 mg Clonidine HCl (Catapres) 0.1 mg PO ONETIME ONE Stop: 10/28/18 16:12 Last Admin: 10/28/18 16:22 Dose: 0.1 mg Clonidine HCl (Catapres) 0.2 mg PO Q12HR [facility] Last Admin: 10/30/18 07:24 Dose: 0.2 mg Clonidine HCl (Catapres) 0.2 mg PO ONETIME ONE Stop: 10/29/18 17:06 Last Admin: 10/29/18 17:21 Dose: 0.2 mg Clonidine HCl (Catapres) 0.1 mg PO ONETIME ONE Stop: 10/29/18 20:00 Last Admin: 10/29/18 20:17 Dose: 0.1 mg Clonidine HCl (Catapres) 0.1 mg PO ONETIME ONE Stop: 10/30/18 08:09 Last Admin: 10/30/18 08:26 Dose: 0.1 mg Coenzyme Q10 (Coenzyme Q10) 100 mg PO DAILY [facility] Last Admin: 10/24/18 11:47 Dose: Not Given Diphenhydramine HCl (Benadryl) 25 mg IVPUSH ONETIME ONE Stop: 10/23/18 23:12 Last Admin: 10/23/18 23:15 Dose: 25 mg Diphenhydramine HCl (Benadryl) 25 mg IVPUSH ONETIME ONE Stop: 10/26/18 05:33 Last Admin: 10/26/18 05:42 Dose: 25 mg Docusate Sodium (Colace) 100 mg PO DAILY PRN PRN Reason: Constipation Enalaprilat (Vasotec Iv) 0.625 mg IVPUSH ONETIME ONE Stop: 10/24/18 17:16 Last Admin: 10/24/18 17:49 Dose: 0.625 mg Enalaprilat (Vasotec Iv) 0.625 mg IVPUSH Q6H [facility] Last Admin: 10/27/18 05:10 Dose: 0.625 mg Enalaprilat (Vasotec Iv) 1.25 mg IVPUSH Q6H [facility] Last Admin: 10/27/18 12:04 Dose: 1.25 mg Escitalopram Oxalate (Lexapro) 20 mg PO DAILY [facility] Last Admin: 10/24/18 09:54 Dose: Not Given Escitalopram Oxalate (Lexapro) 10 mg PO DAILY [facility] Last Admin: 10/29/18 08:31 Dose: 10 mg Fentanyl (Sublimaze) 50 mcg IVPUSH ONETIME ONE Stop: 10/23/18 23:11 Last Admin: 10/23/18 23:16 Dose: 50 mcg Fentanyl (Sublimaze) 50 mcg IVPUSH ONETIME ONE Stop: 10/24/18 01:01 Last Admin: 10/24/18 01:20 Dose: 50 mcg Fentanyl (Sublimaze) 50 mcg IVPUSH Q4H PRN PRN Reason: Pain (severe 7-10) Last Admin: 10/31/18 02:42 Dose: 50 mcg Fentanyl (Sublimaze) 100 mcg IVPUSH ONETIME ONE Stop: 10/24/18 07:32 Last Admin: 10/24/18 07:48 Dose: 100 mcg Furosemide (Lasix) 20 mg PO DAILY [facility] Last Admin: 10/24/18 09:54 Dose: Not Given Haloperidol Lactate (Haldol) 5 mg IVPUSH ONETIME ONE Stop: 10/25/18 23:45 Last Admin: 10/26/18 00:09 Dose: 5 mg Haloperidol Lactate (Haldol) 5 mg IVPUSH ONETIME ONE Stop: 10/26/18 05:35 Last Admin: 10/26/18 05:41 Dose: 5 mg Haloperidol Lactate (Haldol) 5 mg IVPUSH ONETIME ONE Stop: 10/26/18 22:26 Last Admin: 10/26/18 22:46 Dose: 5 mg Haloperidol Lactate (Haldol) 5 mg IVPUSH ONETIME ONE Stop: 10/27/18 04:28 Last Admin: 10/27/18 04:43 Dose: 5 mg Hydralazine HCl (Apresoline) 25 mg PO TID [facility] Last Admin: 10/30/18 12:53 Dose: Not Given Sodium Chloride (Normal Saline) 1,000 mls @ 75 mls/hr IV ONETIME ONE Stop: 10/24/18 14:21 Last Admin: 10/24/18 01:21 Dose: 75 mls/hr Potassium Chloride/Dextrose/Sod Cl (D5 1/2 Ns W/ 20 Meq/L Kcl) 1,000 mls @ 100 mls/hr IV ASDIRECTED [facility] Stop: 10/25/18 03:14 Last Admin: 10/24/18 17:49 Dose: 100 mls/hr Sodium Chloride (Normal Saline) 1,000 mls @ 100 mls/hr IV ASDIRECTED [facility] Last Admin: 10/25/18 16:31 Dose: 100 mls/hr Sodium Chloride (Normal Saline) 1,000 mls @ 50 mls/hr IV ASDIRECTED [facility] Last Admin: 10/28/18 22:52 Dose: 50 mls/hr Ketorolac Tromethamine (Toradol) 30 mg IVPUSH ONETIME ONE Stop: 10/24/18 08:45 Last Admin: 10/24/18 10:27 Dose: 30 mg Ketorolac Tromethamine (Toradol) 30 mg IVPUSH ONETIME ONE Stop: 10/26/18 12:00 Last Admin: 10/26/18 12:23 Dose: 30 mg Ketorolac Tromethamine (Toradol) 15 mg IVPUSH Q6H [facility] Stop: 10/28/18 12:01 Last Admin: 10/28/18 12:01 Dose: 15 mg Ketorolac Tromethamine (Toradol) 15 mg IVPUSH Q6H [facility] Stop: 10/31/18 12:01 Last Admin: 10/31/18 11:25 Dose: 15 mg Labetalol HCl (Normodyne) 10 mg IVPUSH Q12H [facility]; Protocol Last Admin: 10/27/18 14:46 Dose: 10 mg Latanoprost (Xalatan 0.005% Ophth Soln) ml EYEBOTH BEDTIME [facility] Levothyroxine Sodium (Levothyroxine) 75 mcg PO ACBREAKFAST [facility] Last Admin: 10/24/18 09:53 Dose: Not Given Lidocaine HCl (Xylocaine 2% Viscous) Confirm Administered Dose 15 ml .ROUTE .STK -MED ONE Stop: 10/24/18 09:18 Last Admin: 10/24/18 09:21 Dose: 15 ml Lidocaine HCl (Xylocaine 2% Viscous) Confirm Administered Dose 15 ml .ROUTE .STK -MED ONE Stop: 10/24/18 10:10 Last Admin: 10/24/18 10:30 Dose: 15 ml Lorazepam (Ativan) 0.5 mg IVPUSH ONETIME ONE Stop: 10/24/18 01:02 Last Admin: 10/24/18 06:58 Dose: Not Given Lorazepam (Ativan) 0.5 mg IVPUSH ONETIME ONE Stop: 10/24/18 02:01 Last Admin: 10/24/18 02:08 Dose: 0.5 mg Lorazepam (Ativan) 0.5 mg PO Q8H PRN PRN Reason: Anxiety Lorazepam (Ativan) 1 mg IVPUSH Q6H PRN PRN Reason: Agitation Last Admin: 10/24/18 21:31 Dose: 1 mg Lorazepam (Ativan) 1 mg IVPUSH Q4H PRN PRN Reason: Agitation Last Admin: 10/25/18 01:39 Dose: 1 mg Lorazepam (Ativan) 2 mg IVPUSH Q4H PRN PRN Reason: Agitation Last Admin: 10/31/18 18:08 Dose: 2 mg Lorazepam (Ativan) 1 mg PO TID [facility] Last Admin: 10/30/18 07:22 Dose: 1 mg Lorazepam (Ativan) 0.5 mg PO TID [facility] Last Admin: 10/31/18 18:08 Dose: Not Given Losartan Potassium (Cozaar) 100 mg PO BEDTIME [facility] Losartan Potassium (Cozaar) 100 mg PO ONETIME ONE Stop: 10/30/18 17:08 Losartan Potassium (Cozaar) 100 mg PO ONETIME ONE Stop: 10/29/18 17:08 Last Admin: 10/29/18 17:18 Dose: 100 mg Magnesium Hydroxide (Milk Of Magnesia) 30 ml PO DAILY PRN PRN Reason: Constipation Magnesium Oxide (Magnesium Oxide) 400 mg PO DAILY@1200 [facility] Last Admin: 10/24/18 11:30 Dose: Not Given Metoprolol Tartrate (Lopressor) 2.5 mg IVPUSH Q6H [facility] Last Admin: 10/25/18 05:18 Dose: 2.5 mg Metoprolol Tartrate (Lopressor) 2.5 mg IVPUSH Q6H [facility] Last Admin: 10/27/18 08:34 Dose: 2.5 mg Mirtazapine (Remeron) 30 mg PO BEDTIME [facility] Morphine Sulfate (Morphine) 2 mg IVPUSH ONETIME ONE Stop: 10/24/18 02:41 Last Admin: 10/24/18 02:45 Dose: 2 mg Nifedipine (Procardia) 10 mg PO ONETIME ONE Stop: 10/30/18 11:21 Last Admin: 10/30/18 12:34 Dose: 10 mg Ondansetron HCl (Zofran) 4 mg IVPUSH Q6H PRN PRN Reason: Nausea/Vomiting Last Admin: 10/24/18 02:59 Dose: 4 mg Pantoprazole Sodium (Protonix) 40 mg PO BIDAC [facility] Last Admin: 10/24/18 09:53 Dose: Not Given Pantoprazole Sodium (Protonix Iv) 40 mg IVPUSH Q12H [facility] Last Admin: 10/31/18 11:25 Dose: 40 mg Potassium Chloride (Klor-Con 10) 10 meq PO TIDMEALS [facility] Last Admin: 10/29/18 08:27 Dose: 10 meq Potassium Chloride (Klor-Con M20) 20 meq PO TIDMEALS [facility] Last Admin: 10/30/18 17:44 Dose: 20 meq Potassium Chloride (Klor-Con 10) 10 meq PO TID [facility] Last Admin: 10/31/18 18:05 Dose: 10 meq Quetiapine Fumarate (Seroquel) 50 mg PO BEDTIME [facility] Last Admin: 10/28/18 19:08 Dose: 50 mg Senna/Docusate Sodium (Senna Plus) 2 tab PO TID [facility] Last Admin: 10/24/18 11:47 Dose: Not Given Senna/Docusate Sodium (Senna Plus) 1 tab PO BID [facility] Sodium Chloride (Saline Flush) 10 ml FLUSH ASDIRECTED PRN PRN Reason: Keep Vein Open Last Admin: 10/31/18 18:09 Dose: 10 ml Sodium Chloride (Saline Flush) 10 ml FLUSH Q12HR [facility] Last Admin: 10/31/18 20:14 Dose: 10 ml - Exam General: Severe Distress (at times) HEENT: Mucous Membr. Moist/[place] Neck: Trachea Midline, No JVD Lungs: Normal Respiratory Effort, Decreased Breath Sounds Cardiovascular: Regular Rate, Regular Rhythm GI/Abdominal Exam: Normal Bowel Sounds, Soft, Non-Tender, No Distention (Female) Exam: Deferred Back Exam: Other (kyphosis) Extremities: Non-Tender Skin: Warm, Dry, Intact, Ecchymosis Neurological: No New Focal Deficit Psy/Mental Status: Labile Mood, Anxious, Depressed, Agitated - Problem List & Annotations (1) Small bowel obstruction SNOMED Code(s): 349019148 Code(s): K56.609 - UNSP INTESTNL OBST, UNSP TO PARTIAL VERSUS COMPLETE OBST Status: Acute Current Visit: Yes (2) Hypokalemia SNOMED Code(s): 20005495 Code(s): E87.6 - HYPOKALEMIA Status: Acute Priority: High Current Visit : No Annotation/Comment:: (3) Scoliosis SNOMED Code(s): 841049074 Code(s): M41.9 - SCOLIOSIS, UNSPECIFIED Status: Acute Priority: Medium Current Visit: No Qualifiers: Scoliosis type: idiopathic Spinal region: thoracolumbar (4) Anemia SNOMED Code(s): 018114008 Code(s): D64.9 - ANEMIA, UNSPECIFIED Status: Chronic Priority: High Current Visit: No Qualifiers: Anemia type: iron deficiency Iron deficiency anemia type: chronic blood loss Qualified Code(s): D50.0 - Iron deficiency anemia secondary to blood loss (chronic) (5) B12 deficiency SNOMED Code(s): 559406353 Code(s): E53.8 - DEFICIENCY OF OTHER SPECIFIED B GROUP VITAMINS Status: Chronic Priority: Low Current Visit: No (6) CKD (chronic kidney disease) SNOMED Code(s): 066556977 Code(s): N18.9 - CHRONIC KIDNEY DISEASE, UNSPECIFIED Status: Chronic Priority: Low Current Visit: No Qualifiers: Chronic kidney disease stage: unspecified stage Qualified Code(s): N18.9 - Chronic kidney disease, unspecified (7) TIA due to embolism SNOMED Code(s): 892886905 Code(s): G45.9 - TRANSIENT CEREBRAL ISCHEMIC ATTACK, UNSPECIFIED; I74.9 - EMBOLISM AND THROMBOSIS OF UNSPECIFIED ARTERY Status: Acute Current Visit: No Onset Date: 08/15/16 (8) COPD (chronic obstructive pulmonary disease) SNOMED Code(s): 16696123 Code(s): J44.9 - CHRONIC OBSTRUCTIVE PULMONARY DISEASE, UNSPECIFIED Status : Chronic Priority: Medium Current Visit: No Qualifiers: COPD type: emphysema Emphysema type: panlobular Qualified Code(s): J43.1 - Panlobular emphysema (9) CVA (cerebral vascular accident) SNOMED Code(s): 850618359 Code(s): I63.9 - CEREBRAL INFARCTION, UNSPECIFIED Status: Chronic Priority: Low Current Visit: No Qualifiers: Laterality of affected vessel: unspecified (10) Chronic fatigue SNOMED Code(s): 02874944 Code(s): R53.82 - CHRONIC FATIGUE, UNSPECIFIED Status: Chronic Priority: Low Current Visit: No (11) Fibromyalgia SNOMED Code(s): 396719987 Code(s): M79.7 - FIBROMYALGIA Status: Chronic Priority: Low Current Visit: No (12) GERD (gastroesophageal reflux disease) SNOMED Code(s): 678117107 Code(s): K21.9 - GASTRO-ESOPHAGEAL REFLUX DISEASE WITHOUT ESOPHAGITIS Status: Chronic Priority: Low Current Visit: No Qualifiers: Esophagitis presence: esophagitis presence not specified Qualified Code(s) : K21.9 - Gastro-esophageal reflux disease without esophagitis (13) Glaucoma SNOMED Code(s): 74763248 Code(s): H40.9 - UNSPECIFIED GLAUCOMA Status: Chronic Priority: Low Current Visit: No Qualifiers: Glaucoma type: unspecified (14) HTN, Benign hypertension SNOMED Code(s): 46907386 Code(s): I10 - ESSENTIAL (PRIMARY) HYPERTENSION Status: Chronic Priority : Medium Current Visit: No (15) Hyperparathyroidism SNOMED Code(s): 07209739 Code(s): E21.3 - HYPERPARATHYROIDISM, UNSPECIFIED Status: Chronic Priority: Low Current Visit: No (16) Hypothyroid SNOMED Code(s): 05538672 Code(s): E03.9 - HYPOTHYROIDISM, UNSPECIFIED Status: Chronic Priority: Low Current Visit: No Qualifiers: 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 Qualified Code(s): E03.8 - Other specified hypothyroidism; E06.3 - Autoimmune thyroiditis (17) Mixed anxiety depressive disorder SNOMED Code(s): 145586332 Code(s): F41.8 - OTHER SPECIFIED ANXIETY DISORDERS Status: Chronic Priority: Low Current Visit: No (18) Osteoporosis SNOMED Code(s): 07779049 Code(s): M81.0 - AGE-RELATED OSTEOPOROSIS W/O CURRENT PATHOLOGICAL FRACTURE Status: Chronic Priority: Low Current Visit: No Qualifiers: Osteoporosis type: unspecified Annotation/Comment:: (19) Peptic reflux disease SNOMED Code(s): 555064610 Code(s): K21.9 - GASTRO-ESOPHAGEAL REFLUX DISEASE WITHOUT ESOPHAGITIS Status: Chronic Priority: High Current Visit: No (20) Rheumatoid arthritis SNOMED Code(s): 01218739 Code(s): M06.9 - RHEUMATOID ARTHRITIS, UNSPECIFIED Status: Chronic Priority: Low Current Visit: No Qualifiers: Rheumatoid factor presence: without rheumatoid factor Laterality: unspecified laterality (21) Thrombocytopenia SNOMED Code(s): 467715238 Code(s): D69.6 - THROMBOCYTOPENIA, UNSPECIFIED Status: Chronic Priority: Medium Current Visit: No (22) Endometrial cancer SNOMED Code(s): 574526257 Code(s): C54.1 - MALIGNANT NEOPLASM OF ENDOMETRIUM Status: Inactive Priority: Low Current Visit: No (23) Graves disease SNOMED Code(s): 324102294 Code(s): E05.00 - THYROTOXICOSIS W DIFFUSE GOITER W/O THYROTOXIC CRISIS Status: Inactive Priority: Low Current Visit: No Annotation/Comment:: (24) Acute delirium SNOMED Code(s): 8661768, 2973638 Code(s): R41.0 - DISORIENTATION, UNSPECIFIED Status: Acute Priority: High Current Visit: Yes (25) Pseudobulbar affect SNOMED Code(s): 119809702, 956256544 Code(s): F48.2 - PSEUDOBULBAR AFFECT Status: Acute Priority: High Current Visit: Yes - Problem List Review Problem List Initiated/Reviewed/Updated: Yes - My Orders Last 24 Hours: My Active Orders 10/31/18 08:00 Echo Comp wo Cont [US] Routine 10/31/18 22:30 Discontinue Saline Lock [Peripheral IV Discontinue] [OM.PC] Routine 10/31/18 22:31 Acetaminophen/HYDROcodone [Vallejo 325-5 MG] 1 tab PO Q4H PRN 10/31/18 22:35 LORazepam [Ativan] 1 mg PO Q3H PRN 11/01/18 05:11 CBC WITH AUTO DIFF [HEME] Routine CMP [COMPREHENSIVE METABOLIC PN,CMP] [CHEM] Routine 11/01/18 08:00 LORazepam [Ativan] 1 mg PO TID 11/01/18 20:00 Omeprazole 20 mg PO BEDTIME - Plan Plan:: 10/24/2018 Patient was admitted through the ER for small bowel obstruction. [facility] Dr Ventura consulted with Dr Edmonds from [facility] surgery, advised to place NG tube, ambulate and then reXray. NG placed for green bile return, will monitor and ordered Xray of abdomen in 1 1/2hours. patient may need transfer to [place] for surgical evaluation and consultation. Dr Matthews consulted. Eugenia Perez,PROFESSOR OF SOCIOLOGY 10/24/18 ~3165 Cassie Cameron MD She has had a small loose bowel movement. X-rays improvement in air/fluid levels and some contrast in the colon. Continue medical therapy for small bowel obstruction with IV fluids and NG tube. ~500 ml of green bilious fluid out with NG tube. Will replace with IV fluids and potassium. Blood pressure elevated so will treat with IV blood pressure medications. Medically requiring inpatient status. 10/25/18 Cassie Cameron MD Medical therapy and monitoring is at inpatient status. Order placed. The mechanical small bowel obstruction is improving. Blood pressure still elevated so medications adjusted. Continue IV fluids and bowel rest. She did pull her NGT and IV out earlier today. Since she is improving NGT was not reinserted. Continue to monitor blood pressure, kidney status, electrolytes, platelets. Start oral intake in AM. 10/26/18 Cassie Cameron MD She had a rough night last night. Very agitated and not able to be redirected. Will obtain head CT due to acute delirium. Try toradol cautiously for her pain. She does have history of GI bleed and low platelets. Complaining of severe back pain but she states this is her usual pain she has had x many years. Some symptoms consistent with narcotic withdrawal and her hyperparathyroidism, hypercalcium and hypocalcium (calcium fluctuation). She takes chronic narcotics for her chronic pain. 10/27/18 Cassie Cameron MD Slight improvement. Tolerating clear liquids but still episodes of extreme weakness and aggitation and negativism. Head CT negative. Pain some better. One small bowel movement so small bowel obstruction has resolved. Will advance diet and restart home medications. Still requiring IV fluid supplementation and may need IV pain medications and IV lorazepam. PT-OT had session with her today. See their notes. 10-28-18 Gregorio Groves PA-C Was still hollering out intermittently through the night, but mental status more clear this morning. She knows me and can tell me the date and where she is. She says she wants to go home, but does not disagree when I tell her she needs to be stronger before going home. Dr. Matthews did advance her diet and adjust her routine meds. K+ mildly low at 3.1 today so KCl 10 mEq started TID with meals. Labs will be repeated in the am. Checked over at [facility] and last TSH was 1.04 on 10-20-18. Noon dose of Toradol is the last scheduled dose. Urinalysis is ordered for urinary frequency. Will consider transfer to [facility] status tomorrow if improvement continues, to work with PT-OT. 10-29-18 Gregorio Groves PA-C RN had called early this morning with patient's c/o SOB and nursing concern for ashen color and general weakness and difficulty to arouse, appeared to be acute decline in condition. EKG, x-rays and additional labs ordered. Oxygen had been applied. Patient was difficult to arouse on my exam and had a very vague expression on her face, mental status did improve with stimulation from the RN and myself. She was able to assist somewhat with transfer in the x-ray department per RN history, and here in the room transfer to the chair and then to the commode was effected with two and minimal assist from patient. X-rays also obtained of the R knee and tib-fib d/t c/o pain and h/o fall here in the hospital four days ago, unwitnessed fall. No fracture seen on these x-rays. K+ still low at 3.1 and KCl dose adjusted. Clonidine dose increased to 0.2mg BID d/ t persisting elevated BP readings. This complex elderly lady with multiple co- morbidities does require continued IP evaluation and management. 10/30/17 Cassie Cameron MD Slept most of the morning but now is awake sitting up in bed. Therapist working with arm weights and stretch band. Her voice is weak but she does talk to me. Potassium is improving but still needing replacement. Oral intake borderline so will restart IV fluids. Blood pressure still quite elevated so adjusting medications. Also on scheduled IV toradal for pain so medically justified for inpatient status. Making slow clinical improvement. 10/31/18 (late entry) Cassie Cameron MD Blood pressure readings are improved with medication adjustments. Still requiring IV fluid supplementation and still on scheduled IV toradol so inpatient status medically justified. She does not want to go to [place]. Still mood labile and extreme volatility. Still requiring prn IV lorazepam and IV fentanyl. Weakness. She needs to work with therapy but acute medical status interfering.
--- NOTE | 2018-10-31 22:55 | PCM.SN ---
- Free Text/Narrative Note: 10/31/18 Cassie Cameron MD Nurse called. Unable to restart IV. Will switch medications to po. Continue to monitor.
[2018-10-31] MEDS: Acetaminophen/HYDROcodone 325-5 MG Tab PO PRN (23:58)
[2018-11-01] MEDS: CYCLOSPORINE EYEBOTH SCH ×2 (09:12→17:42)
[2018-11-01] MEDS: LORazepam 0.5 MG Tab PO SCH ×3 (09:14→17:41)
[2018-11-01] MEDS: CARTEOLOL 1% EYEBOTH SCH ×2 (09:15→19:30)
[2018-11-01] MEDS: Dorzolamide 2% Ophth Soln 10 ML Bottle EYEBOTH SCH ×2 (09:15→19:31)
[2018-11-01] MEDS: cloNIDine 0.1 MG Tab PO SCH ×2 (09:16→19:32)
[2018-11-01] MEDS: Carvedilol 3.125 MG Tab PO SCH ×2 (09:19→17:41)
[2018-11-01] MEDS: hydrALAZINE 50 MG Tab PO SCH ×3 (09:21→17:41)
[2018-11-01] MEDS: amLODIPine 5 MG Tab PO SCH ×2 (09:22→19:32)
[2018-11-01] MEDS: Escitalopram 20 MG Tab PO SCH (09:23)
[2018-11-01] MEDS: Calcium Carbonate/Vitamin D3 625 MG-125 Unit Tab PO SCH ×3 (09:23→17:40)
[2018-11-01] MEDS: Calcitriol 0.25 MCG Cap PO SCH (09:23)
[2018-11-01] MEDS: Levothyroxine 75 MCG Tab PO SCH (09:23)
[2018-11-01] MEDS: Acetaminophen/HYDROcodone 325-5 MG Tab PO SCH ×3 (09:24→17:41)
[2018-11-01] MEDS: Magnesium Oxide 400 MG Tab PO SCH (11:58)
[2018-11-01] MEDS: Latanoprost 0.005% Ophth Soln 2.5 ML Bottle EYEBOTH SCH (19:31)
[2018-11-01] MEDS: Losartan 50 MG Tab PO SCH (19:32)
--- NOTE | 2018-11-01 19:36 | PCM.PN ---
- General Info Date of Service: 11/01/18 Admission Dx/Problem (Free Text): Small Bowel Obstruction Functional Status: Reports: Other (still not doing well) - Review of Systems General: Reports: Weakness, Appetite (decreased) HEENT: Reports: No Symptoms, Other (bruising right forehead) Pulmonary: Reports: No Symptoms Cardiovascular: Reports: No Symptoms Gastrointestinal: Reports: Decreased Appetite, Other (loose stools) Genitourinary: Reports: No Symptoms Musculoskeletal: Reports: Back Pain, Joint Pain (right knee, chronic) Skin: Reports: Bruising Neurological: Reports: Confusion, Trouble Speaking (weak voice), Difficulty Walking, Weakness Psychiatric: Reports: Confusion, Depression, Mood Lability, Anxiety, Agitation - Patient Data Vitals - Most Recent: Last Vital Signs Temp 97.9 F 11/01/18 15:31 Pulse 73 11/01/18 17:41 Resp 16 11/01/18 15:31 BP 159/73 H 11/01/18 17:41 Pulse Ox 96 11/01/18 15:31 Weight - Most Recent: 172 lb 15.983 oz I&O - Last 24 Hours: Intake & Output 11/01/18 11/01/18 11/01/18 06:59 14:59 22:59 Intake Total 200 Output Total 1 Balance 200 -1 Lab Results Last 24 Hours: Laboratory Results - last 24 hr 10/30/18 11/01/18 11/01/18 Range/Units 07:15 07:00 07:00 WBC 4.5 (4.0-10.2) K/uL RBC 4.11 (3.77-5.09) M/uL Hgb 13.4 (11.7-15.5) g/dL Hct 39.0 (34.0-46.0) % MCV 94.9 (84.0-98.0) fL MCH 32.6 (28.2-33.3) pg MCHC 34.4 (31.7-36.0) g/dL RDW 13.4 (11.2-14.1) % Plt Count 102 L (150-350) K/uL Neut % (Auto) 46.5 (45.0-80.0) % Lymph % (Auto) 37.2 (10.0-50.0) % [place] % (Auto) 10.3 (2.0-14.0) % Eos % (Auto) 5.8 H (0.0-5.0) % Baso % (Auto) 0.2 (0.0-2.0) % Neut # (Auto) 2.07 (1.40-7.00) K/uL Lymph # (Auto) 1.66 (0.50-3.50) K/uL [place] # (Auto) 0.46 (0.00-1.00) K/uL Eos # (Auto) 0.26 (0.00-0.50) K/uL Baso # (Auto) 0.01 (0.00-0.20) K/uL Sodium 142 (136-145) mmol/L Potassium 3.9 (3.5-5.1) mmol/L Chloride 107 (98-107) mmol/L Carbon Dioxide 22.3 (21.0-32.0) mmol/L BUN 14 (7-18) mg/dL Creatinine 1.08 (0.51-1.17) mg/dL Est Cr Clr Drug Dosing 42.31 mL/min Estimated GFR (MDRD) 49 mL/min Glucose 94 (74-106) mg/dL Calcium 8.9 (8.5-10.1) mg/dL Phosphorus 4.4 (2.6-4.7) mg/dL Total Bilirubin 0.6 (0.2-1.0) mg/dL AST 24 (15-37) U/L ALT 28 (12-78) U/L Alkaline Phosphatase 61 (46-116) IU/L Total Protein 6.3 L (6.4-8.2) g/dL Albumin 3.5 (3.4-5.0) g/dL CA 125 Antigen 13.9 (0.0-38.1) U/mL Med Orders - Current: Current Medications Hydrocodone Bitart/Acetaminophen (Valencia 325-5 Mg) 1 tab PO TID [facility] Last Admin: 11/01/18 17:41 Dose: 1 tab Hydrocodone Bitart/Acetaminophen (Valencia 325-5 Mg) 1 tab PO Q4H PRN PRN Reason: Pain (severe 7-10) Last Admin: 10/31/18 23:58 Dose: 1 tab Albuterol (Ventolin Hfa) 0 gm INH Q4H PRN PRN Reason: SHORTNESS OF BREATH Last Admin: 10/28/18 15:46 Dose: 1 puff Albuterol/Ipratropium (Duoneb 3.0-0.5 Mg/3 Ml) 3 ml NEB Q4H PRN PRN Reason: Shortness of Breath Last Admin: 10/29/18 16:47 Dose: 3 ml Amlodipine Besylate (Norvasc) 2.5 mg PO Q12HR [facility] Last Admin: 11/01/18 09:22 Dose: 2.5 mg Calcitriol (Rocaltrol) 0.25 mcg PO DAILY [facility] Last Admin: 11/01/18 09:23 Dose: 0.25 mcg Calcium Carbonate (Oystcal-D 625 Mg-125 Units) 1 tab PO TIDMEALS [facility] Last Admin: 11/01/18 17:40 Dose: 1 tab Carvedilol (Coreg) 6.25 mg PO BID [facility] Last Admin: 11/01/18 17:41 Dose: 6.25 mg Clonidine HCl (Catapres) 0.1 mg PO Q12HR [facility] Last Admin: 11/01/18 09:16 Dose: 0.1 mg Dorzolamide HCl (Trusopt 2% Ophth Soln) 0 ml EYEBOTH BID@08,20 [facility] Last Admin: 11/01/18 09:15 Dose: 1 drop Escitalopram Oxalate (Lexapro) 20 mg PO DAILY [facility] Last Admin: 11/01/18 09:23 Dose: 20 mg Hydralazine HCl (Apresoline) 50 mg PO TID [facility] Last Admin: 11/01/18 17:41 Dose: 50 mg Latanoprost (Xalatan 0.005% Ophth Soln) 0 ml EYEBOTH BEDTIME [facility] Last Admin: 10/31/18 20:21 Dose: 1 drop Levothyroxine Sodium (Levothyroxine) 75 mcg PO ACBREAKFAST [facility] Last Admin: 11/01/18 09:23 Dose: 75 mcg Lorazepam (Ativan) 1 mg PO Q3H PRN PRN Reason: Anxiety Last Admin: 10/31/18 23:58 Dose: 1 mg Lorazepam (Ativan) 1 mg PO TID [facility] Last Admin: 11/01/18 17:41 Dose: 1 mg Losartan Potassium (Cozaar) 100 mg PO BEDTIME [facility] Last Admin: 10/31/18 20:10 Dose: 100 mg Magnesium Oxide (Magnesium Oxide) 400 mg PO DAILY@1200 [facility] Last Admin: 11/01/18 11:58 Dose: 400 mg Cyclosporine [ (Restasis] Ophth Soln) 1 each EYEBOTH BID [facility] Last Admin: 11/01/18 17:42 Dose: 1 each Carteolol 1% Ophth (Solution) 0 each EYEBOTH Q12HR [facility] Last Admin: 11/01/18 09:15 Dose: 1 each Omeprazole (Omeprazole) 20 mg PO BEDTIME [facility] Quetiapine Fumarate (Seroquel) 50 mg PO BEDTIME [facility] Senna/Docusate Sodium (Senna Plus) 1 tab PO BID [facility] Discontinued Medications Albuterol/Ipratropium (Duoneb 3.0-0.5 Mg/3 Ml) 3 ml NEB ONETIME ONE Stop: 10/28/18 16:13 Last Admin: 10/28/18 16:23 Dose: 3 ml Bisacodyl (Dulcolax) 5 mg PO DAILY PRN PRN Reason: Constipation Carvedilol (Coreg) 3.125 mg PO Q12HR [facility] Last Admin: 10/24/18 09:53 Dose: Not Given Carvedilol (Coreg) 3.125 mg PO BID [facility] Last Admin: 10/30/18 07:25 Dose: 3.125 mg Carvedilol (Coreg) 3.125 mg PO ONETIME ONE Stop: 10/30/18 11:15 Last Admin: 10/30/18 12:54 Dose: Not Given Clonidine HCl (Catapres) 0.1 mg PO Q12HR [facility] Last Admin: 10/28/18 19:08 Dose: 0.1 mg Clonidine HCl (Catapres) 0.1 mg PO ONETIME ONE Stop: 10/28/18 16:12 Last Admin: 10/28/18 16:22 Dose: 0.1 mg Clonidine HCl (Catapres) 0.2 mg PO Q12HR [facility] Last Admin: 10/30/18 07:24 Dose: 0.2 mg Clonidine HCl (Catapres) 0.2 mg PO ONETIME ONE Stop: 10/29/18 17:06 Last Admin: 10/29/18 17:21 Dose: 0.2 mg Clonidine HCl (Catapres) 0.1 mg PO ONETIME ONE Stop: 10/29/18 20:00 Last Admin: 10/29/18 20:17 Dose: 0.1 mg Clonidine HCl (Catapres) 0.1 mg PO ONETIME ONE Stop: 10/30/18 08:09 Last Admin: 10/30/18 08:26 Dose: 0.1 mg Coenzyme Q10 (Coenzyme Q10) 100 mg PO DAILY [facility] Last Admin: 10/24/18 11:47 Dose: Not Given Diphenhydramine HCl (Benadryl) 25 mg IVPUSH ONETIME ONE Stop: 10/23/18 23:12 Last Admin: 10/23/18 23:15 Dose: 25 mg Diphenhydramine HCl (Benadryl) 25 mg IVPUSH ONETIME ONE Stop: 10/26/18 05:33 Last Admin: 10/26/18 05:42 Dose: 25 mg Docusate Sodium (Colace) 100 mg PO DAILY PRN PRN Reason: Constipation Enalaprilat (Vasotec Iv) 0.625 mg IVPUSH ONETIME ONE Stop: 10/24/18 17:16 Last Admin: 10/24/18 17:49 Dose: 0.625 mg Enalaprilat (Vasotec Iv) 0.625 mg IVPUSH Q6H [facility] Last Admin: 10/27/18 05:10 Dose: 0.625 mg Enalaprilat (Vasotec Iv) 1.25 mg IVPUSH Q6H [facility] Last Admin: 10/27/18 12:04 Dose: 1.25 mg Escitalopram Oxalate (Lexapro) 20 mg PO DAILY [facility] Last Admin: 10/24/18 09:54 Dose: Not Given Escitalopram Oxalate (Lexapro) 10 mg PO DAILY [facility] Last Admin: 10/29/18 08:31 Dose: 10 mg Fentanyl (Sublimaze) 50 mcg IVPUSH ONETIME ONE Stop: 10/23/18 23:11 Last Admin: 10/23/18 23:16 Dose: 50 mcg Fentanyl (Sublimaze) 50 mcg IVPUSH ONETIME ONE Stop: 10/24/18 01:01 Last Admin: 10/24/18 01:20 Dose: 50 mcg Fentanyl (Sublimaze) 50 mcg IVPUSH Q4H PRN PRN Reason: Pain (severe 7-10) Last Admin: 10/31/18 02:42 Dose: 50 mcg Fentanyl (Sublimaze) 100 mcg IVPUSH ONETIME ONE Stop: 10/24/18 07:32 Last Admin: 10/24/18 07:48 Dose: 100 mcg Furosemide (Lasix) 20 mg PO DAILY [facility] Last Admin: 10/24/18 09:54 Dose: Not Given Haloperidol Lactate (Haldol) 5 mg IVPUSH ONETIME ONE Stop: 10/25/18 23:45 Last Admin: 10/26/18 00:09 Dose: 5 mg Haloperidol Lactate (Haldol) 5 mg IVPUSH ONETIME ONE Stop: 10/26/18 05:35 Last Admin: 10/26/18 05:41 Dose: 5 mg Haloperidol Lactate (Haldol) 5 mg IVPUSH ONETIME ONE Stop: 10/26/18 22:26 Last Admin: 10/26/18 22:46 Dose: 5 mg Haloperidol Lactate (Haldol) 5 mg IVPUSH ONETIME ONE Stop: 10/27/18 04:28 Last Admin: 10/27/18 04:43 Dose: 5 mg Hydralazine HCl (Apresoline) 25 mg PO TID [facility] Last Admin: 10/30/18 12:53 Dose: Not Given Hydralazine HCl (Apresoline) 25 mg PO TID [facility] Last Admin: 11/01/18 11:57 Dose: 25 mg Sodium Chloride (Normal Saline) 1,000 mls @ 75 mls/hr IV ONETIME ONE Stop: 10/24/18 14:21 Last Admin: 10/24/18 01:21 Dose: 75 mls/hr Potassium Chloride/Dextrose/Sod Cl (D5 1/2 Ns W/ 20 Meq/L Kcl) 1,000 mls @ 100 mls/hr IV ASDIRECTED [facility] Stop: 10/25/18 03:14 Last Admin: 10/24/18 17:49 Dose: 100 mls/hr Sodium Chloride (Normal Saline) 1,000 mls @ 100 mls/hr IV ASDIRECTED [facility] Last Admin: 10/25/18 16:31 Dose: 100 mls/hr Sodium Chloride (Normal Saline) 1,000 mls @ 50 mls/hr IV ASDIRECTED [facility] Last Admin: 10/28/18 22:52 Dose: 50 mls/hr Potassium Chloride/Dextrose/Sod Cl (D5 1/2 Ns W/ 20 Meq/L Kcl) 1,000 mls @ 75 mls/hr IV ASDIRECTED [facility] Stop: 11/01/18 00:49 Last Admin: 10/31/18 05:40 Dose: 75 mls/hr Ketorolac Tromethamine (Toradol) 30 mg IVPUSH ONETIME ONE Stop: 10/24/18 08:45 Last Admin: 10/24/18 10:27 Dose: 30 mg Ketorolac Tromethamine (Toradol) 30 mg IVPUSH ONETIME ONE Stop: 10/26/18 12:00 Last Admin: 10/26/18 12:23 Dose: 30 mg Ketorolac Tromethamine (Toradol) 15 mg IVPUSH Q6H [facility] Stop: 10/28/18 12:01 Last Admin: 10/28/18 12:01 Dose: 15 mg Ketorolac Tromethamine (Toradol) 15 mg IVPUSH Q6H [facility] Stop: 10/31/18 12:01 Last Admin: 10/31/18 11:25 Dose: 15 mg Labetalol HCl (Normodyne) 10 mg IVPUSH Q12H [facility]; Protocol Last Admin: 10/27/18 14:46 Dose: 10 mg Latanoprost (Xalatan 0.005% Ophth Soln) ml EYEBOTH BEDTIME [facility] Levothyroxine Sodium (Levothyroxine) 75 mcg PO ACBREAKFAST [facility] Last Admin: 10/24/18 09:53 Dose: Not Given Lidocaine HCl (Xylocaine 2% Viscous) Confirm Administered Dose 15 ml .ROUTE .STK -MED ONE Stop: 10/24/18 09:18 Last Admin: 10/24/18 09:21 Dose: 15 ml Lidocaine HCl (Xylocaine 2% Viscous) Confirm Administered Dose 15 ml .ROUTE .STK -MED ONE Stop: 10/24/18 10:10 Last Admin: 10/24/18 10:30 Dose: 15 ml Lorazepam (Ativan) 0.5 mg IVPUSH ONETIME ONE Stop: 10/24/18 01:02 Last Admin: 10/24/18 06:58 Dose: Not Given Lorazepam (Ativan) 0.5 mg IVPUSH ONETIME ONE Stop: 10/24/18 02:01 Last Admin: 10/24/18 02:08 Dose: 0.5 mg Lorazepam (Ativan) 0.5 mg PO Q8H PRN PRN Reason: Anxiety Lorazepam (Ativan) 1 mg IVPUSH Q6H PRN PRN Reason: Agitation Last Admin: 10/24/18 21:31 Dose: 1 mg Lorazepam (Ativan) 1 mg IVPUSH Q4H PRN PRN Reason: Agitation Last Admin: 10/25/18 01:39 Dose: 1 mg Lorazepam (Ativan) 2 mg IVPUSH Q4H PRN PRN Reason: Agitation Last Admin: 10/31/18 18:08 Dose: 2 mg Lorazepam (Ativan) 1 mg PO TID [facility] Last Admin: 10/30/18 07:22 Dose: 1 mg Lorazepam (Ativan) 0.5 mg PO TID [facility] Last Admin: 10/31/18 18:08 Dose: Not Given Losartan Potassium (Cozaar) 100 mg PO BEDTIME [facility] Losartan Potassium (Cozaar) 100 mg PO ONETIME ONE Stop: 10/30/18 17:08 Losartan Potassium (Cozaar) 100 mg PO ONETIME ONE Stop: 10/29/18 17:08 Last Admin: 10/29/18 17:18 Dose: 100 mg Magnesium Hydroxide (Milk Of Magnesia) 30 ml PO DAILY PRN PRN Reason: Constipation Magnesium Oxide (Magnesium Oxide) 400 mg PO DAILY@1200 [facility] Last Admin: 10/24/18 11:30 Dose: Not Given Metoprolol Tartrate (Lopressor) 2.5 mg IVPUSH Q6H [facility] Last Admin: 10/25/18 05:18 Dose: 2.5 mg Metoprolol Tartrate (Lopressor) 2.5 mg IVPUSH Q6H [facility] Last Admin: 10/27/18 08:34 Dose: 2.5 mg Mirtazapine (Remeron) 30 mg PO BEDTIME [facility] Morphine Sulfate (Morphine) 2 mg IVPUSH ONETIME ONE Stop: 10/24/18 02:41 Last Admin: 10/24/18 02:45 Dose: 2 mg Nifedipine (Procardia) 10 mg PO ONETIME ONE Stop: 10/30/18 11:21 Last Admin: 10/30/18 12:34 Dose: 10 mg Ondansetron HCl (Zofran) 4 mg IVPUSH Q6H PRN PRN Reason: Nausea/Vomiting Last Admin: 10/24/18 02:59 Dose: 4 mg Pantoprazole Sodium (Protonix) 40 mg PO BIDAC [facility] Last Admin: 10/24/18 09:53 Dose: Not Given Pantoprazole Sodium (Protonix Iv) 40 mg IVPUSH Q12H [facility] Last Admin: 10/31/18 11:25 Dose: 40 mg Potassium Chloride (Klor-Con 10) 10 meq PO TIDMEALS [facility] Last Admin: 10/29/18 08:27 Dose: 10 meq Potassium Chloride (Klor-Con M20) 20 meq PO TIDMEALS [facility] Last Admin: 10/30/18 17:44 Dose: 20 meq Potassium Chloride (Klor-Con 10) 10 meq PO TID [facility] Last Admin: 10/31/18 18:05 Dose: 10 meq Quetiapine Fumarate (Seroquel) 50 mg PO BEDTIME [facility] Last Admin: 10/28/18 19:08 Dose: 50 mg Quetiapine Fumarate (Seroquel) 25 mg PO BEDTIME [facility] Last Admin: 10/31/18 20:14 Dose: 25 mg Senna/Docusate Sodium (Senna Plus) 2 tab PO TID [facility] Last Admin: 10/24/18 11:47 Dose: Not Given Senna/Docusate Sodium (Senna Plus) 1 tab PO BID [facility] Senna/Docusate Sodium (Senna Plus) 1 tab PO TID [facility] Last Admin: 11/01/18 17:40 Dose: 1 tab Sodium Chloride (Saline Flush) 10 ml FLUSH ASDIRECTED PRN PRN Reason: Keep Vein Open Last Admin: 10/31/18 18:09 Dose: 10 ml Sodium Chloride (Saline Flush) 10 ml FLUSH Q12HR [facility] Last Admin: 10/31/18 20:14 Dose: 10 ml - Exam Quality Assessment: DVT Prophylaxis (low platelets so contrindicated) HEENT: EOMI, Other (CHINIK) Neck: Trachea Midline, No JVD Lungs: Normal Respiratory Effort, Decreased Breath Sounds Cardiovascular: Regular Rate, Regular Rhythm GI/Abdominal Exam: Soft, Non-Tender, No Distention (Female) Exam: Deferred Back Exam: Other (kyphosis, scoliosis) Extremities: Leg Pain (right knee), Other (no calf tenderness) Skin: Warm, Dry, Intact, Ecchymosis Neurological: Strength Equal Bilateral, Other (generalized weakness) Psy/Mental Status: Labile Mood (at times excessive laughing, then wailing), Anxious, Depressed, Agitated (wails out, help me, help me) - Problem List & Annotations (1) Small bowel obstruction SNOMED Code(s): 308205117 Code(s): K56.609 - UNSP INTESTNL OBST, UNSP TO PARTIAL VERSUS COMPLETE OBST Status: Acute Current Visit: Yes (2) Hypokalemia SNOMED Code(s): 37918134 Code(s): E87.6 - HYPOKALEMIA Status: Acute Priority: High Current Visit : No Annotation/Comment:: (3) Scoliosis SNOMED Code(s): 791781201 Code(s): M41.9 - SCOLIOSIS, UNSPECIFIED Status: Acute Priority: Medium Current Visit: No Qualifiers: Scoliosis type: idiopathic Spinal region: thoracolumbar (4) Anemia SNOMED Code(s): 925249166 Code(s): D64.9 - ANEMIA, UNSPECIFIED Status: Chronic Priority: High Current Visit: No Qualifiers: Anemia type: iron deficiency Iron deficiency anemia type: chronic blood loss Qualified Code(s): D50.0 - Iron deficiency anemia secondary to blood loss (chronic) (5) B12 deficiency SNOMED Code(s): 758158584 Code(s): E53.8 - DEFICIENCY OF OTHER SPECIFIED B GROUP VITAMINS Status: Chronic Priority: Low Current Visit: No (6) CKD (chronic kidney disease) SNOMED Code(s): 928776032 Code(s): N18.9 - CHRONIC KIDNEY DISEASE, UNSPECIFIED Status: Chronic Priority: Low Current Visit: No Qualifiers: Chronic kidney disease stage: unspecified stage Qualified Code(s): N18.9 - Chronic kidney disease, unspecified (7) TIA due to embolism SNOMED Code(s): 469145418 Code(s): G45.9 - TRANSIENT CEREBRAL ISCHEMIC ATTACK, UNSPECIFIED; I74.9 - EMBOLISM AND THROMBOSIS OF UNSPECIFIED ARTERY Status: Acute Current Visit: No Onset Date: 08/15/16 (8) COPD (chronic obstructive pulmonary disease) SNOMED Code(s): 61103988 Code(s): J44.9 - CHRONIC OBSTRUCTIVE PULMONARY DISEASE, UNSPECIFIED Status : Chronic Priority: Medium Current Visit: No Qualifiers: COPD type: emphysema Emphysema type: panlobular Qualified Code(s): J43.1 - Panlobular emphysema (9) CVA (cerebral vascular accident) SNOMED Code(s): 412992341 Code(s): I63.9 - CEREBRAL INFARCTION, UNSPECIFIED Status: Chronic Priority: Low Current Visit: No Qualifiers: Laterality of affected vessel: unspecified (10) Chronic fatigue SNOMED Code(s): 59718389 Code(s): R53.82 - CHRONIC FATIGUE, UNSPECIFIED Status: Chronic Priority: Low Current Visit: No (11) Fibromyalgia SNOMED Code(s): 638176910 Code(s): M79.7 - FIBROMYALGIA Status: Chronic Priority: Low Current Visit: No (12) GERD (gastroesophageal reflux disease) SNOMED Code(s): 844348280 Code(s): K21.9 - GASTRO-ESOPHAGEAL REFLUX DISEASE WITHOUT ESOPHAGITIS Status: Chronic Priority: Low Current Visit: No Qualifiers: Esophagitis presence: esophagitis presence not specified Qualified Code(s) : K21.9 - Gastro-esophageal reflux disease without esophagitis (13) Glaucoma SNOMED Code(s): 53341634 Code(s): H40.9 - UNSPECIFIED GLAUCOMA Status: Chronic Priority: Low Current Visit: No Qualifiers: Glaucoma type: unspecified (14) HTN, Benign hypertension SNOMED Code(s): 21337578 Code(s): I10 - ESSENTIAL (PRIMARY) HYPERTENSION Status: Chronic Priority : Medium Current Visit: No (15) Hyperparathyroidism SNOMED Code(s): 43952587 Code(s): E21.3 - HYPERPARATHYROIDISM, UNSPECIFIED Status: Chronic Priority: Low Current Visit: No (16) Hypothyroid SNOMED Code(s): 24171469 Code(s): E03.9 - HYPOTHYROIDISM, UNSPECIFIED Status: Chronic Priority: Low Current Visit: No Qualifiers: 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 Qualified Code(s): E03.8 - Other specified hypothyroidism; E06.3 - Autoimmune thyroiditis (17) Mixed anxiety depressive disorder SNOMED Code(s): 884829380 Code(s): F41.8 - OTHER SPECIFIED ANXIETY DISORDERS Status: Chronic Priority: Low Current Visit: No (18) Osteoporosis SNOMED Code(s): 55396634 Code(s): M81.0 - AGE-RELATED OSTEOPOROSIS W/O CURRENT PATHOLOGICAL FRACTURE Status: Chronic Priority: Low Current Visit: No Qualifiers: Osteoporosis type: unspecified Annotation/Comment:: (19) Peptic reflux disease SNOMED Code(s): 232945515 Code(s): K21.9 - GASTRO-ESOPHAGEAL REFLUX DISEASE WITHOUT ESOPHAGITIS Status: Chronic Priority: High Current Visit: No (20) Rheumatoid arthritis SNOMED Code(s): 63981116 Code(s): M06.9 - RHEUMATOID ARTHRITIS, UNSPECIFIED Status: Chronic Priority: Low Current Visit: No Qualifiers: Rheumatoid factor presence: without rheumatoid factor Laterality: unspecified laterality (21) Thrombocytopenia SNOMED Code(s): 566611831 Code(s): D69.6 - THROMBOCYTOPENIA, UNSPECIFIED Status: Chronic Priority: Medium Current Visit: No (22) Endometrial cancer SNOMED Code(s): 803963829 Code(s): C54.1 - MALIGNANT NEOPLASM OF ENDOMETRIUM Status: Inactive Priority: Low Current Visit: No (23) Graves disease SNOMED Code(s): 034473614 Code(s): E05.00 - THYROTOXICOSIS W DIFFUSE GOITER W/O THYROTOXIC CRISIS Status: Inactive Priority: Low Current Visit: No Annotation/Comment:: (24) Acute delirium SNOMED Code(s): 2748177, 1709522 Code(s): R41.0 - DISORIENTATION, UNSPECIFIED Status: Acute Priority: High Current Visit: Yes (25) Pseudobulbar affect SNOMED Code(s): 400855252, 930156037 Code(s): F48.2 - PSEUDOBULBAR AFFECT Status: Acute Priority: High Current Visit: Yes (26) Traumatic ecchymosis of forehead SNOMED Code(s): 318143213 Code(s): S00.83XA - CONTUSION OF OTHER PART OF HEAD, INITIAL ENCOUNTER Status: Acute Priority: High Current Visit: Yes Qualifiers: Encounter type: sequela Qualified Code(s): S00.83XS - Contusion of other part of head, sequela (27) Unwitnessed fall SNOMED Code(s): 0009547 Code(s): R29.6 - REPEATED FALLS Status: Acute Priority: High Current Visit: Yes - Problem List Review Problem List Initiated/Reviewed/Updated: Yes - My Orders Last 24 Hours: My Active Orders 10/31/18 22:30 Discontinue Saline Lock [Peripheral IV Discontinue] [OM.PC] Routine 10/31/18 22:31 Acetaminophen/HYDROcodone [Valencia 325-5 MG] 1 tab PO Q4H PRN 10/31/18 22:35 LORazepam [Ativan] 1 mg PO Q3H PRN 11/01/18 08:00 LORazepam [Ativan] 1 mg PO TID 11/01/18 18:00 hydrALAZINE [Apresoline] 50 mg PO TID 11/01/18 20:00 Omeprazole 20 mg PO BEDTIME [facility] [SEROquel] 50 mg PO BEDTIME 11/02/18 05:11 Head wo Cont [CT] Routine 11/02/18 08:00 Docusate Sodium/Sennosides [Senna Plus] 1 tab PO BID - Plan Plan:: 10/24/2018 Patient was admitted through the ER for small bowel obstruction. [employer] ER Dr Ventura consulted with Dr Edmonds from [facility] surgery, advised to place NG tube, ambulate and then reXray. NG placed for green bile return, will monitor and ordered Xray of abdomen in 1 1/2hours. patient may need transfer to [place] for surgical evaluation and consultation. Dr Matthews consulted. Eugenia Perez,BANKING REPRESENTATIVE 10/24/18 ~1645 Cassie Cameron MD She has had a small loose bowel movement. X-rays improvement in air/fluid levels and some contrast in the colon. Continue medical therapy for small bowel obstruction with IV fluids and NG tube. ~500 ml of green bilious fluid out with NG tube. Will replace with IV fluids and potassium. Blood pressure elevated so will treat with IV blood pressure medications. Medically requiring inpatient status. 10/25/18 Cassie Cameron MD Medical therapy and monitoring is at inpatient status. Order placed. The mechanical small bowel obstruction is improving. Blood pressure still elevated so medications adjusted. Continue IV fluids and bowel rest. She did pull her NGT and IV out earlier today. Since she is improving NGT was not reinserted. Continue to monitor blood pressure, kidney status, electrolytes, platelets. Start oral intake in AM. 10/26/18 Cassie Cameron MD She had a rough night last night. Very agitated and not able to be redirected. Will obtain head CT due to acute delirium. Try toradol cautiously for her pain. She does have history of GI bleed and low platelets. Complaining of severe back pain but she states this is her usual pain she has had x many years. Some symptoms consistent with narcotic withdrawal and her hyperparathyroidism, hypercalcium and hypocalcium (calcium fluctuation). She takes chronic narcotics for her chronic pain. 10/27/18 Cassie Cameron MD Slight improvement. Tolerating clear liquids but still episodes of extreme weakness and aggitation and negativism. Head CT negative. Pain some better. One small bowel movement so small bowel obstruction has resolved. Will advance diet and restart home medications. Still requiring IV fluid supplementation and may need IV pain medications and IV lorazepam. PT-OT had session with her today. See their notes. 10-28-18 Gregorio Groves PA-C Was still hollering out intermittently through the night, but mental status more clear this morning. She knows me and can tell me the date and where she is. She says she wants to go home, but does not disagree when I tell her she needs to be stronger before going home. Dr. Matthews did advance her diet and adjust her routine meds. K+ mildly low at 3.1 today so KCl 10 mEq started TID with meals. Labs will be repeated in the am. [place] [facility] [place] 1.04 on 10-20-18. Noon dose of Toradol is the last scheduled dose. Urinalysis is ordered for urinary frequency. Will consider transfer to [facility] status tomorrow if improvement continues, to work with PT-OT. 10-29-18 Gregorio Groves PA-C RN had called early this morning with patient's c/o SOB and nursing concern for ashen color and general weakness and difficulty to arouse, appeared to be acute decline in condition. EKG, x-rays and additional labs ordered. Oxygen had been applied. Patient was difficult to arouse on my exam and had a very vague expression on her face, mental status did improve with stimulation from the RN and myself. She was able to assist somewhat with transfer in the x-ray department per RN history, and here in the room transfer to the chair and then to the commode was effected with two and minimal assist from patient. X-rays also obtained of the R knee and tib-fib d/t c/o pain and h/o fall here in the hospital four days ago, unwitnessed fall. No fracture seen on these x-rays. K+ still low at 3.1 and KCl dose adjusted. Clonidine dose increased to 0.2mg BID d/ t persisting elevated BP readings. This complex elderly lady with multiple co- morbidities does require continued IP evaluation and management. 10/30/17 Cassie Cameron MD Slept most of the morning but now is awake sitting up in bed. Therapist working with arm weights and stretch band. Her voice is weak but she does talk to me. Potassium is improving but still needing replacement. Oral intake borderline so will restart IV fluids. Blood pressure still quite elevated so adjusting medications. Also on scheduled IV toradal for pain so medically justified for inpatient status. Making slow clinical improvement. 10/31/18 (late entry) Cassie Cameron MD Blood pressure readings are improved with medication adjustments. Still requiring IV fluid supplementation and still on scheduled IV toradol so inpatient status medically justified. She does not want to go to [place]. Still mood labile and extreme volatility. Still requiring prn IV lorazepam and IV fentanyl. Weakness. She needs to work with therapy but acute medical status interfering. 11/01/18 Cassie Cameron MD Yesterday could not bear weight on legs requiring 3 to assist but today did walk with 2 nurses from bed to [place] only x1 but could not make it back to her bed and required wheel chair assist. Now yelling out again help me, help me, help me and my right knee hurts and what is wrong with me? Then cries and says she does not want to . Yesterday she told nurses that she did want to and to put her out of her misery. Oral intake borderline but IV access difficult. Now eccymosis noted on her forehead possibly from unwitnessed fall but not noticed until today. Will rescan head. Discussed MRI of brain but equipment not available this week.
[2018-11-01] MEDS ORDERED: Omeprazole 20 MG Cap.CR PO SCH (20:00)
[2018-11-01] MEDS ORDERED: QUEtiapine 25 MG Tab PO SCH (20:00)
[2018-11-01] MEDS ORDERED: Haloperidol Lactate 5 MG/ML SDV IM ONE (23:04)
--- NOTE | 2018-11-01 23:05 | PCM.SN ---
- Free Text/Narrative Note: Patient very agitated and confused. Screaming. Kicking nursing staff and pushing them away. Haldol IM given to help sedate patient.
[2018-11-02] MEDS ORDERED: diphenhydrAMINE 50 MG/ML SDV IM ONE (00:45)
[2018-11-02] MEDS ORDERED: LORazepam 2 MG/ML SDV IM ONE (00:45)
[2018-11-02] MEDS ORDERED: Haloperidol Lactate 5 MG/ML SDV IM ONE (00:46)
[2018-11-02] MEDS: Calcitriol 0.25 MCG Cap PO SCH (07:30)
[2018-11-02] MEDS: Calcium Carbonate/Vitamin D3 625 MG-125 Unit Tab PO SCH ×2 (07:30→12:17)
[2018-11-02] MEDS: LORazepam 0.5 MG Tab PO SCH ×2 (07:31→12:00)
[2018-11-02] MEDS: Levothyroxine 75 MCG Tab PO SCH (07:31)
[2018-11-02] MEDS: Escitalopram 20 MG Tab PO SCH (07:31)
[2018-11-02] MEDS: hydrALAZINE 50 MG Tab PO SCH ×2 (07:32→12:02)
[2018-11-02] MEDS: Carvedilol 3.125 MG Tab PO SCH (07:32)
[2018-11-02] MEDS: cloNIDine 0.1 MG Tab PO SCH (07:32)
[2018-11-02] MEDS: amLODIPine 5 MG Tab PO SCH (07:32)
[2018-11-02] MEDS: CYCLOSPORINE EYEBOTH SCH (07:33)
[2018-11-02] MEDS: CARTEOLOL 1% EYEBOTH SCH (07:33)
[2018-11-02] MEDS: Dorzolamide 2% Ophth Soln 10 ML Bottle EYEBOTH SCH (07:33)
[2018-11-02 07:37] LABS: CHLORIDE,CL 104 mmol/L (98-107); SODIUM,NA 140 mmol/L (136-145)
[2018-11-02] MEDS: Acetaminophen/HYDROcodone 325-5 MG Tab PO PRN (12:01)
--- NOTE | 2018-11-02 12:07 | PCM.PN ---
- General Info Date of Service: 11/02/18 Admission Dx/Problem (Free Text): Small Bowel Obstruction Functional Status: Reports: Other (still not doing well) - Review of Systems General: Reports: Weakness HEENT: Reports: Headaches (at times) Pulmonary: Reports: No Symptoms Cardiovascular: Reports: No Symptoms Gastrointestinal: Reports: Decreased Appetite Genitourinary: Reports: No Symptoms Musculoskeletal: Reports: Back Pain, Leg Pain (right), Joint Pain (right knee) Skin: Reports: Bruising (arms and right forehead) Neurological: Reports: Confusion, Difficulty Walking, Weakness Psychiatric: Reports: Confusion, Depression, Mood Lability, Anxiety, Agitation ( aggressive last night toward staff) - Patient Data Vitals - Most Recent: Last Vital Signs Temp 97.2 F 11/02/18 08:00 Pulse 75 11/02/18 08:00 Resp 18 11/02/18 08:00 BP 191/84 H 11/02/18 08:00 Pulse Ox 96 11/02/18 08:00 Weight - Most Recent: 172 lb 15.983 oz I&O - Last 24 Hours: Intake & Output 11/01/18 11/02/18 11/02/18 22:59 06:59 14:59 Intake Total 120 Output Total 1 Balance 119 Lab Results Last 24 Hours: Laboratory Results - last 24 hr 11/02/18 11/02/18 Range/Units 07:15 07:15 WBC 4.6 (4.0-10.2) K/uL RBC 4.31 (3.77-5.09) M/uL Hgb 14.0 (11.7-15.5) g/dL Hct 40.6 (34.0-46.0) % MCV 94.2 (84.0-98.0) fL MCH 32.5 (28.2-33.3) pg MCHC 34.5 (31.7-36.0) g/dL RDW 13.5 (11.2-14.1) % Plt Count 104 L (150-350) K/uL Neut % (Auto) 47.0 (45.0-80.0) % Lymph % (Auto) 35.3 (10.0-50.0) % [place] % (Auto) 12.1 (2.0-14.0) % Eos % (Auto) 5.4 H (0.0-5.0) % Baso % (Auto) 0.2 (0.0-2.0) % Neut # (Auto) 2.18 (1.40-7.00) K/uL Lymph # (Auto) 1.64 (0.50-3.50) K/uL [place] # (Auto) 0.56 (0.00-1.00) K/uL Eos # (Auto) 0.25 (0.00-0.50) K/uL Baso # (Auto) 0.01 (0.00-0.20) K/uL Sodium 140 (136-145) mmol/L Potassium 3.7 (3.5-5.1) mmol/L Chloride 104 (98-107) mmol/L Carbon Dioxide 20.8 L (21.0-32.0) mmol/L BUN 18 (7-18) mg/dL Creatinine 1.22 H (0.51-1.17) mg/dL Est Cr Clr Drug Dosing 37.45 mL/min Estimated GFR (MDRD) 43 mL/min Glucose 101 (74-106) mg/dL Calcium 9.5 (8.5-10.1) mg/dL Magnesium 1.7 L (1.8-2.4) mg/dL Total Bilirubin 0.6 (0.2-1.0) mg/dL AST 32 (15-37) U/L ALT 27 (12-78) U/L Alkaline Phosphatase 61 (46-116) IU/L C-Reactive Protein < 0.9 (<=0.9) mg/dL Total Protein 6.6 (6.4-8.2) g/dL Albumin 3.6 (3.4-5.0) g/dL Med Orders - Current: Current Medications Hydrocodone Bitart/Acetaminophen ([place] 325-5 Mg) 1 tab PO Q4H PRN PRN Reason: Pain (severe 7-10) Last Admin: 11/02/18 12:01 Dose: 1 tab Albuterol (Ventolin Hfa) 0 gm INH Q4H PRN PRN Reason: SHORTNESS OF BREATH Last Admin: 10/28/18 15:46 Dose: 1 puff Albuterol/Ipratropium (Duoneb 3.0-0.5 Mg/3 Ml) 3 ml NEB Q4H PRN PRN Reason: Shortness of Breath Last Admin: 10/29/18 16:47 Dose: 3 ml Amlodipine Besylate (Norvasc) 2.5 mg PO Q12HR [facility] Last Admin: 11/02/18 07:32 Dose: 2.5 mg Calcitriol (Rocaltrol) 0.25 mcg PO DAILY [facility] Last Admin: 11/02/18 07:30 Dose: 0.25 mcg Calcium Carbonate (Oystcal-D 625 Mg-125 Units) 1 tab PO TIDMEALS [facility] Last Admin: 11/02/18 07:30 Dose: 1 tab Carvedilol (Coreg) 6.25 mg PO BID [facility] Last Admin: 11/02/18 07:32 Dose: 6.25 mg Clonidine HCl (Catapres) 0.1 mg PO Q12HR [facility] Last Admin: 11/02/18 07:32 Dose: 0.1 mg Dorzolamide HCl (Trusopt 2% Ophth Soln) 0 ml EYEBOTH BID@08,20 [facility] Last Admin: 11/02/18 07:33 Dose: 1 drop Escitalopram Oxalate (Lexapro) 20 mg PO DAILY [facility] Last Admin: 11/02/18 07:31 Dose: 20 mg Hydralazine HCl (Apresoline) 50 mg PO TID [facility] Last Admin: 11/02/18 07:32 Dose: 50 mg Latanoprost (Xalatan 0.005% Ophth Soln) 0 ml EYEBOTH BEDTIME [facility] Last Admin: 11/01/18 19:31 Dose: 1 drop Levothyroxine Sodium (Levothyroxine) 75 mcg PO ACBREAKFAST [facility] Last Admin: 11/02/18 07:31 Dose: 75 mcg Lorazepam (Ativan) 1 mg PO Q3H PRN PRN Reason: Anxiety Last Admin: 10/31/18 23:58 Dose: 1 mg Lorazepam (Ativan) 1 mg PO TID [facility] Last Admin: 11/02/18 12:00 Dose: 1 mg Losartan Potassium (Cozaar) 100 mg PO BEDTIME [facility] Last Admin: 11/01/18 19:32 Dose: 100 mg Magnesium Oxide (Magnesium Oxide) 400 mg PO DAILY@1200 [facility] Last Admin: 11/01/18 11:58 Dose: 400 mg Cyclosporine [ (Restasis] Ophth Soln) 1 each EYEBOTH BID [facility] Last Admin: 11/02/18 07:33 Dose: 1 each Carteolol 1% Ophth (Solution) 0 each EYEBOTH Q12HR [facility] Last Admin: 11/02/18 07:33 Dose: 1 each Omeprazole (Omeprazole) 20 mg PO BEDTIME [facility] Last Admin: 11/01/18 19:28 Dose: 20 mg Quetiapine Fumarate (Seroquel) 50 mg PO BEDTIME [facility] Last Admin: 11/01/18 19:28 Dose: 50 mg Senna/Docusate Sodium (Senna Plus) 1 tab PO BID [facility] Last Admin: 11/02/18 07:40 Dose: Not Given Discontinued Medications Hydrocodone Bitart/Acetaminophen ([place] 325-5 Mg) 1 tab PO TID [facility] Last Admin: 11/01/18 17:41 Dose: 1 tab Albuterol/Ipratropium (Duoneb 3.0-0.5 Mg/3 Ml) 3 ml NEB ONETIME ONE Stop: 10/28/18 16:13 Last Admin: 10/28/18 16:23 Dose: 3 ml Bisacodyl (Dulcolax) 5 mg PO DAILY PRN PRN Reason: Constipation Carvedilol (Coreg) 3.125 mg PO Q12HR [facility] Last Admin: 10/24/18 09:53 Dose: Not Given Carvedilol (Coreg) 3.125 mg PO BID [facility] Last Admin: 10/30/18 07:25 Dose: 3.125 mg Carvedilol (Coreg) 3.125 mg PO ONETIME ONE Stop: 10/30/18 11:15 Last Admin: 10/30/18 12:54 Dose: Not Given Clonidine HCl (Catapres) 0.1 mg PO Q12HR [facility] Last Admin: 10/28/18 19:08 Dose: 0.1 mg Clonidine HCl (Catapres) 0.1 mg PO ONETIME ONE Stop: 10/28/18 16:12 Last Admin: 10/28/18 16:22 Dose: 0.1 mg Clonidine HCl (Catapres) 0.2 mg PO Q12HR [facility] Last Admin: 10/30/18 07:24 Dose: 0.2 mg Clonidine HCl (Catapres) 0.2 mg PO ONETIME ONE Stop: 10/29/18 17:06 Last Admin: 10/29/18 17:21 Dose: 0.2 mg Clonidine HCl (Catapres) 0.1 mg PO ONETIME ONE Stop: 10/29/18 20:00 Last Admin: 10/29/18 20:17 Dose: 0.1 mg Clonidine HCl (Catapres) 0.1 mg PO ONETIME ONE Stop: 10/30/18 08:09 Last Admin: 10/30/18 08:26 Dose: 0.1 mg Coenzyme Q10 (Coenzyme Q10) 100 mg PO DAILY [facility] Last Admin: 10/24/18 11:47 Dose: Not Given Diphenhydramine HCl (Benadryl) 25 mg IVPUSH ONETIME ONE Stop: 10/23/18 23:12 Last Admin: 10/23/18 23:15 Dose: 25 mg Diphenhydramine HCl (Benadryl) 25 mg IVPUSH ONETIME ONE Stop: 10/26/18 05:33 Last Admin: 10/26/18 05:42 Dose: 25 mg Diphenhydramine HCl (Benadryl) 50 mg IM ONETIME ONE Stop: 11/02/18 00:46 Last Admin: 11/02/18 01:00 Dose: 50 mg Docusate Sodium (Colace) 100 mg PO DAILY PRN PRN Reason: Constipation Enalaprilat (Vasotec Iv) 0.625 mg IVPUSH ONETIME ONE Stop: 10/24/18 17:16 Last Admin: 10/24/18 17:49 Dose: 0.625 mg Enalaprilat (Vasotec Iv) 0.625 mg IVPUSH Q6H [facility] Last Admin: 10/27/18 05:10 Dose: 0.625 mg Enalaprilat (Vasotec Iv) 1.25 mg IVPUSH Q6H [facility] Last Admin: 10/27/18 12:04 Dose: 1.25 mg Escitalopram Oxalate (Lexapro) 20 mg PO DAILY [facility] Last Admin: 10/24/18 09:54 Dose: Not Given Escitalopram Oxalate (Lexapro) 10 mg PO DAILY [facility] Last Admin: 10/29/18 08:31 Dose: 10 mg Fentanyl (Sublimaze) 50 mcg IVPUSH ONETIME ONE Stop: 10/23/18 23:11 Last Admin: 10/23/18 23:16 Dose: 50 mcg Fentanyl (Sublimaze) 50 mcg IVPUSH ONETIME ONE Stop: 10/24/18 01:01 Last Admin: 10/24/18 01:20 Dose: 50 mcg Fentanyl (Sublimaze) 50 mcg IVPUSH Q4H PRN PRN Reason: Pain (severe 7-10) Last Admin: 10/31/18 02:42 Dose: 50 mcg Fentanyl (Sublimaze) 100 mcg IVPUSH ONETIME ONE Stop: 10/24/18 07:32 Last Admin: 10/24/18 07:48 Dose: 100 mcg Furosemide (Lasix) 20 mg PO DAILY [facility] Last Admin: 10/24/18 09:54 Dose: Not Given Haloperidol Lactate (Haldol) 5 mg IVPUSH ONETIME ONE Stop: 10/25/18 23:45 Last Admin: 10/26/18 00:09 Dose: 5 mg Haloperidol Lactate (Haldol) 5 mg IVPUSH ONETIME ONE Stop: 10/26/18 05:35 Last Admin: 10/26/18 05:41 Dose: 5 mg Haloperidol Lactate (Haldol) 5 mg IVPUSH ONETIME ONE Stop: 10/26/18 22:26 Last Admin: 10/26/18 22:46 Dose: 5 mg Haloperidol Lactate (Haldol) 5 mg IVPUSH ONETIME ONE Stop: 10/27/18 04:28 Last Admin: 10/27/18 04:43 Dose: 5 mg Haloperidol Lactate (Haldol) 5 mg IM ONETIME ONE Stop: 11/01/18 23:05 Last Admin: 11/01/18 23:09 Dose: 5 mg Haloperidol Lactate (Haldol) 5 mg IM ONETIME ONE Stop: 11/02/18 00:47 Last Admin: 11/02/18 00:59 Dose: 5 mg Hydralazine HCl (Apresoline) 25 mg PO TID [facility] Last Admin: 10/30/18 12:53 Dose: Not Given Hydralazine HCl (Apresoline) 25 mg PO TID [facility] Last Admin: 11/01/18 11:57 Dose: 25 mg Sodium Chloride (Normal Saline) 1,000 mls @ 75 mls/hr IV ONETIME ONE Stop: 10/24/18 14:21 Last Admin: 10/24/18 01:21 Dose: 75 mls/hr Potassium Chloride/Dextrose/Sod Cl (D5 1/2 Ns W/ 20 Meq/L Kcl) 1,000 mls @ 100 mls/hr IV ASDIRECTED [facility] Stop: 10/25/18 03:14 Last Admin: 10/24/18 17:49 Dose: 100 mls/hr Sodium Chloride (Normal Saline) 1,000 mls @ 100 mls/hr IV ASDIRECTED [facility] Last Admin: 10/25/18 16:31 Dose: 100 mls/hr Sodium Chloride (Normal Saline) 1,000 mls @ 50 mls/hr IV ASDIRECTED [facility] Last Admin: 10/28/18 22:52 Dose: 50 mls/hr Potassium Chloride/Dextrose/Sod Cl (D5 1/2 Ns W/ 20 Meq/L Kcl) 1,000 mls @ 75 mls/hr IV ASDIRECTED [facility] Stop: 11/01/18 00:49 Last Admin: 10/31/18 05:40 Dose: 75 mls/hr Ketorolac Tromethamine (Toradol) 30 mg IVPUSH ONETIME ONE Stop: 10/24/18 08:45 Last Admin: 10/24/18 10:27 Dose: 30 mg Ketorolac Tromethamine (Toradol) 30 mg IVPUSH ONETIME ONE Stop: 10/26/18 12:00 Last Admin: 10/26/18 12:23 Dose: 30 mg Ketorolac Tromethamine (Toradol) 15 mg IVPUSH Q6H [facility] Stop: 10/28/18 12:01 Last Admin: 10/28/18 12:01 Dose: 15 mg Ketorolac Tromethamine (Toradol) 15 mg IVPUSH Q6H [facility] Stop: 10/31/18 12:01 Last Admin: 10/31/18 11:25 Dose: 15 mg Labetalol HCl (Normodyne) 10 mg IVPUSH Q12H [facility]; Protocol Last Admin: 10/27/18 14:46 Dose: 10 mg Latanoprost (Xalatan 0.005% Ophth Soln) ml EYEBOTH BEDTIME [facility] Levothyroxine Sodium (Levothyroxine) 75 mcg PO ACBREAKFAST [facility] Last Admin: 10/24/18 09:53 Dose: Not Given Lidocaine HCl (Xylocaine 2% Viscous) Confirm Administered Dose 15 ml .ROUTE .STK -MED ONE Stop: 10/24/18 09:18 Last Admin: 10/24/18 09:21 Dose: 15 ml Lidocaine HCl (Xylocaine 2% Viscous) Confirm Administered Dose 15 ml .ROUTE .STK -MED ONE Stop: 10/24/18 10:10 Last Admin: 10/24/18 10:30 Dose: 15 ml Lorazepam (Ativan) 0.5 mg IVPUSH ONETIME ONE Stop: 10/24/18 01:02 Last Admin: 10/24/18 06:58 Dose: Not Given Lorazepam (Ativan) 0.5 mg IVPUSH ONETIME ONE Stop: 10/24/18 02:01 Last Admin: 10/24/18 02:08 Dose: 0.5 mg Lorazepam (Ativan) 0.5 mg PO Q8H PRN PRN Reason: Anxiety Lorazepam (Ativan) 1 mg IVPUSH Q6H PRN PRN Reason: Agitation Last Admin: 10/24/18 21:31 Dose: 1 mg Lorazepam (Ativan) 1 mg IVPUSH Q4H PRN PRN Reason: Agitation Last Admin: 10/25/18 01:39 Dose: 1 mg Lorazepam (Ativan) 2 mg IVPUSH Q4H PRN PRN Reason: Agitation Last Admin: 10/31/18 18:08 Dose: 2 mg Lorazepam (Ativan) 1 mg PO TID [facility] Last Admin: 10/30/18 07:22 Dose: 1 mg Lorazepam (Ativan) 0.5 mg PO TID [facility] Last Admin: 10/31/18 18:08 Dose: Not Given Lorazepam (Ativan) 2 mg IM ONETIME ONE Stop: 11/02/18 00:46 Last Admin: 11/02/18 01:00 Dose: 2 mg Losartan Potassium (Cozaar) 100 mg PO BEDTIME [facility] Losartan Potassium (Cozaar) 100 mg PO ONETIME ONE Stop: 10/30/18 17:08 Losartan Potassium (Cozaar) 100 mg PO ONETIME ONE Stop: 10/29/18 17:08 Last Admin: 10/29/18 17:18 Dose: 100 mg Magnesium Hydroxide (Milk Of Magnesia) 30 ml PO DAILY PRN PRN Reason: Constipation Magnesium Oxide (Magnesium Oxide) 400 mg PO DAILY@1200 [facility] Last Admin: 10/24/18 11:30 Dose: Not Given Metoprolol Tartrate (Lopressor) 2.5 mg IVPUSH Q6H [facility] Last Admin: 10/25/18 05:18 Dose: 2.5 mg Metoprolol Tartrate (Lopressor) 2.5 mg IVPUSH Q6H [facility] Last Admin: 10/27/18 08:34 Dose: 2.5 mg Mirtazapine (Remeron) 30 mg PO BEDTIME [facility] Morphine Sulfate (Morphine) 2 mg IVPUSH ONETIME ONE Stop: 10/24/18 02:41 Last Admin: 10/24/18 02:45 Dose: 2 mg Nifedipine (Procardia) 10 mg PO ONETIME ONE Stop: 10/30/18 11:21 Last Admin: 10/30/18 12:34 Dose: 10 mg Ondansetron HCl (Zofran) 4 mg IVPUSH Q6H PRN PRN Reason: Nausea/Vomiting Last Admin: 10/24/18 02:59 Dose: 4 mg Pantoprazole Sodium (Protonix) 40 mg PO BIDAC [facility] Last Admin: 10/24/18 09:53 Dose: Not Given Pantoprazole Sodium (Protonix Iv) 40 mg IVPUSH Q12H [facility] Last Admin: 10/31/18 11:25 Dose: 40 mg Potassium Chloride (Klor-Con 10) 10 meq PO TIDMEALS [facility] Last Admin: 10/29/18 08:27 Dose: 10 meq Potassium Chloride (Klor-Con M20) 20 meq PO TIDMEALS [facility] Last Admin: 10/30/18 17:44 Dose: 20 meq Potassium Chloride (Klor-Con 10) 10 meq PO TID [facility] Last Admin: 10/31/18 18:05 Dose: 10 meq Quetiapine Fumarate (Seroquel) 50 mg PO BEDTIME [facility] Last Admin: 10/28/18 19:08 Dose: 50 mg Quetiapine Fumarate (Seroquel) 25 mg PO BEDTIME [facility] Last Admin: 10/31/18 20:14 Dose: 25 mg Senna/Docusate Sodium (Senna Plus) 2 tab PO TID [facility] Last Admin: 10/24/18 11:47 Dose: Not Given Senna/Docusate Sodium (Senna Plus) 1 tab PO BID [facility] Senna/Docusate Sodium (Senna Plus) 1 tab PO TID [facility] Last Admin: 11/01/18 17:40 Dose: 1 tab Sodium Chloride (Saline Flush) 10 ml FLUSH ASDIRECTED PRN PRN Reason: Keep Vein Open Last Admin: 10/31/18 18:09 Dose: 10 ml Sodium Chloride (Saline Flush) 10 ml FLUSH Q12HR [facility] Last Admin: 10/31/18 20:14 Dose: 10 ml - Exam Quality Assessment: DVT Prophylaxis (contraindicated due to low platelets and history of recurrent GI bleeds) General: Alert (alternates with lethargy), No Acute Distress HEENT: EOMI Neck: Trachea Midline, No JVD Lungs: Normal Respiratory Effort, Decreased Breath Sounds Cardiovascular: Regular Rate, Regular Rhythm GI/Abdominal Exam: Normal Bowel Sounds, Soft, Non-Tender, No Organomegaly, No Distention (Female) Exam: Deferred Back Exam: Other (kyphosis, scoliosis) Extremities: Normal Inspection, Non-Tender, No Pedal Edema, Other (right knee pain) Skin: Warm, Dry, Intact, Ecchymosis (arms and right forehead) Neurological: No New Focal Deficit, Other (generalized weakness) Psy/Mental Status: Labile Mood, Anxious, Depressed, Agitated (aggressive last night) - Problem List & Annotations (1) Small bowel obstruction SNOMED Code(s): 016720923 Code(s): K56.609 - UNSP INTESTNL OBST, UNSP TO PARTIAL VERSUS COMPLETE OBST Status: Acute Current Visit: Yes (2) Hypokalemia SNOMED Code(s): 28750986 Code(s): E87.6 - HYPOKALEMIA Status: Acute Priority: High Current Visit : No Annotation/Comment:: (3) Scoliosis SNOMED Code(s): 310055400 Code(s): M41.9 - SCOLIOSIS, UNSPECIFIED Status: Acute Priority: Medium Current Visit: No Qualifiers: Scoliosis type: idiopathic Spinal region: thoracolumbar (4) Anemia SNOMED Code(s): 973441812 Code(s): D64.9 - ANEMIA, UNSPECIFIED Status: Chronic Priority: High Current Visit: No Qualifiers: Anemia type: iron deficiency Iron deficiency anemia type: chronic blood loss Qualified Code(s): D50.0 - Iron deficiency anemia secondary to blood loss (chronic) (5) B12 deficiency SNOMED Code(s): 715207402 Code(s): E53.8 - DEFICIENCY OF OTHER SPECIFIED B GROUP VITAMINS Status: Chronic Priority: Low Current Visit: No (6) CKD (chronic kidney disease) SNOMED Code(s): 364349513 Code(s): N18.9 - CHRONIC KIDNEY DISEASE, UNSPECIFIED Status: Chronic Priority: Low Current Visit: No Qualifiers: Chronic kidney disease stage: unspecified stage Qualified Code(s): N18.9 - Chronic kidney disease, unspecified (7) TIA due to embolism SNOMED Code(s): 109782429 Code(s): G45.9 - TRANSIENT CEREBRAL ISCHEMIC ATTACK, UNSPECIFIED; I74.9 - EMBOLISM AND THROMBOSIS OF UNSPECIFIED ARTERY Status: Acute Current Visit: No Onset Date: 08/15/16 (8) COPD (chronic obstructive pulmonary disease) SNOMED Code(s): 06749215 Code(s): J44.9 - CHRONIC OBSTRUCTIVE PULMONARY DISEASE, UNSPECIFIED Status : Chronic Priority: Medium Current Visit: No Qualifiers: COPD type: emphysema Emphysema type: panlobular Qualified Code(s): J43.1 - Panlobular emphysema (9) CVA (cerebral vascular accident) SNOMED Code(s): 238126372 Code(s): I63.9 - CEREBRAL INFARCTION, UNSPECIFIED Status: Chronic Priority: Low Current Visit: No Qualifiers: Laterality of affected vessel: unspecified (10) Chronic fatigue SNOMED Code(s): 28773072 Code(s): R53.82 - CHRONIC FATIGUE, UNSPECIFIED Status: Chronic Priority: Low Current Visit: No (11) Fibromyalgia SNOMED Code(s): 796910732 Code(s): M79.7 - FIBROMYALGIA Status: Chronic Priority: Low Current Visit: No (12) GERD (gastroesophageal reflux disease) SNOMED Code(s): 237063944 Code(s): K21.9 - GASTRO-ESOPHAGEAL REFLUX DISEASE WITHOUT ESOPHAGITIS Status: Chronic Priority: Low Current Visit: No Qualifiers: Esophagitis presence: esophagitis presence not specified Qualified Code(s) : K21.9 - Gastro-esophageal reflux disease without esophagitis (13) Glaucoma SNOMED Code(s): 61136319 Code(s): H40.9 - UNSPECIFIED GLAUCOMA Status: Chronic Priority: Low Current Visit: No Qualifiers: Glaucoma type: unspecified (14) HTN, Benign hypertension SNOMED Code(s): 36671322 Code(s): I10 - ESSENTIAL (PRIMARY) HYPERTENSION Status: Chronic Priority : Medium Current Visit: No (15) Hyperparathyroidism SNOMED Code(s): 97591507 Code(s): E21.3 - HYPERPARATHYROIDISM, UNSPECIFIED Status: Chronic Priority: Low Current Visit: No (16) Hypothyroid SNOMED Code(s): 52153426 Code(s): E03.9 - HYPOTHYROIDISM, UNSPECIFIED Status: Chronic Priority: Low Current Visit: No Qualifiers: 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 Qualified Code(s): E03.8 - Other specified hypothyroidism; E06.3 - Autoimmune thyroiditis (17) Mixed anxiety depressive disorder SNOMED Code(s): 146687942 Code(s): F41.8 - OTHER SPECIFIED ANXIETY DISORDERS Status: Chronic Priority: Low Current Visit: No (18) Osteoporosis SNOMED Code(s): 10200649 Code(s): M81.0 - AGE-RELATED OSTEOPOROSIS W/O CURRENT PATHOLOGICAL FRACTURE Status: Chronic Priority: Low Current Visit: No Qualifiers: Osteoporosis type: unspecified Annotation/Comment:: (19) Peptic reflux disease SNOMED Code(s): 778101940 Code(s): K21.9 - GASTRO-ESOPHAGEAL REFLUX DISEASE WITHOUT ESOPHAGITIS Status: Chronic Priority: High Current Visit: No (20) Rheumatoid arthritis SNOMED Code(s): 20186026 Code(s): M06.9 - RHEUMATOID ARTHRITIS, UNSPECIFIED Status: Chronic Priority: Low Current Visit: No Qualifiers: Rheumatoid factor presence: without rheumatoid factor Laterality: unspecified laterality (21) Thrombocytopenia SNOMED Code(s): 706774709 Code(s): D69.6 - THROMBOCYTOPENIA, UNSPECIFIED Status: Chronic Priority: Medium Current Visit: No (22) Endometrial cancer SNOMED Code(s): 820994340 Code(s): C54.1 - MALIGNANT NEOPLASM OF ENDOMETRIUM Status: Inactive Priority: Low Current Visit: No (23) Graves disease SNOMED Code(s): 344127544 Code(s): E05.00 - THYROTOXICOSIS W DIFFUSE GOITER W/O THYROTOXIC CRISIS Status: Inactive Priority: Low Current Visit: No Annotation/Comment:: (24) Acute delirium SNOMED Code(s): 6242248, 9001376 Code(s): R41.0 - DISORIENTATION, UNSPECIFIED Status: Acute Priority: High Current Visit: Yes (25) Pseudobulbar affect SNOMED Code(s): 081356968, 041478174 Code(s): F48.2 - PSEUDOBULBAR AFFECT Status: Acute Priority: High Current Visit: Yes (26) Traumatic ecchymosis of forehead SNOMED Code(s): 179639383 Code(s): S00.83XA - CONTUSION OF OTHER PART OF HEAD, INITIAL ENCOUNTER Status: Acute Priority: High Current Visit: Yes Qualifiers: Encounter type: sequela Qualified Code(s): S00.83XS - Contusion of other part of head, sequela (27) Unwitnessed fall SNOMED Code(s): 4527145 Code(s): R29.6 - REPEATED FALLS Status: Acute Priority: High Current Visit: Yes - Problem List Review Problem List Initiated/Reviewed/Updated: Yes - My Orders Last 24 Hours: My Active Orders 11/01/18 18:00 hydrALAZINE [Apresoline] 50 mg PO TID 11/01/18 20:00 Omeprazole 20 mg PO BEDTIME QUEtiapine [SEROquel] 50 mg PO BEDTIME 11/02/18 05:11 Head wo Cont [CT] Routine 11/02/18 08:00 Docusate Sodium/Sennosides [Senna Plus] 1 tab PO BID 11/02/18 12:01 Ready for Discharge [RC] PER UNIT ROUTINE - Plan Plan:: 10/24/2018 Patient was admitted through the ER for small bowel obstruction. [facility] Dr Ventura consulted with Dr Edmonds from [facility] surgery, advised to place NG tube, ambulate and then reXray. NG placed for green bile return, will monitor and ordered Xray of abdomen in 1 1/2hours. patient may need transfer to [place] for surgical evaluation and consultation. Dr Matthews consulted. Eugenia Perez,[employer] TECHNICIAN 10/24/18 ~0526 Cassie Cameron MD She has had a small loose bowel movement. X-rays improvement in air/fluid levels and some contrast in the colon. Continue medical therapy for small bowel obstruction with IV fluids and NG tube. ~500 ml of green bilious fluid out with NG tube. Will replace with IV fluids and potassium. Blood pressure elevated so will treat with IV blood pressure medications. Medically requiring inpatient status. 10/25/18 Cassie Cameron MD Medical therapy and monitoring is at inpatient status. Order placed. The mechanical small bowel obstruction is improving. Blood pressure still elevated so medications adjusted. Continue IV fluids and bowel rest. She did pull her NGT and IV out earlier today. Since she is improving NGT was not reinserted. Continue to monitor blood pressure, kidney status, electrolytes, platelets. Start oral intake in AM. 10/26/18 Cassie Cameron MD She had a rough night last night. Very agitated and not able to be redirected. Will obtain head CT due to acute delirium. Try toradol cautiously for her pain. She does have history of GI bleed and low platelets. Complaining of severe back pain but she states this is her usual pain she has had x many years. Some symptoms consistent with narcotic withdrawal and her hyperparathyroidism, hypercalcium and hypocalcium (calcium fluctuation). She takes chronic narcotics for her chronic pain. 10/27/18 Cassie Cameron MD Slight improvement. Tolerating clear liquids but still episodes of extreme weakness and aggitation and negativism. Head CT negative. Pain some better. One small bowel movement so small bowel obstruction has resolved. Will advance diet and restart home medications. Still requiring IV fluid supplementation and may need IV pain medications and IV lorazepam. PT-OT had session with her today. See their notes. 10-28-18 Gregorio Groves PA-C Was still hollering out intermittently through the night, but mental status more clear this morning. She knows me and can tell me the date and where she is. She says she wants to go home, but does not disagree when I tell her she needs to be stronger before going home. Dr. Matthews did advance her diet and adjust her routine meds. K+ mildly low at 3.1 today so KCl 10 mEq started TID with meals. Labs will be repeated in the am. Checked over at [facility] and last TSH was 1.04 on 10-20-18. Noon dose of Toradol is the last scheduled dose. Urinalysis is ordered for urinary frequency. Will consider transfer to [facility] status tomorrow if improvement continues, to work with PT-OT. 10-29-18 Gregorio Groves PA-C RN had called early this morning with patient's c/o SOB and nursing concern for ashen color and general weakness and difficulty to arouse, appeared to be acute decline in condition. EKG, x-rays and additional labs ordered. Oxygen had been applied. Patient was difficult to arouse on my exam and had a very vague expression on her face, mental status did improve with stimulation from the RN and myself. She was able to assist somewhat with transfer in the x-ray department per RN history, and here in the room transfer to the chair and then to the commode was effected with two and minimal assist from patient. X-rays also obtained of the R knee and tib-fib d/t c/o pain and h/o fall here in the hospital four days ago, unwitnessed fall. No fracture seen on these x-rays. K+ still low at 3.1 and KCl dose adjusted. Clonidine dose increased to 0.2mg BID d/ t persisting elevated BP readings. This complex elderly lady with multiple co- morbidities does require continued IP evaluation and management. 10/30/17 Cassie Cameron MD Slept most of the morning but now is awake sitting up in bed. Therapist working with arm weights and stretch band. Her voice is weak but she does talk to me. Potassium is improving but still needing replacement. Oral intake borderline so will restart IV fluids. Blood pressure still quite elevated so adjusting medications. Also on scheduled IV toradal for pain so medically justified for inpatient status. Making slow clinical improvement. 10/31/18 (late entry) Cassie Cameron MD Blood pressure readings are improved with medication adjustments. Still requiring IV fluid supplementation and still on scheduled IV toradol so inpatient status medically justified. She does not want to go to [place]. Still mood labile and extreme volatility. Still requiring prn IV lorazepam and IV fentanyl. Weakness. She needs to work with therapy but acute medical status interfering. 11/01/18 Cassie Cameron MD Yesterday could not bear weight on legs requiring 3 to assist but today did walk with 2 nurses from bed to ibarra only x1 but could not make it back to her bed and required wheel chair assist. Now yelling out again help me, help me, help me and my right knee hurts and what is wrong with me? Then cries and says she does not want to . Yesterday she told nurses that she did want to and to put her out of her misery. Oral intake borderline but IV access difficult. Now eccymosis noted on her forehead possibly from unwitnessed fall but not noticed until today. Will rescan head. Discussed MRI of brain but equipment not available this week. 11/02/18 Cassie Cameron MD Daughter from [place] is here and her . Last night she became aggressive and threatening toward staff. Still unable to place IV. Gwen, her and her daughter all agree they would like her transferred to [facility]. She is still full code. Labs, vs, and head CT reviewed from this morning. Telephone call placed to [facility]. Talked with Dot ~11:20. Talked with hospitalist Dr. Li. He will accept the patient at [facility]. Then talked with Quinton Hidalgo, and their daughter and they agree with transfer to [place].
[2018-11-02 12:17] VITALS: BP 162/67
[2018-11-02] MEDS: Magnesium Oxide 400 MG Tab PO SCH (12:17)
--- NOTE | 2018-11-02 12:18 | PCM.DCSUM1 ---
Discharge Summary - Hospital Course Free Text/Narrative:: 78 year old came to ER 10 days ago with signs and symptoms of small bowel obstruction which did resolve with conservative, medical treatment. She has had a complicated hospitalization requiring electrolyte correction, fluid balance management, extreme elevated blood pressure, uncontrollable pain, acute delirium , unwitnessed fall, bruise on forehead, severe anxiety, agitation, aggressive behavior toward staff. Patient, , daughter request transfer to [facility] and Dr. Li agrees to accept her. Diagnosis: Stroke: No - Discharge Data Discharge Date: 11/02/18 Discharge Disposition: DC/Tfer to Acute Hospital 02 Condition: Poor - Discharge Diagnosis/Problem(s) (1) Small bowel obstruction SNOMED Code(s): 372978793 ICD Code: K56.609 - UNSP INTESTNL OBST, UNSP TO PARTIAL VERSUS COMPLETE OBST Status: Acute Current Visit: Yes (2) Hypokalemia SNOMED Code(s): 62837112 ICD Code: E87.6 - HYPOKALEMIA Status: Acute Priority: High Current Visit: No Problem Details: (3) Scoliosis SNOMED Code(s): 699263363 ICD Code: M41.9 - SCOLIOSIS, UNSPECIFIED Status: Acute Priority: Medium Current Visit: No Qualifiers: Scoliosis type: idiopathic Spinal region: thoracolumbar (4) Anemia SNOMED Code(s): 327809229 ICD Code: D64.9 - ANEMIA, UNSPECIFIED Status: Chronic Priority: High Current Visit: No Qualifiers: Anemia type: iron deficiency Iron deficiency anemia type: chronic blood loss Qualified Code(s): D50.0 - Iron deficiency anemia secondary to blood loss (chronic) (5) B12 deficiency SNOMED Code(s): 455782481 ICD Code: E53.8 - DEFICIENCY OF OTHER SPECIFIED B GROUP VITAMINS Status: Chronic Priority: Low Current Visit: No (6) CKD (chronic kidney disease) SNOMED Code(s): 800706316 ICD Code: N18.9 - CHRONIC KIDNEY DISEASE, UNSPECIFIED Status: Chronic Priority: Low Current Visit: No Qualifiers: Chronic kidney disease stage: unspecified stage Qualified Code(s): N18.9 - Chronic kidney disease, unspecified (7) TIA due to embolism SNOMED Code(s): 078505690 ICD Code: G45.9 - TRANSIENT CEREBRAL ISCHEMIC ATTACK, UNSPECIFIED; I74.9 - EMBOLISM AND THROMBOSIS OF UNSPECIFIED ARTERY Status: Acute Current Visit: No Onset Date: 08/15/16 (8) COPD (chronic obstructive pulmonary disease) SNOMED Code(s): 43043866 ICD Code: J44.9 - CHRONIC OBSTRUCTIVE PULMONARY DISEASE, UNSPECIFIED Status : Chronic Priority: Medium Current Visit: No Qualifiers: COPD type: emphysema Emphysema type: panlobular Qualified Code(s): J43.1 - Panlobular emphysema (9) CVA (cerebral vascular accident) SNOMED Code(s): 068288711 ICD Code: I63.9 - CEREBRAL INFARCTION, UNSPECIFIED Status: Chronic Priority: Low Current Visit: No Qualifiers: Laterality of affected vessel: unspecified (10) Chronic fatigue SNOMED Code(s): 78527503 ICD Code: R53.82 - CHRONIC FATIGUE, UNSPECIFIED Status: Chronic Priority : Low Current Visit: No (11) Fibromyalgia SNOMED Code(s): 058722947 ICD Code: M79.7 - FIBROMYALGIA Status: Chronic Priority: Low Current Visit: No (12) GERD (gastroesophageal reflux disease) SNOMED Code(s): 998129481 ICD Code: K21.9 - GASTRO-ESOPHAGEAL REFLUX DISEASE WITHOUT ESOPHAGITIS Status: Chronic Priority: Low Current Visit: No Qualifiers: Esophagitis presence: esophagitis presence not specified Qualified Code(s) : K21.9 - Gastro-esophageal reflux disease without esophagitis (13) Glaucoma SNOMED Code(s): 41400843 ICD Code: H40.9 - UNSPECIFIED GLAUCOMA Status: Chronic Priority: Low Current Visit: No Qualifiers: Glaucoma type: unspecified (14) HTN, Benign hypertension SNOMED Code(s): 16186166 ICD Code: I10 - ESSENTIAL (PRIMARY) HYPERTENSION Status: Chronic Priority : Medium Current Visit: No (15) Hyperparathyroidism SNOMED Code(s): 15074936 ICD Code: E21.3 - HYPERPARATHYROIDISM, UNSPECIFIED Status: Chronic Priority: Low Current Visit: No (16) Hypothyroid SNOMED Code(s): 18115338 ICD Code: E03.9 - HYPOTHYROIDISM, UNSPECIFIED Status: Chronic Priority: Low Current Visit: No Qualifiers: 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 Qualified Code(s): E03.8 - Other specified hypothyroidism; E06.3 - Autoimmune thyroiditis (17) Mixed anxiety depressive disorder SNOMED Code(s): 570617856 ICD Code: F41.8 - OTHER SPECIFIED ANXIETY DISORDERS Status: Chronic Priority: Low Current Visit: No (18) Osteoporosis SNOMED Code(s): 23143913 ICD Code: M81.0 - AGE-RELATED OSTEOPOROSIS W/O CURRENT PATHOLOGICAL FRACTURE Status: Chronic Priority: Low Current Visit: No Problem Details: Qualifiers: Osteoporosis type: unspecified (19) Peptic reflux disease SNOMED Code(s): 649036758 ICD Code: K21.9 - GASTRO-ESOPHAGEAL REFLUX DISEASE WITHOUT ESOPHAGITIS Status: Chronic Priority: High Current Visit: No (20) Rheumatoid arthritis SNOMED Code(s): 43150149 ICD Code: M06.9 - RHEUMATOID ARTHRITIS, UNSPECIFIED Status: Chronic Priority: Low Current Visit: No Qualifiers: Rheumatoid factor presence: without rheumatoid factor Laterality: unspecified laterality (21) Thrombocytopenia SNOMED Code(s): 252092670 ICD Code: D69.6 - THROMBOCYTOPENIA, UNSPECIFIED Status: Chronic Priority : Medium Current Visit: No (22) Endometrial cancer SNOMED Code(s): 945874559 ICD Code: C54.1 - MALIGNANT NEOPLASM OF ENDOMETRIUM Status: Inactive Priority: Low Current Visit: No (23) Graves disease SNOMED Code(s): 857124862 ICD Code: E05.00 - THYROTOXICOSIS W DIFFUSE GOITER W/O THYROTOXIC CRISIS Status: Inactive Priority: Low Current Visit: No Problem Details: (24) Acute delirium SNOMED Code(s): 9127216, 5143525 ICD Code: R41.0 - DISORIENTATION, UNSPECIFIED Status: Acute Priority: High Current Visit: Yes (25) Pseudobulbar affect SNOMED Code(s): 238968343, 685067558 ICD Code: F48.2 - PSEUDOBULBAR AFFECT Status: Acute Priority: High Current Visit: Yes (26) Traumatic ecchymosis of forehead SNOMED Code(s): 778708329 ICD Code: S00.83XA - CONTUSION OF OTHER PART OF HEAD, INITIAL ENCOUNTER Status: Acute Priority: High Current Visit: Yes Qualifiers: Encounter type: sequela Qualified Code(s): S00.83XS - Contusion of other part of head, sequela (27) Unwitnessed fall SNOMED Code(s): 3645490 ICD Code: R29.6 - REPEATED FALLS Status: Acute Priority: High Current Visit: Yes - Patient Summary/Data Consults: Consultations 10/25/18 10:58 Consult to Case Management/Video Game Designer [CONS] Routine 10/25/18 11:00 Consult to Occupational Therapy [OT Evaluation and Treatment] [CONS] Routine Consult to Physical Therapy [PT Evaluation and Treatment] [CONS] Routine - Patient Instructions Diet: Regular Diet as Tolerated Activity: As Tolerated Driving: Do Not Drive Showering/Bathing: May Shower - Discharge Plan *PRESCRIPTION DRUG MONITORING PROGRAM REVIEWED*: Not Applicable *COPY OF PRESCRIPTION DRUG MONITORING REPORT IN PATIENT JULIANNA: Not Applicable Home Medications: Home Meds Albuterol [Proventil HFA] 1 inh INH Q4HR PRN 04/18/14 [History] Cetirizine HCl [Zyrtec] 10 mg PO DAILY 04/17/15 [History] Cyanocobalamin (Vitamin B-12) [Vitamin B-12] 1,000 mcg SUBCUT Q30D 04/17/15 [ History] Pantoprazole Sodium [Protonix] 40 mg PO BID 09/23/15 [History] Levothyroxine [Synthroid] 75 mcg PO DAILY 02/21/17 [History] Brinzolamide [Azopt 1% Ophth Susp] 1 drop EYEBOTH BID@06/18/18 [History] cycloSPORINE [Restasis] 1 each EYEBOTH BID 06/18/18 [History] LORazepam [Ativan] 0.5 mg PO Q8H PRN 06/19/18 [History] Carvedilol [Coreg] 3.125 mg PO Q12HR #180 tablet 06/22/18 [Rx] Furosemide [Lasix] 20 mg PO DAILY #90 tablet 06/22/18 [Rx] Losartan [Cozaar] 100 mg PO BEDTIME #90 tab 06/22/18 [Rx] Magnesium Oxide 400 mg PO DAILY@1200 tablet 06/22/18 [Rx] Calcitriol 0.25 mcg PO DAILY 10/24/18 [History] Escitalopram [Lexapro] 10 mg PO DAILY 10/24/18 [History] Hydrocodone/Acetaminophen [Hydrocodon-Acetaminophen 5-325] 1 tab PO QID PRN 04/05 [History] Latanoprost/Pf [Latanoprost 0.005% Eye Drop] 1 drop EYEBOTH BID 10/24/18 [ History] Multivits-Min/Iron/FA/Lutein [Centrum Silver Women Tablet] 1 each PO DAILY 10/24 [History] Non-Formulary Medication [NF Drug] 1 drop EYEBOTH BID 10/24/18 [History] Pravastatin [Pravachol] 40 mg PO BEDTIME 10/24/18 [History] cloNIDine [Catapres] 0.1 mg PO BID 10/24/18 [History] levoFLOXacin [Levofloxacin] 250 mg PO DAILY 10/24/18 [History] Calcium Carbonate/Vitamin D3 [Calcium 500 + Vit D 200 Caplet] 1 tab PO TID 10/25 [History] Docusate Sodium 100 mg PO TID 10/25/18 [History] Oxygen Therapy Mode: Room Air Forms: ED Department Discharge Referrals: Eugenia Perez, FIELD MARKETING COORDINATOR [Primary Care Provider] - - Discharge Summary/Plan Comment DC Time >30 min.: No Discharge Summary/Plan Comment: See Summary at the beginning of the discharge summary. She is discharged and transferred per ambulance to [facility] to Dr. Li. - Patient Data Vitals - Most Recent: Last Vital Signs Temp 97.2 F 11/02/18 08:00 Pulse 75 11/02/18 08:00 Resp 18 11/02/18 08:00 BP 191/84 H 11/02/18 08:00 Pulse Ox 96 11/02/18 08:00 Weight - Most Recent: 172 lb 15.983 oz I&O - Last 24 hours: Intake & Output 11/01/18 11/02/18 11/02/18 22:59 06:59 14:59 Intake Total 120 Output Total 1 Balance 119 Lab Results - Last 24 hrs: Laboratory Results - last 24 hr 11/02/18 11/02/18 Range/Units 07:15 07:15 WBC 4.6 (4.0-10.2) K/uL RBC 4.31 (3.77-5.09) M/uL Hgb 14.0 (11.7-15.5) g/dL Hct 40.6 (34.0-46.0) % MCV 94.2 (84.0-98.0) fL MCH 32.5 (28.2-33.3) pg MCHC 34.5 (31.7-36.0) g/dL RDW 13.5 (11.2-14.1) % Plt Count 104 L (150-350) K/uL Neut % (Auto) 47.0 (45.0-80.0) % Lymph % (Auto) 35.3 (10.0-50.0) % Crockett % (Auto) 12.1 (2.0-14.0) % Eos % (Auto) 5.4 H (0.0-5.0) % Baso % (Auto) 0.2 (0.0-2.0) % Neut # (Auto) 2.18 (1.40-7.00) K/uL Lymph # (Auto) 1.64 (0.50-3.50) K/uL Crockett # (Auto) 0.56 (0.00-1.00) K/uL Eos # (Auto) 0.25 (0.00-0.50) K/uL Baso # (Auto) 0.01 (0.00-0.20) K/uL Sodium 140 (136-145) mmol/L Potassium 3.7 (3.5-5.1) mmol/L Chloride 104 (98-107) mmol/L Carbon Dioxide 20.8 L (21.0-32.0) mmol/L BUN 18 (7-18) mg/dL Creatinine 1.22 H (0.51-1.17) mg/dL Est Cr Clr Drug Dosing 37.45 mL/min Estimated GFR (MDRD) 43 mL/min Glucose 101 (74-106) mg/dL Calcium 9.5 (8.5-10.1) mg/dL Magnesium 1.7 L (1.8-2.4) mg/dL Total Bilirubin 0.6 (0.2-1.0) mg/dL AST 32 (15-37) U/L ALT 27 (12-78) U/L Alkaline Phosphatase 61 (46-116) IU/L C-Reactive Protein < 0.9 (<=0.9) mg/dL Total Protein 6.6 (6.4-8.2) g/dL Albumin 3.6 (3.4-5.0) g/dL Med Orders - Current: Current Medications Hydrocodone Bitart/Acetaminophen (Apache 325-5 Mg) 1 tab PO Q4H PRN PRN Reason: Pain (severe 7-10) Last Admin: 11/02/18 12:01 Dose: 1 tab Albuterol (Ventolin Hfa) 0 gm INH Q4H PRN PRN Reason: SHORTNESS OF BREATH Last Admin: 10/28/18 15:46 Dose: 1 puff Albuterol/Ipratropium (Duoneb 3.0-0.5 Mg/3 Ml) 3 ml NEB Q4H PRN PRN Reason: Shortness of Breath Last Admin: 10/29/18 16:47 Dose: 3 ml Amlodipine Besylate (Norvasc) 2.5 mg PO Q12HR [facility] Last Admin: 11/02/18 07:32 Dose: 2.5 mg Calcitriol (Rocaltrol) 0.25 mcg PO DAILY [facility] Last Admin: 11/02/18 07:30 Dose: 0.25 mcg Calcium Carbonate (Oystcal-D 625 Mg-125 Units) 1 tab PO TIDMEALS [facility] Last Admin: 11/02/18 07:30 Dose: 1 tab Carvedilol (Coreg) 6.25 mg PO BID [facility] Last Admin: 11/02/18 07:32 Dose: 6.25 mg Clonidine HCl (Catapres) 0.1 mg PO Q12HR [facility] Last Admin: 11/02/18 07:32 Dose: 0.1 mg Dorzolamide HCl (Trusopt 2% Ophth Soln) 0 ml EYEBOTH BID@08,20 [facility] Last Admin: 11/02/18 07:33 Dose: 1 drop Escitalopram Oxalate (Lexapro) 20 mg PO DAILY [facility] Last Admin: 11/02/18 07:31 Dose: 20 mg Hydralazine HCl (Apresoline) 50 mg PO TID [facility] Last Admin: 11/02/18 07:32 Dose: 50 mg Latanoprost (Xalatan 0.005% Ophth Soln) 0 ml EYEBOTH BEDTIME [facility] Last Admin: 11/01/18 19:31 Dose: 1 drop Levothyroxine Sodium (Levothyroxine) 75 mcg PO ACBREAKFAST [facility] Last Admin: 11/02/18 07:31 Dose: 75 mcg Lorazepam (Ativan) 1 mg PO Q3H PRN PRN Reason: Anxiety Last Admin: 10/31/18 23:58 Dose: 1 mg Lorazepam (Ativan) 1 mg PO TID [facility] Last Admin: 11/02/18 12:00 Dose: 1 mg Losartan Potassium (Cozaar) 100 mg PO BEDTIME [facility] Last Admin: 11/01/18 19:32 Dose: 100 mg Magnesium Oxide (Magnesium Oxide) 400 mg PO DAILY@1200 [facility] Last Admin: 11/01/18 11:58 Dose: 400 mg Cyclosporine [ (Restasis] Ophth Soln) 1 each EYEBOTH BID [facility] Last Admin: 11/02/18 07:33 Dose: 1 each Carteolol 1% Ophth (Solution) 0 each EYEBOTH Q12HR [facility] Last Admin: 11/02/18 07:33 Dose: 1 each Omeprazole (Omeprazole) 20 mg PO BEDTIME [facility] Last Admin: 11/01/18 19:28 Dose: 20 mg Quetiapine Fumarate (Seroquel) 50 mg PO BEDTIME [facility] Last Admin: 11/01/18 19:28 Dose: 50 mg Senna/Docusate Sodium (Senna Plus) 1 tab PO BID [facility] Last Admin: 11/02/18 07:40 Dose: Not Given Discontinued Medications Hydrocodone Bitart/Acetaminophen (Apache 325-5 Mg) 1 tab PO TID [facility] Last Admin: 11/01/18 17:41 Dose: 1 tab Albuterol/Ipratropium (Duoneb 3.0-0.5 Mg/3 Ml) 3 ml NEB ONETIME ONE Stop: 10/28/18 16:13 Last Admin: 10/28/18 16:23 Dose: 3 ml Bisacodyl (Dulcolax) 5 mg PO DAILY PRN PRN Reason: Constipation Carvedilol (Coreg) 3.125 mg PO Q12HR [facility] Last Admin: 10/24/18 09:53 Dose: Not Given Carvedilol (Coreg) 3.125 mg PO BID [facility] Last Admin: 10/30/18 07:25 Dose: 3.125 mg Carvedilol (Coreg) 3.125 mg PO ONETIME ONE Stop: 10/30/18 11:15 Last Admin: 10/30/18 12:54 Dose: Not Given Clonidine HCl (Catapres) 0.1 mg PO Q12HR [facility] Last Admin: 10/28/18 19:08 Dose: 0.1 mg Clonidine HCl (Catapres) 0.1 mg PO ONETIME ONE Stop: 10/28/18 16:12 Last Admin: 10/28/18 16:22 Dose: 0.1 mg Clonidine HCl (Catapres) 0.2 mg PO Q12HR [facility] Last Admin: 10/30/18 07:24 Dose: 0.2 mg Clonidine HCl (Catapres) 0.2 mg PO ONETIME ONE Stop: 10/29/18 17:06 Last Admin: 10/29/18 17:21 Dose: 0.2 mg Clonidine HCl (Catapres) 0.1 mg PO ONETIME ONE Stop: 10/29/18 20:00 Last Admin: 10/29/18 20:17 Dose: 0.1 mg Clonidine HCl (Catapres) 0.1 mg PO ONETIME ONE Stop: 10/30/18 08:09 Last Admin: 10/30/18 08:26 Dose: 0.1 mg Coenzyme Q10 (Coenzyme Q10) 100 mg PO DAILY [facility] Last Admin: 10/24/18 11:47 Dose: Not Given Diphenhydramine HCl (Benadryl) 25 mg IVPUSH ONETIME ONE Stop: 10/23/18 23:12 Last Admin: 10/23/18 23:15 Dose: 25 mg Diphenhydramine HCl (Benadryl) 25 mg IVPUSH ONETIME ONE Stop: 10/26/18 05:33 Last Admin: 10/26/18 05:42 Dose: 25 mg Diphenhydramine HCl (Benadryl) 50 mg IM ONETIME ONE Stop: 11/02/18 00:46 Last Admin: 11/02/18 01:00 Dose: 50 mg Docusate Sodium (Colace) 100 mg PO DAILY PRN PRN Reason: Constipation Enalaprilat (Vasotec Iv) 0.625 mg IVPUSH ONETIME ONE Stop: 10/24/18 17:16 Last Admin: 10/24/18 17:49 Dose: 0.625 mg Enalaprilat (Vasotec Iv) 0.625 mg IVPUSH Q6H [facility] Last Admin: 10/27/18 05:10 Dose: 0.625 mg Enalaprilat (Vasotec Iv) 1.25 mg IVPUSH Q6H [facility] Last Admin: 10/27/18 12:04 Dose: 1.25 mg Escitalopram Oxalate (Lexapro) 20 mg PO DAILY [facility] Last Admin: 10/24/18 09:54 Dose: Not Given Escitalopram Oxalate (Lexapro) 10 mg PO DAILY [facility] Last Admin: 10/29/18 08:31 Dose: 10 mg Fentanyl (Sublimaze) 50 mcg IVPUSH ONETIME ONE Stop: 10/23/18 23:11 Last Admin: 10/23/18 23:16 Dose: 50 mcg Fentanyl (Sublimaze) 50 mcg IVPUSH ONETIME ONE Stop: 10/24/18 01:01 Last Admin: 10/24/18 01:20 Dose: 50 mcg Fentanyl (Sublimaze) 50 mcg IVPUSH Q4H PRN PRN Reason: Pain (severe 7-10) Last Admin: 10/31/18 02:42 Dose: 50 mcg Fentanyl (Sublimaze) 100 mcg IVPUSH ONETIME ONE Stop: 10/24/18 07:32 Last Admin: 10/24/18 07:48 Dose: 100 mcg Furosemide (Lasix) 20 mg PO DAILY [facility] Last Admin: 10/24/18 09:54 Dose: Not Given Haloperidol Lactate (Haldol) 5 mg IVPUSH ONETIME ONE Stop: 10/25/18 23:45 Last Admin: 10/26/18 00:09 Dose: 5 mg Haloperidol Lactate (Haldol) 5 mg IVPUSH ONETIME ONE Stop: 10/26/18 05:35 Last Admin: 10/26/18 05:41 Dose: 5 mg Haloperidol Lactate (Haldol) 5 mg IVPUSH ONETIME ONE Stop: 10/26/18 22:26 Last Admin: 10/26/18 22:46 Dose: 5 mg Haloperidol Lactate (Haldol) 5 mg IVPUSH ONETIME ONE Stop: 10/27/18 04:28 Last Admin: 10/27/18 04:43 Dose: 5 mg Haloperidol Lactate (Haldol) 5 mg IM ONETIME ONE Stop: 11/01/18 23:05 Last Admin: 11/01/18 23:09 Dose: 5 mg Haloperidol Lactate (Haldol) 5 mg IM ONETIME ONE Stop: 11/02/18 00:47 Last Admin: 11/02/18 00:59 Dose: 5 mg Hydralazine HCl (Apresoline) 25 mg PO TID [facility] Last Admin: 10/30/18 12:53 Dose: Not Given Hydralazine HCl (Apresoline) 25 mg PO TID [facility] Last Admin: 11/01/18 11:57 Dose: 25 mg Sodium Chloride (Normal Saline) 1,000 mls @ 75 mls/hr IV ONETIME ONE Stop: 10/24/18 14:21 Last Admin: 10/24/18 01:21 Dose: 75 mls/hr Potassium Chloride/Dextrose/Sod Cl (D5 1/2 Ns W/ 20 Meq/L Kcl) 1,000 mls @ 100 mls/hr IV ASDIRECTED [facility] Stop: 10/25/18 03:14 Last Admin: 10/24/18 17:49 Dose: 100 mls/hr Sodium Chloride (Normal Saline) 1,000 mls @ 100 mls/hr IV ASDIRECTED [facility] Last Admin: 10/25/18 16:31 Dose: 100 mls/hr Sodium Chloride (Normal Saline) 1,000 mls @ 50 mls/hr IV ASDIRECTED [facility] Last Admin: 10/28/18 22:52 Dose: 50 mls/hr Potassium Chloride/Dextrose/Sod Cl (D5 1/2 Ns W/ 20 Meq/L Kcl) 1,000 mls @ 75 mls/hr IV ASDIRECTED [facility] Stop: 11/01/18 00:49 Last Admin: 10/31/18 05:40 Dose: 75 mls/hr Ketorolac Tromethamine (Toradol) 30 mg IVPUSH ONETIME ONE Stop: 10/24/18 08:45 Last Admin: 10/24/18 10:27 Dose: 30 mg Ketorolac Tromethamine (Toradol) 30 mg IVPUSH ONETIME ONE Stop: 10/26/18 12:00 Last Admin: 10/26/18 12:23 Dose: 30 mg Ketorolac Tromethamine (Toradol) 15 mg IVPUSH Q6H [facility] Stop: 10/28/18 12:01 Last Admin: 10/28/18 12:01 Dose: 15 mg Ketorolac Tromethamine (Toradol) 15 mg IVPUSH Q6H [facility] Stop: 10/31/18 12:01 Last Admin: 10/31/18 11:25 Dose: 15 mg Labetalol HCl (Normodyne) 10 mg IVPUSH Q12H [facility]; Protocol Last Admin: 10/27/18 14:46 Dose: 10 mg Latanoprost (Xalatan 0.005% Ophth Soln) ml EYEBOTH BEDTIME [facility] Levothyroxine Sodium (Levothyroxine) 75 mcg PO ACBREAKFAST [facility] Last Admin: 10/24/18 09:53 Dose: Not Given Lidocaine HCl (Xylocaine 2% Viscous) Confirm Administered Dose 15 ml .ROUTE .STK -MED ONE Stop: 10/24/18 09:18 Last Admin: 10/24/18 09:21 Dose: 15 ml Lidocaine HCl (Xylocaine 2% Viscous) Confirm Administered Dose 15 ml .ROUTE .STK -MED ONE Stop: 10/24/18 10:10 Last Admin: 10/24/18 10:30 Dose: 15 ml Lorazepam (Ativan) 0.5 mg IVPUSH ONETIME ONE Stop: 10/24/18 01:02 Last Admin: 10/24/18 06:58 Dose: Not Given Lorazepam (Ativan) 0.5 mg IVPUSH ONETIME ONE Stop: 10/24/18 02:01 Last Admin: 10/24/18 02:08 Dose: 0.5 mg Lorazepam (Ativan) 0.5 mg PO Q8H PRN PRN Reason: Anxiety Lorazepam (Ativan) 1 mg IVPUSH Q6H PRN PRN Reason: Agitation Last Admin: 10/24/18 21:31 Dose: 1 mg Lorazepam (Ativan) 1 mg IVPUSH Q4H PRN PRN Reason: Agitation Last Admin: 10/25/18 01:39 Dose: 1 mg Lorazepam (Ativan) 2 mg IVPUSH Q4H PRN PRN Reason: Agitation Last Admin: 10/31/18 18:08 Dose: 2 mg Lorazepam (Ativan) 1 mg PO TID [facility] Last Admin: 10/30/18 07:22 Dose: 1 mg Lorazepam (Ativan) 0.5 mg PO TID [facility] Last Admin: 10/31/18 18:08 Dose: Not Given Lorazepam (Ativan) 2 mg IM ONETIME ONE Stop: 11/02/18 00:46 Last Admin: 11/02/18 01:00 Dose: 2 mg Losartan Potassium (Cozaar) 100 mg PO BEDTIME [facility] Losartan Potassium (Cozaar) 100 mg PO ONETIME ONE Stop: 10/30/18 17:08 Losartan Potassium (Cozaar) 100 mg PO ONETIME ONE Stop: 10/29/18 17:08 Last Admin: 10/29/18 17:18 Dose: 100 mg Magnesium Hydroxide (Milk Of Magnesia) 30 ml PO DAILY PRN PRN Reason: Constipation Magnesium Oxide (Magnesium Oxide) 400 mg PO DAILY@1200 [facility] Last Admin: 10/24/18 11:30 Dose: Not Given Metoprolol Tartrate (Lopressor) 2.5 mg IVPUSH Q6H [facility] Last Admin: 10/25/18 05:18 Dose: 2.5 mg Metoprolol Tartrate (Lopressor) 2.5 mg IVPUSH Q6H [facility] Last Admin: 10/27/18 08:34 Dose: 2.5 mg Mirtazapine (Remeron) 30 mg PO BEDTIME [facility] Morphine Sulfate (Morphine) 2 mg IVPUSH ONETIME ONE Stop: 10/24/18 02:41 Last Admin: 10/24/18 02:45 Dose: 2 mg Nifedipine (Procardia) 10 mg PO ONETIME ONE Stop: 10/30/18 11:21 Last Admin: 10/30/18 12:34 Dose: 10 mg Ondansetron HCl (Zofran) 4 mg IVPUSH Q6H PRN PRN Reason: Nausea/Vomiting Last Admin: 10/24/18 02:59 Dose: 4 mg Pantoprazole Sodium (Protonix) 40 mg PO BIDAC [facility] Last Admin: 10/24/18 09:53 Dose: Not Given Pantoprazole Sodium (Protonix Iv) 40 mg IVPUSH Q12H [facility] Last Admin: 10/31/18 11:25 Dose: 40 mg Potassium Chloride (Klor-Con 10) 10 meq PO TIDMEALS [facility] Last Admin: 10/29/18 08:27 Dose: 10 meq Potassium Chloride (Klor-Con M20) 20 meq PO TIDMEALS [facility] Last Admin: 10/30/18 17:44 Dose: 20 meq Potassium Chloride (Klor-Con 10) 10 meq PO TID [facility] Last Admin: 10/31/18 18:05 Dose: 10 meq Quetiapine Fumarate (Seroquel) 50 mg PO BEDTIME [facility] Last Admin: 10/28/18 19:08 Dose: 50 mg Quetiapine Fumarate (Seroquel) 25 mg PO BEDTIME [facility] Last Admin: 10/31/18 20:14 Dose: 25 mg Senna/Docusate Sodium (Senna Plus) 2 tab PO TID [facility] Last Admin: 10/24/18 11:47 Dose: Not Given Senna/Docusate Sodium (Senna Plus) 1 tab PO BID KATLIN Senna/Docusate Sodium (Senna Plus) 1 tab PO TID [facility] Last Admin: 11/01/18 17:40 Dose: 1 tab Sodium Chloride (Saline Flush) 10 ml FLUSH ASDIRECTED PRN PRN Reason: Keep Vein Open Last Admin: 10/31/18 18:09 Dose: 10 ml Sodium Chloride (Saline Flush) 10 ml FLUSH Q12HR [facility] Last Admin: 10/31/18 20:14 Dose: 10 ml
== END 2018-11-02 14:20 | DRG 390 ==
LOC: LL.ED 22:29 → UNDOADMOB 10-24 00:15 → LL.MS 10-24 00:15 → OBSVTOIN 10-25 10:40
PROVIDERS: ADMIT Emergency Medicine; ATTEND Family Medicine
DX: K56.609 Unspecified intestinal obstruction, unspecified as to partial versus complete obstruction (principal); R10.9 Unspecified abdominal pain; K59.09 Other constipation; G89.29 Other chronic pain; J30.9 Allergic rhinitis, unspecified; H54.7 Unspecified visual loss; R53.1 Weakness; M19.91 Primary osteoarthritis, unspecified site; R42 Dizziness and giddiness; H91.90 Unspecified hearing loss, unspecified ear; E78.00 Pure hypercholesterolemia, unspecified; E87.6 Hypokalemia; M41.25 Other idiopathic scoliosis, thoracolumbar region; I49.9 Cardiac arrhythmia, unspecified; J43.1 Panlobular emphysema; R06.02 Shortness of breath; D50.0 Iron deficiency anemia secondary to blood loss (chronic); E06.3 Autoimmune thyroiditis; F41.8 Other specified anxiety disorders; F48.2 Pseudobulbar affect; S00.83XA Contusion of other part of head, initial encounter; R29.6 Repeated falls; R41.0 Disorientation, unspecified; K21.9 Gastro-esophageal reflux disease without esophagitis; I12.9 Hypertensive chronic kidney disease with stage 1 through stage 4 chronic kidney disease, or unspecified chronic kidney disease; N18.9 Chronic kidney disease, unspecified; M79.7 Fibromyalgia; M81.0 Age-related osteoporosis without current pathological fracture; M06.9 Rheumatoid arthritis, unspecified; J44.9 Chronic obstructive pulmonary disease, unspecified; M54.2 Cervicalgia; E53.8 Deficiency of other specified B group vitamins; D69.6 Thrombocytopenia, unspecified; R32 Unspecified urinary incontinence; F98.8 Other specified behavioral and emotional disorders with onset usually occurring in childhood and adolescence; G47.419 Narcolepsy without cataplexy; E89.2 Postprocedural hypoparathyroidism; E55.9 Vitamin D deficiency, unspecified; E89.0 Postprocedural hypothyroidism; I70.203 Unspecified atherosclerosis of native arteries of extremities, bilateral legs; I70.1 Atherosclerosis of renal artery; H91.13 Presbycusis, bilateral; F32.9 Major depressive disorder, single episode, unspecified; F41.9 Anxiety disorder, unspecified; M32.9 Systemic lupus erythematosus, unspecified; M41.9 Scoliosis, unspecified; M19.90 Unspecified osteoarthritis, unspecified site; K57.90 Diverticulosis of intestine, part unspecified, without perforation or abscess without bleeding; Z90.49 Acquired absence of other specified parts of digestive tract; Z79.899 Other long term (current) drug therapy; Z88.0 Allergy status to penicillin; Z88.2 Allergy status to sulfonamides; D64.9 Anemia, unspecified; Z86.718 Personal history of other venous thrombosis and embolism; E61.1 Iron deficiency; Z98.42 Cataract extraction status, left eye; R46.89 Other symptoms and signs involving appearance and behavior; Z98.41 Cataract extraction status, right eye; Z98.51 Tubal ligation status; Z88.8 Allergy status to other drugs, medicaments and biological substances; Z86.010 Personal history of colon polyps; Z86.73 Personal history of transient ischemic attack (TIA), and cerebral infarction without residual deficits; Z85.42 Personal history of malignant neoplasm of other parts of uterus; Z90.710 Acquired absence of both cervix and uterus; Z87.891 Personal history of nicotine dependence; Z79.52 Long term (current) use of systemic steroids; Z79.890 Hormone replacement therapy; Z87.01 Personal history of pneumonia (recurrent); Z88.7 Allergy status to serum and vaccine; Z87.11 Personal history of peptic ulcer disease; Z88.5 Allergy status to narcotic agent; Z87.440 Personal history of urinary (tract) infections
CPT/HCPCS: 36415; 51701; 51798; 70450; 71046; 73562-RT; 73590-RT; 73700-RT; 74018; 74019; 74177; 76770; 80048; 80053; 81001; 82140; 82150; 82803; 82962; 83605; 83690; 83735; 83880; 84100; 84484; 85025; 85379; 85652; 86140; 86304; 87086; 87088; 87186; 93005; 93306; 93970; 94640; 96361; 96372; 96374; 96375; 96376; 97110-GO; 97110-GP; 97163-GP; 97165-GO; 97530-GO; 97530-GP; 99218; 99285-25; A9270-GY; C9113; G0378; J1200; J1630; J1885; J2060; J2270; J2405; J3010; J3480; J3490; J7030; J7620-GY; Q9967

== ENCOUNTER 2019-02-09 15:13 | Inpatient (IN) | payer MEDICARE, OTHER ==
[2019-02-09] MEDS ORDERED: Albuterol/Ipratropium 3.0-0.5 MG/3 ML Neb Soln NEB PRN (16:00)
[2019-02-09] MEDS: Azithromycin 500 MG in Sodium Chloride 0.9% 250 ML IV SCH (16:51)
[2019-02-09] MEDS: Sodium Chloride 0.9% 10 ML Syringe FLUSH PRN (16:52)
[2019-02-09 16:54] LABS: CHLORIDE,CL 103 mmol/L (98-107); SODIUM,NA 140 mmol/L (136-145)
--- NOTE | 2019-02-09 17:14 | PCM.HP ---
H&P History of Present Illness - General Date of Service: 02/09/19 Admit Problem/Dx: Admission Diagnosis/Problem Admission Diagnosis/Problem COPD with acute lower respiratory infection Source of Information: Patient, EMS, EMS Notes Reviewed, Family History Limitations: Reports: No Limitations - History of Present Illness Initial Comments - Free Text/Narative: Patient presents to the clinic with not feeling well. Complains of shortness of breath at times, cough and weakness. Fell a couple days ago while trying to get around her recliner and couldnt get up on her own, needing her spouse to help her up. Patient has shakiness and fatigue. The patient is feeling like she may be reacting to some of her medications. Recently treated for a bladder infection , denies any symptoms except for urgency. last BM was yesterday, has decreased appetite. No fever. Onset of Symptoms: Reports: Gradual Duration of Symptoms: Reports: Getting Worse Improves with: Reports: Rest Worsens with: Reports: Movement Associated Symptoms: Reports: Chest Pain (had chest pain 3 days ago, cough over the last week and getting worse), Cough, Loss of Appetite, Malaise, Shortness of Breath, Weakness - Related Data Allergies/Adverse Reactions: Allergies Allergy/AdvReac Type Severity Reaction Status Date / Time meloxicam Allergy Severe Other Verified 02/09/19 15:39 atorvastatin [From Lipitor] Allergy Cannot Verified 02/09/19 15:39 Remember hydrochlorothiazide Allergy Hives Verified 02/09/19 15:39 hydromorphone Allergy Other Verified 02/09/19 15:39 nitrofurantoin Allergy GI Distress Verified 02/09/19 15:39 [From Macrobid] Penicillins Allergy Hives Verified 02/09/19 15:39 Sulfa (Sulfonamide Allergy Hives Verified 02/09/19 15:39 Antibiotics) tetanus and diphtheria Allergy Other Verified 02/09/19 15:39 toxoids trazodone Allergy Itching Verified 02/09/19 15:39 Home Medications: Home Meds Albuterol [Proventil HFA] 1 - 2 puff INH Q4HR PRN 04/18/14 [History] Cetirizine HCl [Zyrtec] 10 mg PO DAILY 04/17/15 [History] Cyanocobalamin (Vitamin B-12) [Vitamin B-12] 1,000 mcg SUBCUT Q30D 04/17/15 [ History] Pantoprazole Sodium [Protonix] 40 mg PO BID 09/23/15 [History] Levothyroxine [Synthroid] 75 mcg PO DAILY 02/21/17 [History] Brinzolamide [Azopt 1% Ophth Susp] 1 drop EYEBOTH BID 06/18/18 [History] cycloSPORINE [Restasis] 1 each EYEBOTH BID 06/18/18 [History] LORazepam [Ativan] 0.5 mg PO Q8H PRN 06/19/18 [History] Furosemide [Lasix] 20 mg PO DAILY #90 tablet 06/22/18 [Rx] Calcitriol 0.25 mcg PO DAILY 10/24/18 [History] Escitalopram [Lexapro] 20 mg PO DAILY 10/24/18 [History] Hydrocodone/Acetaminophen [Hydrocodon-Acetaminophen 5-325] 1 tab PO QID PRN 04/05 [History] Latanoprost/Pf [Latanoprost 0.005% Eye Drop] 1 drop EYEBOTH BEDTIME 10/24/18 [ History] Multivits-Min/Iron/FA/Lutein [Centrum Silver Women Tablet] 1 each PO DAILY 10/24 [History] Non-Formulary Medication [NF Drug] 1 drop EYEBOTH BID 10/24/18 [History] Pravastatin [Pravachol] 40 mg PO BEDTIME 10/24/18 [History] cloNIDine [Catapres] 0.1 mg PO BID 10/24/18 [History] Calcium Carbonate/Vitamin D3 [Calcium 500 + Vit D 200 Caplet] 2 tab PO TID 10/25 [History] Docusate Sodium 100 mg PO TID 10/25/18 [History] Carvedilol [Coreg] 3.125 mg PO BID 02/09/19 [History] Losartan [Cozaar] 100 mg PO DAILY 02/09/19 [History] Magnesium Oxide 400 mg PO DAILY 02/09/19 [History] Mirtazapine 0.5 tab PO BEDTIME 02/09/19 [History] Ranitidine HCl 150 mg PO BEDTIME 02/09/19 [History] Past Medical History HEENT History: Reports: Allergic Rhinitis, Cataract, Glaucoma, Hard of Hearing, Impaired Vision, Other (See Below) Other HEENT History: Severe bilateral presbycusis with suboptimal hearing aid therapy, the patient wears glasses Cardiovascular History: Reports: Arrhythmia, Blood Clots/VTE/DVT, High Cholesterol, Hypertension, PVD, SOB on Exertion, Other (See Below) Other Cardiovascular History: PVCs, right leg DVT with secondary TIA in July 2016 as below, significant peripheral vascular disease by CT scan of the abdomen and pelvis on 02/24/17 as below including moderate bilateral renal artery stenosis, common femoral stenosis and SMA stenosis Respiratory History: Reports: Bronchitis, Recurrent, COPD, Intubation, Previous , Pneumonia, Recurrent Gastrointestinal History: Reports: Cholelithiasis, Chronic Constipation, Colon Polyp, Diverticulosis, Gastritis, GERD, GI Bleed, Helicobacter Pylori, Hiatal Hernia, Pancreatitis, PUD, Other (See Below) Other Gastrointestinal History: History of duodenal ulcer and upper GI bleed on 03/31/14, tubular adenoma on 03/31/14, moderate sigmoid diverticulosis by CT scan with possibility of lower GI bleeds with long history of recurrent GI bleeds with both positive and negative workups as below, previously treated H. pylori infection with subsequent negative biopsies for H. 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 History: Reports: Musculoskeletal History: Reports: Arthritis, Back Pain, Chronic, Fibromyalgia, Neck Pain, Chronic, Osteoarthritis, Osteoporosis, RA, SLE, Other (See Below) Other Musculoskeletal History: Right-sided Almaguer's cyst, scoliosis Neurological History: Reports: TIA, Other (See Below) Other Neuro History: Narcolepsy, TIA on 08/15/16 Psychiatric History: Reports: ADD, Addiction, Anxiety, Depression, Other (See Below) Other Psychiatric History: 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 Graves' disease with standard post-excision and radioactive iodide therapy with subsequent secondary hypothyroidism, status post excision of parathyroid gland as below Hematologic History: Reports: Anemia, B12 Deficiency, Blood Transfusion(s), Iron Deficiency, Other (See Below) Other Hematologic History: Multiple GI bleeds as above with secondary anemia, and iron deficiency with multiple blood transfusions in the past, thrombocytopenia Immunologic History: Reports: Immunosuppression, SLE, Other (See Below) Other Immunologic History: Chronic steroid use Oncologic (Cancer) History: Reports: Uterine Dermatologic History: Reports: None - Infectious Disease History Infectious Disease History: Reports: Chicken Pox, Helicobacter Pylori, Measles, Mumps - Past Surgical History Head Surgeries/Procedures: Reports: None HEENT Surgical History: Reports: Cataract Surgery, Eye Surgery, Laser Surgery, Oral Surgery, Other (See Below) Other HEENT Surgeries/Procedures: Right upper lid blepharoplasty, bilateral laser treatments for her glaucoma, bilateral cataract surgery Cardiovascular Surgical History: Reports: None Respiratory Surgical History: Reports: None GI Surgical History: Reports: Appendectomy, Cholecystectomy, Colonoscopy, EGD, Hernia, Abdominal, Victor Manuel Fundoplication, Polypectomy, Other (See Below) Other GI Surgeries/Procedures: Incomplete colonoscopy in 2003 with subsequent multiple colonoscopies including 03/31/14 with last colonoscopy on 02/24/17, last EGD on 01/11/16 did show some esophageal stenosis, gastric polyp, and a duodenal diverticulum with previous EGDs on 07/04/14, 03/21/2014 and 01/04/13, ventral abdominal hernia repair on the laparoscopic cholecystectomy, omentectomy secondary to uterine cancer as above Female Surgical History: Reports: Breast Biopsy, Cystoscopy, Hysterectomy, Salpingo-Oophorectomy, Tubal Ligation Other Female Surgeries/Procedures: bilateral tubal ligation in the 1970s, complete hysterectomy and bilateral salpingo-oophorectomy secondary to uterine cancer with additional chemotherapy in 2001, cystoscopy on 02/24/09 Endocrine Surgical History: Reports: None, Parathyroidectomy, Thyroidectomy, Other (See Below) Other Endocrine Surgeries/Procedures: Partial Parathyroidectomy 2 with last surgery on 04/17/13 and only one gland remaining, thyroidectomy with subsequent radioactive iodide therapy Musculoskeletal Surgical History: Reports: None Oncologic Surgical History: Reports: Other (See Below) Other Oncologic Surgeries/Procedures: WAGE ADJUSTER surgery secondary to uterine cancer as above Dermatological Surgical History: Reports: None - Past Imaging History Past Imaging History: Reports: Bone Scan (Whole body bone scan on 09/25/10), Carotid US (01/06/11), CAT Scan (CT of the head in July [address] in [place] Last CT of the abdomen and pelvis with contrast on 02/24/17 with multiple findings as above. Previous similar evaluations on 12/08/15, 09/26/15 and 08/04/12; ), DEXA Scan (Last DEXA scan on 03/05/11), Mammogram (Last on 03/25/15), MRA (As below), MRI (MRI of the head in [place] in July 2016 with TIA diagnosed at that time, previous MRI/MRA of the brain on 01/06/11), Stress Testing ( Cardiolite stress test on 01/05/08 with ejection fraction of 68%), Venous Doppler (Venous Doppler studies of the lower extremities in July 2016 with positive DVT of the right leg with previous negative bilateral lower extremity venous Doppler studies on 09/25/10) - History Comment History Comment: Narcolepsy, ventral hernia Social & Family History - Family History Cardiac: Reports: CAD, Heart Failure, Other (See Below) Other Cardiac Family History: Mother and brother with history of coronary artery disease and CHF, brother and mother with hypertension, brother with hyperlipidemia : Reports: Renal Disease/Insufficiency, Other (See Below) Other Family History: Brother with renal insufficiency Endocrine/Metabolic: Reports: Hypothyroidism, Other (See Below) Other Endocrine/Metabolic Family History: Mother with hypothyroidism Oncologic: Reports: Breast, Metastatic, Other (See Below) Other Oncologic Family History: Paternal grandmother with metastatic breast disease to her liver - Tobacco Use Smoking Status *Q: Former Smoker Years of Tobacco use: 45 Used Tobacco, but Quit: Yes Month/Year Tobacco Last Used: 07/1989 - Caffeine Use Caffeine Use: Reports: None - Recreational Drug Use Recreational Drug Use: No - Living Situation & Occupation Living situation: Reports: (1959), with Family () 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, 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) H&P Review of Systems - Review of Systems: Review Of Systems: See Below General: Reports: Weakness, Fatigue, Decreased Appetite HEENT: Reports: No Symptoms Pulmonary: Reports: Shortness of Breath, Cough Cardiovascular: Reports: Dyspnea on Exertion, Lightheadedness (dizzy at times) Gastrointestinal: Reports: Abdominal Pain, Decreased Appetite Genitourinary: Reports: No Symptoms Musculoskeletal: Reports: Joint Pain, Muscle Pain Skin: Reports: No Symptoms Psychiatric: Reports: Anxiety Hematologic/Lymphatic: Reports: Easy Bleeding, Other (thrombocytopenia) Immunologic: Reports: No Symptoms Exam - Exam Exam: See Below - Vital Signs Vital Signs: Last Vital Signs Temp 97.8 F 02/09/19 15:43 Pulse 67 02/09/19 15:43 Resp 15 02/09/19 15:43 BP 169/69 H 02/09/19 15:43 Pulse Ox 98 02/09/19 15:43 Weight: 160 lb - Exam General: Alert, Oriented, Cooperative HEENT: Conjunctiva Clear, EACs Clear, EOMI, Mucosa Moist & [place], Normal Nasal Septum, Posterior Pharynx Clear, Pupils Equal, Pupils Reactive, TMs Clear Neck: Supple, Trachea Midline (no JVD) Lungs: Normal Respiratory Effort, Decreased Breath Sounds Cardiovascular: Regular Rate, Regular Rhythm, Normal S1, Normal S2 GI/Abdominal Exam: Normal Bowel Sounds, Soft, Non-Tender, No Organomegaly Back Exam: Normal Inspection, Full Range of Motion Extremities: Normal Inspection, Normal Range of Motion, Non-Tender, No Pedal Edema, Normal Capillary Refill Peripheral Pulses: 1+: Dorsalis Pedis (L), Dorsalis Pedis (R) Skin: Warm, Dry, Intact Neurological: Cranial Nerves Intact, Reflexes Equal Bilateral, Strength Equal Bilateral Neuro Extensive - Mental Status: Alert, Oriented x3, Normal Mood/Affect, Normal Cognition, Memory Intact Neuro Extensive - Motor, Sensory, Reflexes: CN II-XII Intact, Normal Gait, Normal Reflexes Psychiatric: Alert, Normal Affect, Normal Mood - Patient Data Lab Results Last 24 hrs: Laboratory Results - last 24 hr 02/09/19 Range/Units 16:05 WBC 3.9 L (4.0-10.2) K/uL RBC 4.67 (3.77-5.09) M/uL Hgb 14.5 (11.7-15.5) g/dL Hct 42.0 (34.0-46.0) % MCV 89.9 (84.0-98.0) fL MCH 31.0 (28.2-33.3) pg MCHC 34.5 (31.7-36.0) g/dL RDW 13.0 (11.2-14.1) % Plt Count 70 L (150-350) K/uL Neut % (Auto) 45.5 (45.0-80.0) % Lymph % (Auto) 41.0 (10.0-50.0) % [place] % (Auto) 9.8 (2.0-14.0) % Eos % (Auto) 3.4 (0.0-5.0) % Baso % (Auto) 0.3 (0.0-2.0) % Neut # (Auto) 1.77 (1.40-7.00) K/uL Lymph # (Auto) 1.59 (0.50-3.50) K/uL [place] # (Auto) 0.38 (0.00-1.00) K/uL Eos # (Auto) 0.13 (0.00-0.50) K/uL Baso # (Auto) 0.01 (0.00-0.20) K/uL Result Diagrams: 02/09/19 16:05 - Problem List (1) COPD (chronic obstructive pulmonary disease) with acute bronchitis SNOMED Code(s): 501573295753278 ICD Code: J44.0 - CHRONIC OBSTRUCTIVE PULMON DISEASE W ACUTE LOWER RESP INFCT Status: Acute Current Visit: No Problem Details: started on IV solumedrol and IV zithromax (2) Hypokalemia SNOMED Code(s): 15257648 ICD Code: E87.6 - HYPOKALEMIA Status: Acute Priority: High Current Visit: No Problem Details: started on oral potassium replacement (3) Fibromyalgia SNOMED Code(s): 605707227 ICD Code: M79.7 - FIBROMYALGIA Status: Chronic Priority: Low Current Visit: No Problem Details: continue on current medications (4) HTN, Benign hypertension SNOMED Code(s): 12570971 ICD Code: I10 - ESSENTIAL (PRIMARY) HYPERTENSION Status: Chronic Priority : Medium Current Visit: No (5) Mixed anxiety depressive disorder SNOMED Code(s): 710097121 ICD Code: F41.8 - OTHER SPECIFIED ANXIETY DISORDERS Status: Chronic Priority: Low Current Visit: No Problem Details: continue on current blood pressure medications Problem List Initiated/Reviewed/Updated: Yes Orders Last 24hrs: Active Orders 24 hr Category Date Time Status Patient Status [ADT] Routine ADT 02/09/19 15:43 Active Ambulate [RC] ASDIRECTED Care 02/09/19 15:43 Active Ambulate [RC] PER UNIT ROUTINE Care 02/09/19 15:46 Active Antiembolic Devices [RC] 08,20 Care 02/09/19 15:48 Active EKG Documentation Completion [RC] ASDIRECTED Care 02/09/19 16:26 Active Intake and Output [RC] 06,14,22 Care 02/09/19 15:45 Active May Shower [RC] DAILY Care 02/09/19 15:43 Active Oxygen Therapy [RC] 2300 Care 02/09/19 15:43 Active Peripheral IV Care [RC] 08,20 Care 02/09/19 15:48 Active RT Aerosol Therapy [RC] .PRN Care 02/09/19 15:48 Active Telemetry Monitoring [Cardiac Monitoring] [RC] . Care 02/09/19 16:28 Active DIRECTED VTE/DVT Education [RC] PER UNIT ROUTINE Care 02/09/19 15:43 Active Vital Signs [RC] Q4HR Care 02/09/19 15:43 Active OT Evaluation and Treatment [CONS] Routine Cons 02/09/19 15:43 Active PT Evaluation and Treatment [CONS] Routine Cons 02/09/19 15:43 Active Regular Diet [DIET] Diet 02/09/19 Dinner Active Abdomen 2V AP Flat Upright [CR] Routine Exams 02/09/19 15:43 Taken Chest 2V [CR] Routine Exams 02/09/19 15:43 Taken Chest 2V [CR] Routine Exams 02/10/19 07:00 Ordered C-REACTIVE PROTEIN [CHEM] DAILY Lab 02/10/19 05:11 Ordered C-REACTIVE PROTEIN [CHEM] DAILY Lab 02/11/19 05:11 Ordered C-REACTIVE PROTEIN [CHEM] DAILY Lab 02/12/19 05:11 Ordered C-REACTIVE PROTEIN [CHEM] Routine Lab 02/09/19 16:05 Received CBC WITH AUTO DIFF [HEME] DAILY Lab 02/10/19 05:11 Ordered CBC WITH AUTO DIFF [HEME] DAILY Lab 02/11/19 05:11 Ordered CBC WITH AUTO DIFF [HEME] DAILY Lab 02/12/19 05:11 Ordered CKMB [CHEM] Routine Lab 02/09/19 16:05 Received COMPREHENSIVE METABOLIC PN,CMP [CHEM] DAILY Lab 02/10/19 05:11 Ordered COMPREHENSIVE METABOLIC PN,CMP [CHEM] DAILY Lab 02/11/19 05:11 Ordered COMPREHENSIVE METABOLIC PN,CMP [CHEM] DAILY Lab 02/12/19 05:11 Ordered COMPREHENSIVE METABOLIC PN,CMP [CHEM] Routine Lab 02/09/19 16:05 Received CREATINE KINASE,CK [CHEM] Routine Lab 02/09/19 17:00 Ordered CULTURE URINE [RM] Stat Lab 02/09/19 15:43 Ordered MAGNESIUM [CHEM] Routine Lab 02/10/19 05:11 Ordered SEDIMENTATION RATE AUTO [HEME] Routine Lab 02/10/19 05:11 Ordered TROPONIN I [CHEM] Routine Lab 02/09/19 16:05 Received UA W/MICROSCOPIC [URIN] Routine Lab 02/09/19 15:43 Ordered Acetaminophen/HYDROcodone [[place] 325-5 MG] Med 02/09/19 16:41 Active 1 tab PO QID PRN Albuterol/Ipratropium [DuoNeb 3.0-0.5 MG/3 ML] Med 02/09/19 16:00 Active 3 ml NEB Q4H PRN Azithromycin [Zithromax] Med 02/12/19 12:00 Active 500 mg PO DAILY@1200 Azithromycin [Zithromax] 500 mg Med 02/09/19 16:30 Active Sodium Chloride 0.9% [Normal Saline] 250 ml IV Q24H Brinzolamide [Azopt 1% Ophth Susp] Med 02/09/19 18:00 Ordered 1 drop EYEBOTH BID Calcitriol [Rocaltrol] Med 02/10/19 08:00 Active 0.25 mcg PO DAILY Calcium Carbonate/Vitamin D3 [Calcium 500-Vit D3 200 Med 02/09/19 18:00 Ordered Caplet] 2 tab PO TID Carvedilol [Coreg] Med 02/09/19 18:00 Active 3.125 mg PO BID Docusate Sodium [Colace] Med 02/09/19 18:00 Active 100 mg PO TID Escitalopram [Lexapro] Med 02/10/19 08:00 Ordered 20 mg PO DAILY Furosemide [Lasix] Med 02/10/19 08:00 Active 20 mg PO DAILY LORazepam [Ativan] Med 02/09/19 16:41 Active 0.5 mg PO Q8H PRN Latanoprost/Pf [Latanoprost 0.005% Eye Drop] Med 02/09/19 20:00 Ordered 1 drop EYEBOTH BEDTIME Levothyroxine [Synthroid] Med 02/10/19 08:00 Active 75 mcg PO DAILY Losartan [Cozaar] Med 02/10/19 08:00 Ordered 100 mg PO DAILY Non-Formulary Medication [NF Drug] Med 02/09/19 18:00 Ordered 1 drop EYEBOTH BID Pantoprazole [ProTONIX] Med 02/09/19 18:00 Active 40 mg PO BID Potassium Chloride [Klor-Con 10] Med 02/09/19 18:00 Ordered 20 meq PO TIDMEALS Pravastatin Sodium Med 02/09/19 20:00 Ordered 40 mg PO BEDTIME Ranitidine HCl [Ranitidine HCl] Med 02/09/19 20:00 Ordered 150 mg PO BEDTIME Sodium Chloride 0.9% [Saline Flush] Med 02/09/19 15:43 Active 10 ml FLUSH ASDIRECTED PRN cloNIDine [Catapres] Med 02/09/19 18:00 Active 0.1 mg PO BID cycloSPORINE [Restasis] Med 02/09/19 18:00 Ordered 1 each EYEBOTH BID methylPREDNISolone Sod Succ [Solu-MEDROL] Med 02/09/19 20:00 Active 20 mg IVPUSH Q12H Antiembolic Hose [OM.PC] Per Unit Routine Oth 02/09/19 15:46 Ordered Peripheral IV Insertion Adult [OM.PC] Routine Oth 02/09/19 15:43 Ordered Saline Lock Insert [OM.PC] Routine Oth 02/09/19 15:43 Ordered Resuscitation Status Routine Resus Stat 02/09/19 15:43 Ordered Medication Orders Hydrocodone Bitart/Acetaminophen ([place] 325-5 Mg) 1 tab PO QID PRN PRN Reason: Pain Albuterol/Ipratropium (Duoneb 3.0-0.5 Mg/3 Ml) 3 ml NEB Q4H PRN PRN Reason: Dyspnea Azithromycin (Zithromax) 500 mg PO DAILY@1200 KATLIN Calcitriol (Rocaltrol) 0.25 mcg PO DAILY KATLIN Calcium Carbonate (Caltrate 600+D 1500 Mg-400 Units) 2 tab PO TID KATLIN Carvedilol (Coreg) 3.125 mg PO BID KATLIN Clonidine HCl (Catapres) 0.1 mg PO BID KATLIN Docusate Sodium (Colace) 100 mg PO TID KATLIN Escitalopram Oxalate (Lexapro) 20 mg PO DAILY KATLIN Famotidine (Pepcid) 20 mg PO BEDTIME KATLIN Furosemide (Lasix) 20 mg PO DAILY KATLIN Azithromycin 500 mg/ Sodium (Chloride) 250 mls @ 250 mls/hr IV Q24H KATLIN Stop: 02/11/19 17:29 Last Admin: 02/09/19 16:51 Dose: 250 mls/hr Latanoprost (Xalatan 0.005% Ophth Soln) 0 ml EYEBOTH BEDTIME KATLIN Levothyroxine Sodium (Synthroid) 75 mcg PO DAILY KATLIN Lorazepam (Ativan) 0.5 mg PO Q8H PRN PRN Reason: Anxiety Losartan Potassium (Cozaar) 100 mg PO DAILY KATLIN Methylprednisolone Sodium Succinate (Solu-Medrol) 20 mg IVPUSH Q12H KATLIN Non-Formulary Medication (Brinzolamide [Azopt 1% Ophth Susp]) 1 drop EYEBOTH BID KATLIN Non-Formulary Medication (Cyclosporine [Restasis]) 1 each EYEBOTH BID KATLIN Non-Formulary Medication (Non-Formulary Medication [Nf Drug]) 1 drop EYEBOTH BID KATLIN Pantoprazole Sodium (Protonix) 40 mg PO BID KATLIN Potassium Chloride (Klor-Con 10) 20 meq PO TIDMEALS KATLIN Pravastatin Sodium (Pravachol) 40 mg PO BEDTIME KATLIN Sodium Chloride (Saline Flush) 10 ml FLUSH ASDIRECTED PRN PRN Reason: Keep Vein Open Last Admin: 02/09/19 16:52 Dose: 10 ml Assessment/Plan Comment:: patient is admitted to Dr Matthews for COPD exacerbation and generalized weakness. Low potassium noted, replaced with oral potassium. IV solumedrol and zithromax started. Recheck labs in the am. Held remeron to see if causing drowsiness. PT/OT ordered due to frequent and recent falls. Patient is not wanting hospitalization in [place] for now, agreed to be transferred if no improvement. Eugenia Perez,NEUROLOGY TECHNOLOGIST
[2019-02-09] MEDS: Calcium Carbonate/Vitamin D3 1500 MG-400 Units Tab PO SCH (17:54)
[2019-02-09] MEDS: Acetaminophen/HYDROcodone 325-5 MG Tab PO PRN (17:54)
[2019-02-09] MEDS: Pantoprazole 40 MG Tab.CR PO SCH (17:55)
[2019-02-09] MEDS: Carvedilol 3.125 MG Tab PO SCH (17:55)
[2019-02-09] MEDS: Potassium Chloride 10 MEQ Tab.ER PO SCH (17:55)
[2019-02-09] MEDS: Docusate Sodium 100 MG Cap PO SCH (17:55)
[2019-02-09] MEDS: cloNIDine 0.1 MG Tab PO SCH (17:58)
[2019-02-09] MEDS: Pravastatin 20 MG Tab PO SCH (19:21)
[2019-02-09] MEDS: Famotidine 20 MG Tab PO SCH (19:21)
[2019-02-09] MEDS: methylPREDNISolone Sodium Succinate 40 MG/1 ML SDV IVPUSH SCH (19:22)
[2019-02-09] MEDS: Latanoprost 0.005% Ophth Soln 2.5 ML Bottle EYEBOTH SCH (19:23)
[2019-02-09] MEDS: LORazepam 0.5 MG Tab PO PRN (22:41)
[2019-02-10] MEDS: Levothyroxine 50 MCG Tab PO SCH (08:12)
[2019-02-10] MEDS: Acetaminophen/HYDROcodone 325-5 MG Tab PO PRN ×2 (08:12→19:08)
[2019-02-10] MEDS: Calcitriol 0.25 MCG Cap PO SCH (08:12)
[2019-02-10] MEDS: Losartan 50 MG Tab PO SCH (08:13)
[2019-02-10] MEDS: Potassium Chloride 10 MEQ Tab.ER PO SCH ×4 (08:14→19:09)
[2019-02-10] MEDS: Docusate Sodium 100 MG Cap PO SCH ×3 (08:14→17:35)
[2019-02-10] MEDS: Calcium Carbonate/Vitamin D3 1500 MG-400 Units Tab PO SCH ×3 (08:14→17:34)
[2019-02-10] MEDS: Furosemide 20 MG Tab PO SCH (08:14)
[2019-02-10] MEDS: Pantoprazole 40 MG Tab.CR PO SCH ×2 (08:14→17:35)
[2019-02-10] MEDS: Carvedilol 3.125 MG Tab PO SCH ×2 (08:14→17:34)
[2019-02-10] MEDS: Escitalopram 20 MG Tab PO SCH (08:14)
[2019-02-10] MEDS: Sodium Chloride 0.9% 10 ML Syringe FLUSH PRN ×3 (08:15→19:11)
[2019-02-10] MEDS: cloNIDine 0.1 MG Tab PO SCH ×2 (08:15→17:35)
[2019-02-10] MEDS: methylPREDNISolone Sodium Succinate 40 MG/1 ML SDV IVPUSH SCH ×2 (08:15→19:09)
[2019-02-10 08:26] LABS: CHLORIDE,CL 103 mmol/L (98-107); SODIUM,NA 141 mmol/L (136-145)
--- NOTE | 2019-02-10 09:39 | PCM.PN ---
- General Info Date of Service: 02/10/19 Admission Dx/Problem (Free Text): Admission Diagnosis/Problem Admission Diagnosis/Problem COPD with acute lower respiratory infection Functional Status: Reports: Pain Controlled, Tolerating Diet - Review of Systems General: Reports: Weakness, Fatigue HEENT: Reports: Headaches (headaches that will come and go fast on both sides of her head) Pulmonary: Reports: Shortness of Breath, Cough Cardiovascular: Reports: No Symptoms Gastrointestinal: Reports: Constipation, Decreased Appetite Genitourinary: Reports: No Symptoms Musculoskeletal: Reports: Joint Pain Skin: Reports: No Symptoms Neurological: Reports: Headache Psychiatric: Reports: No Symptoms - Patient Data Vitals - Most Recent: Last Vital Signs Temp 97.4 F 02/10/19 04:05 Pulse 78 02/10/19 08:14 Resp 17 02/10/19 04:05 BP 144/83 H 02/10/19 08:15 Pulse Ox 96 02/10/19 04:05 Weight - Most Recent: 160 lb I&O - Last 24 Hours: Intake & Output 02/09/19 02/10/19 02/10/19 22:59 06:59 14:59 Intake Total 100 Output Total 800 300 Balance -700 -300 Lab Results Last 24 Hours: Laboratory Results - last 24 hr 02/09/19 02/09/19 02/09/19 Range/Units 16:05 16:05 19:00 WBC 3.9 L (4.0-10.2) K/uL RBC 4.67 (3.77-5.09) M/uL Hgb 14.5 (11.7-15.5) g/dL Hct 42.0 (34.0-46.0) % MCV 89.9 (84.0-98.0) fL MCH 31.0 (28.2-33.3) pg MCHC 34.5 (31.7-36.0) g/dL RDW 13.0 (11.2-14.1) % Plt Count 70 L (150-350) K/uL Neut % (Auto) 45.5 (45.0-80.0) % Lymph % (Auto) 41.0 (10.0-50.0) % [place] % (Auto) 9.8 (2.0-14.0) % Eos % (Auto) 3.4 (0.0-5.0) % Baso % (Auto) 0.3 (0.0-2.0) % Neut # (Auto) 1.77 (1.40-7.00) K/uL Lymph # (Auto) 1.59 (0.50-3.50) K/uL [place] # (Auto) 0.38 (0.00-1.00) K/uL Eos # (Auto) 0.13 (0.00-0.50) K/uL Baso # (Auto) 0.01 (0.00-0.20) K/uL ESR (0-30) mm/hr Sodium 140 (136-145) mmol/L Potassium 2.9 L* (3.5-5.1) mmol/L Chloride 103 (98-107) mmol/L Carbon Dioxide 28.9 (21.0-32.0) mmol/L BUN 22 H (7-18) mg/dL Creatinine 1.42 H (0.51-1.17) mg/dL Est Cr Clr Drug Dosing 31.06 mL/min Estimated GFR (MDRD) 36 mL/min Glucose 104 (74-106) mg/dL Calcium 11.8 H (8.5-10.1) mg/dL Magnesium (1.8-2.4) mg/dL Total Bilirubin 0.5 (0.2-1.0) mg/dL AST 25 (15-37) U/L ALT 25 (12-78) U/L Alkaline Phosphatase 53 (46-116) IU/L Creatine Kinase 138 (26-308) U/L Creatine Kinase Index 1.2 (0.0-2.5) % CK-MB (CK-2) 1.60 (0.00-3.60) ng/mL Troponin I 0.000 (0.000-0.056) ng/mL C-Reactive Protein < 0.2 (<=0.9) mg/dL Total Protein 6.9 (6.4-8.2) g/dL Albumin 3.8 (3.4-5.0) g/dL Specimen Type Urin[place]ad Urine Color Yellow Urine Appearance Clear Urine pH 7.0 (5.0-9.0) Ur Specific [place] 1.010 (1.005-1.030) Urine Protein Negative (NEGATIVE) mg/dL Urine Glucose (UA) Negative (NEGATIVE) mg/dL Urine Ketones Negative (NEGATIVE) mg/dL Urine Occult Blood Trace-intact H (NEGATIVE) Urine Nitrite Negative (NEGATIVE) Urine Bilirubin Negative (NEGATIVE) Urine Urobilinogen 0.2 (0.2-1.0) E.U./dL Ur Leukocyte Esterase Negative (NEGATIVE) Urine RBC 0-5 /HPF Urine WBC 0-5 /HPF Ur Epithelial Cells Few /LPF Urine Bacteria Few (NONE TO FEW) /HPF Hyaline Casts Few H (NEGATIVE) /LPF 02/10/19 02/10/19 Range/Units 07:45 07:45 WBC 5.0 (4.0-10.2) K/uL RBC 4.71 (3.77-5.09) M/uL Hgb 14.5 (11.7-15.5) g/dL Hct 41.8 (34.0-46.0) % MCV 88.7 (84.0-98.0) fL MCH 30.8 (28.2-33.3) pg MCHC 34.7 (31.7-36.0) g/dL RDW 12.9 (11.2-14.1) % Plt Count 84 L (150-350) K/uL Neut % (Auto) 55.0 (45.0-80.0) % Lymph % (Auto) 37.4 (10.0-50.0) % [place] % (Auto) 7.2 (2.0-14.0) % Eos % (Auto) 0.2 (0.0-5.0) % Baso % (Auto) 0.2 (0.0-2.0) % Neut # (Auto) 2.77 (1.40-7.00) K/uL Lymph # (Auto) 1.88 (0.50-3.50) K/uL [place] # (Auto) 0.36 (0.00-1.00) K/uL Eos # (Auto) 0.01 (0.00-0.50) K/uL Baso # (Auto) 0.01 (0.00-0.20) K/uL ESR 10 (0-30) mm/hr Sodium 141 (136-145) mmol/L Potassium 2.9 L* (3.5-5.1) mmol/L Chloride 103 (98-107) mmol/L Carbon Dioxide 29.3 (21.0-32.0) mmol/L BUN 19 H (7-18) mg/dL Creatinine 1.27 H (0.51-1.17) mg/dL Est Cr Clr Drug Dosing 34.73 mL/min Estimated GFR (MDRD) 41 mL/min Glucose 112 H (74-106) mg/dL Calcium 10.9 H (8.5-10.1) mg/dL Magnesium 1.7 L (1.8-2.4) mg/dL Total Bilirubin 0.5 (0.2-1.0) mg/dL AST 23 (15-37) U/L ALT 25 (12-78) U/L Alkaline Phosphatase 55 (46-116) IU/L Creatine Kinase (26-308) U/L Creatine Kinase Index (0.0-2.5) % CK-MB (CK-2) (0.00-3.60) ng/mL Troponin I (0.000-0.056) ng/mL C-Reactive Protein < 0.2 (<=0.9) mg/dL Total Protein 7.0 (6.4-8.2) g/dL Albumin 3.7 (3.4-5.0) g/dL Specimen Type Urine Color Urine Appearance Urine pH (5.0-9.0) Ur Specific [place] (1.005-1.030) Urine Protein (NEGATIVE) mg/dL Urine Glucose (UA) (NEGATIVE) mg/dL Urine Ketones (NEGATIVE) mg/dL Urine Occult Blood (NEGATIVE) Urine Nitrite (NEGATIVE) Urine Bilirubin (NEGATIVE) Urine Urobilinogen (0.2-1.0) E.U./dL Ur Leukocyte Esterase (NEGATIVE) Urine RBC /HPF Urine WBC /HPF Ur Epithelial Cells /LPF Urine Bacteria (NONE TO FEW) /HPF Hyaline Casts (NEGATIVE) /LPF Med Orders - Current: Current Medications Hydrocodone Bitart/Acetaminophen ([place] 325-5 Mg) 1 tab PO QID PRN PRN Reason: Pain Last Admin: 02/10/19 08:12 Dose: 1 tab Albuterol/Ipratropium (Duoneb 3.0-0.5 Mg/3 Ml) 3 ml NEB Q4H PRN PRN Reason: Dyspnea Azithromycin (Zithromax) 500 mg PO DAILY@1200 [place] Calcitriol (Rocaltrol) 0.25 mcg PO DAILY [facility] Last Admin: 02/10/19 08:12 Dose: 0.25 mcg Calcium Carbonate (Caltrate 600+D 1500 Mg-400 Units) 2 tab PO TID [facility] Last Admin: 02/10/19 08:14 Dose: 2 tab Carvedilol (Coreg) 3.125 mg PO BID [facility] Last Admin: 02/10/19 08:14 Dose: 3.125 mg Clonidine HCl (Catapres) 0.1 mg PO BID [facility] Last Admin: 02/10/19 08:15 Dose: 0.1 mg Docusate Sodium (Colace) 100 mg PO TID [facility] Last Admin: 02/10/19 08:14 Dose: 100 mg Escitalopram Oxalate (Lexapro) 20 mg PO DAILY [facility] Last Admin: 02/10/19 08:14 Dose: 20 mg Famotidine (Pepcid) 20 mg PO BEDTIME [facility] Last Admin: 02/09/19 19:21 Dose: 20 mg Furosemide (Lasix) 20 mg PO DAILY [facility] Last Admin: 02/10/19 08:14 Dose: 20 mg Azithromycin 500 mg/ Sodium (Chloride) 250 mls @ 250 mls/hr IV Q24H [facility] Stop: 02/11/19 17:29 Last Admin: 02/09/19 16:51 Dose: 250 mls/hr Latanoprost (Xalatan 0.005% Ophth Soln) 0 ml EYEBOTH BEDTIME [facility] Last Admin: 02/09/19 19:23 Dose: 1 drop Levothyroxine Sodium (Synthroid) 75 mcg PO DAILY [facility] Last Admin: 02/10/19 08:12 Dose: 75 mcg Lorazepam (Ativan) 0.5 mg PO Q8H PRN PRN Reason: Anxiety Last Admin: 02/09/19 22:41 Dose: 0.5 mg Losartan Potassium (Cozaar) 100 mg PO DAILY [facility] Last Admin: 02/10/19 08:13 Dose: 100 mg Magnesium Oxide (Magnesium Oxide) 400 mg PO DAILY [facility] Methylprednisolone Sodium Succinate (Solu-Medrol) 20 mg IVPUSH Q12H [facility] Last Admin: 02/10/19 08:15 Dose: 20 mg Non-Formulary Medication (Brinzolamide [Azopt 1% Ophth Susp]) 1 drop EYEBOTH BID [facility] Non-Formulary Medication (Cyclosporine [Restasis]) 1 each EYEBOTH BID [facility] Non-Formulary Medication (Non-Formulary Medication [Nf Drug]) 1 drop EYEBOTH BID [facility] Pantoprazole Sodium (Protonix) 40 mg PO BID [facility] Last Admin: 02/10/19 08:14 Dose: 40 mg Potassium Chloride (Klor-Con 10) 20 meq PO QID [facility] Pravastatin Sodium (Pravachol) 40 mg PO BEDTIME [facility] Last Admin: 02/09/19 19:21 Dose: 40 mg Sodium Chloride (Saline Flush) 10 ml FLUSH ASDIRECTED PRN PRN Reason: Keep Vein Open Last Admin: 02/10/19 08:15 Dose: 10 ml Discontinued Medications Potassium Chloride (Klor-Con 10) 20 meq PO TIDMEALS [facility] Last Admin: 02/10/19 08:14 Dose: 20 meq - Exam General: Alert, Oriented, Cooperative, No Acute Distress HEENT: Pupils Equal, Pupils Reactive, EOMI, Mucous Membr. Moist/[place] Neck: Supple Lungs: Normal Respiratory Effort, Decreased Breath Sounds Cardiovascular: Regular Rate, Regular Rhythm GI/Abdominal Exam: Normal Bowel Sounds, Soft, Tender (tender to lower abdomen bilat, no paradoxical movements noted when patient in supine position) Back Exam: Normal Inspection, Full Range of Motion Extremities: Normal Inspection, Normal Range of Motion, No Pedal Edema, Normal Capillary Refill Peripheral Pulses: 1+: Posterior Tibial (L), Posterior Tibial (R), Dorsalis Pedis (L), Dorsalis Pedis (R) Skin: Warm, Dry, Intact Neurological: No New Focal Deficit Psy/Mental Status: Alert, Anxious - Problem List & Annotations (1) COPD (chronic obstructive pulmonary disease) with acute bronchitis SNOMED Code(s): 504709320318938 Code(s): J44.0 - CHRONIC OBSTRUCTIVE PULMON DISEASE W ACUTE LOWER RESP INFCT Status: Acute Current Visit: No Annotation/Comment:: started on IV solumedrol and IV zithromax (2) Hypokalemia SNOMED Code(s): 34574216 Code(s): E87.6 - HYPOKALEMIA Status: Acute Priority: High Current Visit : No Annotation/Comment:: started on oral potassium replacement, no change will increase to dose and recheck in am (3) Fibromyalgia SNOMED Code(s): 809503683 Code(s): M79.7 - FIBROMYALGIA Status: Chronic Priority: Low Current Visit: No Annotation/Comment:: continue on current medications (4) HTN, Benign hypertension SNOMED Code(s): 06486890 Code(s): I10 - ESSENTIAL (PRIMARY) HYPERTENSION Status: Chronic Priority : Medium Current Visit: No (5) Mixed anxiety depressive disorder SNOMED Code(s): 078858262 Code(s): F41.8 - OTHER SPECIFIED ANXIETY DISORDERS Status: Chronic Priority: Low Current Visit: No Annotation/Comment:: continue on current blood pressure medications - Problem List Review Problem List Initiated/Reviewed/Updated: Yes - My Orders Last 24 Hours: My Active Orders 02/09/19 15:43 Patient Status [ADT] Routine Ambulate [RC] ASDIRECTED May Shower [RC] DAILY Oxygen Therapy [RC] 2300 VTE/DVT Education [RC] PER UNIT ROUTINE Vital Signs [RC] Q4HR OT Evaluation and Treatment [CONS] Routine PT Evaluation and Treatment [CONS] Routine Abdomen 2V AP Flat Upright [CR] Routine Chest 2V [CR] Routine Sodium Chloride 0.9% [Saline Flush] 10 ml FLUSH ASDIRECTED PRN Peripheral IV Insertion Adult [OM.PC] Routine Saline Lock Insert [OM.PC] Routine Resuscitation Status Routine 02/09/19 15:45 Intake and Output [RC] 06,14,22 02/09/19 15:46 Ambulate [RC] PER UNIT ROUTINE Antiembolic Hose [OM.PC] Per Unit Routine 02/09/19 15:48 Antiembolic Devices [RC] 08,20 Peripheral IV Care [RC] 08,20 RT Aerosol Therapy [RC] .PRN 02/09/19 16:00 Albuterol/Ipratropium [DuoNeb 3.0-0.5 MG/3 ML] 3 ml NEB Q4H PRN 02/09/19 16:26 EKG Documentation Completion [RC] ASDIRECTED 02/09/19 16:28 Telemetry Monitoring [Cardiac Monitoring] [RC] . DIRECTED 02/09/19 16:30 Azithromycin [Zithromax] 500 mg Sodium Chloride 0.9% [Normal Saline] 250 ml IV Q24H 02/09/19 16:41 Acetaminophen/HYDROcodone [[place] 325-5 MG] 1 tab PO QID PRN LORazepam [Ativan] 0.5 mg PO Q8H PRN 02/09/19 18:00 Brinzolamide [Azopt 1% Ophth Susp] 1 drop EYEBOTH BID Calcium Carbonate/Vitamin D3 [Caltrate 600+D 1500 MG-400 Units] 2 tab PO TID Carvedilol [Coreg] 3.125 mg PO BID Docusate Sodium [Colace] 100 mg PO TID Non-Formulary Medication [NF Drug] 1 drop EYEBOTH BID Pantoprazole [ProTONIX] 40 mg PO BID cloNIDine [Catapres] 0.1 mg PO BID cycloSPORINE [Restasis] 1 each EYEBOTH BID 02/09/19 19:00 CULTURE URINE [RM] Stat 02/09/19 20:00 Famotidine [Pepcid] 20 mg PO BEDTIME Latanoprost [Xalatan 0.005% Ophth Soln] 0 ml EYEBOTH BEDTIME Pravastatin [Pravachol] 40 mg PO BEDTIME methylPREDNISolone Sod Succ [Solu-MEDROL] 20 mg IVPUSH Q12H 02/09/19 Dinner Regular Diet [DIET] 02/10/19 07:00 Chest 2V [CR] Routine 02/10/19 08:00 Calcitriol [Rocaltrol] 0.25 mcg PO DAILY Escitalopram [Lexapro] 20 mg PO DAILY Furosemide [Lasix] 20 mg PO DAILY Levothyroxine [Synthroid] 75 mcg PO DAILY Losartan [Cozaar] 100 mg PO DAILY 02/10/19 09:23 Cervical Spine 2V or 3V [CR] Routine Head w wo Cont [CT] Routine 02/10/19 09:24 Sinus Comp Min 3V [CR] Routine 02/10/19 09:25 Communication Order [RC] ROUTINE 02/10/19 09:29 Consult to Speech Language Pathology [LEATHER CARVER Evaluation and Treatment] [CONS] Routine 02/10/19 12:00 Magnesium Oxide 400 mg PO DAILY Potassium Chloride [Klor-Con 10] 20 meq PO QID 02/11/19 05:11 C-REACTIVE PROTEIN [CHEM] DAILY CBC WITH AUTO DIFF [HEME] DAILY COMPREHENSIVE METABOLIC PN,CMP [CHEM] DAILY 02/12/19 05:11 C-REACTIVE PROTEIN [CHEM] DAILY CBC WITH AUTO DIFF [HEME] DAILY COMPREHENSIVE METABOLIC PN,CMP [CHEM] DAILY 02/12/19 07:00 Chest 2V [CR] Routine 02/12/19 12:00 Azithromycin [Zithromax] 500 mg PO DAILY@1200 - Plan Plan:: patient is admitted to Dr Matthews for COPD exacerbation and generalized weakness. Low potassium noted, replaced with oral potassium. IV solumedrol and zithromax started. Recheck labs in the am. Held remeron to see if causing drowsiness. PT/OT ordered due to frequent and recent falls. Patient is not wanting hospitalization in [place] for now, agreed to be transferred if no improvement. Eugenia Perez,JACE 02/10/2019 Patient states a little better but having "zingy" type headaches in both sides. Sed rate at 10 this morning, no thrill or bruits noted. Complains of thick sinus drainage in the back of her throat and sinus pressure, on Zithromax will order sinus XRay for now. Patient's kidney function slightly elevated so will wait to do CT scan of sinuses. Ordered head CT scan due to headaches and the patient's history of a CVA. PT consulted for strengthening but can have therapist work on the patient's neck, Xrays ordered of C spine. Patient having some difficulties with swallowing at times but especially with she drinks cold water, will order speech consult. Chest Xray show possible diaphragmatic dysfunction, no paradoxical movement noted of abdominal wall when patient is laying flat, however may require further work up. Will check oxygen sat and heart rate when ambulating, patient states having shortness of breath and sweating at times when walks. Potassium still low, increased dose of potassium. Restarted magnesium as level this am was low. Eugenia Perez,PRESCHOOL DIRECTOR
[2019-02-10] MEDS: Magnesium Oxide 400 MG Tab PO SCH (11:44)
[2019-02-10] MEDS: LORazepam 0.5 MG Tab PO PRN (15:25)
[2019-02-10] MEDS: CARTEOLOL 1% EYEBOTH SCH ×2 (15:57→17:36)
[2019-02-10] MEDS: CYCLOSPORINE EYEBOTH SCH ×2 (15:58→17:35)
[2019-02-10] MEDS: Azithromycin 500 MG in Sodium Chloride 0.9% 250 ML IV SCH (16:41)
[2019-02-10] MEDS: BRINZOLAMIDE 1% EYEBOTH SCH (17:36)
[2019-02-10] MEDS: Pravastatin 20 MG Tab PO SCH (19:08)
[2019-02-10] MEDS: Famotidine 20 MG Tab PO SCH (19:09)
[2019-02-10] MEDS: Latanoprost 0.005% Ophth Soln 2.5 ML Bottle EYEBOTH SCH (19:12)
[2019-02-11] MEDS: LORazepam 0.5 MG Tab PO PRN ×2 (00:17→09:01)
[2019-02-11] MEDS: Carvedilol 3.125 MG Tab PO SCH (08:29)
[2019-02-11] MEDS: Pantoprazole 40 MG Tab.CR PO SCH (08:30)
[2019-02-11] MEDS: Levothyroxine 50 MCG Tab PO SCH (08:30)
[2019-02-11] MEDS: Calcium Carbonate/Vitamin D3 1500 MG-400 Units Tab PO SCH ×2 (08:30→11:50)
[2019-02-11] MEDS: Losartan 50 MG Tab PO SCH (08:30)
[2019-02-11] MEDS: Furosemide 20 MG Tab PO SCH (08:31)
[2019-02-11] MEDS: cloNIDine 0.1 MG Tab PO SCH (08:31)
[2019-02-11] MEDS: Calcitriol 0.25 MCG Cap PO SCH (08:31)
[2019-02-11] MEDS: Potassium Chloride 10 MEQ Tab.ER PO SCH (08:31)
[2019-02-11] MEDS: Escitalopram 20 MG Tab PO SCH (08:31)
[2019-02-11] MEDS: Docusate Sodium 100 MG Cap PO SCH ×2 (08:31→11:50)
[2019-02-11] MEDS: Magnesium Oxide 400 MG Tab PO SCH (08:31)
[2019-02-11] MEDS: methylPREDNISolone Sodium Succinate 40 MG/1 ML SDV IVPUSH SCH (08:32)
[2019-02-11] MEDS: Sodium Chloride 0.9% 10 ML Syringe FLUSH PRN (08:34)
[2019-02-11] MEDS: CYCLOSPORINE EYEBOTH SCH (08:45)
[2019-02-11] MEDS: BRINZOLAMIDE 1% EYEBOTH SCH (08:45)
[2019-02-11] MEDS: Acetaminophen/HYDROcodone 325-5 MG Tab PO PRN (08:46)
[2019-02-11] MEDS: CARTEOLOL 1% EYEBOTH SCH (08:46)
[2019-02-11 09:26] LABS: CHLORIDE,CL 103 mmol/L (98-107); SODIUM,NA 141 mmol/L (136-145)
[2019-02-11 11:54] VITALS: BP 198/96; PULSE 75
--- NOTE | 2019-02-11 11:54 | PCM.PN ---
- General Info Date of Service: 02/11/19 Admission Dx/Problem (Free Text): Admission Diagnosis/Problem Admission Diagnosis/Problem COPD with acute lower respiratory infection Functional Status: Reports: Pain Controlled (on oral narcotics) - Review of Systems General: Reports: Weakness HEENT: Reports: No Symptoms Pulmonary: Reports: No Symptoms Cardiovascular: Reports: No Symptoms Gastrointestinal: Reports: No Symptoms Genitourinary: Reports: No Symptoms Musculoskeletal: Reports: Other (generalized joint pains but improved) Skin: Reports: No Symptoms Neurological: Reports: Confusion Psychiatric: Reports: Confusion, Anxiety, Agitation - Patient Data Vitals - Most Recent: Last Vital Signs Temp 97.8 F 02/11/19 08:00 Pulse 73 02/11/19 08:29 Resp 14 02/11/19 08:00 BP 174/93 H 02/11/19 08:31 Pulse Ox 95 02/11/19 08:00 Weight - Most Recent: 160 lb I&O - Last 24 Hours: Intake & Output 02/10/19 02/11/19 02/11/19 22:59 06:59 14:59 Intake Total 550 320 Output Total 300 900 250 Balance 250 -900 70 Lab Results Last 24 Hours: Laboratory Results - last 24 hr 02/11/19 02/11/19 Range/Units 09:00 09:00 WBC 6.4 (4.0-10.2) K/uL RBC 4.65 (3.77-5.09) M/uL Hgb 14.3 (11.7-15.5) g/dL Hct 41.6 (34.0-46.0) % MCV 89.5 (84.0-98.0) fL MCH 30.8 (28.2-33.3) pg MCHC 34.4 (31.7-36.0) g/dL RDW 13.1 (11.2-14.1) % Plt Count 95 L (150-350) K/uL Neut % (Auto) 51.1 (45.0-80.0) % Lymph % (Auto) 42.9 (10.0-50.0) % [place] % (Auto) 5.5 (2.0-14.0) % Eos % (Auto) 0.2 (0.0-5.0) % Baso % (Auto) 0.3 (0.0-2.0) % Neut # (Auto) 3.27 (1.40-7.00) K/uL Lymph # (Auto) 2.74 (0.50-3.50) K/uL [place] # (Auto) 0.35 (0.00-1.00) K/uL Eos # (Auto) 0.01 (0.00-0.50) K/uL Baso # (Auto) 0.02 (0.00-0.20) K/uL Sodium 141 (136-145) mmol/L Potassium 3.2 L (3.5-5.1) mmol/L Chloride 103 (98-107) mmol/L Carbon Dioxide 27.3 (21.0-32.0) mmol/L BUN 23 H (7-18) mg/dL Creatinine 1.21 H (0.51-1.17) mg/dL Est Cr Clr Drug Dosing 36.45 mL/min Estimated GFR (MDRD) 43 mL/min Glucose 123 H (74-106) mg/dL Calcium 9.8 (8.5-10.1) mg/dL Total Bilirubin 0.5 (0.2-1.0) mg/dL AST 22 (15-37) U/L ALT 25 (12-78) U/L Alkaline Phosphatase 51 (46-116) IU/L C-Reactive Protein < 0.2 (<=0.9) mg/dL Total Protein 6.9 (6.4-8.2) g/dL Albumin 3.7 (3.4-5.0) g/dL [place] Results Last 24 Hours: Microbiology 02/09/19 19:00 Urine Culture - Preliminary Urine, Bladder NO GROWTH AFTER 1 DAY Med Orders - Current: Current Medications Hydrocodone Bitart/Acetaminophen ([place] 325-5 Mg) 1 tab PO QID PRN PRN Reason: Pain Last Admin: 02/11/19 08:46 Dose: 1 tab Albuterol/Ipratropium (Duoneb 3.0-0.5 Mg/3 Ml) 3 ml NEB Q4H PRN PRN Reason: Dyspnea Azithromycin (Zithromax) 500 mg PO DAILY@1200 [facility] Calcitriol (Rocaltrol) 0.25 mcg PO DAILY [facility] Last Admin: 02/11/19 08:31 Dose: 0.25 mcg Calcium Carbonate (Caltrate 600+D 1500 Mg-400 Units) 2 tab PO TID [facility] Last Admin: 02/11/19 08:30 Dose: 2 tab Carvedilol (Coreg) 6.25 mg PO BIDMEALS [facility] Clonidine HCl (Catapres) 0.1 mg PO BID [facility] Last Admin: 02/11/19 08:31 Dose: 0.1 mg Docusate Sodium (Colace) 100 mg PO TID [facility] Last Admin: 02/11/19 08:31 Dose: 100 mg Escitalopram Oxalate (Lexapro) 20 mg PO DAILY [facility] Last Admin: 02/11/19 08:31 Dose: 20 mg Famotidine (Pepcid) 20 mg PO BEDTIME [facility] Last Admin: 02/10/19 19:09 Dose: 20 mg Furosemide (Lasix) 20 mg PO DAILY [facility] Last Admin: 02/11/19 08:31 Dose: 20 mg Azithromycin 500 mg/ Sodium (Chloride) 250 mls @ 250 mls/hr IV Q24H [facility] Stop: 02/11/19 17:29 Last Admin: 02/10/19 16:41 Dose: 250 mls/hr Latanoprost (Xalatan 0.005% Ophth Soln) 0 ml EYEBOTH BEDTIME [facility] Last Admin: 02/10/19 19:12 Dose: 1 drop Levothyroxine Sodium (Synthroid) 75 mcg PO DAILY [facility] Last Admin: 02/11/19 08:30 Dose: 75 mcg Lorazepam (Ativan) 0.5 mg PO Q8H PRN PRN Reason: Anxiety Last Admin: 02/11/19 09:01 Dose: 0.5 mg Losartan Potassium (Cozaar) 100 mg PO DAILY [facility] Last Admin: 02/11/19 08:30 Dose: 100 mg Magnesium Oxide (Magnesium Oxide) 400 mg PO DAILY [facility] Last Admin: 02/11/19 08:31 Dose: 400 mg Methylprednisolone Sodium Succinate (Solu-Medrol) 20 mg IVPUSH DAILY [facility] Brinzolamide (Azopt) 1% Ophth Susp Own Med 0 drop EYEBOTH BID [facility] Last Admin: 02/11/19 08:45 Dose: 1 drop Cyclosporine ( Restasis) Ophthalmic Emulsion Own Med* * 0 each EYEBOTH BID [facility] Last Admin: 02/11/19 08:45 Dose: 1 each Carteolol (Ocupress) 1% Ophthalmic Solution Own Med 0 drop EYEBOTH BID [facility] Last Admin: 02/11/19 08:46 Dose: 1 drop Pantoprazole Sodium (Protonix) 40 mg PO BID [facility] Last Admin: 02/11/19 08:30 Dose: 40 mg Potassium Chloride (Klor-Con 10) 20 meq PO TID [facility] Pravastatin Sodium (Pravachol) 40 mg PO BEDTIME [facility] Last Admin: 02/10/19 19:08 Dose: 40 mg Sodium Chloride (Saline Flush) 10 ml FLUSH ASDIRECTED PRN PRN Reason: Keep Vein Open Last Admin: 02/11/19 08:34 Dose: 10 ml Discontinued Medications Carvedilol (Coreg) 3.125 mg PO BID [facility] Last Admin: 02/11/19 08:29 Dose: 3.125 mg Methylprednisolone Sodium Succinate (Solu-Medrol) 20 mg IVPUSH Q12H [facility] Last Admin: 02/11/19 08:32 Dose: 20 mg Potassium Chloride (Klor-Con 10) 20 meq PO TIDMEALS [facility] Last Admin: 02/10/19 08:14 Dose: 20 meq Potassium Chloride (Klor-Con 10) 20 meq PO QID [facility] Last Admin: 02/11/19 08:31 Dose: 20 meq - Exam General: Alert, Oriented, Cooperative, No Acute Distress HEENT: Pupils Equal, Pupils Reactive, EOMI, Mucous Membr. Moist/[place] Neck: Supple, Trachea Midline Lungs: Normal Respiratory Effort, Decreased Breath Sounds Cardiovascular: Regular Rate, Regular Rhythm GI/Abdominal Exam: Normal Bowel Sounds, Soft, Non-Tender, No Organomegaly Back Exam: Normal Inspection, Full Range of Motion Extremities: Normal Inspection, Normal Range of Motion, Non-Tender, No Pedal Edema, Normal Capillary Refill Peripheral Pulses: 1+: Posterior Tibial (L), Posterior Tibial (R), Dorsalis Pedis (L), Dorsalis Pedis (R) Skin: Warm, Dry, Intact Neurological: No New Focal Deficit Psy/Mental Status: Alert, Labile Mood, Anxious - Problem List & Annotations (1) COPD (chronic obstructive pulmonary disease) with acute bronchitis SNOMED Code(s): 134462491222904 Code(s): J44.0 - CHRONIC OBSTRUCTIVE PULMON DISEASE W ACUTE LOWER RESP INFCT Status: Acute Current Visit: No Annotation/Comment:: started on IV solumedrol and IV zithromax (2) Hypokalemia SNOMED Code(s): 44069507 Code(s): E87.6 - HYPOKALEMIA Status: Acute Priority: High Current Visit : No Annotation/Comment:: started on oral potassium replacement, potassium level improving (3) Fibromyalgia SNOMED Code(s): 280820314 Code(s): M79.7 - FIBROMYALGIA Status: Chronic Priority: Low Current Visit: No Annotation/Comment:: continue on current medications (4) HTN, Benign hypertension SNOMED Code(s): 20471528 Code(s): I10 - ESSENTIAL (PRIMARY) HYPERTENSION Status: Chronic Priority : Medium Current Visit: No (5) Mixed anxiety depressive disorder SNOMED Code(s): 196320444 Code(s): F41.8 - OTHER SPECIFIED ANXIETY DISORDERS Status: Chronic Priority: Low Current Visit: No Annotation/Comment:: continue on current blood pressure medications - Problem List Review Problem List Initiated/Reviewed/Updated: Yes - My Orders Last 24 Hours: My Active Orders 02/10/19 12:00 Magnesium Oxide 400 mg PO DAILY 02/10/19 18:00 Brinzolamide [Azopt 1% Ophth Susp] 0 drop EYEBOTH BID 02/11/19 11:31 Communication Order [RC] ROUTINE 02/11/19 12:00 Potassium Chloride [Klor-Con 10] 20 meq PO TID 02/11/19 20:00 Carvedilol [Coreg] 6.25 mg PO BIDMEALS 02/12/19 05:11 C-REACTIVE PROTEIN [CHEM] DAILY CBC WITH AUTO DIFF [HEME] DAILY COMPREHENSIVE METABOLIC PN,CMP [CHEM] DAILY 02/12/19 07:00 Carotid Comp [US] Routine Chest 2V [CR] Routine 02/12/19 08:00 methylPREDNISolone Sod Succ [Solu-MEDROL] 20 mg IVPUSH DAILY 02/12/19 12:00 Azithromycin [Zithromax] 500 mg PO DAILY@1200 - Plan Plan:: patient is admitted to Dr Matthews for COPD exacerbation and generalized weakness. Low potassium noted, replaced with oral potassium. IV solumedrol and zithromax started. Recheck labs in the am. Held remeron to see if causing drowsiness. PT/OT ordered due to frequent and recent falls. Patient is not wanting hospitalization in [place] for now, agreed to be transferred if no improvement. Eugenia Perez CNP 02/10/2019 Patient states a little better but having "zingy" type headaches in both sides. Sed rate at 10 this morning, no thrill or bruits noted. Complains of thick sinus drainage in the back of her throat and sinus pressure, on Zithromax will order sinus XRay for now. Patient's kidney function slightly elevated so will wait to do CT scan of sinuses. Ordered head CT scan due to headaches and the patient's history of a CVA. PT consulted for strengthening but can have therapist work on the patient's neck, Xrays ordered of C spine. Patient having some difficulties with swallowing at times but especially with she drinks cold water, will order speech consult. Chest Xray show possible diaphragmatic dysfunction, no paradoxical movement noted of abdominal wall when patient is laying flat, however may require further work up. Will check oxygen sat and heart rate when ambulating, patient states having shortness of breath and sweating at times when walks. Potassium still low, increased dose of potassium. Restarted magnesium as level this am was low. Eugenia Perez CNP 02/11/2019 Patient having more confusion and agitation today, states, "My has left me and I have no place to go!" Patient states that he hasnt been here to see me , but according to the nursing staff the patient's spouse was here yesterday. Nursing states the patient has been more agitated, some resistance with cares. The patient thought she had a bug on her and called the nurse to tell the nurse she removed the bug, however it was the bed alarm that she removed. Labs reviewed, potassium improving, Cr remaining at the patient's baseline. Head CT scan and Xrays reviewed, ordered mini mental test but no obtained yet. Tried stopping medications contributing to confusion, no help. Patient has been on ativan and lortab for years. Patient needing further work up for acute delirium and confusion. Discussed with Dr Matthews, agreed with plan of care. Discussed with the patient, patient agreed to transfer to [place] where she was recently hospitalized October 2018. Called spouse, no answer. Called [place] [facility], Dr Perez who agreed to accept the patient for transfer to [place] today. Patient to be transferred by ambulance. Eugenia Perez CNP
[2019-02-11] MEDS ORDERED: Potassium Chloride 10 MEQ Tab.ER PO SCH (12:00)
--- NOTE | 2019-02-11 12:31 | PCM.DCSUM1 ---
Discharge Summary - Hospital Course Free Text/Narrative:: Patient was admitted for COPD and hypokalemia, treated with IV Zithromax, solumedrol and oral potassium replacement. Patient's lung function has improved however patient started in with acute confusion. Head CT scan was negative. Medications stopped to see if contributing to confusion, but no improvement. Patient has been on Ativan and Lortab chcf. Patient was recently hospitalized here and at [place] for SBO and acute encephalopathy. patient is needing further work-up for confusion due to multiple co-morbidities.Family and patient requesting she be transferred to [place]. Diagnosis: Stroke: No - Discharge Data Discharge Date: 02/11/19 Discharge Disposition: DC/Tfer to Acute Hospital 02 Condition: Fair - Discharge Diagnosis/Problem(s) (1) COPD (chronic obstructive pulmonary disease) with acute bronchitis SNOMED Code(s): 309714581711282 ICD Code: J44.0 - CHRONIC OBSTRUCTIVE PULMON DISEASE W ACUTE LOWER RESP INFCT Status: Acute Current Visit: No Problem Details: started on IV solumedrol and IV zithromax (2) Hypokalemia SNOMED Code(s): 69165170 ICD Code: E87.6 - HYPOKALEMIA Status: Acute Priority: High Current Visit: No Problem Details: started on oral potassium replacement, potassium level improving (3) Fibromyalgia SNOMED Code(s): 947678562 ICD Code: M79.7 - FIBROMYALGIA Status: Chronic Priority: Low Current Visit: No Problem Details: continue on current medications (4) HTN, Benign hypertension SNOMED Code(s): 82196137 ICD Code: I10 - ESSENTIAL (PRIMARY) HYPERTENSION Status: Chronic Priority : Medium Current Visit: No (5) Mixed anxiety depressive disorder SNOMED Code(s): 835064535 ICD Code: F41.8 - OTHER SPECIFIED ANXIETY DISORDERS Status: Chronic Priority: Low Current Visit: No Problem Details: continue on current blood pressure medications - Patient Summary/Data Consults: Consultations 02/09/19 15:43 OT Evaluation and Treatment [CONS] Routine PT Evaluation and Treatment [CONS] Routine 02/10/19 09:29 Consult to Speech Language Pathology [[employer] Evaluation and Treatment] [CONS] Routine - Patient Instructions Diet: Regular Diet as Tolerated Activity: As Tolerated Driving: Do Not Drive - Discharge Plan Home Medications: Home Meds Albuterol [Proventil HFA] 1 - 2 puff INH Q4HR PRN 04/18/14 [History] Cetirizine HCl [Zyrtec] 10 mg PO DAILY 04/17/15 [History] Cyanocobalamin (Vitamin B-12) [Vitamin B-12] 1,000 mcg SUBCUT Q30D 04/17/15 [ History] Pantoprazole Sodium [Protonix] 40 mg PO BID 09/23/15 [History] Levothyroxine [Synthroid] 75 mcg PO DAILY 02/21/17 [History] Brinzolamide [Azopt 1% Ophth Susp] 1 drop EYEBOTH BID 06/18/18 [History] cycloSPORINE [Restasis] 1 each EYEBOTH BID 06/18/18 [History] LORazepam [Ativan] 0.5 mg PO Q8H PRN 06/19/18 [History] Furosemide [Lasix] 20 mg PO DAILY #90 tablet 06/22/18 [Rx] Calcitriol 0.25 mcg PO DAILY 10/24/18 [History] Escitalopram [Lexapro] 20 mg PO DAILY 10/24/18 [History] Hydrocodone/Acetaminophen [Hydrocodon-Acetaminophen 5-325] 1 tab PO QID PRN 04/05 [History] Latanoprost/Pf [Latanoprost 0.005% Eye Drop] 1 drop EYEBOTH BEDTIME 10/24/18 [ History] Multivits-Min/Iron/FA/Lutein [Centrum Silver Women Tablet] 1 each PO DAILY 10/24 [History] Non-Formulary Medication [NF Drug] 1 drop EYEBOTH BID 10/24/18 [History] Pravastatin [Pravachol] 40 mg PO BEDTIME 10/24/18 [History] cloNIDine [Catapres] 0.1 mg PO BID 10/24/18 [History] Calcium Carbonate/Vitamin D3 [Calcium 500 + Vit D 200 Caplet] 2 tab PO TID 10/25 [History] Docusate Sodium 100 mg PO TID 10/25/18 [History] Carvedilol [Coreg] 3.125 mg PO BID 02/09/19 [History] Losartan [Cozaar] 100 mg PO DAILY 02/09/19 [History] Magnesium Oxide 400 mg PO DAILY 02/09/19 [History] Mirtazapine 0.5 tab PO BEDTIME 02/09/19 [History] Ranitidine HCl 150 mg PO BEDTIME 02/09/19 [History] Oxygen Therapy Mode: Room Air - Discharge Summary/Plan Comment DC Time >30 min.: No Discharge Summary/Plan Comment: Patient is transferred to [place] to services fo Dr Perez for further medical evaluations. Multiple attempts have been made to the patient's spouse per home and cell phone and no answer. Will have nursing continue to call. Spouse said at the clinic appointment on January that if Gwen doesnt improve to send her to [facility]. Patient is alert and oriented at the time of the discussion of being transferred to [place] and she is requesting to go to [place] and agrees to be transferred. Patient may need MRI/MRA of head and neck , not seeing a recent carotid ultrasound. Patient having dysphagia episodes, may need swallowing study. Initial chest Xray stated possible parasis of diaphragm, may need work-up. Patient needing further workup for mental and physical encephalopathy which is not available in [place]. Patient to be transferred to [place] per ambulance. Eugenia Perez CNP - Patient Data Vitals - Most Recent: Last Vital Signs Temp 97.4 F 02/11/19 11:52 Pulse 75 02/11/19 11:52 Resp 14 02/11/19 11:52 BP 198/96 H 02/11/19 11:52 Pulse Ox 93 L 02/11/19 11:52 Weight - Most Recent: 160 lb I&O - Last 24 hours: Intake & Output 02/10/19 02/11/19 02/11/19 22:59 06:59 14:59 Intake Total 550 560 Output Total 300 900 250 Balance 250 -900 310 Lab Results - Last 24 hrs: Laboratory Results - last 24 hr 02/11/19 02/11/19 Range/Units 09:00 09:00 WBC 6.4 (4.0-10.2) K/uL RBC 4.65 (3.77-5.09) M/uL Hgb 14.3 (11.7-15.5) g/dL Hct 41.6 (34.0-46.0) % MCV 89.5 (84.0-98.0) fL MCH 30.8 (28.2-33.3) pg MCHC 34.4 (31.7-36.0) g/dL RDW 13.1 (11.2-14.1) % Plt Count 95 L (150-350) K/uL Neut % (Auto) 51.1 (45.0-80.0) % Lymph % (Auto) 42.9 (10.0-50.0) % [place] % (Auto) 5.5 (2.0-14.0) % Eos % (Auto) 0.2 (0.0-5.0) % Baso % (Auto) 0.3 (0.0-2.0) % Neut # (Auto) 3.27 (1.40-7.00) K/uL Lymph # (Auto) 2.74 (0.50-3.50) K/uL [place] # (Auto) 0.35 (0.00-1.00) K/uL Eos # (Auto) 0.01 (0.00-0.50) K/uL Baso # (Auto) 0.02 (0.00-0.20) K/uL Sodium 141 (136-145) mmol/L Potassium 3.2 L (3.5-5.1) mmol/L Chloride 103 (98-107) mmol/L Carbon Dioxide 27.3 (21.0-32.0) mmol/L BUN 23 H (7-18) mg/dL Creatinine 1.21 H (0.51-1.17) mg/dL Est Cr Clr Drug Dosing 36.45 mL/min Estimated GFR (MDRD) 43 mL/min Glucose 123 H (74-106) mg/dL Calcium 9.8 (8.5-10.1) mg/dL Total Bilirubin 0.5 (0.2-1.0) mg/dL AST 22 (15-37) U/L ALT 25 (12-78) U/L Alkaline Phosphatase 51 (46-116) IU/L C-Reactive Protein < 0.2 (<=0.9) mg/dL Total Protein 6.9 (6.4-8.2) g/dL Albumin 3.7 (3.4-5.0) g/dL [place] Results - Last 24 hrs: Microbiology 02/09/19 19:00 Urine Culture - Preliminary Urine, Bladder NO GROWTH AFTER 1 DAY Med Orders - Current: Current Medications Hydrocodone Bitart/Acetaminophen ([place] 325-5 Mg) 1 tab PO QID PRN PRN Reason: Pain Last Admin: 02/11/19 08:46 Dose: 1 tab Albuterol/Ipratropium (Duoneb 3.0-0.5 Mg/3 Ml) 3 ml NEB Q4H PRN PRN Reason: Dyspnea Azithromycin (Zithromax) 500 mg PO DAILY@1200 [facility] Calcitriol (Rocaltrol) 0.25 mcg PO DAILY [facility] Last Admin: 02/11/19 08:31 Dose: 0.25 mcg Calcium Carbonate (Caltrate 600+D 1500 Mg-400 Units) 2 tab PO TID [facility] Last Admin: 02/11/19 11:50 Dose: 2 tab Carvedilol (Coreg) 6.25 mg PO BIDMEALS [facility] Clonidine HCl (Catapres) 0.1 mg PO BID [facility] Last Admin: 02/11/19 08:31 Dose: 0.1 mg Docusate Sodium (Colace) 100 mg PO TID [facility] Last Admin: 02/11/19 11:50 Dose: 100 mg Escitalopram Oxalate (Lexapro) 20 mg PO DAILY [facility] Last Admin: 02/11/19 08:31 Dose: 20 mg Famotidine (Pepcid) 20 mg PO BEDTIME [facility] Last Admin: 02/10/19 19:09 Dose: 20 mg Furosemide (Lasix) 20 mg PO DAILY [facility] Last Admin: 02/11/19 08:31 Dose: 20 mg Azithromycin 500 mg/ Sodium (Chloride) 250 mls @ 250 mls/hr IV Q24H [facility] Stop: 02/11/19 17:29 Last Admin: 02/10/19 16:41 Dose: 250 mls/hr Latanoprost (Xalatan 0.005% Ophth Soln) 0 ml EYEBOTH BEDTIME [facility] Last Admin: 02/10/19 19:12 Dose: 1 drop Levothyroxine Sodium (Synthroid) 75 mcg PO DAILY [facility] Last Admin: 02/11/19 08:30 Dose: 75 mcg Lorazepam (Ativan) 0.5 mg PO Q8H PRN PRN Reason: Anxiety Last Admin: 02/11/19 09:01 Dose: 0.5 mg Losartan Potassium (Cozaar) 100 mg PO DAILY [facility] Last Admin: 02/11/19 08:30 Dose: 100 mg Magnesium Oxide (Magnesium Oxide) 400 mg PO DAILY [facility] Last Admin: 02/11/19 08:31 Dose: 400 mg Methylprednisolone Sodium Succinate (Solu-Medrol) 20 mg IVPUSH DAILY [facility] Brinzolamide (Azopt) 1% Ophth Susp Own Med 0 drop EYEBOTH BID [facility] Last Admin: 02/11/19 08:45 Dose: 1 drop Cyclosporine ( Restasis) Ophthalmic Emulsion Own Med* * 0 each EYEBOTH BID [facility] Last Admin: 02/11/19 08:45 Dose: 1 each Carteolol (Ocupress) 1% Ophthalmic Solution Own Med 0 drop EYEBOTH BID [facility] Last Admin: 02/11/19 08:46 Dose: 1 drop Pantoprazole Sodium (Protonix) 40 mg PO BID [facility] Last Admin: 02/11/19 08:30 Dose: 40 mg Potassium Chloride (Klor-Con 10) 20 meq PO TID [facility] Last Admin: 02/11/19 11:50 Dose: 20 meq Pravastatin Sodium (Pravachol) 40 mg PO BEDTIME [facility] Last Admin: 02/10/19 19:08 Dose: 40 mg Sodium Chloride (Saline Flush) 10 ml FLUSH ASDIRECTED PRN PRN Reason: Keep Vein Open Last Admin: 02/11/19 08:34 Dose: 10 ml Discontinued Medications Carvedilol (Coreg) 3.125 mg PO BID [facility] Last Admin: 02/11/19 08:29 Dose: 3.125 mg Methylprednisolone Sodium Succinate (Solu-Medrol) 20 mg IVPUSH Q12H [facility] Last Admin: 02/11/19 08:32 Dose: 20 mg Potassium Chloride (Klor-Con 10) 20 meq PO TIDMEALS [facility] Last Admin: 02/10/19 08:14 Dose: 20 meq Potassium Chloride (Klor-Con 10) 20 meq PO QID [facility] Last Admin: 02/11/19 08:31 Dose: 20 meq
[2019-02-11] MEDS ORDERED: Carvedilol 6.25 MG Tab PO SCH (20:00)
[2019-02-12] MEDS ORDERED: methylPREDNISolone Sodium Succinate 40 MG/1 ML SDV IVPUSH SCH (08:00)
[2019-02-12] MEDS ORDERED: Azithromycin 250 MG Tab PO SCH (12:00)
== END 2019-02-11 13:50 | DRG 192 ==
LOC: LL.MS 15:13
PROVIDERS: ADMIT Nurse Practitioner Family; ATTEND Family Medicine
DX: J44.0 Chronic obstructive pulmonary disease with (acute) lower respiratory infection (principal); J44.1 Chronic obstructive pulmonary disease with (acute) exacerbation; I10 Essential (primary) hypertension; E87.6 Hypokalemia; R41.0 Disorientation, unspecified; M79.7 Fibromyalgia; F41.8 Other specified anxiety disorders; E78.00 Pure hypercholesterolemia, unspecified; K59.09 Other constipation; K21.9 Gastro-esophageal reflux disease without esophagitis; M54.9 Dorsalgia, unspecified; G89.29 Other chronic pain; M54.2 Cervicalgia; E03.9 Hypothyroidism, unspecified; Z98.49 Cataract extraction status, unspecified eye; Z90.49 Acquired absence of other specified parts of digestive tract; Z90.710 Acquired absence of both cervix and uterus; Z90.79 Acquired absence of other genital organ(s); Z90.722 Acquired absence of ovaries, bilateral; Z79.899 Other long term (current) drug therapy; Z88.1 Allergy status to other antibiotic agents; Z88.2 Allergy status to sulfonamides; Z88.7 Allergy status to serum and vaccine; Z88.8 Allergy status to other drugs, medicaments and biological substances
CPT/HCPCS: 36415; 70450; 71046; 72040; 74019; 80053; 81001; 82550; 82553; 83735; 84484; 85025; 85652; 86140; 87086; 93005; A9270-GY; J0456; J2920; J7050

== ENCOUNTER 2019-02-24 08:26 | Inpatient (IN) | payer MEDICARE, OTHER ==
[2019-02-24] MEDS ORDERED: cloNIDine 0.1 MG Tab PO ONE ×3 (08:44→17:06)
[2019-02-24] MEDS ORDERED: Pantoprazole 40 MG Vial IVPUSH ONE (08:50)
[2019-02-24] MEDS ORDERED: Furosemide 40 MG/4 ML VIAL IVPUSH ONE (10:16)
[2019-02-24] MEDS: Sodium Chloride 0.9% 1,000 ML IV SCH ×4 (10:19→22:23)
--- NOTE | 2019-02-24 10:50 | EDM.PDOC ---
ED HPI GENERAL MEDICAL PROBLEM - General Chief Complaint: General Stated Complaint: generalized pain Time Seen by Provider: 02/24/19 08:30 Source of Information: Reports: Patient, EMS, [facility] Records History Limitations: Reports: Altered Mental Status - History of Present Illness INITIAL COMMENTS - FREE TEXT/NARRATIVE: Patient is a 78-year-old female who was brought in from [place] with generalized discomfort patient states that she had chest pain and abdominal pain mostly in the right upper quadrant area at this time patient was evaluated and admitted to the emergency room Onset: Today, Gradual Duration: Hour(s):, Getting Worse Location: Reports: Chest, Abdomen Quality: Reports: Ache Severity: Moderate Improves with: Reports: None Worsens with: Reports: None Associated Symptoms: Reports: Confusion, Chest Pain, Weakness - Related Data Allergies Allergy/AdvReac Type Severity Reaction Status Date / Time meloxicam Allergy Severe Other Verified 02/24/19 09:37 atorvastatin [From Lipitor] Allergy Cannot Verified 02/24/19 09:37 Remember hydrochlorothiazide Allergy Hives Verified 02/24/19 09:37 hydromorphone Allergy Other Verified 02/24/19 09:37 nitrofurantoin Allergy GI Distress Verified 02/24/19 09:37 [From Macrobid] Penicillins Allergy Hives Verified 02/24/19 09:37 Sulfa (Sulfonamide Allergy Hives Verified 02/24/19 09:37 Antibiotics) tetanus and diphtheria Allergy Other Verified 02/24/19 09:37 toxoids trazodone Allergy Itching Verified 02/24/19 09:37 Home Meds: Home Meds Levothyroxine [Synthroid] 75 mcg PO DAILY 02/21/17 [History] Brinzolamide [Azopt 1% Ophth Susp] 1 drop EYEBOTH BID 06/18/18 [History] cycloSPORINE [Restasis] 1 each EYEBOTH BID 06/18/18 [History] Calcitriol 0.5 mcg PO DAILY 10/24/18 [History] Escitalopram [Lexapro] 20 mg PO DAILY 10/24/18 [History] Latanoprost/Pf [Latanoprost 0.005% Eye Drop] 1 drop EYEBOTH BEDTIME 10/24/18 [ History] Multivits-Min/Iron/FA/Lutein [Centrum Silver Women Tablet] 1 each PO DAILY 10/24 [History] Non-Formulary Medication [NF Drug] 1 drop EYEBOTH BID 10/24/18 [History] Pravastatin [Pravachol] 40 mg PO BEDTIME 10/24/18 [History] cloNIDine [Catapres] 0.1 mg PO BID 10/24/18 [History] Calcium Carbonate/Vitamin D3 [Calcium 500 + Vit D 200 Caplet] 2 tab PO TID 10/25 [History] Carvedilol [Coreg] 3.125 mg PO BID 02/09/19 [History] Magnesium Oxide 400 mg PO DAILY 02/09/19 [History] Mirtazapine 7.5 mg PO BEDTIME 02/09/19 [History] Ranitidine HCl 150 mg PO BEDTIME 02/09/19 [History] Acetaminophen [Tylenol Extra Strength] 1,000 mg PO TID 02/24/19 [History] Albuterol [Proventil HFA] 2 puff INH Q6HR 02/24/19 [History] Bisacodyl [Dulcolax] 5 mg PO Q12HR PRN 02/24/19 [History] Cetirizine [ZyrTEC] 10 mg PO DAILY 02/24/19 [History] Lidocaine 5% [Lidoderm 5%] 1 patch TOP DAILY 02/24/19 [History] Past Medical History HEENT History: Reports: Allergic Rhinitis, Cataract, Glaucoma, Hard of Hearing, Impaired Vision, Other (See Below) Other HEENT History: Severe bilateral presbycusis with suboptimal hearing aid therapy, the patient wears glasses Cardiovascular History: Reports: Arrhythmia, Blood Clots/VTE/DVT, High Cholesterol, Hypertension, PVD, SOB on Exertion, Other (See Below) Other Cardiovascular History: PVCs, right leg DVT with secondary TIA in July 2016 as below, significant peripheral vascular disease by CT scan of the abdomen and pelvis on 02/24/17 as below including moderate bilateral renal artery stenosis, common femoral stenosis and SMA stenosis Respiratory History: Reports: Bronchitis, Recurrent, COPD, Intubation, Previous , Pneumonia, Recurrent Gastrointestinal History: Reports: Cholelithiasis, Chronic Constipation, Colon Polyp, Diverticulosis, Gastritis, GERD, GI Bleed, Helicobacter Pylori, Hiatal Hernia, Pancreatitis, PUD, Other (See Below) Other Gastrointestinal History: History of duodenal ulcer and upper GI bleed on 03/31/14, tubular adenoma on 03/31/14, moderate sigmoid diverticulosis by CT scan with possibility of lower GI bleeds with long history of recurrent GI bleeds with both positive and negative workups as below, previously treated H. pylori infection with subsequent negative biopsies for H. 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: Reports: Musculoskeletal History: Reports: Arthritis, Back Pain, Chronic, Fibromyalgia, Neck Pain, Chronic, Osteoarthritis, Osteoporosis, RA, SLE, Other (See Below) Other Musculoskeletal History: Right-sided Almaguer's cyst, scoliosis Neurological History: Reports: TIA, Other (See Below) Other Neuro History: Narcolepsy, TIA on 08/15/16 Psychiatric History: Reports: ADD, Addiction, Anxiety, Depression, Other (See Below) Other Psychiatric History: 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 Graves' disease with standard post-excision and radioactive iodide therapy with subsequent secondary hypothyroidism, status post excision of parathyroid gland as below Hematologic History: Reports: Anemia, B12 Deficiency, Blood Transfusion(s), Iron Deficiency, Other (See Below) Other Hematologic History: Multiple GI bleeds as above with secondary anemia, and iron deficiency with multiple blood transfusions in the past, thrombocytopenia Immunologic History: Reports: Immunosuppression, SLE, Other (See Below) Other Immunologic History: Chronic steroid use Oncologic (Cancer) History: Reports: Uterine Dermatologic History: Reports: None - Infectious Disease History Infectious Disease History: Reports: Chicken Pox, Helicobacter Pylori, Measles, Mumps - Past Surgical History Head Surgeries/Procedures: Reports: None HEENT Surgical History: Reports: Cataract Surgery, Eye Surgery, Laser Surgery, Oral Surgery, Other (See Below) Other HEENT Surgeries/Procedures: Right upper lid blepharoplasty, bilateral laser treatments for her glaucoma, bilateral cataract surgery Cardiovascular Surgical History: Reports: None Respiratory Surgical History: Reports: None GI Surgical History: Reports: Appendectomy, Cholecystectomy, Colonoscopy, EGD, Hernia, Abdominal, Victor Manuel Fundoplication, Polypectomy, Other (See Below) Other GI Surgeries/Procedures: Incomplete colonoscopy in 2003 with subsequent multiple colonoscopies including 03/31/14 with last colonoscopy on 02/24/17, last EGD on 01/11/16 did show some esophageal stenosis, gastric polyp, and a duodenal diverticulum with previous EGDs on 07/04/14, 03/21/2014 and 01/04/13, ventral abdominal hernia repair on the laparoscopic cholecystectomy, omentectomy secondary to uterine cancer as above Female Surgical History: Reports: Breast Biopsy, Cystoscopy, Hysterectomy, Salpingo-Oophorectomy, Tubal Ligation Other Female Surgeries/Procedures: bilateral tubal ligation in the 1970s, complete hysterectomy and bilateral salpingo-oophorectomy secondary to uterine cancer with additional chemotherapy in 2001, cystoscopy on 02/24/09 Endocrine Surgical History: Reports: None, Parathyroidectomy, Thyroidectomy, Other (See Below) Other Endocrine Surgeries/Procedures: Partial Parathyroidectomy 2 with last surgery on 04/17/13 and only one gland remaining, thyroidectomy with subsequent radioactive iodide therapy Musculoskeletal Surgical History: Reports: None Oncologic Surgical History: Reports: Other (See Below) Other Oncologic Surgeries/Procedures: 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 of the abdomen and pelvis with contrast on 02/24/17 with multiple findings as above. Previous similar evaluations on 12/08/15, 09/26/15 and 08/04/12; ), DEXA Scan (Last DEXA scan on 03/05/11), Mammogram (Last on 03/25/15), MRA (As below), MRI (MRI of the head in [place] in July 2016 with TIA diagnosed at that time, previous MRI/MRA of the brain on 01/06/11), Stress Testing ( Cardiolite stress test on 01/05/08 with ejection fraction of 68%), Venous Doppler (Venous Doppler studies of the lower extremities in July 2016 with positive DVT of the right leg with previous negative bilateral lower extremity venous Doppler studies on 09/25/10) - History Comment History Comment: Narcolepsy, ventral hernia Social & Family History - Family History Cardiac: Reports: CAD, Heart Failure, Other (See Below) Other Cardiac Family History: Mother and brother with history of coronary artery disease and CHF, brother and mother with hypertension, brother with hyperlipidemia : Reports: Renal Disease/Insufficiency, Other (See Below) Other Family History: Brother with renal insufficiency Endocrine/Metabolic: Reports: Hypothyroidism, Other (See Below) Other Endocrine/Metabolic Family History: Mother with hypothyroidism Oncologic: Reports: Breast, Metastatic, Other (See Below) Other Oncologic Family History: Paternal grandmother with metastatic breast disease to her liver - Tobacco Use Smoking Status *Q: Former Smoker Used Tobacco, but Quit: Yes Month/Year Tobacco Last Used: 0 Tobacco Use Comment: pack per week quit 20 to 30 years ago - Caffeine Use Caffeine Use: Reports: None - Living Situation & Occupation Living situation: Reports: (1959), with Family () 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, 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) ED ROS GENERAL - Review of Systems Review Of Systems: See Below Constitutional: Reports: Weakness, Fatigue HEENT: Reports: No Symptoms Respiratory: Reports: No Symptoms Cardiovascular: Reports: Chest Pain, Blood Pressure Problem (Hypertension) Endocrine: Reports: No Symptoms GI/Abdominal: Reports: Abdominal Pain : Reports: No Symptoms Musculoskeletal: Reports: No Symptoms Skin: Reports: No Symptoms Neurological: Reports: Confusion, Trouble Speaking Psychiatric: Reports: No Symptoms Hematologic/Lymphatic: Reports: No Symptoms Immunologic: Reports: No Symptoms ED EXAM, GENERAL - Physical Exam Exam: See Below Exam Limited By: Altered Mental Status General Appearance: Anxious, Moderate Distress Ears: Normal External Exam, Normal Canal, Hearing Grossly Normal, Normal TMs Ear Exam: Bilateral Ear: Auricle Normal, Canal Normal, TM normal Nose: Normal Inspection, Normal Mucosa, No Blood Throat/Mouth: Normal Inspection, Normal Lips, Normal Teeth, Normal Gums, Normal Oropharynx, Normal Voice, No Airway Compromise Head: Atraumatic, Normocephalic Neck: Normal Inspection, Supple, Non-Tender, Full Range of Motion Respiratory/Chest: No Respiratory Distress, Lungs Clear, Normal Breath Sounds, No Accessory Muscle Use, Chest Non-Tender Cardiovascular: Normal Peripheral Pulses, Regular Rate, Rhythm, No Murmur, No Rub GI/Abdominal: Soft, Tender (Right upper quadrant) (Female) Exam: Deferred Rectal (Female) Exam: Deferred Back Exam: Decreased Range of Motion Extremities: Normal Inspection, Normal Range of Motion, No Pedal Edema. No: Non -Tender Neurological: CN II-XII Intact, No Motor/Sensory Deficits, Disoriented Psychiatric: Anxious Skin Exam: Warm, Dry, Intact, Normal Color, No Rash Lymphatic: No Adenopathy Course - Vital Signs Last Recorded V/S: Last Vital Signs Temp 98.8 F 02/24/19 16:45 Pulse 67 02/24/19 18:00 Resp 16 02/24/19 16:45 BP 180/82 H 02/24/19 18:00 Pulse Ox 96 02/24/19 16:45 - Orders/Labs/Meds Orders: Active Orders 24 hr Category Date Time Status EKG Documentation Completion [RC] ASDIRECTED Care 02/24/19 08:30 Active Insert Urinary Catheter [OM.PC] Q24H Care 02/24/19 10:30 Ordered Urinary Catheter Assessment [RC] ASDIRECTED Care 02/24/19 10:18 Active Vital Signs [RC] Q1H Care 02/24/19 14:30 Active Chest 1V Frontal [CR] Stat Exams 02/24/19 08:30 Taken CULTURE URINE [RM] Stat Lab 02/24/19 09:40 Received PTH INTACT, WM, NO CALCIUM [REF] Stat Lab 02/24/19 08:38 Received Sodium Chloride 0.9% [Normal Saline] 1,000 ml Med 02/24/19 10:15 Active IV ASDIRECTED Medication Orders Sodium Chloride (Normal Saline) 1,000 mls @ 200 mls/hr IV ASDIRECTED KATLIN Last Admin: 02/24/19 14:13 Dose: 200 mls/hr Infusion: 02/24/19 14:09 Dose: 500 mls/hr Admin: 02/24/19 12:09 Dose: 500 mls/hr Infusion: 02/24/19 12:09 Dose: 500 mls/hr Admin: 02/24/19 10: Dose: 500 mls/hr Labs: Laboratory Tests 02/24/19 02/24/19 02/24/19 Range/Units 08:38 08:38 08:38 WBC 8.6 (4.0-10.2) K/uL RBC 4.96 (3.77-5.09) M/uL Hgb 15.4 (11.7-15.5) g/dL Hct 44.5 (34.0-46.0) % MCV 89.7 (84.0-98.0) fL MCH 31.0 (28.2-33.3) pg MCHC 34.6 (31.7-36.0) g/dL RDW 13.5 (11.2-14.1) % Plt Count 105 L (150-350) K/uL Neut % (Auto) 71.9 (45.0-80.0) % Lymph % (Auto) 19.9 (10.0-50.0) % Morris % (Auto) 6.2 (2.0-14.0) % Eos % (Auto) 1.9 (0.0-5.0) % Baso % (Auto) 0.1 (0.0-2.0) % Neut # (Auto) 6.18 (1.40-7.00) K/uL Lymph # (Auto) 1.71 (0.50-3.50) K/uL Morris # (Auto) 0.53 (0.00-1.00) K/uL Eos # (Auto) 0.16 (0.00-0.50) K/uL Baso # (Auto) 0.01 (0.00-0.20) K/uL PT (9.5-12.0) SEC INR APTT (21.0-31.3) SEC D-Dimer, Quantitative 276 (0-400) ng/mL Sodium 138 (136-145) mmol/L Potassium 3.5 (3.5-5.1) mmol/L Chloride 102 (98-107) mmol/L Carbon Dioxide 30.3 (21.0-32.0) mmol/L BUN 23 H (7-18) mg/dL Creatinine 1.86 H (0.51-1.17) mg/dL Est Cr Clr Drug Dosing 23.71 mL/min Estimated GFR (MDRD) 26 mL/min Glucose 114 H (74-106) mg/dL Lactic Acid (0.4-2.0) mmol/L Calcium 16.5 H* D (8.5-10.1) mg/dL Ionized Calcium Magnesium 1.6 L (1.8-2.4) mg/dL Total Bilirubin 0.5 (0.2-1.0) mg/dL AST 22 (15-37) U/L ALT 21 (12-78) U/L Alkaline Phosphatase 60 (46-116) IU/L Creatine Kinase 141 (26-308) U/L Creatine Kinase Index 1.4 (0.0-2.5) % CK-MB (CK-2) 2.00 (0.00-3.60) ng/mL Troponin I 0.007 (0.000-0.056) ng/mL NT-Pro-B Natriuret Pep 380 H (0-125) pg/mL Total Protein 7.3 (6.4-8.2) g/dL Albumin 4.0 (3.4-5.0) g/dL Amylase 133 H (25-115) U/L Lipase 612 H (73-393) U/L TSH, Ultra Sensitive 2.886 (0.358-3.740) mIU/mL Specimen Type Urine Color Urine Appearance Urine pH (5.0-9.0) Ur Specific [place] (1.005-1.030) Urine Protein (NEGATIVE) mg/dL Urine Glucose (UA) (NEGATIVE) mg/dL Urine Ketones (NEGATIVE) mg/dL Urine Occult Blood (NEGATIVE) Urine Nitrite (NEGATIVE) Urine Bilirubin (NEGATIVE) Urine Urobilinogen (0.2-1.0) E.U./dL Ur Leukocyte Esterase (NEGATIVE) Urine RBC /HPF Urine WBC /HPF Ur Epithelial Cells /LPF Urine Bacteria (NONE TO FEW) /HPF 02/24/19 02/24/19 02/24/19 Range/Units 08:38 08:38 09:20 WBC (4.0-10.2) K/uL RBC (3.77-5.09) M/uL Hgb (11.7-15.5) g/dL Hct (34.0-46.0) % MCV (84.0-98.0) fL MCH (28.2-33.3) pg MCHC (31.7-36.0) g/dL RDW (11.2-14.1) % Plt Count (150-350) K/uL Neut % (Auto) (45.0-80.0) % Lymph % (Auto) (10.0-50.0) % Morris % (Auto) (2.0-14.0) % Eos % (Auto) (0.0-5.0) % Baso % (Auto) (0.0-2.0) % Neut # (Auto) (1.40-7.00) K/uL Lymph # (Auto) (0.50-3.50) K/uL Morris # (Auto) (0.00-1.00) K/uL Eos # (Auto) (0.00-0.50) K/uL Baso # (Auto) (0.00-0.20) K/uL PT 10.3 (9.5-12.0) SEC INR 1.0 APTT 26.0 (21.0-31.3) SEC D-Dimer, Quantitative (0-400) ng/mL Sodium (136-145) mmol/L Potassium (3.5-5.1) mmol/L Chloride (98-107) mmol/L Carbon Dioxide (21.0-32.0) mmol/L BUN (7-18) mg/dL Creatinine (0.51-1.17) mg/dL Est Cr Clr Drug Dosing mL/min Estimated GFR (MDRD) mL/min Glucose (74-106) mg/dL Lactic Acid 1.4 (0.4-2.0) mmol/L Calcium (8.5-10.1) mg/dL Ionized Calcium Magnesium (1.8-2.4) mg/dL Total Bilirubin (0.2-1.0) mg/dL AST (15-37) U/L ALT (12-78) U/L Alkaline Phosphatase (46-116) IU/L Creatine Kinase (26-308) U/L Creatine Kinase Index (0.0-2.5) % CK-MB (CK-2) (0.00-3.60) ng/mL Troponin I (0.000-0.056) ng/mL NT-Pro-B Natriuret Pep (0-125) pg/mL Total Protein (6.4-8.2) g/dL Albumin (3.4-5.0) g/dL Amylase (25-115) U/L Lipase (73-393) U/L TSH, Ultra Sensitive (0.358-3.740) mIU/mL Specimen Type Urinvoid Urine Color Yellow Urine Appearance Clear Urine pH 7.0 (5.0-9.0) Ur Specific [place] 1.015 (1.005-1.030) Urine Protein Negative (NEGATIVE) mg/dL Urine Glucose (UA) Negative (NEGATIVE) mg/dL Urine Ketones Negative (NEGATIVE) mg/dL Urine Occult Blood Negative (NEGATIVE) Urine Nitrite Negative (NEGATIVE) Urine Bilirubin Negative (NEGATIVE) Urine Urobilinogen 0.2 (0.2-1.0) E.U./dL Ur Leukocyte Esterase Trace H (NEGATIVE) Urine RBC Not seen /HPF Urine WBC 0-5 /HPF Ur Epithelial Cells Occasional /LPF Urine Bacteria Moderate H (NONE TO FEW) /HPF 02/24/19 02/24/19 02/24/19 Range/Units 09:28 13:10 17:47 WBC (4.0-10.2) K/uL RBC (3.77-5.09) M/uL Hgb (11.7-15.5) g/dL Hct (34.0-46.0) % MCV (84.0-98.0) fL MCH (28.2-33.3) pg MCHC (31.7-36.0) g/dL RDW (11.2-14.1) % Plt Count (150-350) K/uL Neut % (Auto) (45.0-80.0) % Lymph % (Auto) (10.0-50.0) % Morris % (Auto) (2.0-14.0) % Eos % (Auto) (0.0-5.0) % Baso % (Auto) (0.0-2.0) % Neut # (Auto) (1.40-7.00) K/uL Lymph # (Auto) (0.50-3.50) K/uL Morris # (Auto) (0.00-1.00) K/uL Eos # (Auto) (0.00-0.50) K/uL Baso # (Auto) (0.00-0.20) K/uL PT (9.5-12.0) SEC INR APTT (21.0-31.3) SEC D-Dimer, Quantitative (0-400) ng/mL Sodium 138 141 (136-145) mmol/L Potassium 4.4 3.2 L (3.5-5.1) mmol/L Chloride 104 107 (98-107) mmol/L Carbon Dioxide 27.0 24.8 (21.0-32.0) mmol/L BUN 23 H 21 H (7-18) mg/dL Creatinine 1.75 H 1.68 H (0.51-1.17) mg/dL Est Cr Clr Drug Dosing 25.20 26.25 mL/min Estimated GFR (MDRD) 28 30 mL/min Glucose 101 96 (74-106) mg/dL Lactic Acid (0.4-2.0) mmol/L Calcium 14.1 H* D 13.0 H* (8.5-10.1) mg/dL Ionized Calcium 2.11 Magnesium (1.8-2.4) mg/dL Total Bilirubin 0.4 (0.2-1.0) mg/dL AST 26 (15-37) U/L ALT 19 (12-78) U/L Alkaline Phosphatase 49 (46-116) IU/L Creatine Kinase (26-308) U/L Creatine Kinase Index (0.0-2.5) % CK-MB (CK-2) (0.00-3.60) ng/mL Troponin I (0.000-0.056) ng/mL NT-Pro-B Natriuret Pep 411 H (0-125) pg/mL Total Protein 5.7 L (6.4-8.2) g/dL Albumin 3.2 L (3.4-5.0) g/dL Amylase (25-115) U/L Lipase (73-393) U/L TSH, Ultra Sensitive (0.358-3.740) mIU/mL Specimen Type Urine Color Urine Appearance Urine pH (5.0-9.0) Ur Specific [place] (1.005-1.030) Urine Protein (NEGATIVE) mg/dL Urine Glucose (UA) (NEGATIVE) mg/dL Urine Ketones (NEGATIVE) mg/dL Urine Occult Blood (NEGATIVE) Urine Nitrite (NEGATIVE) Urine Bilirubin (NEGATIVE) Urine Urobilinogen (0.2-1.0) E.U./dL Ur Leukocyte Esterase (NEGATIVE) Urine RBC /HPF Urine WBC /HPF Ur Epithelial Cells /LPF Urine Bacteria (NONE TO FEW) /HPF Meds: Medications Generic Name Dose Route Start Last Admin Trade Name Freq PRN Reason Stop Dose Admin Sodium Chloride 1,000 mls @ 200 mls/hr 02/24/19 10:15 02/24/19 14:13 Normal Saline IV 200 mls/hr ASDIRECTED KATLIN Administration Discontinued Medications Generic Name Dose Route Start Last Admin Trade Name Stewart PRN Reason Stop Dose Admin Clonidine HCl 0.1 mg 02/24/19 08:44 02/24/19 08:52 Catapres PO 02/24/19 08:45 0.1 mg ONETIME ONE Administration Clonidine HCl 0.2 mg 02/24/19 16:11 02/24/19 16:18 Catapres PO 02/24/19 16:12 0.2 mg ONETIME ONE Administration Clonidine HCl 0.2 mg 02/24/19 17:06 02/24/19 17:50 Catapres PO 02/24/19 17:07 0.2 mg ONETIME ONE Administration Furosemide 40 mg 02/24/19 10:16 02/24/19 14:07 Lasix IVPUSH 02/24/19 10:17 Not Given NOW ONE Pantoprazole Sodium 40 mg 02/24/19 08:50 02/24/19 08:52 Protonix Iv IVPUSH 02/24/19 08:51 40 mg ONETIME ONE Administration Departure - Departure Time of Disposition: 20:38 Disposition: Admitted As Inpatient 67 Condition: Poor Clinical Impression: Hypercalcemia, Hypokalemia, Abdominal pain, Pancreatitis, 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, Hypertension, Dehydration - Discharge Information *PRESCRIPTION DRUG MONITORING PROGRAM REVIEWED*: No *COPY OF PRESCRIPTION DRUG MONITORING REPORT IN PATIENT JULIANNA: No Referrals: Sheets-Raven Cameron MD [Primary Care Provider] - Forms: ED Department Discharge Care Plan Goals: Patient will be observed in the emergency room for hydration - Problem List & Annotations (1) Hypercalcemia SNOMED Code(s): 40067127 Code(s): E83.52 - HYPERCALCEMIA Status: Acute Current Visit: Yes (2) Dehydration SNOMED Code(s): 02166686 Code(s): E86.0 - DEHYDRATION Status: Acute Current Visit: Yes Annotation/Comment:: Patient will be hydrated and attempt to correct the calcium and electrolytes also see if she responds appropriately to fluids improving her renal function (3) Abdominal pain SNOMED Code(s): 16180087 Code(s): R10.9 - UNSPECIFIED ABDOMINAL PAIN Status: Acute Priority: High Current Visit: No Onset Date: 10/23/18 Annotation/Comment:: Abdominal pain of uncertain etiology. CT of abdomen and pelvis planned. UA requested. At this time because of her elevated amylase and lipase I feel that this is possibly pack otitis due to the fact that she has elevated creatinine secondary to diabetic kidney disease we will hydrate her and correct the calcium and consider doing a ultrasound of the pancreas Tuesday and recheck labs some pain control (4) Hypokalemia SNOMED Code(s): 38890204 Code(s): E87.6 - HYPOKALEMIA Status: Acute Current Visit: Yes Annotation/Comment:: Secondary to oral hydration and Lasix will - Problem List Review Problem List Initiated/Reviewed/Updated: Yes - My Orders Last 24 Hours: My Active Orders 02/24/19 08:30 EKG Documentation Completion [RC] ASDIRECTED Chest 1V Frontal [CR] Stat 02/24/19 08:38 PTH INTACT, WM, NO CALCIUM [REF] Stat 02/24/19 09:40 CULTURE URINE [RM] Stat 02/24/19 10:15 Sodium Chloride 0.9% [Normal Saline] 1,000 ml IV ASDIRECTED 02/24/19 10:18 Urinary Catheter Assessment [RC] ASDIRECTED 02/24/19 10:30 Insert Urinary Catheter [OM.PC] Q24H 02/24/19 14:30 Vital Signs [RC] Q1H - Assessment/Plan Last 24 Hours: My Active Orders 02/24/19 08:30 EKG Documentation Completion [RC] ASDIRECTED Chest 1V Frontal [CR] Stat 02/24/19 08:38 PTH INTACT, WM, NO CALCIUM [REF] Stat 02/24/19 09:40 CULTURE URINE [RM] Stat 02/24/19 10:15 Sodium Chloride 0.9% [Normal Saline] 1,000 ml IV ASDIRECTED 02/24/19 10:18 Urinary Catheter Assessment [RC] ASDIRECTED 02/24/19 10:30 Insert Urinary Catheter [OM.PC] Q24H 02/24/19 14:30 Vital Signs [RC] Q1H Plan: Patient will be observed in the emergency room fluids given in an attempt to correct her dehydration and electrolytes
[2019-02-24] MEDS ORDERED: HYDROmorphone 1 MG/ML Syringe IVPUSH PRN (20:41)
[2019-02-24] MEDS ORDERED: Bisacodyl 5 MG Tab PO PRN (21:02)
[2019-02-24] MEDS ORDERED: HYDROmorphone 0.5 MG/0.5 ML Syringe IVPUSH PRN (21:29)
[2019-02-24] MEDS ORDERED: Mirtazapine 15 MG Tab PO ONE (22:09)
[2019-02-24] MEDS ORDERED: Potassium Chloride 20 MEQ Tab.ER PO ONE (22:10)
[2019-02-24] MEDS: Albuterol 8 GM Inhaler INH SCH (22:23)
[2019-02-24] MEDS: fentaNYL 100 MCG/2 ML SDV IVPUSH PRN (23:59)
[2019-02-25] MEDS: fentaNYL 100 MCG/2 ML SDV IVPUSH PRN ×7 (01:58→10:36)
[2019-02-25] MEDS: Albuterol 8 GM Inhaler INH SCH (03:04)
[2019-02-25] MEDS ORDERED: Albuterol 8 GM Inhaler INH PRN (04:00)
[2019-02-25] MEDS ORDERED: Levothyroxine 75 MCG Tab PO SCH (07:30)
[2019-02-25] MEDS ORDERED: Potassium Chloride 20 MEQ Tab.ER PO SCH (07:30)
[2019-02-25 07:32] VITALS: BP 156/77; PULSE 79
[2019-02-25] MEDS ORDERED: cloNIDine 0.1 MG Tab PO SCH (08:00)
[2019-02-25] MEDS ORDERED: Non-Formulary Medication 1 Each (Cyclosporine [Restasis] 1 EACH) EYEBOTH SCH (08:00)
[2019-02-25] MEDS ORDERED: Lidocaine 5% 700 MG Patch TOP SCH (08:00)
[2019-02-25] MEDS ORDERED: Acetaminophen 500 MG Tab PO SCH (08:00)
[2019-02-25] MEDS ORDERED: Non-Formulary Medication 1 Each (Brinzolamide [Azopt 1% Ophth Susp] 1 DROP) EYEBOTH SCH (08:00)
[2019-02-25] MEDS ORDERED: Enoxaparin 30 MG/0.3 ML Syringe SUBCUT SCH (08:00)
[2019-02-25] MEDS ORDERED: Magnesium Oxide 400 MG Tab PO SCH (08:00)
[2019-02-25] MEDS ORDERED: Escitalopram 20 MG Tab PO SCH (08:00)
[2019-02-25] MEDS ORDERED: Carvedilol 3.125 MG Tab PO SCH (08:00)
[2019-02-25] MEDS ORDERED: cefTRIAXone 1 GM in Sodium Chloride 0.9% 100 ML IV SCH (08:30)
[2019-02-25] MEDS: Sodium Chloride 0.9% 10 ML Syringe FLUSH PRN ×2 (08:59→10:36)
[2019-02-25] MEDS: Sodium Chloride 0.9% 1,000 ML IV SCH (09:48)
--- NOTE | 2019-02-25 10:10 | PCM.DCSUM1 ---
Discharge Summary - Hospital Course Free Text/Narrative:: Patient is a 78-year-old female who was admitted yesterday with hypercalcemia with a calcium of 16.5 patient was started on fluids and hydrated which improved her calcium but patient continued complaining of severe abdominal pain and while admission was started on pain control her initial amylase was 133 and her initial lipase was 612 we went ahead and the lipase and amylase in [place] were elevated with a lipase 5952 and amylase 1486 at this time I felt that patient probably had pancreatitis and this was the cause of her hyperkalemia we went ahead and looked at her liver functions which were within normal limits so we are treating her pain and have calcium at this time. I felt that patient needed to have imaging is why contacted the hospitalist at [facility] for possible transfer electrochemist a septic transfer at this time. Diagnosis: Stroke: No - Discharge Data Discharge Date: 02/25/19 Discharge Disposition: DC/Tfer to Acute Hospital 02 Condition: Poor - Discharge Diagnosis/Problem(s) (1) Hypercalcemia SNOMED Code(s): 61732951 ICD Code: E83.52 - HYPERCALCEMIA Status: Acute Current Visit: Yes (2) Dehydration SNOMED Code(s): 70556184 ICD Code: E86.0 - DEHYDRATION Status: Acute Current Visit: Yes Problem Details: Patient will be transferred to acute care [facility] (3) Abdominal pain SNOMED Code(s): 99614597 ICD Code: R10.9 - UNSPECIFIED ABDOMINAL PAIN Status: Acute Priority: High Current Visit: No Onset Date: 10/23/18 Problem Details: Patient diagnosed with pancreatitis will send to [facility] for imaging and treatment. (4) Hypokalemia SNOMED Code(s): 29184370 ICD Code: E87.6 - HYPOKALEMIA Status: Acute Current Visit: Yes Problem Details: Secondary to oral hydration and Lasix will - Patient Summary/Data Consults: Consultations 02/24/19 20:41 OT Evaluation and Treatment [CONS] Routine PT Evaluation and Treatment [CONS] Routine - Patient Instructions Diet: NPO - Discharge Plan *PRESCRIPTION DRUG MONITORING PROGRAM REVIEWED*: No *COPY OF PRESCRIPTION DRUG MONITORING REPORT IN PATIENT JULIANNA: No Home Medications: Home Meds Levothyroxine [Synthroid] 75 mcg PO DAILY 02/21/17 [History] Brinzolamide [Azopt 1% Ophth Susp] 1 drop EYEBOTH BID 06/18/18 [History] cycloSPORINE [Restasis] 1 each EYEBOTH BID 06/18/18 [History] Calcitriol 0.5 mcg PO DAILY 10/24/18 [History] Escitalopram [Lexapro] 20 mg PO DAILY 10/24/18 [History] Latanoprost/Pf [Latanoprost 0.005% Eye Drop] 1 drop EYEBOTH BEDTIME 10/24/18 [ History] Multivits-Min/Iron/FA/Lutein [Centrum Silver Women Tablet] 1 each PO DAILY 10/24 [History] Non-Formulary Medication [NF Drug] 1 drop EYEBOTH BID 10/24/18 [History] Pravastatin [Pravachol] 40 mg PO BEDTIME 10/24/18 [History] cloNIDine [Catapres] 0.1 mg PO BID 10/24/18 [History] Calcium Carbonate/Vitamin D3 [Calcium 500 + Vit D 200 Caplet] 2 tab PO TID 10/25 [History] Carvedilol [Coreg] 3.125 mg PO BID 02/09/19 [History] Magnesium Oxide 400 mg PO DAILY 02/09/19 [History] Mirtazapine 7.5 mg PO BEDTIME 02/09/19 [History] Ranitidine HCl 150 mg PO BEDTIME 02/09/19 [History] Acetaminophen [Tylenol Extra Strength] 1,000 mg PO TID 02/24/19 [History] Albuterol [Proventil HFA] 2 puff INH Q6HR 02/24/19 [History] Bisacodyl [Dulcolax] 5 mg PO Q12HR PRN 02/24/19 [History] Cetirizine [ZyrTEC] 10 mg PO DAILY 02/24/19 [History] Lidocaine 5% [Lidoderm 5%] 1 patch TOP DAILY 02/24/19 [History] Forms: ED Department Discharge Referrals: Sheets-Raven Cameron MD [Primary Care Provider] - - Discharge Summary/Plan Comment DC Time >30 min.: No Discharge Summary/Plan Comment: At this time patient will be transferred to [facility] for worsening symptoms and imaging I discussed this with her yesterday and unfortunately we are not able to contact them today due to the fact that he is not answering his phone we will transfer her to [facility]. Patient will receive pain medicines and fluids about - Patient Data Vitals - Most Recent: Last Vital Signs Temp 99 F 02/25/19 07:31 Pulse 79 02/25/19 07:31 Resp 18 02/25/19 07:31 BP 156/77 H 02/25/19 07:31 Pulse Ox 92 L 02/25/19 07:31 Weight - Most Recent: 146 lb 15.997 oz I&O - Last 24 hours: Intake & Output 02/24/19 02/25/19 02/25/19 22:59 06:59 14:59 Intake Total 2360 890 Output Total 850 700 Balance 1510 190 Lab Results - Last 24 hrs: Laboratory Results - last 24 hr 02/24/19 02/24/19 02/25/19 Range/Units 13:10 17:47 07:06 WBC 10.3 H (4.0-10.2) K/uL RBC 4.37 (3.77-5.09) M/uL Hgb 13.9 D (11.7-15.5) g/dL Hct 39.7 (34.0-46.0) % MCV 90.8 (84.0-98.0) fL MCH 31.8 (28.2-33.3) pg MCHC 35.0 (31.7-36.0) g/dL RDW 13.4 (11.2-14.1) % Plt Count 83 L (150-350) K/uL Neut % (Auto) 82.1 H (45.0-80.0) % Lymph % (Auto) 11.7 (10.0-50.0) % Bureau % (Auto) 5.3 (2.0-14.0) % Eos % (Auto) 0.8 (0.0-5.0) % Baso % (Auto) 0.1 (0.0-2.0) % Neut # (Auto) 8.45 H (1.40-7.00) K/uL Lymph # (Auto) 1.20 (0.50-3.50) K/uL Bureau # (Auto) 0.55 (0.00-1.00) K/uL Eos # (Auto) 0.08 (0.00-0.50) K/uL Baso # (Auto) 0.01 (0.00-0.20) K/uL Sodium 138 141 (136-145) mmol/L Potassium 4.4 3.2 L (3.5-5.1) mmol/L Chloride 104 107 (98-107) mmol/L Carbon Dioxide 27.0 24.8 (21.0-32.0) mmol/L BUN 23 H 21 H (7-18) mg/dL Creatinine 1.75 H 1.68 H (0.51-1.17) mg/dL Est Cr Clr Drug Dosing 25.20 26.25 mL/min Estimated GFR (MDRD) 28 30 mL/min Glucose 101 96 (74-106) mg/dL Calcium 14.1 H* D 13.0 H* (8.5-10.1) mg/dL Magnesium (1.8-2.4) mg/dL Total Bilirubin 0.4 (0.2-1.0) mg/dL AST 26 (15-37) U/L ALT 19 (12-78) U/L Alkaline Phosphatase 49 (46-116) IU/L Troponin I (0.000-0.056) ng/mL NT-Pro-B Natriuret Pep 411 H (0-125) pg/mL Total Protein 5.7 L (6.4-8.2) g/dL Albumin 3.2 L (3.4-5.0) g/dL Amylase (25-115) U/L Lipase (73-393) U/L 02/25/19 Range/Units 07:06 WBC (4.0-10.2) K/uL RBC (3.77-5.09) M/uL Hgb (11.7-15.5) g/dL Hct (34.0-46.0) % MCV (84.0-98.0) fL MCH (28.2-33.3) pg MCHC (31.7-36.0) g/dL RDW (11.2-14.1) % Plt Count (150-350) K/uL Neut % (Auto) (45.0-80.0) % Lymph % (Auto) (10.0-50.0) % Bureau % (Auto) (2.0-14.0) % Eos % (Auto) (0.0-5.0) % Baso % (Auto) (0.0-2.0) % Neut # (Auto) (1.40-7.00) K/uL Lymph # (Auto) (0.50-3.50) K/uL Bureau # (Auto) (0.00-1.00) K/uL Eos # (Auto) (0.00-0.50) K/uL Baso # (Auto) (0.00-0.20) K/uL Sodium 141 (136-145) mmol/L Potassium 3.4 L (3.5-5.1) mmol/L Chloride 106 (98-107) mmol/L Carbon Dioxide 26.6 (21.0-32.0) mmol/L BUN 19 H (7-18) mg/dL Creatinine 1.57 H (0.51-1.17) mg/dL Est Cr Clr Drug Dosing 29.10 mL/min Estimated GFR (MDRD) 32 mL/min Glucose 83 (74-106) mg/dL Calcium 11.6 H (8.5-10.1) mg/dL Magnesium 1.2 L (1.8-2.4) mg/dL Total Bilirubin 0.6 (0.2-1.0) mg/dL AST 25 (15-37) U/L ALT 20 (12-78) U/L Alkaline Phosphatase 50 (46-116) IU/L Troponin I 0.016 (0.000-0.056) ng/mL NT-Pro-B Natriuret Pep (0-125) pg/mL Total Protein 6.2 L (6.4-8.2) g/dL Albumin 3.4 (3.4-5.0) g/dL Amylase 1362 H (25-115) U/L Lipase 5778 H (73-393) U/L [place] Results - Last 24 hrs: Microbiology 02/24/19 09:40 Urine Culture - Preliminary Urine, Bladder NO GROWTH AFTER 1 DAY Med Orders - Current: Current Medications Acetaminophen (Tylenol Extra Strength) 1,000 mg PO TID [facility] Last Admin: 02/25/19 09:31 Dose: Not Given Albuterol (Ventolin Hfa) 0 gm INH Q6H PRN PRN Reason: sob Bisacodyl (Dulcolax) 5 mg PO Q12HR PRN PRN Reason: Constipation Carvedilol (Coreg) 3.125 mg PO BID [facility] Last Admin: 02/25/19 09:28 Dose: Not Given Clonidine HCl (Catapres) 0.1 mg PO BID [facility] Last Admin: 02/25/19 09:28 Dose: Not Given Enoxaparin Sodium (Lovenox) 30 mg SUBCUT DAILY [facility] Last Admin: 02/25/19 09:29 Dose: Not Given Escitalopram Oxalate (Lexapro) 20 mg PO DAILY [facility] Last Admin: 02/25/19 09:29 Dose: Not Given Fentanyl (Sublimaze) 25 mcg IVPUSH Q1H PRN PRN Reason: Pain Last Admin: 02/25/19 08:54 Dose: 25 mcg Sodium Chloride (Normal Saline) 1,000 mls @ 100 mls/hr IV ASDIRECTED [facility] Last Admin: 02/25/19 09:48 Dose: 100 mls/hr Ceftriaxone Sodium 1 gm/ (Sodium Chloride) 100 mls @ 200 mls/hr IV Q12H [facility] Last Admin: 02/25/19 08:54 Dose: 200 mls/hr Latanoprost (Xalatan 0.005% Ophth Soln) 0 ml EYEBOTH BEDTIME [facility] Levothyroxine Sodium (Levothyroxine) 75 mcg PO ACBREAKFAST [facility] Last Admin: 02/25/19 09:27 Dose: Not Given Lidocaine (Lidoderm 5%) 700 mg TOP DAILY [facility] Magnesium Oxide (Magnesium Oxide) 400 mg PO DAILY [facility] Last Admin: 02/25/19 09:30 Dose: Not Given Mirtazapine (Remeron) 7.5 mg PO BEDTIME [facility] Miscellaneous Information (Remove Patch) 1 ea TRDERM BEDTIME [facility] Last Admin: 02/24/19 22:37 Dose: 1 ea Non-Formulary Medication (Brinzolamide [Azopt 1% Ophth Susp]) 1 drop EYEBOTH BID [facility] Non-Formulary Medication (Cyclosporine [Restasis]) 1 each EYEBOTH BID [facility] Potassium Chloride (Klor-Con M20) 20 meq PO BIDMEALS [facility] Last Admin: 02/25/19 09:27 Dose: Not Given Sodium Chloride (Saline Flush) 10 ml FLUSH ASDIRECTED PRN PRN Reason: Keep Vein Open Last Admin: 02/25/19 08:59 Dose: 10 ml Discontinued Medications Albuterol (Ventolin Hfa) 0 gm INH Q6HR [facility] Last Admin: 02/25/19 03:04 Dose: Not Given Clonidine HCl (Catapres) 0.1 mg PO ONETIME ONE Stop: 02/24/19 08:45 Last Admin: 02/24/19 08:52 Dose: 0.1 mg Clonidine HCl (Catapres) 0.2 mg PO ONETIME ONE Stop: 02/24/19 16:12 Last Admin: 02/24/19 16:18 Dose: 0.2 mg Clonidine HCl (Catapres) 0.2 mg PO ONETIME ONE Stop: 02/24/19 17:07 Last Admin: 02/24/19 17:50 Dose: 0.2 mg Furosemide (Lasix) 40 mg IVPUSH NOW ONE Stop: 02/24/19 10:17 Last Admin: 02/24/19 14:07 Dose: Not Given Hydromorphone HCl (Dilaudid) 0.25 mg IVPUSH Q2H PRN PRN Reason: Pain (severe 7-10) Hydromorphone HCl (Dilaudid) 0.25 mg IVPUSH Q2H PRN PRN Reason: Pain (severe 7-10) Sodium Chloride (Normal Saline) 1,000 mls @ 200 mls/hr IV ASDIRECTED [facility] Last Admin: 02/24/19 14:13 Dose: 200 mls/hr Mirtazapine (Remeron) 7.5 mg PO ONETIME ONE Stop: 02/24/19 22:10 Last Admin: 02/24/19 22:25 Dose: 7.5 mg Non-Formulary Medication (Ranitidine Hcl [Ranitidine Hcl]) 150 mg PO BEDTIME [facility] Pantoprazole Sodium (Protonix Iv) 40 mg IVPUSH ONETIME ONE Stop: 02/24/19 08:51 Last Admin: 02/24/19 08:52 Dose: 40 mg Potassium Chloride (Klor-Con M20) 20 meq PO BEDTIME ONE Stop: 02/24/19 22:11 Last Admin: 02/24/19 22:25 Dose: 20 meq
[2019-02-25] MEDS ORDERED: Magnesium Sulfate/Water 2 GM in Premix Bag 1 BAG IV ONE (10:20)
[2019-02-25] MEDS ORDERED: Non-Formulary Medication 1 Each (Ranitidine Hcl [Ranitidine Hcl] 150 MG) PO SCH (20:00)
[2019-02-25] MEDS ORDERED: Mirtazapine 15 MG Tab PO SCH (20:00)
[2019-02-25] MEDS ORDERED: Latanoprost 0.005% Ophth Soln 2.5 ML Bottle EYEBOTH SCH (20:00)
== END 2019-02-25 10:50 | DRG 641 ==
LOC: LL.ED 08:26 → LL.MS 20:55
PROVIDERS: ADMIT Family Medicine; ATTEND Family Medicine
DX: K85.90 Acute pancreatitis without necrosis or infection, unspecified (principal); E83.52 Hypercalcemia; E86.0 Dehydration; E78.00 Pure hypercholesterolemia, unspecified; I10 Essential (primary) hypertension; I73.9 Peripheral vascular disease, unspecified; J44.9 Chronic obstructive pulmonary disease, unspecified; K59.09 Other constipation; K21.9 Gastro-esophageal reflux disease without esophagitis; E87.6 Hypokalemia; M19.90 Unspecified osteoarthritis, unspecified site; G89.29 Other chronic pain; H54.7 Unspecified visual loss; H91.90 Unspecified hearing loss, unspecified ear; M79.7 Fibromyalgia; M54.2 Cervicalgia; F32.9 Major depressive disorder, single episode, unspecified; F41.9 Anxiety disorder, unspecified; M54.9 Dorsalgia, unspecified; M32.9 Systemic lupus erythematosus, unspecified; M41.9 Scoliosis, unspecified; M06.9 Rheumatoid arthritis, unspecified; M81.0 Age-related osteoporosis without current pathological fracture; E89.0 Postprocedural hypothyroidism; D50.9 Iron deficiency anemia, unspecified; Z88.2 Allergy status to sulfonamides; Z86.73 Personal history of transient ischemic attack (TIA), and cerebral infarction without residual deficits; Z88.8 Allergy status to other drugs, medicaments and biological substances; Z88.0 Allergy status to penicillin; Z86.718 Personal history of other venous thrombosis and embolism; Z87.01 Personal history of pneumonia (recurrent); Z88.1 Allergy status to other antibiotic agents; Z79.899 Other long term (current) drug therapy; Z79.52 Long term (current) use of systemic steroids; Z98.42 Cataract extraction status, left eye; Z98.41 Cataract extraction status, right eye; Z98.890 Other specified postprocedural states; Z90.710 Acquired absence of both cervix and uterus; Z90.722 Acquired absence of ovaries, bilateral; Z98.51 Tubal ligation status; Z90.49 Acquired absence of other specified parts of digestive tract; Z90.89 Acquired absence of other organs; Z87.891 Personal history of nicotine dependence; E11.22 Type 2 diabetes mellitus with diabetic chronic kidney disease; I12.9 Hypertensive chronic kidney disease with stage 1 through stage 4 chronic kidney disease, or unspecified chronic kidney disease; N18.9 Chronic kidney disease, unspecified
CPT/HCPCS: 36415; 71045; 80048; 80053 ×2; 81001; 82150; 82330; 82550; 82553; 83605; 83690; 83735; 83880 ×2; 83970; 84443; 84484; 85025; 85379; 85610; 85730; 87086; 93005; 96361; 96374; 99284; A9270 ×3; C9113; J7030 ×3; 94640; 99223; 99238; J0696; J3010; J3475; J7050